=== PATIENT | female | born 1965 | race Two or more races ===

== ENCOUNTER → 2020-05-30 15:32 | Outpatient (BNVA) | payer OTHER, SELFPAY | PROVIDERS: PCP Internal Medicine; Referring Provider Internal Medicine; Visit Provider Nurse Practitioner | DX: K58.0 Irritable bowel syndrome with diarrhea (principal); K21.9 Gastro-esophageal reflux disease without esophagitis | CPT/HCPCS: 99212 ==

== ENCOUNTER → 2020-07-17 12:41 | Outpatient (BNVA) | payer OTHER, SELFPAY | PROVIDERS: PCP Internal Medicine; Referring Provider Internal Medicine; Visit Provider Student in an Organized Health Care Education/Training Program | DX: Z76.89 Persons encountering health services in other specified circumstances (principal) ==

== ENCOUNTER → 2020-09-04 12:45 | Outpatient (BNVA) | payer OTHER, SELFPAY | PROVIDERS: PCP Internal Medicine; Visit Provider Nurse Practitioner Family ==

== ENCOUNTER 2020-09-21 13:57 | Outpatient (REF) | payer OTHER, SELFPAY ==
[2020-09-26 21:22] LABS: HPV mRNA E6/E7 rflx Not Detected (Not Detected)
== END 2020-09-21 13:58 | disposition home or self-care (01) ==
LOC: HO.LAB 13:57
PROVIDERS: Visit Provider Advanced Practice Midwife
DX: Z01.419 Encounter for gynecological examination (general) (routine) without abnormal findings (principal); R10.2 Pelvic and perineal pain; N63.10 Unspecified lump in the right breast, unspecified quadrant; N95.0 Postmenopausal bleeding
CPT/HCPCS: 36415; 87624; 88142

== ENCOUNTER 2020-09-26 16:01 | Outpatient (REF) | payer OTHER, SELFPAY ==
--- NOTE | ~2020-09-26 | US_ITS ---
EXAMINATION: US PELVIS COMPLETE CLINICAL INFORMATION: Pelvic and perineal pain. COMPARISON: None TECHNIQUE: Transabdominal and transvaginal ultrasound of the pelvis is performed. FINDINGS: The uterus is anteverted and anteflexed measuring 6.8 cm in length, 2.1 cm in LIQUOR BLENDER, and 3.6 cm in transverse dimension. Endometrial thickness is 0.7 cm. There is an echogenic area with fluid within the endometrial canal, question hemorrhagic products. The uterus is homogeneous in echotexture. Both ovaries are not seen. No free fluid seen. US/US transvaginal IMPRESSION: Echogenic area seen within the endometrial canal, question hemorrhagic blood products or fluid collection. Correlate with hysterosonogram or clinical evaluation. Ovaries are not seen. There is no free fluid in the cul-de-sac.
--- NOTE | ~2020-09-26 | US_ITS ---
EXAMINATION: US PELVIS COMPLETE CLINICAL INFORMATION: Pelvic and perineal pain. COMPARISON: None TECHNIQUE: Transabdominal and transvaginal ultrasound of the pelvis is performed. FINDINGS: The uterus is anteverted and anteflexed measuring 6.8 cm in length, 2.1 cm in YARN COMBER, and 3.6 cm in transverse dimension. Endometrial thickness is 0.7 cm. There is an echogenic area with fluid within the endometrial canal, question hemorrhagic products. The uterus is homogeneous in echotexture. Both ovaries are not seen. No free fluid seen. US/US pelvic complete IMPRESSION: Echogenic area seen within the endometrial canal, question hemorrhagic blood products or fluid collection. Correlate with hysterosonogram or clinical evaluation. Ovaries are not seen. There is no free fluid in the cul-de-sac.
== END 2020-09-26 16:02 | disposition home or self-care (01) ==
LOC: HO.US 16:01
PROVIDERS: PCP Internal Medicine; Visit Provider Advanced Practice Midwife
DX: R10.2 Pelvic and perineal pain (principal); N95.0 Postmenopausal bleeding
CPT/HCPCS: 76830; 76856

== ENCOUNTER 2020-09-28 08:20 | Outpatient (REF) | payer OTHER, SELFPAY ==
--- NOTE | ~2020-09-28 | MM_ITS ---
EXAMINATION: MM DIAGNOSTIC DIGITAL BREAST TOMOSYNTHESIS, BILATERAL US DIAGNOSTIC ULTRASOUND BREAST, RIGHT CLINICAL INFORMATION: Due for yearly. Patient notes tender palpable area 1:00 right areolar with subtle erythema for approximately one week. Family history breast cancer, mother. The lifetime risk of breast cancer based on the Tyrer-Cuzick Model is 13%. COMPARISON: Mammography: 12/26/2015, 09/27/2014 TECHNIQUE: Digital breast tomosynthesis is performed in both the craniocaudal and mediolateral oblique views along with computer-aided detection (CAD). Synthesized 2D images are generated from the tomosynthesis. Ultrasound ultrasound right breast is targeted to the area of clinical concern using grayscale imaging and color Doppler without and with harmonics. Patient is able to the area of concern at time of imaging. FINDINGS: The breasts are heterogeneously dense, which may obscure small masses (ACR BI-RADS breast composition Category c). There is fine fibronodular parenchymal pattern similar to prior studies. There is no developing density or interval mass or architectural abnormality. No skin thickening or retraction or coarsening of the Matthias's ligaments. No significant changes from prior studies. Ultrasound right breast demonstrates a hypoechoic intradermal lesion at 1:00 areolar margin measuring 3.5 mm in thickness by 10 x 11 mm across. Lesion is parallel with the skin. There is no subdermal extension. Scant peripheral color flow is present. There is no duct ectasia. No cystic or solid breast mass. No edema tracking in soft tissue planes. Results are discussed with the patient at time of visit. MM/MM tomosynthesis diagnostic BI IMPRESSION: 1. Right: Intradermal hypoechoic lesion at site of palpable concern 1:00 areolar margin measuring 3.5 mm thickness by 10 x 11 mm across. Finding may represent sebaceous cyst or other complicated epidermal cyst. No subdermal extension. 2. Left: No mammographic evidence of malignancy. ASSESSMENT: BI-RADS 2: Benign RECOMMENDATION: 1. Patient's intradermal lesion right breast should be managed based on the clinical impression. If persistent or increasing, surgical consult may be considered for excision. 2. Otherwise, routine annual screening mammography. This patient's information was entered into a reminder system with a target due date for their next mammogram.
== END 2020-09-28 08:21 | disposition home or self-care (01) ==
LOC: HO.MAMMO 08:20
PROVIDERS: Visit Provider Advanced Practice Midwife
DX: N63.12 Unspecified lump in the right breast, upper inner quadrant (principal)
CPT/HCPCS: 76642; 77062; 77066

== ENCOUNTER → 2020-10-10 14:00 | Outpatient (REF) | payer OTHER, SELFPAY ==
--- NOTE | 2020-10-10 14:20 | CA_ITS ---
Transthoracic Echocardiogram Patient (Last, First, Middle): Giovanna Quigley J Gender: Female Date of : 1965 Age: 55 Procedure Date: 10/10/2020 Procedure Type: Transthoracic Echocardiogram Location: OP Height: 157.48 cm Weight: 69.85 kg BSA: 1.71 m2 Heart Rate: bpm BP: 134 / 89 mmHg Painter Ordnance: MARLYN Canales MD: Kassi BAH Director Payment: Jamie Hurst MD Symptoms: I25.10 - Atherosclerotic heart disease of [place] coronary artery without angina pectoris Study Quality: Fair ECG Rhythm: Sinus tachycardia Conclusions: - 1. Normal LV systolic function with grade 1 diastolic dysfunction 2. Normal cardiac valvular Doppler 3. Normal RV systolic pressure 4. No pericardial effusion Findings Left Ventricle Normal left ventricular size, thickness, and systolic function. The visually estimated ejection fraction is between 55-60%. Spectral Doppler is indicative of an impaired relaxation filling pattern. E/E prime ratio is <8, consistent with normal filling pressures. Evidence suggests grade I (mild) diastolic dysfunction. Right Ventricle Normal right ventricular cavity size and systolic function. Atria The left atrium is normal in size. Interatrial shunt cannot be excluded. The right atrium is normal in size. Aortic Valve The aortic valve was not well visualized. There is no aortic valve stenosis. There is no aortic valve regurgitation. Mitral Valve Likely normal mitral valve structure and function. There is trace mitral valve regurgitation. There is no mitral valve stenosis. Pulmonic Valve The pulmonic valve was not well visualized. Tricuspid Valve Likely normal tricuspid valve structure and function. There is trace tricuspid valve regurgitation. The right ventricular systolic pressure is normal. The right ventricular systolic pressure is 23 mmHg. Normal right atrial pressure. There is no evidence of pulmonary hypertension. Great Vessels All visible segments of the aorta are normal in size. The pulmonary artery was not well visualized. Venous The inferior vena cava is normal in size and collapses greater than 50% with inspiration. Pericardium/Pleural There is no evidence of pericardial effusion. Prior Study Comparison Changes noted compared to prior study dated: 06/16/2019. LV systolic function marginally improved Measurements 2D Linear Measurements IVSd: 1.09 0.6-0.9/0.6-1.0 cm LVIDd: 4.38 3.9-5.3/4.2-5.9 cm LVIDd Index: 2.56 2.4-3.2/2.2-3.1 cm/m2 LVIDs: 3.09 2.0-3.6 cm LVPWd: 1.03 0.7-1.1 cm Ao Root: 3.00 2.1-3.5 cm LA Diam: 2.90 2.7-3.8/3.0-4.0 cm LAIDs Index: 1.70 1.5-2.3 cm/m2 LV Mass: 198.22 67-162/88-224 g LV Mass Index: 115.92 43-95/49-115 g/m2 LVOT Diam: 2.00 3.0+(-)1.3 cm Mitral Valve E'Lateral: 12.00 Aortic Valve AoV Pk Santino: 1.79 AoV Mn Santino: 1.15 AoV VTI: 0.27 AoV Pk Grad: 13.00 Aov Mn Grad: 6.00 HINA Cont.VTI: 1.86 LVOT LVOT Pk Santino: 0.91 LVOT Mn Santino: 0.57 LVOT VTI: 0.16 LVOT Pk Grad: 3.00 LVOT Mn Grad: 2.00 LVOT Diam: 2.00 LVOT Area: 3.14 Diastolic Function E' Laterial: 12.00 Tricuspid Valve TR Pk Santino: 2.25 TR Pk Grad: 20.00 RA Press: 3.00 RVSP: 23.00 Great Vessels Aorta Ao Root-2D: 3.00 2.0-3.7 cm Ao Asc: 2.80 2.1-3.4 cm Ao Arch: 2.80 Updated in Other Vendor System with Status of Final Jamie Hurst MD electronically signed on 10/11/2020 5:21:31 PM with status of Final
== END ==
LOC: HO.CARD 14:00
PROVIDERS: PCP Internal Medicine; Visit Provider Nurse Practitioner Family
DX: I25.10 Atherosclerotic heart disease of native coronary artery without angina pectoris (principal); I10 Essential (primary) hypertension; Z95.5 Presence of coronary angioplasty implant and graft
CPT/HCPCS: 93306

== ENCOUNTER → 2020-10-23 10:54 | Outpatient (BNVA) | payer OTHER, SELFPAY | PROVIDERS: PCP Internal Medicine; Visit Provider Advanced Practice Midwife | DX: Z01.419 Encounter for gynecological examination (general) (routine) without abnormal findings (principal); R10.2 Pelvic and perineal pain; N95.0 Postmenopausal bleeding ==

== ENCOUNTER 2020-10-24 15:16 | Outpatient (REF) | payer OTHER, SELFPAY ==
[2020-10-25 14:31] LABS: BV Int Neg Control Negative (Negative); BV Int Pos Control Positive (Positive)
== END 2020-10-24 15:17 | disposition home or self-care (01) ==
LOC: HO.LAB 15:16
PROVIDERS: PCP Internal Medicine; Visit Provider Advanced Practice Midwife
DX: L73.8 Other specified follicular disorders (principal); R10.2 Pelvic and perineal pain; N89.8 Other specified noninflammatory disorders of vagina; I25.10 Atherosclerotic heart disease of native coronary artery without angina pectoris; I10 Essential (primary) hypertension; E78.5 Hyperlipidemia, unspecified; R73.03 Prediabetes; Z87.891 Personal history of nicotine dependence; Z88.5 Allergy status to narcotic agent; Z88.0 Allergy status to penicillin; Z88.8 Allergy status to other drugs, medicaments and biological substances; Z88.6 Allergy status to analgesic agent; Z91.041 Radiographic dye allergy status; Z91.040 Latex allergy status; Z78.0 Asymptomatic menopausal state; Z86.19 Personal history of other infectious and parasitic diseases
CPT/HCPCS: 87480; 87510; 87660; 99212

== ENCOUNTER → 2020-10-31 11:14 | Outpatient (BNVA) | payer OTHER, SELFPAY | PROVIDERS: PCP Internal Medicine; Visit Provider Nurse Practitioner Family | DX: I25.10 Atherosclerotic heart disease of native coronary artery without angina pectoris (principal); I10 Essential (primary) hypertension; E78.5 Hyperlipidemia, unspecified; Z87.59 Personal history of other complications of pregnancy, childbirth and the puerperium; Z95.5 Presence of coronary angioplasty implant and graft; Z79.899 Other long term (current) drug therapy; Z87.891 Personal history of nicotine dependence | CPT/HCPCS: 93005; 99212 ==

== ENCOUNTER → 2020-11-20 14:15 | Outpatient (BNVA) | payer OTHER, SELFPAY | PROVIDERS: Visit Provider Obstetrics & Gynecology ==

== ENCOUNTER → 2020-11-29 14:27 | Outpatient (BNVA) | payer OTHER, SELFPAY | PROVIDERS: PCP Internal Medicine; Visit Provider Nurse Practitioner ==

== ENCOUNTER 2020-12-05 11:49 | Outpatient (REF) | payer OTHER, SELFPAY | END 2020-12-05 11:50 | disposition home or self-care (01) | LOC: HO.LAB 11:49 | PROVIDERS: PCP Internal Medicine; Visit Provider Advanced Practice Midwife | DX: Z76.89 Persons encountering health services in other specified circumstances (principal); N76.4 Abscess of vulva | CPT/HCPCS: 56405; 87071; 87147; 87186; 87205 ==

== ENCOUNTER 2020-12-12 14:31 | Outpatient (REF) | payer OTHER, SELFPAY ==
[2020-12-13 09:54] LABS: BV Int Neg Control Negative (Negative); BV Int Pos Control Positive (Positive)
== END 2020-12-12 14:32 | disposition home or self-care (01) ==
LOC: HO.LAB 14:31
PROVIDERS: PCP Internal Medicine; Visit Provider Advanced Practice Midwife
DX: N89.8 Other specified noninflammatory disorders of vagina (principal); N90.7 Vulvar cyst; Z98.890 Other specified postprocedural states
CPT/HCPCS: 87480; 87510; 87660; 99212

== ENCOUNTER → 2020-12-21 08:39 | Outpatient (REF) | payer OTHER, SELFPAY ==
--- NOTE | ~2020-12-21 | NM_ITS ---
Exercise Myocardial perfusion study Indication: Chest pain to evaluate for myocardial ischemia Technique: The patient was brought in for an exercise perfusion study on 12/21/2020. Patient performed exercise as per Gregg protocol and was injected 25 mCi of sestamibi was given intravenously one target HR was achieved. Images were obtained using the SPECT gamma camera interlaced with the gating device. Images were obtained in supine position. Resting perfusion study was performed on 12/25/2020. Patient was administered 25 mCi of sestamibi intravenously at rest. Images were then obtained in supine position. Images obtained with and without CT attenuation. Total DLP 101 mGy-cm. Images were processed with the software and compared side to side in short axis, horizontal long axis and vertical long axis views. Findings: The stress perfusion study showed non attenuated images show normal uptake of radiotracer in all segments of LV myocardium. Attenuation corrected images show mildly reduced uptake in the distal septum and apex of the LV myocardium.. The gated study shows normal LV systolic function with calculated LVEF of 55%. LV cavity is normal in size. The gated study shows normal systolic wall thickening and contraction of all segments. There is no transient ischemic dilation. Resting study shows non attenuated images show mildly reduced uptake in the apex of the LV myocardium. Attenuation corrected images show moderately reduced uptake in the apex and mildly reduced uptake in the distal anterior wall of the LV myocardium.. Gating at rest reveals normal systolic wall motion with visually estimated ejection fraction at greater than 55%. The findings are consistent with normal myocardial perfusion. NM/NM cardiolite stress test Impression: 1. Normal myocardial perfusion 2. Gated LVEF is 55% 3. Transient ischemic dilatation not present Stress EKG is nondiagnostic for ischemia
--- NOTE | 2020-12-21 08:30 | CA_ITS ---
Acquisition Time: 2020-12-21 08:41:00 Total Exercise Time: 00:03:15 Test Indications: cp, sob Medications: see chart Protocol: TIA Max HR: 144 BPM 87% of Pred: 164 BPM Max BP: 180/110 mmHG Max Work Load: 4.9 METS Exercise stress test with exercise 3 min 15 sec of Tia protocol, with 2/10 mid chest pressure at baseline ( which never goes away ) that increased to 8/10 with walking and mild to mod sob and request to slow exercise, without EKG changes meeting criteria for ischemia. Treadmill placed in recovery and slowed to 1mph. Testing changed to pharmacological stress test with Lexiscan, without change in symptoms, without arrythmia, with normotensive response to injection, with downsloping ST segments without ST depression. In recovery her chest discomfort gradually returned to baseline and sob resolved. Nuclear images pending. Test reveiwed with Dr Downey. Referred By: Trevin Chaves Overread By: FARHANA MIX
== END ==
LOC: HO.CARD 08:39
PROVIDERS: Visit Provider Internal Medicine Cardiovascular Disease
DX: R07.9 Chest pain, unspecified (principal); I25.10 Atherosclerotic heart disease of native coronary artery without angina pectoris; Z95.5 Presence of coronary angioplasty implant and graft
CPT/HCPCS: 78452; 93016; 93017; 93018; A9500; J2785

== ENCOUNTER → 2020-12-28 13:42 | Outpatient (BNVA) | payer OTHER, SELFPAY | PROVIDERS: PCP Internal Medicine; Visit Provider Obstetrics & Gynecology | DX: N95.0 Postmenopausal bleeding (principal) | CPT/HCPCS: 99212 ==

== ENCOUNTER 2021-01-01 08:13 | Outpatient (REF) | payer OTHER, SELFPAY ==
--- NOTE | ~2021-01-01 | XR_ITS ---
EXAMINATION: XR ELBOW, RIGHT CLINICAL INFORMATION: Pain in elbow COMPARISON: 03/08/2019 left elbow, 10/14/2016 right elbow TECHNIQUE: AP, lateral, and oblique views of the right elbow. FINDINGS: The bones and soft tissues are normal. No fracture or joint effusion. Alignment is anatomic. Joint spaces are maintained. XR/XR elbow RT min 3V IMPRESSION: Normal right elbow.
== END 2021-01-01 08:14 | disposition home or self-care (01) ==
LOC: HO.HOSX 08:13
PROVIDERS: Visit Provider Physician Assistant
DX: M77.01 Medial epicondylitis, right elbow (principal)
CPT/HCPCS: 73080; 99202

== ENCOUNTER 2021-01-24 12:25 | Day surgery (SDC) | payer OTHER, SELFPAY ==
[2021-01-22 09:59] VITALS: BMI 25.2
[2021-01-24] VITALS (11 sets, daily range): BP systolic 82–157; BP diastolic 59–97; PULSE 73–92; RESP 7–20; TEMP 36–36.4; O2SAT 94–100
--- NOTE | 2021-01-24 12:55 | HO.ANESPROP2 ---
HPI - Anesthesia Eval Consult details Narrative: 55 yo female patient for D&C, hysteroscopy PMF Active Problems Active Problems: All Active Problems (Updated 01/11/21 @ 19:27 by Chen Pond MD) Insomnia (Acute) Renal calculi (Acute) Medial epicondylitis, right elbow (Acute) Lateral epicondylitis of right elbow (Acute) Elbow pain (Acute) Thoracic spondylosis with radiculopathy (Acute) Epigastric pain (Acute) Chest pain (Acute) Skin lumps (Acute) Encounter to discuss test results (Acute) Postmenopausal bleeding (Acute) Lump of right breast (Acute) Pelvic pain in female (Acute) Breast lump (Acute) Encounter for annual routine gynecological examination (Acute) cardiomyopathy (Acute ~2003) Stented coronary artery (Acute ~2006) CAD (coronary artery disease) (Acute) Dyslipidemia (Acute) Essential hypertension (Acute) Fibromyalgia (Acute) Irritable bowel syndrome with diarrhea (Acute) GERD (gastroesophageal reflux disease) (Acute) Past Medical History Medical History (Updated 01/24/21 @ 13:07 by Felipa Salter) CAD (coronary artery disease) COVID-19 Dyslipidemia Essential hypertension Fibromyalgia Insomnia Lower extremity edema cardiomyopathy (~2003) Renal calculi Shortness of breath Family History Family History Father CVD (cardiovascular disease) HTN (hypertension) Cancer Type 2 diabetes mellitus Mother Breast cancer HTN (hypertension) Family/Other Diabetes Family history of problems with anesthesia: No Surgical History Surgical History Hx of colonoscopy Hx of endoscopy Stented coronary artery (~2006) History of Problems with Anesthesia: No Social History Social History Household Members: Children Housing: Apartment Alcohol intake: never Patient Tobacco Use Status: Former Tobacco user Tobacco use type: Cigarette Years Smoked: 3 months e-Cigarette/Vaping Use: Never Used Second Hand Smoke Exposure: No Advance Directives: No Advance Directives Information Provided: Yes service: No Current occupational status: disabled Gender identity: female Meds Allergies Allergy/AdvReac Type Severity Reaction Status Date / Time carvedilol [Coreg] Allergy Intermediate hives Verified 01/24/21 13:12 codeine Allergy Intermediate hives Verified 01/24/21 13:12 latex [LATEX] Allergy Intermediate RASH Verified 01/24/21 13:12 lisinopril Allergy Intermediate hives Verified 01/24/21 13:12 metronidazole [Flagyl] Allergy Intermediate diarrhea Verified 01/24/21 13:12 oxycodone [OXYCODONE] Allergy Intermediate RASH/HIVES Verified 01/24/21 13:12 Penicillins [PENICILLINS] Allergy Intermediate limp legs Verified 01/24/21 13:12 Iodinated Contrast Media Allergy Mild RASH/HIVES Verified 01/24/21 13:12 [IV Dye, Iodine Containing] topiramate AdvReac Intermediate ineffective Verified 01/24/21 13:12 Home Medications Medication Instructions Recorded Confirmed Last Taken Type cyclobenzaprine 5 mg tablet 5 mg PO BEDTIME 07/17/20 01/10/21 Unknown History metoprolol succinate 50 mg 50 mg PO DAILY 07/17/20 01/10/21 Unknown History tablet,extended release 24 hr furosemide 20 mg tablet 10 mg PO DAILY PRN tab 11/29/20 01/10/21 Unknown History Exam Exam Date and Time: January 24, 2021 1255 Height,Weight and Vital Signs: Height 5 ft 2 in Weight 62.596 kg Vital Signs Temp Pulse Resp BP Pulse Ox 01/24/21 13:10 97.4 F 86 20 157/97 H 99 Narrative Narrative: EKG 10/31/20: [id number].76 Date of Service: 12/21/20 Procedure(s): NM cardiolite stress test Impression: 1. Normal myocardial perfusion 2. Gated LVEF is 55% 3. Transient ischemic dilatation not present Stress EKG is nondiagnostic for ischemia Date of Service: 10/10/20 Procedure(s): CA echo transthoracic complete Conclusions: - 1. Normal LV systolic function with grade 1 diastolic dysfunction. EF 55-60% 2. Normal cardiac valvular Doppler 3. Normal RV systolic pressure 4. No pericardial effusion Spectral Doppler is indicative of an impaired relaxation filling pattern. Has contact lens Right eye. Sleeps with contact lens in. Will leave in place Airway Mallampati Class: II TM Dist: >3cm Neck ROM: Full Partial: Upper and Lower Heart: RRR + murmur Lungs: CTAB Assessment and Plan Assessment Anesthesia Assessment: Anesthesia Plan Discussed and Chart Reviewed Final Anesthetic Review NPO: Yes ASA Class: III Final Preanesthetic Review: No Changes in Pt Med Stat, Meds/Allgs Chart Reviewed, Consent Obtained/Reviewed and Anes Risks/Benef Reviewed Patient Risk: Intermediate Procedure Risk: Low Assessment/Block/Sedation in SS: Assess/Block/Sedation-SS Anesthetic Plan Anesthetic Plan: GA Disposition: Standard PACU
--- NOTE | 2021-01-24 13:09 | MHC.SHP ---
Pre-Procedural Eval Section A Date of Service: 01/24/21 The patient is an INPATIENT: No Changes since office visit: No Cold of Flu in the past 2 weeks, No New Medical Problems, No Changes in Medication and No Patient answered all questions The History & Physical has been completed within 30 days and I have reviewed it.: Yes Section B Chief Complaint: postmenopausal bleeding Allergies: Allergies Allergy/AdvReac Type Severity Reaction Status Date / Time carvedilol [Coreg] Allergy Intermediate hives Verified 01/10/21 16:20 codeine Allergy Intermediate hives Verified 01/10/21 16:20 latex [LATEX] Allergy Intermediate RASH Verified 01/10/21 16:20 lisinopril Allergy Intermediate hives Verified 01/10/21 16:20 metronidazole [Flagyl] Allergy Intermediate diarrhea Verified 01/10/21 16:20 oxycodone [OXYCODONE] Allergy Intermediate RASH/HIVES Verified 01/10/21 16:20 Penicillins [PENICILLINS] Allergy Intermediate limp legs Verified 01/10/21 16:20 Iodinated Contrast Media Allergy Mild RASH/HIVES Verified 01/10/21 16:20 [IV Dye, Iodine Containing] topiramate AdvReac Intermediate ineffective Verified 01/10/21 16:20 Plan I have reviewed the history and physical and performed a pertinent physical examination on my patient. No changes have occurred unless specified.
--- NOTE | 2021-01-24 13:10 | W.PM.OPN ---
Operative Note Operative Note Date of Service: 01/24/21 Narrative: Pre-Op Diagnoses: postmenopausal bleeding, thickened endometrium on ultrasound Post-op Diagnoses: postmenopausal bleeding, thickened endometrium on ultrasound Procedures performed: hysteroscopy dilation and curettage with myosure [place] Machine Operator: none Complications: none Specimens: endometrial curettings Fluid Deficit: 290mL Ms. Quigley is a 55 year old postmenopausal with postmenopausal bleeding. She presents today for hysteroscopy d&c for further evaluation after pelvic US demonstrated a thickened endometrial lining of 7mm. Surgical Risks: The patient was informed of the risks and benefits of a hysteroscopy with dilation and curettage. Risks included but were not limited to bleeding, infection, injury to the vulva, vagina, or cervix, and uterine perforation with possible need for further surgery. The patient expressed understanding of the risks involved, all questions were answered, and the patient consented to the procedure. The patient was taken to the operating room where a time out was confirmed to confirm correct patient and correct procedure. Adequate general anesthesia was established. The patient was then positioned on the operating table in the dorsal lithotomy position with her legs supported using stirrups. All pressure points were padded and a warm blanket was placed to maintain control of core body temperature. The patient was then prepped and draped in the usual sterile fashion. A bimanual exam was performed and the uterus was found to be approximately 6 cm size, anteverted. No adnexal masses were palpated. A straight catheter was inserted into the bladder and 50mL of urine was obtained. A bivalve speculum was then inserted into the vagina. The anterior lip of the cervix was visualized and grasped using a single tooth tenaculum. A paracervical block was performed by injecting 0.5% bupivicaine, 6mL each at 4 and 8 o'clock after withdrawing to confirm placement not in a blood vessel. The cervix was adequately dilated using Mcdaniel dilators for the introduction of the hysteroscope. The hysteroscope was introduced under direct visualization using normal saline solution as the distending media. Creation of a false passage which terminated in posterior myometrium was noted. The hysteroscope was advanced to the fundus and the entire uterine cavity was inspected. Atrophic appearing endometrium was noted; polypoid appearing tissue was noted in the cervical canal. The myosure device was advanced and curettage performed covering the endometrial surface. in 360 degrees. The hysteroscope was then removed with the Myosure within the hysteroscope. Endometrial tissue was obtained and was sent to pathology. Following the curetting, good hemostasis was noted. The single-tooth tenaculum was removed from the anterior lip of the cervix and hemostasis was also noted at the tenaculum puncture sites. The speculum was then removed from the vagina. At the end of the procedure, all needle, sponge, and instrument counts were noted to be correct x2. The patient was transferred to the recovery room in stable condition.
[2021-01-24] MEDS: Lactated Ringers 1,000 ML 100 ML IVCONT (13:33)
[2021-01-24] MEDS: Ketorolac Tromethamine 15 MG/ML VIAL IVPUSH (14:40)
[2021-01-24] MEDS: fentaNYL citrate/PF 100 MCG/2 ML VIAL 25 MCG IVPUSH ×2 (14:40→14:52)
[2021-01-24] MEDS: HYDROcodone Bit/Acetam 5/325 TABLET 1 TAB PO (14:40)
== END 2021-01-24 16:00 | disposition home or self-care (01) ==
LOC: HO.SSS 12:26
PROVIDERS: PCP Internal Medicine; Visit Provider Obstetrics & Gynecology
PROC: 0UDB8ZZ Extraction of Endometrium, Via Natural or Artificial Opening Endoscopic (ICD-10-PCS; CPT 58558; principal; 2021-01-24 14:30)
DX: N95.0 Postmenopausal bleeding (principal); N84.1 Polyp of cervix uteri; N85.8 Other specified noninflammatory disorders of uterus; I10 Essential (primary) hypertension; Z79.82 Long term (current) use of aspirin; Z79.899 Other long term (current) drug therapy; Z88.0 Allergy status to penicillin; Z88.8 Allergy status to other drugs, medicaments and biological substances; Z91.040 Latex allergy status; Z91.041 Radiographic dye allergy status; Z87.891 Personal history of nicotine dependence
CPT/HCPCS: 58558; 88305; J1100; J1885; J2250; J2405; J3010

== ENCOUNTER 2021-02-04 09:57 | Outpatient (RCR) | payer OTHER, SELFPAY ==
--- NOTE | 2021-02-19 08:28 | MHC.OT.DC ---
[address] [phone] F: [phone] Occupational Therapy Discharge Note Provider: Guillermina High PA-C Diagnosis: Right medial and radial epicondylitis Date of Evaluation: 02/04/21 Date of Discharge: 02/19/21 Treatments to Date: 1 Cancellations to Date: 5 No Shows to Date: 1 Discharge Status: Visit Non-compliance Discharge Summary: Giovanna was seen for her initial OT Evaluation, but has not returned since and has had multiple cancellations and no-shows. We will discharge today due to our visit non-compliance policy. Electronically Signed By: Alice Jensen OTR/L Please Sign and return to therapist, thank you for your referral.
== END 2021-02-19 08:29 | disposition home or self-care (01) ==
LOC: HO.OT 09:57
PROVIDERS: PCP Internal Medicine; Visit Provider Physician Assistant
DX: M77.01 Medial epicondylitis, right elbow (principal)
CPT/HCPCS: 97166

== ENCOUNTER 2021-02-04 11:23 | Outpatient (REF) | payer OTHER, SELFPAY ==
[2021-02-04 13:32] LABS: Alanine Aminotransferase 20 U/L (0-31); Albumin Level 4.1 g/dL (3.5-5.0); Alkaline Phosphatase 95 U/L (39-117); Anion Gap 14 (12-20); Aspartate Amino Transferase 12 U/L (5-31); Bilirubin Total 0.6 mg/dL (0.0-1.0); Blood Urea Nitrogen 9 mg/dL (9-16); Calcium 9.9 mg/dL (8.4-10.2); Carbon Dioxide 27 mmol/L (22-29); Chloride 101 mmol/L (96-108); Cholesterol 183 mg/dL; Estimated Glomerular Filt Rate 54; Glucose Fasting 415 mg/dL (60-99); HDL Cholesterol 41 mg/dL; LDL Cholesterol Calculated 121 mg/dl; Potassium 4.7 mmol/L (3.3-5.1); Sodium 137 mmol/L (135-145); Total Protein 6.8 g/dL (6.5-8.0); Triglycerides 108 mg/dL
== END 2021-02-04 11:24 | disposition home or self-care (01) ==
LOC: HO.LAB 11:23
PROVIDERS: PCP Internal Medicine; Visit Provider Internal Medicine
DX: E78.5 Hyperlipidemia, unspecified (principal); M25.529 Pain in unspecified elbow
CPT/HCPCS: 36415; 80053; 80061

== ENCOUNTER → 2021-02-05 10:57 | Outpatient (BNVA) | payer OTHER, SELFPAY | PROVIDERS: PCP Internal Medicine; Visit Provider Advanced Practice Midwife ==

== ENCOUNTER 2021-02-25 10:20 | Outpatient (REF) | payer OTHER, SELFPAY ==
--- NOTE | ~2021-02-25 | US_ITS ---
EXAMINATION: US RETROPERITONEAL LIMITED (RENAL ONLY) CLINICAL INFORMATION: Calculus of kidney. COMPARISON: Renals only ultrasounds dated 02/23/2019 and 01/19/2019. KUBs dated 01/26/2019 and 12/29/2018. CT abdomen and pelvis without contrast dated 09/04/2018. TECHNIQUE: Real-time imaging of the kidneys. FINDINGS: RIGHT KIDNEY: 10.6 x 3.7 x 5.2 cm (SAG x AP x TRV). The kidney is normal in size, contour, and echogenicity. Renal cortical thickness is normal. No calculi or focal parenchymal lesions. No hydronephrosis. LEFT KIDNEY: 11.0 x 4.4 x 4.8 cm (SAG x AP x TRV). The kidney is normal in size, contour, and echogenicity. Renal cortical thickness is normal. No focal parenchymal lesions or hydronephrosis. Cluster of echogenic stones in lower pole measuring 0.8 x 0.2 x 0.3 cm. There is a second echogenic area measuring 0.5 x 0.2 x 0.3 cm overlying the left mid pelvis, question calcification. US/US renal BI IMPRESSION: Unremarkable right kidney. Cluster of echogenic stones in the lower pole and calcifications versus echogenic stone in midpole of left kidney. There is no caliectasis or hydronephrosis.
== END 2021-02-25 10:21 | disposition home or self-care (01) ==
LOC: HO.US 10:20
PROVIDERS: Visit Provider Internal Medicine
DX: N20.0 Calculus of kidney (principal)
CPT/HCPCS: 76775

== ENCOUNTER → 2021-03-15 10:26 | Outpatient (BNVA) | payer OTHER, SELFPAY | PROVIDERS: PCP Internal Medicine; Visit Provider Nurse Practitioner ==

== ENCOUNTER 2021-04-10 10:12 | Outpatient (REF) | payer OTHER, SELFPAY | END 2021-04-10 10:13 | disposition home or self-care (01) | LOC: HO.XRAY 10:12 | PROVIDERS: PCP Internal Medicine; Visit Provider Nurse Practitioner | DX: Z13.89 Encounter for screening for other disorder (principal) ==

== ENCOUNTER → 2021-04-17 10:29 | Outpatient (BNVA) | payer OTHER, SELFPAY | PROVIDERS: PCP Internal Medicine | DX: N20.0 Calculus of kidney (principal) | CPT/HCPCS: 81002; 99212 ==

== ENCOUNTER 2021-04-18 08:57 | Outpatient (REF) | payer OTHER, SELFPAY ==
--- NOTE | ~2021-04-18 | US_ITS ---
EXAMINATION: US ABDOMEN COMPLETE CLINICAL INFORMATION: Epigastric pain. COMPARISON: Renal ultrasound 02/25/2021 and 02/23/2019. KUB 01/26/2019 and 12/29/2018. CT abdomen and pelvis 09/04/2018. TECHNIQUE: Real-time imaging of the abdominal viscera. FINDINGS: PANCREAS: Normal. ABDOMINAL AORTA: The proximal, mid, and distal segments are normal in caliber. INFERIOR VENA CAVA: Visualized portions are normal. LIVER: The liver is normal in size. The liver contour is normal. Slightly heterogeneous hepatic echotexture with increased echogenicity suggesting hepatic steatosis. No focal hepatic lesion. There is no intrahepatic biliary duct dilatation seen. GALLBLADDER: Normal. The gallbladder is physiologically distended without evidence of stones, sludge, polyps, wall thickening or pericholecystic fluid. Sonographic Stanley sign is negative. COMMON BILE DUCT: Normal in caliber measuring 0.4 cm in diameter. RIGHT KIDNEY: Right-sided nephrolithiasis the largest measuring 4 mm in the interpolar region. Extrarenal pelvis identified. No hydronephrosis or focal parenchymal lesions. The kidney measures 10.4 cm in maximum dimension. LEFT KIDNEY: Left-sided nephrolithiasis the largest measuring 8 mm in the lower pole. Extrarenal pelvis identified. No hydronephrosis or focal parenchymal lesions. The kidney measures 10.4 cm in maximum dimension. SPLEEN: Normal. The spleen measures 8.8 cm in maximum dimension. FREE FLUID: None. US/US abdomen complete IMPRESSION: 1. Slightly heterogeneous hepatic echotexture with increased echogenicity suggesting hepatic steatosis. 2. Bilateral nephrolithiasis largest measuring 8 mm in the left renal lower pole without hydronephrosis.
== END 2021-04-18 08:58 | disposition home or self-care (01) ==
LOC: HO.US 08:57
PROVIDERS: PCP Internal Medicine; Visit Provider Nurse Practitioner
DX: R10.13 Epigastric pain (principal); K21.9 Gastro-esophageal reflux disease without esophagitis; K58.0 Irritable bowel syndrome with diarrhea; M79.7 Fibromyalgia; M47.24 Other spondylosis with radiculopathy, thoracic region
CPT/HCPCS: 76700

== ENCOUNTER 2021-04-24 11:51 | Day surgery (SDC) | payer OTHER, SELFPAY ==
--- NOTE | 2021-04-23 10:45 | P.CONAN_ITS ---
Documented by User: Viola Franz NP 04/23/21 10:50 HPI - Anesthesia Eval Consult details Narrative: 55yo F for Upper Endoscopy *Multiple Allergies* s/p D&C hyst 01/2021 with GA-LMA 4 PMFSH Active Problems Active Problems: All Active Problems (Updated 02/04/21 @ 13:44 by Chen Pond MD) History of biopsy (Acute) Diabetes mellitus (Acute) Lower extremity edema (Acute) Shortness of breath (Acute) Insomnia (Acute) Renal calculi (Acute) Medial epicondylitis, right elbow (Acute) Lateral epicondylitis of right elbow (Acute) Elbow pain (Acute) Thoracic spondylosis with radiculopathy (Acute) Epigastric pain (Acute) Chest pain (Acute) Skin lumps (Acute) Encounter to discuss test results (Acute) Postmenopausal bleeding (Acute) Lump of right breast (Acute) Pelvic pain in female (Acute) Breast lump (Acute) Encounter for annual routine gynecological examination (Acute) cardiomyopathy (Acute ~2003) Stented coronary artery (Acute ~2006) CAD (coronary artery disease) (Acute) Dyslipidemia (Acute) Essential hypertension (Acute) Fibromyalgia (Acute) Irritable bowel syndrome with diarrhea (Acute) GERD (gastroesophageal reflux disease) (Acute) Past Medical History Medical History CAD (coronary artery disease) COVID-19 Diabetes mellitus Dyslipidemia Essential hypertension Fibromyalgia Insomnia Lower extremity edema cardiomyopathy (~2003) Renal calculi Shortness of breath Family History Family History Father CVD (cardiovascular disease) HTN (hypertension) Cancer Type 2 diabetes mellitus Mother Breast cancer HTN (hypertension) Family/Other Diabetes Family history of problems with anesthesia: No Surgical History Surgical History Hx of colonoscopy Hx of endoscopy Stented coronary artery (~2006) History of Problems with Anesthesia: No Social History Social History Household Members: Children Housing: Apartment Alcohol intake: never Patient Tobacco Use Status: Former Tobacco user Tobacco use type: Cigarette Years Smoked: 3 months e-Cigarette/Vaping Use: Never Used Second Hand Smoke Exposure: No Use of substances other than those prescribed or required for medical reasons: No Are you DNR?: No Advance Directives: No Advance Directives Information Provided: Yes Advance Directives on File: No service: No Current occupational status: disabled Gender identity: Female Meds Allergies Allergy/AdvReac Type Severity Reaction Status Date / Time carvedilol [Coreg] Allergy Intermediate hives Verified 03/15/21 10:26 codeine Allergy Intermediate hives Verified 03/15/21 10:26 latex [LATEX] Allergy Intermediate RASH Verified 03/15/21 10:26 lisinopril Allergy Intermediate hives Verified 03/15/21 10:26 metronidazole [Flagyl] Allergy Intermediate diarrhea Verified 03/15/21 10:26 oxycodone [OXYCODONE] Allergy Intermediate RASH/HIVES Verified 03/15/21 10:26 Penicillins [PENICILLINS] Allergy Intermediate limp legs Verified 03/15/21 10:26 Iodinated Contrast Media Allergy Mild RASH/HIVES Verified 03/15/21 10:26 [IV Dye, Iodine Containing] topiramate AdvReac Intermediate ineffective Verified 03/15/21 10:26 Home Medications Medication Instructions Recorded Confirmed Last Taken Type metoprolol succinate 50 mg 50 mg PO DAILY 07/17/20 01/10/21 Unknown History tablet,extended release 24 hr furosemide 20 mg tablet 10 mg PO DAILY PRN tab 11/29/20 01/10/21 Unknown History Exam Exam Date and Time: April 23, 2021 1045 Pertinent Lab Results Pertinent Lab Results: Laboratory Tests 09/05/19 02/04/21 19:49 11:37 WBC 6.7 Hgb 13.6 Hct 39.0 Plt Count 278 Sodium 137 Potassium 4.7 Chloride 101 Carbon Dioxide 27 BUN 9 Creatinine 1.06 Narrative Narrative: EKG 10/31/20: [id number].76 Date of Service: 12/21/20 Procedure(s): NM cardiolite stress test Impression: ? 1.? Normal myocardial perfusion 2.? Gated LVEF is 55% 3. Transient ischemic dilatation not present ? Stress EKG is nondiagnostic for ischemia Date of Service: 10/10/20 Procedure(s): CA echo transthoracic complete Conclusions: -? 1. Normal LV systolic function with grade 1 diastolic? dysfunction. EF 55-60%? 2. Normal cardiac valvular Doppler? 3. Normal RV systolic pressure? 4. No pericardial effusion? Spectral Doppler is indicative of an impaired relaxation filling pattern.? Assessment and Plan Assessment Anesthesia Assessment: Chart Reviewed Final Anesthetic Review Family History of Problems with Anesthesia: No History of Problems with Anesthesia: No Documented by User: Felipa Salter MD 04/24/21 13:04 [facility] Active Problems Active Problems: All Active Problems (Updated 02/04/21 @ 13:44 by Chen Pond MD) History of biopsy (Acute) Diabetes mellitus (Acute) Lower extremity edema (Acute) Shortness of breath (Acute) Insomnia (Acute) Renal calculi (Acute) Medial epicondylitis, right elbow (Acute) Lateral epicondylitis of right elbow (Acute) Elbow pain (Acute) Thoracic spondylosis with radiculopathy (Acute) Epigastric pain (Acute) Chest pain (Acute) Skin lumps (Acute) Encounter to discuss test results (Acute) Postmenopausal bleeding (Acute) Lump of right breast (Acute) Pelvic pain in female (Acute) Breast lump (Acute) Encounter for annual routine gynecological examination (Acute) cardiomyopathy (Acute ~2003) Stented coronary artery (Acute ~2006). On baby aspirin CAD (coronary artery disease) (Acute). Stable angina. Has NTG but has not needed to use. Dyslipidemia (Acute) Essential hypertension (Acute) Fibromyalgia (Acute) Irritable bowel syndrome with diarrhea (Acute) GERD (gastroesophageal reflux disease) (Acute) Past Medical History Medical History CAD (coronary artery disease) COVID-19 Diabetes mellitus Dyslipidemia Essential hypertension Fibromyalgia Insomnia Lower extremity edema cardiomyopathy (~2003) Renal calculi Shortness of breath Family History Family History Father CVD (cardiovascular disease) HTN (hypertension) Cancer Type 2 diabetes mellitus Mother Breast cancer HTN (hypertension) Family/Other Diabetes Surgical History Surgical History Hx of colonoscopy Hx of endoscopy Stented coronary artery (~2006) Social History Social History Household Members: Children Housing: Apartment Alcohol intake: never Patient Tobacco Use Status: Former Tobacco user Tobacco use type: Cigarette Years Smoked: 3 months e-Cigarette/Vaping Use: Never Used Second Hand Smoke Exposure: No Use of substances other than those prescribed or required for medical reasons: No Are you DNR?: No Advance Directives: No Advance Directives Information Provided: Yes Advance Directives on File: No service: No Current occupational status: disabled Gender identity: Female Meds Allergies Allergy/AdvReac Type Severity Reaction Status Date / Time carvedilol [Coreg] Allergy Intermediate hives Verified 03/15/21 10:26 codeine Allergy Intermediate hives Verified 03/15/21 10:26 latex [LATEX] Allergy Intermediate RASH Verified 03/15/21 10:26 lisinopril Allergy Intermediate hives Verified 03/15/21 10:26 metronidazole [Flagyl] Allergy Intermediate diarrhea Verified 03/15/21 10:26 oxycodone [OXYCODONE] Allergy Intermediate RASH/HIVES Verified 03/15/21 10:26 Penicillins [PENICILLINS] Allergy Intermediate limp legs Verified 03/15/21 10:26 Iodinated Contrast Media Allergy Mild RASH/HIVES Verified 03/15/21 10:26 [IV Dye, Iodine Containing] topiramate AdvReac Intermediate ineffective Verified 03/15/21 10:26 Home Medications Medication Instructions Recorded Confirmed Last Taken Type metoprolol succinate 50 mg 50 mg PO DAILY 07/17/20 01/10/21 Unknown History tablet,extended release 24 hr furosemide 20 mg tablet 10 mg PO DAILY PRN tab 11/29/20 01/10/21 Unknown History Exam Height,Weight and Vital Signs: Height 5 ft 2 in Weight 63.049 kg Vital Signs Temp Pulse Resp BP Pulse Ox 04/24/21 12:31 98.5 F 69 16 175/86 H 97 Pertinent Lab Results Pertinent Lab Results: Laboratory Tests 09/05/19 02/04/21 19:49 11:37 WBC 6.7 Hgb 13.6 Hct 39.0 Plt Count 278 Sodium 137 Potassium 4.7 Chloride 101 Carbon Dioxide 27 BUN 9 Creatinine 1.06 Lab Results 04/24/21 Range/Units 12:28 POC Glucose 79 (60-115) mg/dL Airway Mallampati Class: II TM Dist: >3cm Neck ROM: Full Partial: Upper and Lower (Does not wear) Heart: RRR Lungs: CTAB Assessment and Plan Assessment Anesthesia Assessment: Anesthesia Plan Discussed Final Anesthetic Review NPO: Yes ASA Class: III Final Preanesthetic Review: No Changes in Pt Med Stat, Meds/Allgs Chart Reviewed, Consent Obtained/Reviewed and Anes Risks/Benef Reviewed Patient Risk: Intermediate Procedure Risk: Low Assessment/Block/Sedation in SS: Assess/Block/Sedation-SS Anesthetic Plan Anesthetic Plan: MAC: Disposition: Standard PACU
[2021-04-24 12:23] VITALS: BMI 25.4
[2021-04-24 12:31] VITALS: BP 175/86; PULSE 69; RESP 16; TEMP 36.9; O2SAT 97
[2021-04-24 12:36] LABS: Glucose, Whole Blood 79 mg/dL (60-115)
[2021-04-24] MEDS: Lactated Ringers 1,000 ML 100 ML IVCONT (12:44)
--- NOTE | 2021-04-24 14:05 | MHC.SHP ---
Pre-Procedural Eval Section A Date of Service: 04/24/21 Section B Chief Complaint: epigastric pain Relevant Family History (Specify if Yes): No Relevant Social History: None Present Medications: see Short Stay Collaborative assessment Medical History: Significant History (CAD (coronary artery disease) COVID-19 Diabetes mellitus Dyslipidemia Essential hypertension Fibromyalgia Insomnia Lower extremity edema cardiomyopathy (~2003) Renal calculi Shortness of breath) History of Previous Operations: Relevant previous surgery/procedure and date(s) (Hx of colonoscopy Hx of endoscopy Stented coronary artery (~2006)) Allergies: Allergies Allergy/AdvReac Type Severity Reaction Status Date / Time carvedilol [Coreg] Allergy Intermediate hives Verified 03/15/21 10:26 codeine Allergy Intermediate hives Verified 03/15/21 10:26 latex [LATEX] Allergy Intermediate RASH Verified 03/15/21 10:26 lisinopril Allergy Intermediate hives Verified 03/15/21 10:26 metronidazole [Flagyl] Allergy Intermediate diarrhea Verified 03/15/21 10:26 oxycodone [OXYCODONE] Allergy Intermediate RASH/HIVES Verified 03/15/21 10:26 Penicillins [PENICILLINS] Allergy Intermediate limp legs Verified 03/15/21 10:26 Iodinated Contrast Media Allergy Mild RASH/HIVES Verified 03/15/21 10:26 [IV Dye, Iodine Containing] topiramate AdvReac Intermediate ineffective Verified 03/15/21 10:26 Review of Systems Sugical H&P ROS: Negative: Constitution, Cardiovascular, Respiratory, Neurological, Psychiatric, Hem-Onc, Allergic/Immunologic, Gastrointestinal, Genitourinary, Musculoskeletal, Integumentary, Endocrine and Eyes/Ears/Nose/Throat Exam Surgical H&P Exam: Normal: HEENT, Normal: Heart, Normal: Lungs, Normal: Extremities, Normal: Abdomen, Normal: Skin and Normal: Neurological Plan Diagnosis/Plan: Unchanged I have reviewed the history and physical and performed a pertinent physical examination on my patient. No changes have occurred unless specified.
--- NOTE | 2021-04-24 14:23 | PM.OP ---
Brief Operative Note Date of Service: 04/24/21 Pre-op diagnosis: epigastric pain Post-op diagnosis: same Procedure: see op note Surgeon: Capo Little MD Anesthesia: MAC Was an Licensed Real Estate Broker used for this Procedure?: No Estimated blood loss (mL): 0 Condition: stable Disposition: PACU
--- NOTE | 2021-04-24 14:36 | W.PM.OPN ---
Operative Note Operative Note Date of Service: 04/24/21 Narrative: Procedure Description: EGD FLEXIBLE TRANSORAL UPPER GASTROINTESTINAL ENDOSCOPY UPPER ENDOSCOPY Consent: Indications for the procedure and potential complications of bleeding, perforation, reaction to medications and missed diagnosis were discussed with the patient and informed consent was obtained. Instrument: Olympus GIF H 190 J mid size upper endoscope Monitoring: Vital signs and clinical assessment, continuous EKG monitoring, Pulse oximetry, Carbon Dioxide monitoring and blood pressure monitoring were done throughout the procedure. Procedure: The patient was placed in the left lateral decubitis position and pre-procedure medications were administered and a bite block was placed. The endoscope was inserted into the mouth and advanced under direct vision to the third part of duodenum. A careful inspection was made as the upper endoscope was withdrawn including a retroflexed examination of the proximal stomach; Findings and interventions are described below. Findings: Larynx:normal Esophagus: GE junction at 38 cm, diaphragm hiatus at 38 cm, mild LA grade A esophagitis, bx taken from GEJ and random esophagus Stomach: Patchy blotchy gastric erythema w/ scarred areas. Biopsies were obtained. Grade 2 flap valve on retroflexed examination of the cardia. Duodenum: Normal bulb and descending duodenum, bx taken Intervention: Biopsies as noted above Impression/Findings: gastritis esophagitis PLAN: await bx if h pylori pos then treat if neg then GES to r/o gastroparesis
[2021-04-24 14:43] VITALS: BP 94/51; PULSE 71; RESP 16; TEMP 36.2; O2SAT 93
[2021-04-24 14:58] VITALS: BP 116/71; PULSE 79; RESP 16; O2SAT 97
[2021-04-24 15:13] VITALS: BP 135/78; PULSE 69; RESP 16; TEMP 36.2; O2SAT 97
== END 2021-04-24 16:12 | disposition home or self-care (01) ==
PROVIDERS: PCP Internal Medicine; Visit Provider Internal Medicine Gastroenterology
PROC: 0DJ08ZZ Inspection of Upper Intestinal Tract, Via Natural or Artificial Opening Endoscopic (ICD-10-PCS; CPT 43235; principal; 2021-04-24 13:20)
DX: R10.13 Epigastric pain (principal); K29.50 Unspecified chronic gastritis without bleeding; K21.00 Gastro-esophageal reflux disease with esophagitis, without bleeding; K44.9 Diaphragmatic hernia without obstruction or gangrene; K58.0 Irritable bowel syndrome with diarrhea; I25.10 Atherosclerotic heart disease of native coronary artery without angina pectoris; Z98.61 Coronary angioplasty status; I10 Essential (primary) hypertension; E11.9 Type 2 diabetes mellitus without complications; M79.7 Fibromyalgia; Z79.82 Long term (current) use of aspirin; Z79.899 Other long term (current) drug therapy; Z88.0 Allergy status to penicillin; Z88.1 Allergy status to other antibiotic agents; Z88.8 Allergy status to other drugs, medicaments and biological substances; Z91.040 Latex allergy status; Z91.041 Radiographic dye allergy status; Z87.891 Personal history of nicotine dependence; Z87.442 Personal history of urinary calculi; Z86.16 Personal history of COVID-19
CPT/HCPCS: 43239; 82947; 88305; 88342; J3010

== ENCOUNTER → 2021-05-03 08:40 | Outpatient (BNVA) | payer OTHER, SELFPAY | PROVIDERS: PCP Internal Medicine; Visit Provider Nurse Practitioner ==

== ENCOUNTER → 2021-05-14 09:10 | Outpatient (BNVA) | payer OTHER, SELFPAY | PROVIDERS: PCP Internal Medicine; Referring Provider Internal Medicine; Visit Provider Nurse Practitioner Family | DX: Z13.6 Encounter for screening for cardiovascular disorders (principal) | CPT/HCPCS: 93005 ==

== ENCOUNTER → 2021-05-15 15:28 | Outpatient (BNVA) | payer OTHER, SELFPAY | PROVIDERS: PCP Internal Medicine; Referring Provider Internal Medicine; Visit Provider Nurse Practitioner Family | DX: Z01.810 Encounter for preprocedural cardiovascular examination (principal); I25.10 Atherosclerotic heart disease of native coronary artery without angina pectoris; I10 Essential (primary) hypertension; E78.5 Hyperlipidemia, unspecified; Z95.5 Presence of coronary angioplasty implant and graft; Z86.79 Personal history of other diseases of the circulatory system | CPT/HCPCS: 99212 ==

== ENCOUNTER 2021-05-31 11:43 | Outpatient (REF) | payer OTHER, SELFPAY | END 2021-05-31 11:44 | disposition home or self-care (01) | LOC: HO.XRAY 11:43 | PROVIDERS: PCP Internal Medicine; Visit Provider Internal Medicine | DX: Z13.89 Encounter for screening for other disorder (principal) ==

== ENCOUNTER 2021-06-10 11:53 | Day surgery (SDC) | payer OTHER, SELFPAY ==
[2021-06-10] VITALS (7 sets, daily range): BP systolic 128–164; BP diastolic 69–94; PULSE 57–91; RESP 14–16; TEMP 36.7–36.8; O2SAT 97–100; BMI 24.8
--- NOTE | ~2021-06-10 | FL_ITS ---
EXAMINATION: XR FLUOROSCOPY WITH IMAGES CLINICAL INFORMATION: Urinary tract calculi COMPARISON: Abdominal ultrasound 04/18/2021 TECHNIQUE: Fluoroscopy performed by Dr. Hans Francois. Fluoroscopy time: 0.4 minutes Total dose: 5.63 mGycm2 Images: 1 FINDINGS: Distal end left ureteral stent is seen overlying the left pelvis and bladder. There is some contrast in the bladder lumen. FL/FL guidance in OR IMPRESSION: Fluoroscopy for urologic procedure.
[2021-06-10 12:20] LABS: Glucose, Whole Blood 91 mg/dL (60-115)
[2021-06-10] MEDS: Lactated Ringers 1,000 ML 50 ML IVCONT (12:26)
--- NOTE | 2021-06-10 12:46 | P.CONAN_ITS ---
HPI - Anesthesia Eval Consult details Narrative: 56 yo female patient for cystoscopy, ureteroscopy, retro,laser, p ossible stent left PMFSH Active Problems Active Problems: All Active Problems (Updated 06/03/21 @ 13:45 by Eneida Vasquez RN) GERD (gastroesophageal reflux disease) (Acute) Irritable bowel syndrome with diarrhea (Acute) Encounter for annual routine gynecological examination (Acute) Breast lump (Acute) Pelvic pain in female (Acute) Lump of right breast (Acute) Postmenopausal bleeding (Acute) Skin lumps (Acute) Chest pain (Acute) Epigastric pain (Acute) Thoracic spondylosis with radiculopathy (Acute) Elbow pain (Acute) Lateral epicondylitis of right elbow (Acute) Medial epicondylitis, right elbow (Acute) History of biopsy (Acute) Nausea and vomiting (Acute) Preop cardiovascular exam (Acute) Right elbow pain (Acute) Right shoulder pain (Acute) Neck pain (Acute) Postmenopausal (Acute) Diabetes mellitus (Acute) Lower extremity edema (Acute) Shortness of breath (Acute) Insomnia (Acute) Renal calculi (Acute) cardiomyopathy (Acute ~2003) Stented coronary artery (Acute) CAD (coronary artery disease) (Acute) Dyslipidemia (Acute) Essential hypertension (Acute) Fibromyalgia (Acute) Past Medical History Medical History CAD (coronary artery disease) COVID-19 Diabetes mellitus Dyslipidemia Essential hypertension Fibromyalgia GERD (gastroesophageal reflux disease) Hx of migraines Insomnia Lower extremity edema Neck pain On beta inez at home Postmenopausal cardiomyopathy (~2003) Renal calculi Right elbow pain Right shoulder pain Shortness of breath Family History Family History Father CVD (cardiovascular disease) HTN (hypertension) Cancer Type 2 diabetes mellitus Mother Breast cancer HTN (hypertension) Family/Other Diabetes Family history of problems with anesthesia: No Surgical History Surgical History History of exploratory laparotomy History of hysteroscopy History of lithotripsy History of lumpectomy of left breast History of lumpectomy of right breast Hx of cataract extraction Hx of section Hx of colonoscopy Hx of endoscopy Stented coronary artery History of Problems with Anesthesia: No Social History Social History Household Members: Children Housing: Apartment Are you a primary healthcare social worker to a significant other at home: No Do you presently have visiting nurse or other home services: No Alcohol intake: never Patient Tobacco Use Status: Former Tobacco user Tobacco use type: Cigarette Years Smoked: 3 months e-Cigarette/Vaping Use: Never Used Second Hand Smoke Exposure: No Use of substances other than those prescribed or required for medical reasons: No Have you been hit, kicked, punched, or otherwise hurt by someone within the past year? If so, by whom?: No Are you DNR?: No Advance Directives: No Advance Directives Information Provided: No Advance Directives on File: No Recently lost weight without trying: No Eating poorly because of decreased appetite: No Nutrition Risks: No Nutritional Risk service: No Current occupational status: disabled Gender identity: Female Meds Allergies Allergy/AdvReac Type Severity Reaction Status Date / Time carvedilol [Coreg] Allergy Intermediate hives Verified 06/03/21 13:49 codeine Allergy Intermediate hives Verified 06/03/21 13:49 latex [LATEX] Allergy Intermediate RASH Verified 06/03/21 13:49 lisinopril Allergy Intermediate hives Verified 06/03/21 13:49 oxycodone [OXYCODONE] Allergy Intermediate RASH/HIVES Verified 06/03/21 13:49 Iodinated Contrast Media Allergy Mild RASH/HIVES Verified 06/03/21 13:49 [IV Dye, Iodine Containing] metronidazole [Flagyl] AdvReac Intermediate diarrhea Verified 06/03/21 13:49 Penicillins [PENICILLINS] AdvReac Intermediate limp legs Verified 06/03/21 13:49 topiramate AdvReac Intermediate ineffective Verified 06/03/21 13:49 Active Medications: Current Medications Lactated Ringer's (Lr) 1,000 mls @ 50 mls/hr IVCONT .Q20H BRITTANY Last Admin: 06/10/21 12:26 Dose: 50 mls/hr Documented by: Home Medications Medication Instructions Recorded Confirmed Last Taken Type metoprolol succinate 50 mg 50 mg PO DAILY 07/17/20 06/03/21 Unknown History tablet,extended release 24 hr furosemide 20 mg tablet 10 mg PO DAILY PRN tab 11/29/20 06/03/21 Unknown History suvorexant 10 mg tablet (Belsomra) 10 mg PO BEDTIME tab 05/15/21 06/03/21 Unknown History Exam Exam Date and Time: June 10, 2021 1246 Height,Weight and Vital Signs: Height 5 ft 2 in Weight 61.689 kg Last Vital Signs Temp 98.1 F 06/10/21 12:19 Pulse 91 06/10/21 12:19 Resp 16 06/10/21 12:19 BP 164/94 H 06/10/21 12:19 Pulse Ox 99 06/10/21 12:19 Pertinent Lab Results Pertinent Lab Results: Laboratory Tests 06/10/21 12:16 POC Glucose 91 Airway Mallampati Class: II TM Dist: >3cm Partial: Upper and Lower Heart: RRR ? murmur Lungs: CTAB Assessment and Plan Assessment Anesthesia Assessment: Anesthesia Plan Discussed and Chart Reviewed Final Anesthetic Review Family History of Problems with Anesthesia: No History of Problems with Anesthesia: No NPO: Yes ASA Class: III Final Preanesthetic Review: No Changes in Pt Med Stat, Meds/Allgs Chart Reviewed, Consent Obtained/Reviewed and Anes Risks/Benef Reviewed Patient Risk: Intermediate Procedure Risk: Low Assessment/Block/Sedation in SS: Assess/Block/Sedation-SS Anesthetic Plan Anesthetic Plan: GA Disposition: Standard PACU
[2021-06-10] MEDS: Acetaminophen 325 MG TABLET 650 MG PO ×2 (13:40→16:15)
[2021-06-10] MEDS: levoFLOXacin 500 MG TABLET PO (13:40)
[2021-06-10] MEDS: diphenhydrAMINE HCL 50 MG/ML VIAL IVPUSH (14:01)
--- NOTE | 2021-06-10 14:07 | PC.NURSE ---
Patient called nurse over to bedside, stated All of the sudden after those meds my ears feel itchy and throat feels weird . Patient noted to have red blotches on neck, coughing/clearing throat frequently, and eyes mildly swollen. Dr espinosa paged STAT, patient remained monitored at bedside by RN-vitals stable, lungs clear, 02 100%. Per Dr Espinosa 50mg IV Bendryl given. Patient continues to be monitored.
--- NOTE | 2021-06-10 14:12 | PC.NURSE ---
Patient reports feeling alittle drowsy Redness on skin significantly reduced, cough has resolved. Vitals stable. Allergy added to med record.
--- NOTE | 2021-06-10 14:58 | MHC.SHP ---
Pre-Procedural Eval Section A Date of Service: 06/10/21 Section B Chief Complaint: kidney stone Details of Present Illness: Left-sided renal stones with flank pain Relevant Family History (Specify if Yes): No Relevant Social History: None Present Medications: see Short Stay Collaborative assessment Medical History: Significant History History of Previous Operations: Relevant previous surgery/procedure and date(s) (Prior ESWL and stone intervention) Allergies: Allergies Allergy/AdvReac Type Severity Reaction Status Date / Time levofloxacin [From Levaquin] Allergy Severe Difficulty Verified 06/10/21 14:12 Breathing carvedilol [Coreg] Allergy Intermediate hives Verified 06/03/21 13:49 codeine Allergy Intermediate hives Verified 06/03/21 13:49 latex [LATEX] Allergy Intermediate RASH Verified 06/03/21 13:49 lisinopril Allergy Intermediate hives Verified 06/03/21 13:49 oxycodone [OXYCODONE] Allergy Intermediate RASH/HIVES Verified 06/03/21 13:49 Iodinated Contrast Media Allergy Mild RASH/HIVES Verified 06/03/21 13:49 [IV Dye, Iodine Containing] metronidazole [Flagyl] AdvReac Intermediate diarrhea Verified 06/03/21 13:49 Penicillins [PENICILLINS] AdvReac Intermediate limp legs Verified 06/03/21 13:49 topiramate AdvReac Intermediate ineffective Verified 06/03/21 13:49 Review of Systems Sugical H&P ROS: Negative: Constitution, Cardiovascular, Respiratory, Neurological, Psychiatric, Hem-Onc, Allergic/Immunologic, Gastrointestinal, Genitourinary, Musculoskeletal, Integumentary, Endocrine and Eyes/Ears/Nose/Throat Exam Surgical H&P Exam: Normal: HEENT, Normal: Heart, Normal: Lungs, Normal: Extremities, Normal: Abdomen, Normal: Skin and Normal: Neurological Plan Diagnosis/Plan: Unchanged (Cystoscopy, left retrograde, left ureteroscopy flexible with laser lithotripsy stent placement) I have reviewed the history and physical and performed a pertinent physical examination on my patient. No changes have occurred unless specified.
--- NOTE | 2021-06-10 15:38 | W.PM.OPN ---
Operative Note Operative Note Date of Service: 06/10/21 Narrative: PreOperative Diagnosis: Left lower pole renal stones Post Operative Diagnosis: Submucosal renal stones in upper pole and lower pole Procedure: - cystoscopy, left retrograde - left dilatation of ureteric orifice under fluoroscopy - left flexible laser lithotripsy - left stent placement Surgeon: Dr Hans Francois Anesthesia: General Indications for procedure: Present to emergency department with pain on the left side. Prior evaluation and prior ESWL and left renal procedures. Prior stone passage. Based on imaging findings suggestive of multiple stones within renal pelvis recommendation visualization with ureteroscopy, laser lithotripsy and stent placement. Risks and benefits of the procedure were explained. Questions were answered. Procedure: After informed consent was verified patient was brought to the operating placed in supine position. Anesthesia was administered per protocol. Patient was placed in modified dorsal lithotomy position and prepped and draped in a sterile fashion. Safety pause time-out and side of surgery confirmed. Antibiotics confirmed. A 22 Burkinan cystoscope was placed per urethra. Bladder was emptied. Left ureteric orifice was cannulated and retrograde examination performed. The appeared to be filling defect in the left lower pole. Sensor guidewire was placed. Ureteric orifice was cannulated with the inner portion of the ureteric access sheath. Total sheath was then placed under fluoroscopy. Wire was removed and digital ureteral scope placed up to the level renal pelvis. Renal pelvis examined its entirety. Submucosal stones found in the upper pole and lower pole. These were small in nature but in the lower pole there were approximately 6 different stones. This would be consistent with imaging result that appeared to show a cluster of lower pole stones. Using the holmium laser and the small 220 micron laser fiber the submucosal stones were released. These appear to be in ongoing formation over which would explain continuous but intermittent flank pain attacks that Giovanna has been experiencing. Once the submucosal areas had been lifted a decision was made to place stent. Based on her height of 5 ft 2 a 6 Burkinan by 22 cm stent was placed. This was done under fluoroscopy and showed good curl within the renal pelvis and in the bladder. She tolerated the procedure well was extubated in operating room transferred in stable condition to the recovery area. Pathology: None Drains: 6 Burkinan by 22 cm double-J stent
[2021-06-10] MEDS: Phenazopyridine HCL 100 MG TABLET PO (16:15)
[2021-06-10] MEDS: Ketorolac Tromethamine 15 MG/ML VIAL IVPUSH (16:16)
== END 2021-06-10 17:06 | disposition home or self-care (01) ==
PROVIDERS: PCP Internal Medicine; Visit Provider Urology
PROC: (CPT 52356; principal; 2021-06-10 13:50)
DX: N20.0 Calculus of kidney (principal); Z87.442 Personal history of urinary calculi; M79.7 Fibromyalgia; I10 Essential (primary) hypertension; E11.9 Type 2 diabetes mellitus without complications; R60.0 Localized edema; Z88.8 Allergy status to other drugs, medicaments and biological substances; Z88.1 Allergy status to other antibiotic agents; Z91.040 Latex allergy status; Z91.041 Radiographic dye allergy status; Z86.16 Personal history of COVID-19; Z87.891 Personal history of nicotine dependence
CPT/HCPCS: 52356; 82947; C1769; C2617; J0171; J1200; J1885; J2405; J3010; Q9967

== ENCOUNTER → 2021-06-19 09:53 | Outpatient (BNVA) | payer OTHER, SELFPAY | PROVIDERS: PCP Internal Medicine; Visit Provider Urology | DX: Z46.6 Encounter for fitting and adjustment of urinary device (principal); N20.0 Calculus of kidney | CPT/HCPCS: 52310; 99212 ==

== ENCOUNTER 2021-07-12 11:06 | Outpatient (REF) | payer OTHER, SELFPAY | END 2021-07-12 11:07 | disposition home or self-care (01) | LOC: HO.LAB 11:06 | PROVIDERS: Visit Provider Internal Medicine | DX: Z20.822 Contact with and (suspected) exposure to COVID-19 (principal) | CPT/HCPCS: C9803; U0003; U0005 ==

== ENCOUNTER 2021-08-08 15:16 | Outpatient (REF) | payer OTHER, SELFPAY ==
--- NOTE | ~2021-08-08 | US_ITS ---
EXAMINATION: US RETROPERITONEAL LIMITED (RENAL ONLY) CLINICAL INFORMATION: Calculus of kidney. COMPARISON: Ultrasound abdomen complete 04/18/2021. Renal ultrasound 02/25/2021. X-ray KUB 01/26/2019 and 12/29/2018. CT abdomen and pelvis 09/04/2018. TECHNIQUE: Real-time imaging of the kidneys. FINDINGS: RIGHT KIDNEY: 10.5 x 5.3 x 4.3 cm (SAG x AP x TRV). The kidney is normal in size, contour, and echogenicity. Renal cortical thickness is normal. No focal parenchymal lesions or hydronephrosis. There are nonobstructing calculi in the right kidney including a 3.5 mm lower pole calculus and a 4 mm and 5 mm calculi in the midpole LEFT KIDNEY: 9.9 x 5.0 x 4.6 cm (SAG x AP x TRV). The kidney is normal in size, contour, and echogenicity. Renal cortical thickness is normal. No focal parenchymal lesions.. Left-sided renal calculi including a 2 mm lower pole calculus, 3 mm mid/lower pole calculus, 7 mm mid/lower pole calculus US/US renal BI IMPRESSION: Bilateral renal calculi. Bilateral extrarenal pelvises.
== END 2021-08-08 15:17 | disposition home or self-care (01) ==
LOC: HO.US 15:16
PROVIDERS: Visit Provider Urology
DX: N20.0 Calculus of kidney (principal)
CPT/HCPCS: 76775

== ENCOUNTER → 2021-08-16 09:14 | Outpatient (BNVA) | payer OTHER, SELFPAY | PROVIDERS: PCP Internal Medicine; Visit Provider Urology ==

== ENCOUNTER 2021-09-05 12:56 | Outpatient (REF) | payer OTHER, SELFPAY ==
--- NOTE | ~2021-09-05 | MM_ITS ---
EXAMINATION: BONE DENSITOMETRY CLINICAL INDICATION: Asymptomatic menopausal state. COMPARISON: None (current study represents initial baseline exam). TECHNIQUE: Using a [employer] DXA System (software version: 13.1) manufactured by [employer], dual-energy x-ray absorptiometry was performed of the lumbar spine and left hip. The images are of good technical quality. Summary results are attached. FINDINGS: AP SPINE L1-L4: BMD 1.013 g/cm2, Z-score -0.4, T-score -1.4, osteopenia. LEFT FEMUR, NECK: BMD 0.782 g/cm2, Z-score -0.7, T-score -1.8, osteopenia. LEFT FEMUR, TOTAL: BMD 0.820 g/cm2, Z-score -0.7, T-score -1.5, osteopenia. IDENTIFIED RISK FACTORS: Early menopause, secondary osteoporosis. HISTORY OF FRACTURE: None listed. MEDICATIONS: Vitamin D. MM/XR DEXA axial skeleton IMPRESSION: 1. DIAGNOSIS: Osteopenia based on the lowest T-score value of -1.8 in the femoral neck applying World Health Organization criteria. 2. 10-YEAR FRACTURE RISK PREDICTION, FRAX: Major osteoporotic fracture (clinical spine, forearm, hip or shoulder) 4.6%. Hip fracture 0.5%. 3. Treatment Recommendations: NOF guidelines recommend consideration for treatment in postmenopausal women and men age 50 and older presenting with the following: -A hip or vertebral (clinical or morphometric) fracture. -T-score less than or equal to -2.5 at the femoral neck or spine after appropriate evaluation to exclude secondary causes. -Low bone mass at the hip or spine and a 10-year fracture probability by FRAX of greater than or equal to 3% for hip fracture or greater than or equal to 20% for major osteoporotic fracture based on the [place] adapted WHO algorithm. 4. Other Recommendations: All treatment decisions require clinical judgment and consideration of individual patient factors, including patient preferences, comorbidities, previous drug use, risk factors not captured in the FRAX model (e.g. frailty, falls, vitamin D deficiency, increased bone turnover, interval significant decline in bone density) and possible under or overestimation of fracture risk by FRAX. Additional medical evaluation for secondary cause of low bone mineral density may be appropriate. FUTURE SCAN RECOMMENDATION: People with diagnosed cases of osteoporosis or at high risk for fracture should have regular bone mineral density tests. For patients eligible for Medicare, routine testing is allowed once every 2 years. The testing frequency can be increased to one year for patients who have rapidly progressing disease, those who are receiving or discontinuing medical therapy to restore bone mass, or have additional risk factors.
== END 2021-09-05 12:57 | disposition home or self-care (01) ==
LOC: HO.MAMMO 12:56
PROVIDERS: Visit Provider Internal Medicine
DX: Z13.820 Encounter for screening for osteoporosis (principal); M85.80 Other specified disorders of bone density and structure, unspecified site; Z78.0 Asymptomatic menopausal state; Z79.899 Other long term (current) drug therapy
CPT/HCPCS: 77080

== ENCOUNTER 2021-09-08 13:59 | Emergency (ER) | payer OTHER, SELFPAY ==
[2021-09-08 14:18] VITALS: BP 170/82; PULSE 88; RESP 16; TEMP 36.6; O2SAT 100; BMI 25.6
[2021-09-08 14:35] LABS: Appearance Urine CLEAR; Color Urine STRAW; Glucose Urine UA NEG (NEG); Leukocyte Esterase Urine NEG (NEG); Nitrite Urine NEG (NEG); PH 6.5 (5.0-8.0); Urine Blood NEG (NEG); Urine Ketones NEG (NEG); Urine Protein NEG (NEG-TRACE)
--- NOTE | 2021-09-08 14:40 | ED.BACK ---
HPI - Back Pain/Injury General Chief Complaint: Back Pain/Injury Stated Complaint: back pain Time Seen by Provider: 09/08/21 14:27 Source: patient Mode of arrival: ambulatory Limitations: no limitations History of Present Illness HPI Narrative: 56-year-old female with a history of GERD, coronary disease, diabetes, renal colic, hypertension, high cholesterol, fibromyalgia here with reports of right-sided back pain for the last 3 days. Patient tells me she was having some pain but then bent over to lift something up and felt an increase in pain. Pain radiates down to the right hip. There is no associated numbness in the groin. No radiation to the legs. No paresthesias of the leg. No bowel or bladder incontinence. No fevers or chills. Patient denies any abdominal pain, nausea, vomiting, diarrhea, urinary symptoms. Related Data Home Medications Medication Instructions Recorded Confirmed metoprolol succinate 50 mg 50 mg PO DAILY 07/17/20 06/03/21 tablet,extended release 24 hr furosemide 20 mg tablet 10 mg PO DAILY PRN tab 11/29/20 06/03/21 suvorexant 10 mg tablet (Belsomra) 10 mg PO BEDTIME tab 05/15/21 06/03/21 Previous Rx's Medication Instructions Recorded aspirin 81 mg tablet,delayed 81 mg PO DAILY #30 tab 09/06/20 release dicyclomine 10 mg capsule 10 mg PO QID #120 cap 09/06/20 clotrimazole-betamethasone 1 1 appl TOPICAL BID PRN 7 Days #45 g 10/24/20 %-0.05 % topical cream nitroglycerin 0.4 mg sublingual 0.4 mg SUBLINGUAL Q5M PRN 30 Days 10/31/20 tablet #25 tab atorvastatin 40 mg tablet 40 mg PO DAILY #90 tab 12/04/20 acetaminophen 650 mg 650 mg PO Q8H #60 tab 01/23/21 tablet,extended release blood sugar diagnostic (FreeStyle #50 ea 03/05/21 Test) blood-glucose meter (FreeStyle #1 ea 03/05/21 [place] Lite) lancets 28 gauge (FreeStyle #100 ea 03/05/21 Lancets) famotidine 40 mg tablet (Pepcid) 40 mg PO BEDTIME #30 tab 03/15/21 naproxen sodium 550 mg tablet 550 mg PO Q12H PRN 14 Days #30 tab 06/10/21 phenazopyridine 100 mg tablet 100 mg PO TID PRN 4 Days #12 tab 06/10/21 (Pyridium) tamsulosin 0.4 mg capsule 0.4 mg PO BEDTIME 14 Days #14 cap 06/10/21 esomeprazole magnesium 40 mg 40 mg PO DAILY #90 cap 06/11/21 capsule,delayed release potassium citrate 10 mEq (1,080 20 meq PO BID 90 Days #360 tab 06/19/21 mg) tablet,extended release pyridoxine (vitamin B6) 100 mg 100 mg PO DAILY 90 Days #90 tab 06/19/21 tablet losartan 50 mg tablet 50 mg PO DAILY 90 Days #90 tab 06/25/21 pioglitazone 30 mg tablet 30 mg PO DAILY 90 Days #90 tab 07/21/21 amlodipine 10 mg tablet 10 mg PO DAILY 90 Days #90 tab 09/05/21 cyclobenzaprine 10 mg tablet 10 mg PO TID PRN #10 tab 09/08/21 lidocaine 5 % topical patch 1 patch TOPICAL DAILY #15 ea 09/08/21 (Lidoderm) naproxen 500 mg tablet 500 mg PO BID PRN #20 tab 09/08/21 Allergies Allergy/AdvReac Type Severity Reaction Status Date / Time levofloxacin [From Levaquin] Allergy Severe Difficulty Verified 08/16/21 09:35 Breathing carvedilol [Coreg] Allergy Intermediate hives Verified 08/16/21 09:35 codeine Allergy Intermediate hives Verified 08/16/21 09:35 latex [LATEX] Allergy Intermediate RASH Verified 08/16/21 09:35 lisinopril Allergy Intermediate hives Verified 08/16/21 09:35 oxycodone [OXYCODONE] Allergy Intermediate RASH/HIVES Verified 08/16/21 09:35 Iodinated Contrast Media Allergy Mild RASH/HIVES Verified 08/16/21 09:35 [IV Dye, Iodine Containing] metronidazole [Flagyl] AdvReac Intermediate diarrhea Verified 08/16/21 09:35 Penicillins [PENICILLINS] AdvReac Intermediate limp legs Verified 08/16/21 09:35 topiramate AdvReac Intermediate ineffective Verified 08/16/21 09:35 Review of Systems Review of Systems: Yes all other systems are reviewed and are negative Constitutional: Constitutional: Reports no additional constitutional complaints, Denies body ache(s), Denies chills, Denies fever(s), Denies headache(s) and Denies weakness Eyes: Eyes: Reports no additional eye complaints and Denies change in vision ENT: Reports system reviewed and no additional complaints, except as documented, Denies dizziness, Denies headache(s), Denies nasal congestion, Denies nasal discharge and Denies neck pain Cardiovascular: Cardiovascular: Reports no additional cardiovascular complaints, Denies chest pain, Denies leg edema and Denies dyspnea Respiratory: Respiratory: Reports no additional respiratory complaints, Denies cough and Denies dyspnea Gastrointestinal: Gastrointestinal: Reports no additional gastrointestinal complaints, Denies abdominal pain, Denies diarrhea, Denies nausea and Denies vomiting Genitourinary: Genitourinary: Reports no additional female genitourinary complaints and Denies urinary incontinence Musculoskeletal: Musculoskeletal: Reports no additional musculoskeletal complaints, Reports back pain, Denies arthralgias, Denies joint swelling, Denies neck pain, Denies numbness and Denies tingling Integumentary/Breasts: Skin/Breast: Reports system reviewed and no additional complaints, except as docu and Denies rash Neurologic: Reports system reviewed and no additional complaints, except as documented, Denies Abnormal speech present, Denies dizziness, Denies headache(s), Denies numbness, Denies tingling and Denies weakness PMFSH Past Medical History Attestation statement: The following information was validated with the patient. Source: old records reviewed and nursing notes reviewed Medical History CAD (coronary artery disease) Cardiomyopathy CHF (congestive heart failure) COVID-19 Diabetes 1.5, managed as type 2 Diabetes mellitus Dyslipidemia Essential hypertension Fibromyalgia GERD (gastroesophageal reflux disease) HTN (hypertension) Hx of migraines Insomnia Lower extremity edema Neck pain On beta inez at home Postmenopausal cardiomyopathy (~2003) Renal calculi Renal calculi Right elbow pain Right shoulder pain Shortness of breath Surgical History History of exploratory laparotomy History of hysteroscopy History of lithotripsy History of lumpectomy of left breast History of lumpectomy of right breast Hx of cataract extraction Hx of section Hx of colonoscopy Hx of endoscopy Stented coronary artery Family History Family History Father CVD (cardiovascular disease) HTN (hypertension) Cancer Type 2 diabetes mellitus Mother Breast cancer HTN (hypertension) Family/Other Diabetes Social History Social History Household Members: Children Housing: Apartment Are you a primary senior resident care director to a significant other at home: No Do you presently have visiting nurse or other home services: No Alcohol intake: never Patient Tobacco Use Status: Former Tobacco user Tobacco use type: Cigarette Years Smoked: 3 months e-Cigarette/Vaping Use: Never Used Second Hand Smoke Exposure: No Advance Directives: No Advance Directives Information Provided: No service: No Current occupational status: disabled Gender identity: Female Physical Exam Vital Signs: Vital Signs: Last Vital Signs Temp 98 F 09/08/21 14:18 Pulse 88 09/08/21 14:18 Resp 16 09/08/21 14:18 BP 170/82 H 09/08/21 14:18 Pulse Ox 100 09/08/21 14:18 BMI result Body Mass Index 25.6 Const: General: cooperative, healthy appearing, comfortable and no acute distress Orientation/consciousness: patient oriented x3 Limitations: no limitations HENMT: Head: Yes normal to inspection Ears: hearing grossly normal bilaterally General nose exam: Normal external nose present Face and sinus: Yes normal facial exam Mouth: Normal oral and palatal mucosa present Throat: Yes posterior oropharynx normal Eyes: General: appearance normal, both eyes and all related structures Pupils: Equal, round and reactive pupils present Neck: Neck: Yes normal visual inspection Chest: Chest palpation & inspection: normal inspection of the chest Resp: Effort & Inspection: normal respiratory effort Auscultation: clear to auscultation bilaterally Cardio: Rate: regular rate Rhythm: regular rhythm Peripheral pulses: Peripheral pulses 2+ throughout GI: Inspection: Yes normal to inspection Palpation (GI): Soft to palpation and nontender Auscultation: normal bowel sounds : General: Yes no CVA tenderness Back/Spine/Pelvis: Other: There is tenderness over the right soft tissue area of thoracic down to the lumbar region with no midline tenderness, step-offs or deformities. Pain is worsened with right straight leg raise Pain is worsened with flexion and extension of the spine Back: no CVA tenderness Thoracic/Lumbar Spine: thoracic and lumbar spine normal to inspection Skin: General skin exam: no rashes or lesions noted Neuro: General: patient oriented x3, no focal motor deficits and normal sensation to monofilament Cranial nerves: Yes CN's II-XII intact bilaterally, Yes Equal, round and reactive pupils present, Yes Bilaterally intact EOM present, Yes Nystagmus not present, Yes Normal facial strength present and Yes Midline tongue present Cognition (Neuro): normal cognition Speech: No Abnormal speech present Gait exam (Neuro): Normal gait present Motor exam (neuro): 5/5 motor strength present throughout Sensory Exam: Normal double simultaneous stimulation for sensation Deep tendon reflexes (DTR's): Right patellar reflex intensity grade: 2+ and Left patellar reflex intensity grade: 2+ Extrem: General: Yes normal to inspection Course Course Course Narrative: 56-year-old female here with 3 days of right-sided back pain that is tender to palpation, reproducible with position changes. No CVA tenderness on exam. No focal abdominal pain. There does not appear to be a clear injury. It may have been antagonized by lifting something heavy. No neurological deficits. No red flag symptoms. Patient does have a history of renal colic but states this feels different. Will check UA, provide analgesia and reassess 1600-UA is negative. Patient is feeling improved. We discussed that her exam in history of present illness is more consistent with a muscle strain and not renal colic. I explained to her that it is possible that her urine may be negative and she may still have a kidney stone. At this time the patient does feel like her pain is much different and we discussed doing a CT scan versus sending the patient home with some medications to help with the symptoms. Patient declined CT scan. Will send home with anti-inflammatory, muscle relaxant medicated patches. Reviewed worrisome signs and symptoms of when to return to the emergency department. Comfortable discharge home. MDM - Back Pain/Injury Medical Records Attestation: I reviewed the patient's medical records. Lab Data Attestation: I reviewed the patient's lab results. Labs: Lab Results 09/08/21 Range/Units 14:30 Urine Color STRAW Urine Appearance CLEAR Urine pH 6.5 (5.0-8.0) Ur Specific [place] 1.010 (1.005-1.025) Urine Protein NEG (NEG-TRACE) MG/DL Urine Glucose (UA) NEG (NEG) MG/DL Urine Ketones NEG (NEG) MG/DL Urine Blood NEG (NEG) Urine Nitrite NEG (NEG) Ur Leukocyte Esterase NEG (NEG) Urine RBC 0-2 (0) /HPF Urine WBC 0 (0-4) /HPF Ur Squamous Epith Cells TRACE /LPF Urine Bacteria NONE /LPF Discharge Plan Discharge Clinical Impression: Lumbar strain Patient Disposition: Home, Self-Care Instructions: Muscle Strain (DC), Low Back Strain (ED), Lower Back Exercises (ED) Additional Instructions: Heat or ice Gentle stretching No heavy lifting or bending Follow-up with primary care doctor in 7 days for persistent symptoms Prescriptions: New naproxen 500 mg tablet 500 mg PO BID PRN (Reason: pain) Qty: 20 0RF cyclobenzaprine 10 mg tablet 10 mg PO TID PRN (Reason: muscle spasm) Qty: 10 0RF lidocaine [Lidoderm] 5 % adhesive patch,medicated 1 patch topical DAILY Qty: 15 0RF Rx Instructions: leave on most painful area for up to 12 hrs No Action dicyclomine 10 mg capsule 10 mg PO QID Qty: 120 1RF aspirin 81 mg tablet,delayed release (DR/EC) 81 mg PO DAILY Qty: 30 11RF atorvastatin 40 mg tablet 40 mg PO DAILY Qty: 90 2RF (DME) FreeStyle Test Strip See Rx Instructions .ROUTE .MEDSUPPLY Qty: 50 11RF Rx Instructions: TEST 2 TIMES DAILY (DME) blood-glucose meter [FreeStyle [place] Lite] Kit See Rx Instructions .ROUTE .MEDSUPPLY Qty: 1 0RF Rx Instructions: TEST 2 TIMES DAILY (DME) lancets [FreeStyle Lancets] 28 gauge misc See Rx Instructions .ROUTE .MEDSUPPLY Qty: 100 11RF Rx Instructions: use 1 lancet twice a day esomeprazole magnesium 40 mg capsule,delayed release(DR/EC) 40 mg PO DAILY Qty: 90 2RF losartan 50 mg tablet 50 mg PO DAILY 90 Days Qty: 90 3RF pioglitazone 30 mg tablet 30 mg PO DAILY 90 Days Qty: 90 0RF amlodipine 10 mg tablet 10 mg PO DAILY 90 Days Qty: 90 1RF Rx Instructions: Please call to schedule a cardiology appt for more refills acetaminophen 650 mg tablet extended release 650 mg PO Q8H Qty: 60 1RF phenazopyridine [Pyridium] 100 mg tablet 100 mg PO TID PRN (Reason: Spasm) 4 Days Qty: 12 0RF tamsulosin 0.4 mg capsule 0.4 mg PO BEDTIME 14 Days Qty: 14 0RF naproxen sodium 550 mg tablet 550 mg PO Q12H PRN (Reason: pain) 14 Days Qty: 30 0RF metoprolol succinate 50 mg tablet extended release 24 hr 50 mg PO DAILY 0RF furosemide 20 mg tablet 10 mg PO DAILY PRN (Reason: Edema) 0RF clotrimazole-betamethasone 1-0.05 % cream 1 appl topical BID PRN (Reason: itching) 7 Days Qty: 45 0RF nitroglycerin 0.4 mg tablet, sublingual 0.4 mg sublingual Q5M PRN (Reason: chest pain) 30 Days Qty: 25 5RF Rx Instructions: do not exceed 3 doses per episode famotidine [Pepcid] 40 mg tablet 40 mg PO BEDTIME Qty: 30 6RF potassium citrate 10 mEq (1,080 mg) tablet extended release 20 meq PO BID 90 Days Qty: 360 1RF pyridoxine (vitamin B6) 100 mg tablet 100 mg PO DAILY 90 Days Qty: 90 1RF Belsomra 10 mg tablet 10 mg PO BEDTIME 0RF Referrals: hCen Clements MD [Primary Care Provider] - 1 week Interventions: ED Discharge Assessment Last Done: 09/08/21 16:03 Discharge Date/Time: 09/08/21 16:04
[2021-09-08 14:59] LABS: RBC Urine 0-2 /HPF (0); Squamous Epithelial Cell Urine TRACE /LPF; WBC Urine 0 /HPF (0-4)
[2021-09-08] MEDS: Ketorolac Tromethamine 60 MG/2 ML VIAL IM (15:15)
== END 2021-09-08 16:04 | disposition home or self-care (01) ==
PROVIDERS: Emergency Provider Emergency Medicine; PCP Internal Medicine
DX: S39.012A Strain of muscle, fascia and tendon of lower back, initial encounter (principal); I25.10 Atherosclerotic heart disease of native coronary artery without angina pectoris; E11.9 Type 2 diabetes mellitus without complications; I10 Essential (primary) hypertension; X50.0XXA Overexertion from strenuous movement or load, initial encounter; X50.3XXA Overexertion from repetitive movements, initial encounter; Y93.9 Activity, unspecified; Y92.9 Unspecified place or not applicable; Y99.9 Unspecified external cause status; Z79.899 Other long term (current) drug therapy
CPT/HCPCS: 81001; 96374; 99284; J1885

== ENCOUNTER 2021-09-30 08:51 | Outpatient (REF) | payer OTHER, SELFPAY ==
--- NOTE | ~2021-09-30 | XR_ITS ---
EXAMINATION: RIGHT SHOULDER 4 VIEWS RIGHT HUMERUS 2 VIEWS CLINICAL INFORMATION: Pain in right shoulder COMPARISON: Right elbow 01/01/2021 TECHNIQUE: 4 views of the right shoulder, 2 views of the right humerus FINDINGS: Right shoulder: Alignment is anatomic. No significant glenohumeral or acromioclavicular degenerative changes. No focal osseous lesion. No fracture. The visible right lung is clear. Right humerus: The right humerus appears normal. No elbow joint effusion. XR/XR humerus RT IMPRESSION: Unremarkable right shoulder and humerus.
--- NOTE | ~2021-09-30 | XR_ITS ---
EXAMINATION: RIGHT SHOULDER 4 VIEWS RIGHT HUMERUS 2 VIEWS CLINICAL INFORMATION: Pain in right shoulder COMPARISON: Right elbow 01/01/2021 TECHNIQUE: 4 views of the right shoulder, 2 views of the right humerus FINDINGS: Right shoulder: Alignment is anatomic. No significant glenohumeral or acromioclavicular degenerative changes. No focal osseous lesion. No fracture. The visible right lung is clear. Right humerus: The right humerus appears normal. No elbow joint effusion. XR/XR shoulder RT min 2V IMPRESSION: Unremarkable right shoulder and humerus.
[2021-09-30 09:45] LABS: Estimated Average Glucose 114 mg/dL; Hemoglobin A1c % 5.6 %
[2021-09-30 10:15] LABS: Alanine Aminotransferase 16 U/L (0-31); Albumin Level 3.9 g/dL (3.5-5.0); Alkaline Phosphatase 56 U/L (39-117); Anion Gap 11 (12-20); Aspartate Amino Transferase 17 U/L (5-31); Bilirubin Total 0.5 mg/dL (0.0-1.0); Blood Urea Nitrogen 13 mg/dL (9-16); Calcium 9.8 mg/dL (8.4-10.2); Carbon Dioxide 27 mmol/L (22-29); Chloride 106 mmol/L (96-108); Cholesterol 181 mg/dL; Estimated Glomerular Filt Rate 57; Glucose Fasting 112 mg/dL (60-99); HDL Cholesterol 46 mg/dL; LDL Cholesterol Calculated 119 mg/dl; Sodium 140 mmol/L (135-145); Total Protein 6.4 g/dL (6.5-8.0); Triglycerides 80 mg/dL
[2021-10-04 13:10] LABS: Vitamin D 25-OH, D2 <4 ng/mL; Vitamin D 25-OH, D3 43 ng/mL; Vitamin D 25-OH, Total 43 ng/mL (30-100)
== END 2021-09-30 08:52 | disposition home or self-care (01) ==
LOC: HO.LAB 08:51
PROVIDERS: PCP Internal Medicine; Visit Provider Internal Medicine
DX: M25.511 Pain in right shoulder (principal); K21.9 Gastro-esophageal reflux disease without esophagitis; E11.40 Type 2 diabetes mellitus with diabetic neuropathy, unspecified; E78.5 Hyperlipidemia, unspecified; E55.9 Vitamin D deficiency, unspecified
CPT/HCPCS: 36415; 73030; 73060; 80053; 80061; 82043; 82306; 83036

== ENCOUNTER → 2022-01-21 14:14 | Outpatient (BNVA) | payer OTHER, SELFPAY | PROVIDERS: PCP Internal Medicine; Referring Provider Internal Medicine; Visit Provider Nurse Practitioner Family | DX: I25.10 Atherosclerotic heart disease of native coronary artery without angina pectoris (principal); I10 Essential (primary) hypertension; E78.5 Hyperlipidemia, unspecified; R10.13 Epigastric pain; R11.2 Nausea with vomiting, unspecified; K58.0 Irritable bowel syndrome with diarrhea; K21.9 Gastro-esophageal reflux disease without esophagitis; K30 Functional dyspepsia; Z79.899 Other long term (current) drug therapy; Z95.5 Presence of coronary angioplasty implant and graft | CPT/HCPCS: 99212 ==

== ENCOUNTER 2022-03-18 16:20 | Outpatient (REF) | payer OTHER, SELFPAY ==
--- NOTE | ~2022-03-18 | US_ITS ---
EXAMINATION: US RETROPERITONEAL LIMITED (RENAL ONLY) CLINICAL INFORMATION: Calculus of kidney. COMPARISON: Renal ultrasound 08/08/2021. Ultrasound abdomen complete 04/18/2021. X-ray KUB 01/26/2019 and 12/29/2018. CT abdomen and pelvis 09/04/2018. TECHNIQUE: Real-time imaging of the kidneys. FINDINGS: RIGHT KIDNEY: 10.2 x 4.8 x 4.8 cm (SAG x AP x TRV). The kidney is normal in size, contour, and echogenicity. Renal cortical thickness is normal. No focal parenchymal lesions or hydronephrosis. There is a 0.3 cm calculus in the lower pole and a 0.4 cm calculus in the mid pole. LEFT KIDNEY: 9.9 x 4.2 x 4.2 cm (SAG x AP x TRV). The kidney is normal in size, contour, and echogenicity. Renal cortical thickness is normal. No focal parenchymal lesions or hydronephrosis. There is a 0.3 cm calculus in the upper pole and at least 2 0.4 cm calculi in the lower pole. There is mild asymmetric pelvis fullness but no surya hydronephrosis. US/US renal BI IMPRESSION: Nonobstructive bilateral renal calculi.
== END 2022-03-18 16:21 | disposition home or self-care (01) ==
LOC: HO.US 16:20
DX: N20.0 Calculus of kidney (principal)
CPT/HCPCS: 76775

== ENCOUNTER 2022-03-28 12:15 | Outpatient (REF) | payer OTHER, SELFPAY ==
--- NOTE | ~2022-03-28 | XR_ITS ---
EXAMINATION: XR ABDOMEN KUB CLINICAL INDICATION: Renal calculus. COMPARISON: Ultrasound of 03/18/2022 and 08/08/2021. KUB of 01/26/2019. TECHNIQUE: AP view of the abdomen. FINDINGS: The bowel gas pattern is normal with no evidence of ileus or obstruction. No unusual soft tissue calcifications are noted. There is osteitis pubis. Sacroiliac joints and hip joints appear unremarkable. A few stable phleboliths and linear vascular calcifications are present about the pelvis. No definite renal or ureteral calculi are seen on this plain film study. Psoas margins are unremarkable. XR/XR KUB IMPRESSION: Unremarkable examination. No renal calculi are appreciated on this plain film study.
== END 2022-03-28 12:16 | disposition home or self-care (01) ==
LOC: HO.XRAY 12:15
PROVIDERS: PCP Internal Medicine; Visit Provider Urology
DX: N20.0 Calculus of kidney (principal)
CPT/HCPCS: 74018

== ENCOUNTER 2022-04-13 12:48 | Emergency (ER) | payer OTHER, SELFPAY ==
[2022-04-13 12:51] VITALS: BP 167/86; PULSE 81; RESP 18; TEMP 37.2; O2SAT 100; BMI 27.1
[2022-04-13 13:23] LABS: MANUAL DIFF FLAG NO
[2022-04-13 13:24] LABS: Basophils Percent Auto 0.9 % (0-2); Eosinophils Absolute Auto 0.1 X10*3/uL (0.0-0.4); Eosinophils Percent Auto 4.2 % (0-4); Hemoglobin 13.2 g/dl (12.0-16.0); Imm Gran Abs Auto 0.01 X10*3/uL (0.00-0.03); Imm Gran Pct Auto 0.3 % (0.0-0.4); Lymphocytes Absolute Auto 1.8 X10*3/uL (1.2-4.9); Lymphocytes Percent Auto 52.4 % (20-40); Mean Corpuscular HGB Conc 33.8 g/dl (31.0-35.0); Mean Corpuscular Hemoglobin 29.9 pg (27.0-33.0); Mean Corpuscular Volume 88.4 fL (80.0-98.0); Monocytes Absolute Auto 0.3 X10*3/uL (0.1-1.2); Monocytes Percent Auto 8.1 % (2-11); Neutrophils Absolute Auto 1.1 x10*3/uL (2.0-8.3); Neutrophils Percent Auto 34.1 % (45-73); Platelet Count 266 X10*3/uL (160-400); Red Blood Count 4.41 X10*6/uL (4.20-5.50); Red Cell Distribution Width 13.1 % (11.0-16.0); White Blood Count 3.3 X10*3/uL (4.8-10.8)
[2022-04-13 13:46] LABS: Alanine Aminotransferase 23 U/L (0-31); Albumin Level 4.1 g/dL (3.5-5.0); Alkaline Phosphatase 65 U/L (39-117); Anion Gap 15 (12-20); Aspartate Amino Transferase 19 U/L (5-31); Bilirubin Total 0.5 mg/dL (0.0-1.0); Blood Urea Nitrogen 14 mg/dL (9-16); Calcium 9.6 mg/dL (8.4-10.2); Carbon Dioxide 25 mmol/L (22-29); Chloride 104 mmol/L (96-108); Creatinine Clr Calc Pharmacy 54.1; Estimated Glomerular Filt Rate 55; Glucose Random 188 mg/dL (60-115); Potassium 3.9 mmol/L (3.3-5.1); Sodium 140 mmol/L (135-145); Total Protein 6.7 g/dL (6.5-8.0)
[2022-04-13 14:38] VITALS: BP 193/95; PULSE 70; RESP 18; TEMP 36.8; O2SAT 99
[2022-04-13 18:38] VITALS: BP 173/96; PULSE 77; RESP 16; O2SAT 99
--- NOTE | 2022-04-13 18:53 | ED.HA ---
HPI - Headache General Chief Complaint: Headache Stated Complaint: headache Time Seen by Provider: 04/13/22 18:35 Source: patient Mode of arrival: ambulatory Limitations: no limitations History of Present Illness HPI Narrative: Patient history of chronic migraine headaches take Tylenol for last 2-3 weeks having the headache bilateral with light sensitivity and nausea feels same as in the past no head injury no numbness or paresthesia no motor weakness no fever or chills no neck pain Related Data Home Medications Medication Instructions Recorded Confirmed furosemide 20 mg tablet 10 mg PO DAILY PRN Edema 11/29/20 03/28/22 Previous Rx's Medication Instructions Recorded aspirin 81 mg tablet,delayed 81 mg PO DAILY #30 tabs 09/06/20 release atorvastatin 40 mg tablet 40 mg PO DAILY #90 tabs 12/04/20 blood-glucose meter (Radio RebelStyle #1 ea 03/05/21 [place] Lite kit) lancets 28 gauge (FreeStyle #100 ea 03/05/21 Lancets) pyridoxine (vitamin B6) 100 mg 100 mg PO DAILY 90 days #90 tabs 06/19/21 tablet losartan 50 mg tablet 50 mg PO DAILY 90 days #90 tabs 06/25/21 famotidine 40 mg tablet 40 mg PO BEDTIME #90 tabs 09/09/21 calcium carbonate 600 mg calcium 600 mg PO BID 90 days #180 tabs 09/25/21 (1,500 mg) tablet (Calcium) cholecalciferol (vitamin D3) 25 25 mcg PO DAILY 90 days #90 caps 09/25/21 mcg (1,000 unit) capsule nitroglycerin 0.4 mg sublingual 0.4 mg sublingual Q5M PRN chest 09/25/21 tablet pain 30 days #25 tabs potassium citrate 10 mEq (1,080 20 meq PO BID 90 days #360 tabs 12/09/21 mg) tablet,extended release esomeprazole magnesium 40 mg 40 mg PO DAILY #90 caps 12/11/21 capsule,delayed release metoclopramide HCl 5 mg tablet 5 mg PO .TIDAC #90 tabs 01/21/22 (Reglan) ezetimibe 10 mg tablet (Zetia) 10 mg PO DAILY #30 tabs 01/22/22 blood sugar diagnostic (FreeStyle #50 ea 02/16/22 Test strips) metoprolol succinate 50 mg 50 mg PO DAILY #90 tabs 03/06/22 tablet,extended release 24 hr diclofenac sodium 1 % topical gel 2 g topical QID PRN pain #100 grams 03/28/22 (Arthritis Pain (diclofenac)) pioglitazone 30 mg tablet 30 mg PO DAILY 90 days #90 tabs 04/11/22 yufvnahqjs-tbswbhxjpmjcp-vrseagcd 1 cap PO Q6H PRN headache #20 caps 04/13/22 50 mg-300 mg-40 mg capsule (Fioricet) Allergies Allergy/AdvReac Type Severity Reaction Status Date / Time levofloxacin [From Levaquin] Allergy Severe Difficulty Verified 03/28/22 11:54 Breathing carvedilol [Coreg] Allergy Intermediate hives Verified 03/28/22 11:54 codeine Allergy Intermediate hives Verified 03/28/22 11:54 latex [LATEX] Allergy Intermediate RASH Verified 03/28/22 11:54 lisinopril Allergy Intermediate hives Verified 03/28/22 11:54 oxycodone [OXYCODONE] Allergy Intermediate RASH/HIVES Verified 03/28/22 11:54 Iodinated Contrast Media Allergy Mild RASH/HIVES Verified 03/28/22 11:54 [IV Dye, Iodine Containing] metronidazole [Flagyl] AdvReac Intermediate diarrhea Verified 03/28/22 11:54 Penicillins [PENICILLINS] AdvReac Intermediate limp legs Verified 03/28/22 11:54 topiramate AdvReac Intermediate ineffective Verified 03/28/22 11:54 Review of Systems Review of Systems: Yes all other systems are reviewed and are negative PMFSH Past Medical History Medical History CAD (coronary artery disease) Cardiomyopathy CHF (congestive heart failure) COVID-19 Diabetes 1.5, managed as type 2 Diabetes mellitus Dyslipidemia Essential hypertension Fibromyalgia GERD (gastroesophageal reflux disease) History of kidney stones HTN (hypertension) Hx of migraines Insomnia Lower extremity edema Neck pain On beta inez at home Osteopenia Postmenopausal cardiomyopathy (~2003) Renal calculi Renal calculi Right elbow pain Right shoulder pain Right shoulder pain Shortness of breath Surgical History History of exploratory laparotomy History of hysteroscopy History of lithotripsy History of lumpectomy of left breast History of lumpectomy of right breast Hx of cataract extraction Hx of section Hx of colonoscopy Hx of dilation and curettage Hx of endoscopy Stented coronary artery Family History Family History Father CVD (cardiovascular disease) HTN (hypertension) Cancer Type 2 diabetes mellitus Mother Breast cancer HTN (hypertension) Family/Other Diabetes Social History Social History Household Members: Children Housing: Apartment Are you a primary childbirth and infant care teacher to a significant other at home: No Do you presently have visiting nurse or other home services: No Alcohol intake: never Patient Tobacco Use Status: Former Tobacco user Tobacco use type: Cigarette Years Smoked: 3 months e-Cigarette/Vaping Use: Never Used Second Hand Smoke Exposure: No Advance Directives: No service: No Current occupational status: disabled Gender identity: Female Cognitive needs: No Hearing needs: No Vision needs: No Physical Exam Vital Signs: Vital Signs: Last Vital Signs Temp 98.3 F 04/13/22 14:38 Pulse 77 04/13/22 18:38 Resp 18 04/13/22 19:42 BP 173/96 H 04/13/22 18:38 Pulse Ox 99 04/13/22 18:38 O2 Del Method 04/13/22 14:38 BMI result Body Mass Index 27.1 Appearance: Alert. Oriented X3. No acute distress. Eyes: PERRLA, No Nystagmus ENT: Pharynx normal. Oral Mucosa moist temporal artery nontender Neck: Normal inspection. Neck supple. CVS: Normal heart rate and rhythm. Pulses normal. Respiratory: No respiratory distress. Equal air entry bilateral, no wheezing/rales/rhonchi Abdomen: Soft and nontender. Bowel sounds are present, no mass palpable, no CVA tenderness Skin: Skin warm and dry. Normal skin color. Normal skin turgor. Extremities: No lower extremity edema. No calf tenderness Neuro: Oriented X 3. No motor deficit. No sensory deficit.No cerebellar signs , cranial nerves II-XII intact MDM - Headache MDM Narrative Medical decision making narrative: Patient has stable labs felt better after medications Reglan and Benadryl discharge patient home Lab Data Attestation: I reviewed the patient's lab results. Result diagrams: 04/13/22 13:18 04/13/22 13:18 Labs: Lab Results 04/13/22 04/13/22 Range/Units 13:18 13:18 WBC 3.3 L (4.8-10.8) X10*3/uL RBC 4.41 (4.20-5.50) X10*6/uL Hgb 13.2 (12.0-16.0) g/dl Hct 39.0 (37.0-47.0) % MCV 88.4 (80.0-98.0) fL MCH 29.9 (27.0-33.0) pg MCHC 33.8 (31.0-35.0) g/dl RDW 13.1 (11.0-16.0) % Plt Count 266 (160-400) X10*3/uL MPV 10.0 (9.4-12.3) fL Immature Gran % (Auto) 0.3 (0.0-0.4) % Neut % (Auto) 34.1 L (45-73) % Lymph % (Auto) 52.4 H (20-40) % [place] % (Auto) 8.1 (2-11) % Eos % (Auto) 4.2 H (0-4) % Baso % (Auto) 0.9 (0-2) % Lymph # (Auto) 1.8 (1.2-4.9) X10*3/uL [place] # (Auto) 0.3 (0.1-1.2) X10*3/uL Eos # (Auto) 0.1 (0.0-0.4) X10*3/uL Baso # (Auto) 0.0 (0.0-0.2) X10*3/uL Abs Immat Gran (auto) 0.01 (0.00-0.03) X10*3/uL Absolute Neuts (auto) 1.1 L (2.0-8.3) x10*3/uL Absolute Nucleated RBC 0.000 (0.0-0.012) X10*3/uL Nucleated RBC % (auto) 0.0 (0.0-0.2) /100WBC Sodium 140 (135-145) mmol/L Potassium 3.9 (3.3-5.1) mmol/L Chloride 104 (96-108) mmol/L Carbon Dioxide 25 (22-29) mmol/L Anion Gap 15 (12-20) BUN 14 (9-16) mg/dL Creatinine 1.03 (0.5-1.4) mg/dL Estim Creat Clear Calc 54.1 Estimated GFR 55 Random Glucose 188 H (60-115) mg/dL Calcium 9.6 (8.4-10.2) mg/dL Magnesium 2.0 (1.6-2.6) mg/dL Total Bilirubin 0.5 (0.0-1.0) mg/dL AST 19 (5-31) U/L ALT 23 (0-31) U/L Alkaline Phosphatase 65 (39-117) U/L Total Protein 6.7 (6.5-8.0) g/dL Albumin 4.1 (3.5-5.0) g/dL Discharge Plan Discharge Clinical Impression: Migraine Patient Disposition: Home, Self-Care Instructions: Migraine Headache (ED) Additional Instructions: Rest at home Take Fioricet 1 tablet every 6-8 hours for headache Follow with PCP Prescriptions: New ooocjsgkpt-fdlszfpoydzwa-wzpo [Fioricet] 50-300-40 mg capsule 1 cap PO Q6H PRN (Reason: headache) Qty: 20 0RF No Action aspirin 81 mg tablet,delayed release (DR/EC) 81 mg PO DAILY Qty: 30 11RF atorvastatin 40 mg tablet 40 mg PO DAILY Qty: 90 2RF (DME) blood-glucose meter [FreeStyle [place] Lite] Kit See Rx Instructions .ROUTE .MEDSUPPLY Qty: 1 0RF Rx Instructions: TEST 2 TIMES DAILY (DME) lancets [FreeStyle Lancets] 28 gauge misc See Rx Instructions .ROUTE .MEDSUPPLY Qty: 100 11RF Rx Instructions: use 1 lancet twice a day losartan 50 mg tablet 50 mg PO DAILY 90 Days Qty: 90 3RF famotidine 40 mg tablet 40 mg PO BEDTIME Qty: 90 2RF nitroglycerin 0.4 mg tablet, sublingual 0.4 mg sublingual Q5M PRN (Reason: chest pain) 30 Days Qty: 25 5RF Rx Instructions: do not exceed 3 doses per episode potassium citrate 10 mEq (1,080 mg) tablet extended release 20 meq PO BID 90 Days Qty: 360 2RF esomeprazole magnesium 40 mg capsule,delayed release(DR/EC) 40 mg PO DAILY Qty: 90 1RF (DME) FreeStyle Test Strip See Rx Instructions .ROUTE .MEDSUPPLY Qty: 50 11RF Rx Instructions: TEST 2 TIMES DAILY metoprolol succinate 50 mg tablet extended release 24 hr 50 mg PO DAILY Qty: 90 1RF pioglitazone 30 mg tablet 30 mg PO DAILY 90 Days Qty: 90 0RF calcium carbonate [Calcium 600] 600 mg calcium (1,500 mg) tablet 600 mg PO BID 90 Days Qty: 180 0RF cholecalciferol (vitamin D3) 25 mcg (1,000 unit) capsule 25 mcg PO DAILY 90 Days Qty: 90 1RF diclofenac sodium [Arthritis Pain (diclofenac)] 1 % gel 2 g topical QID PRN (Reason: pain) Qty: 100 0RF Rx Instructions: apply to single elbow, wrist or hand; for hand includes palm/fingers/back of hand furosemide 20 mg tablet 10 mg PO DAILY PRN (Reason: Edema) pyridoxine (vitamin B6) 100 mg tablet 100 mg PO DAILY 90 Days Qty: 90 1RF ezetimibe [Zetia] 10 mg tablet 10 mg PO DAILY Qty: 30 5RF Rx Instructions: For cholesterol lowering, take in addition to atorvastatin metoclopramide HCl [Reglan] 5 mg tablet 5 mg PO .TIDAC Qty: 90 3RF
[2022-04-13 19:42] VITALS: RESP 18
[2022-04-13] MEDS: Metoclopramide HCl 10 MG/2 ML VIAL IVPUSH (19:42)
[2022-04-13] MEDS: Morphine Sulfate 4 MG/ML CARTRIDGE IVPUSH (19:42)
[2022-04-13] MEDS: diphenhydrAMINE HCL 50 MG/ML VIAL 25 MG IVPUSH (19:43)
== END 2022-04-13 22:24 | disposition home or self-care (01) ==
PROVIDERS: Emergency Provider Internal Medicine; PCP Internal Medicine
DX: G43.909 Migraine, unspecified, not intractable, without status migrainosus (principal); R07.89 Other chest pain; Z79.899 Other long term (current) drug therapy; Z87.891 Personal history of nicotine dependence
CPT/HCPCS: 36415; 80053; 83735; 85025; 96374; 96375; 99283; 99284; J1200; J2270; J2765

== ENCOUNTER → 2022-04-24 13:32 | Outpatient (BNVA) | payer OTHER, SELFPAY | PROVIDERS: PCP Internal Medicine; Referring Provider Internal Medicine; Visit Provider Nurse Practitioner Family | DX: I25.10 Atherosclerotic heart disease of native coronary artery without angina pectoris (principal); I10 Essential (primary) hypertension; O90.3 Peripartum cardiomyopathy; E78.5 Hyperlipidemia, unspecified; Z95.5 Presence of coronary angioplasty implant and graft | CPT/HCPCS: 93005; 99212 ==

== ENCOUNTER → 2022-05-20 10:27 | Outpatient (BNVA) | payer OTHER, SELFPAY | PROVIDERS: PCP Internal Medicine; Visit Provider Student in an Organized Health Care Education/Training Program | DX: M79.7 Fibromyalgia (principal); G56.21 Lesion of ulnar nerve, right upper limb | CPT/HCPCS: 99212 ==

== ENCOUNTER → 2022-07-10 13:34 | Outpatient (BNVA) | payer OTHER, SELFPAY | PROVIDERS: PCP Internal Medicine; Referring Provider Internal Medicine; Visit Provider Nurse Practitioner Family | DX: I25.10 Atherosclerotic heart disease of native coronary artery without angina pectoris (principal); I10 Essential (primary) hypertension; E78.5 Hyperlipidemia, unspecified; Z95.5 Presence of coronary angioplasty implant and graft; Z86.79 Personal history of other diseases of the circulatory system | CPT/HCPCS: 99212 ==

== ENCOUNTER → 2022-07-11 09:54 | Outpatient (BNVA) | payer OTHER, SELFPAY | PROVIDERS: PCP Internal Medicine; Visit Provider Nurse Practitioner Family | DX: G43.109 Migraine with aura, not intractable, without status migrainosus (principal); G47.19 Other hypersomnia; R06.83 Snoring; I10 Essential (primary) hypertension | CPT/HCPCS: 99202 ==

== ENCOUNTER 2022-07-15 08:48 | Outpatient (REF) | payer OTHER, SELFPAY ==
[2022-07-15 09:05] LABS: MANUAL DIFF FLAG NO
[2022-07-15 09:49] LABS: Basophils Absolute Auto 0.1 X10*3/uL (0.0-0.2); Basophils Percent Auto 1.3 % (0-2); Eosinophils Absolute Auto 0.2 X10*3/uL (0.0-0.4); Eosinophils Percent Auto 4.1 % (0-4); Hematocrit 38.6 % (37.0-47.0); Hemoglobin 12.9 g/dl (12.0-16.0); Imm Gran Abs Auto 0.01 X10*3/uL (0.00-0.03); Imm Gran Pct Auto 0.3 % (0.0-0.4); Lymphocytes Absolute Auto 1.7 X10*3/uL (1.2-4.9); Lymphocytes Percent Auto 44.1 % (20-40); Mean Corpuscular HGB Conc 33.4 g/dl (31.0-35.0); Mean Corpuscular Hemoglobin 29.7 pg (27.0-33.0); Mean Corpuscular Volume 88.9 fL (80.0-98.0); Mean Platelet Volume 11.3 fL (9.4-12.3); Monocytes Absolute Auto 0.3 X10*3/uL (0.1-1.2); Monocytes Percent Auto 7.1 % (2-11); Neutrophils Absolute Auto 1.7 x10*3/uL (2.0-8.3); Neutrophils Percent Auto 43.1 % (45-73); Platelet Count 298 X10*3/uL (160-400); Red Blood Count 4.34 X10*6/uL (4.20-5.50); Red Cell Distribution Width 12.9 % (11.0-16.0); White Blood Count 3.9 X10*3/uL (4.8-10.8)
[2022-07-15 10:11] LABS: Alanine Aminotransferase 47 U/L (0-31); Albumin Level 4.2 g/dL (3.5-5.0); Alkaline Phosphatase 67 U/L (39-117); Anion Gap 10 (12-20); Aspartate Amino Transferase 26 U/L (5-31); Blood Urea Nitrogen 15 mg/dL (9-16); Calcium 9.6 mg/dL (8.4-10.2); Carbon Dioxide 29 mmol/L (22-29); Chloride 106 mmol/L (96-108); Cholesterol 126 mg/dL; Estimated Glomerular Filt Rate 60; Glucose Random 126 mg/dL (60-115); HDL Cholesterol 52 mg/dL; LDL Cholesterol Calculated 63 mg/dl; Potassium 4.3 mmol/L (3.3-5.1); Sodium 141 mmol/L (135-145); Total Protein 6.9 g/dL (6.5-8.0); Triglycerides 59 mg/dL
[2022-07-15 10:29] LABS: TSH reflex Free T4 1.74 uIU/mL (0.32-4.0)
[2022-07-15 10:32] LABS: Erythrocyte Sedimentation Rate 14 MM/HR (0-20)
[2022-07-15 11:18] LABS: Bilirubin Total 0.3 mg/dL (0.0-1.0)
== END 2022-07-15 08:49 | disposition home or self-care (01) ==
LOC: HO.LAB 08:48
PROVIDERS: Absent Provider Nurse Practitioner Family; PCP Internal Medicine; Referring Provider Nurse Practitioner Family; Visit Provider Nurse Practitioner Family
DX: R51.9 Headache, unspecified (principal); E11.9 Type 2 diabetes mellitus without complications; E78.5 Hyperlipidemia, unspecified; I10 Essential (primary) hypertension
CPT/HCPCS: 36415; 80053; 80061; 82306; 84443; 85025; 85652

== ENCOUNTER → 2022-07-17 13:33 | Outpatient (BNVA) | payer OTHER, SELFPAY | PROVIDERS: PCP Internal Medicine; Visit Provider Nurse Practitioner Family | DX: Z13.89 Encounter for screening for other disorder (principal) ==

== ENCOUNTER → 2022-07-24 10:00 | Outpatient (REF) | payer OTHER, SELFPAY | LOC: HO.SL 10:00 | PROVIDERS: PCP Internal Medicine; Visit Provider Nurse Practitioner Family | DX: G47.19 Other hypersomnia (principal); G47.9 Sleep disorder, unspecified; R06.83 Snoring | CPT/HCPCS: 95806 ==

== ENCOUNTER → 2022-08-08 10:58 | Outpatient (REF) | payer OTHER, SELFPAY ==
--- NOTE | 2022-08-08 11:01 | HM_ITS ---
* Total monitoring time 3 days. * Underlying rhythm is sinus. Average ventricular rate 63/Min. Range 48 to 98/Min. * Rare PACs and PVCs. * No significant pauses or AV blocks. * Patient marker used in association with sinus rhythm and PACs. MTDD
== END ==
LOC: HO.CARD 10:58
PROVIDERS: PCP Internal Medicine; Visit Provider Nurse Practitioner Family
DX: R00.2 Palpitations (principal)
CPT/HCPCS: 93242

== ENCOUNTER → 2022-09-08 09:24 | Outpatient (BNVA) | payer OTHER, SELFPAY | PROVIDERS: PCP Internal Medicine; Visit Provider Nurse Practitioner Family | DX: G43.109 Migraine with aura, not intractable, without status migrainosus (principal); R51.9 Headache, unspecified | CPT/HCPCS: 99212 ==

== ENCOUNTER 2022-10-21 15:26 | Outpatient (REF) | payer OTHER, SELFPAY ==
--- NOTE | ~2022-10-21 | US_ITS ---
EXAMINATION: US RETROPERITONEAL LIMITED (RENAL ONLY) CLINICAL INFORMATION: Calculus of kidney. COMPARISON: Renal ultrasound 03/18/2022 and 08/08/2021. CT abdomen and pelvis 09/04/2018. TECHNIQUE: Real-time imaging of the kidneys. FINDINGS: RIGHT KIDNEY: 10.2 x 4.2 x 5.2 cm (SAG x AP x TRV). The kidney is normal in size, contour, and echogenicity. Renal cortical thickness is normal. No focal parenchymal lesions or hydronephrosis. Extrarenal pelvis. There are multiple nonobstructing renal calculi. The largest calculus measures 4 mm in the lower pole. LEFT KIDNEY: 10.6 x 4.0 x 4.4 cm (SAG x AP x TRV). The kidney is normal in size, contour, and echogenicity. Renal cortical thickness is normal. No focal parenchymal lesions or hydronephrosis. Extrarenal pelvis. There are multiple nonobstructing renal calculi including a cluster of calculi in the lower pole measuring up to 8 mm. US/US renal BI IMPRESSION: Bilateral nonobstructing renal calculi.
== END 2022-10-21 15:27 | disposition home or self-care (01) ==
LOC: HO.US 15:26
PROVIDERS: PCP Internal Medicine; Visit Provider Urology
DX: N20.0 Calculus of kidney (principal)
CPT/HCPCS: 76775

== ENCOUNTER 2022-10-28 11:49 | Outpatient (REF) | payer OTHER, SELFPAY | END 2022-10-28 11:50 | disposition home or self-care (01) | LOC: HO.LAB 11:49 | PROVIDERS: PCP Internal Medicine; Referring Provider Internal Medicine; Visit Provider Nurse Practitioner | DX: R10.13 Epigastric pain (principal); R11.2 Nausea with vomiting, unspecified; K58.0 Irritable bowel syndrome with diarrhea; K21.9 Gastro-esophageal reflux disease without esophagitis; R10.11 Right upper quadrant pain; D12.6 Benign neoplasm of colon, unspecified | CPT/HCPCS: 36415; 86003; 99212 ==

== ENCOUNTER → 2022-10-31 13:32 | Outpatient (BNVA) | payer OTHER, SELFPAY | PROVIDERS: PCP Internal Medicine; Visit Provider Urology | DX: N20.0 Calculus of kidney (principal) | CPT/HCPCS: 99212 ==

== ENCOUNTER 2022-11-06 11:24 | Outpatient (REF) | payer OTHER, SELFPAY ==
--- NOTE | 2022-11-06 08:15 | EMG_ITS ---
Bilateral median and ulnar motor and sensory studies were performed. Bilateral radial sensory studies were performed and paraspinal muscles were tested with a needle. IMPRESSION: 1. 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 2. Mild left ulnar neuropathy across cubital tunnel. MD KATIE Guadarrama/JOSE R / [id number]
== END 2022-11-06 11:25 | disposition home or self-care (01) ==
LOC: HO.NEURO 11:24
PROVIDERS: PCP Internal Medicine; Visit Provider Student in an Organized Health Care Education/Training Program
DX: G56.21 Lesion of ulnar nerve, right upper limb (principal)
CPT/HCPCS: 95886; 95911

== ENCOUNTER → 2022-11-11 10:30 | Outpatient (BNVA) | payer OTHER, SELFPAY | PROVIDERS: PCP Internal Medicine; Visit Provider Student in an Organized Health Care Education/Training Program | DX: M79.7 Fibromyalgia (principal); M12.811 Other specific arthropathies, not elsewhere classified, right shoulder; G56.22 Lesion of ulnar nerve, left upper limb | CPT/HCPCS: 99212 ==

== ENCOUNTER 2022-11-19 10:25 | Outpatient (REF) | payer OTHER, SELFPAY ==
--- NOTE | ~2022-11-19 | MM_ITS ---
EXAMINATION: MM SCREENING DIGITAL BREAST TOMOSYNTHESIS, BILATERAL CLINICAL INFORMATION: Screening. Asymptomatic. Family history breast cancer, mother. The lifetime risk of breast cancer based on the Tyrer-Cuzick Model is 10%. COMPARISON: Mammography: 09/28/2020, 12/26/2015, 09/27/2014; right breast ultrasound 09/28/2020. TECHNIQUE: Digital breast tomosynthesis is performed in both the craniocaudal and mediolateral oblique views along with computer-aided detection (CAD). Synthesized 2D images are generated from the tomosynthesis. FINDINGS: The breasts are heterogeneously dense, which may obscure small masses (ACR BI-RADS breast composition Category c). Parenchymal pattern is similar to prior studies. There is fine fibronodular pattern without interval developing density or architectural abnormality. There are no significant masses, abnormal calcifications, or other abnormalities. Incidental scattered bilateral vascular calcifications. The axilla and skin contours are unremarkable. MM/MM tomosynthesis screening BI IMPRESSION: No mammographic evidence of malignancy. ASSESSMENT: BI-RADS 2: Benign RECOMMENDATION: Routine annual mammography screening. This patient's information was entered into a reminder system with a target due date for their next mammogram.
== END 2022-11-19 10:26 | disposition home or self-care (01) ==
LOC: HO.MAMMO 10:25
PROVIDERS: PCP Internal Medicine; Visit Provider Internal Medicine
DX: Z12.31 Encounter for screening mammogram for malignant neoplasm of breast (principal)
CPT/HCPCS: 77063; 77067

== ENCOUNTER → 2022-12-02 13:58 | Outpatient (BNVA) | payer OTHER, SELFPAY | PROVIDERS: PCP Internal Medicine; Referring Provider Internal Medicine; Visit Provider Nurse Practitioner Family | DX: Z01.810 Encounter for preprocedural cardiovascular examination (principal); R07.89 Other chest pain; R06.02 Shortness of breath; I25.10 Atherosclerotic heart disease of native coronary artery without angina pectoris; I10 Essential (primary) hypertension; E78.5 Hyperlipidemia, unspecified; Z95.5 Presence of coronary angioplasty implant and graft | CPT/HCPCS: 93005; 99212 ==

== ENCOUNTER → 2022-12-03 10:00 | Outpatient (REF) | payer OTHER, SELFPAY ==
--- NOTE | 2022-12-03 10:03 | CA_ITS ---
Transthoracic Echocardiogram Patient (Last, First, Middle): Giovanna Quigley J Gender: Female Date of : 1965 Age: 57 Procedure Date: 12/03/2022 Procedure Type: Transthoracic Echocardiogram Location: OP Height: 157.48 cm Weight: 65.77 kg BSA: 1.67 m2 Heart Rate: 58 bpm BP: 150 / 80 mmHg Chief Environmental Commitment Officer: LUCIO Referring MD: Kassi Montano SUP[employer]Y CHAIN DEVELOPMENT MANAGEREyal Symptoms: R06.02 - Shortness of breath Study Quality: Adequate ECG Rhythm: Bradycardia Conclusions: - The left ventricular systolic function is low normal. The calculated ejection fraction is 54% by biplane method. - Mildly increased right ventricular cavity size. - No obvious valvular pathology seen on this study. Findings Left Ventricle Normal left ventricular cavity size. There is normal left ventricular wall thickness. The left ventricular systolic function is low normal. The calculated ejection fraction is 54% by biplane method. There is no evidence of regional wall motion abnormalities. E/E prime ratio is between 8 and 15 consistent with indeterminate filling pressures. Evidence suggests grade I (mild) diastolic dysfunction. LV peak GLS -16.2%. Right Ventricle Mildly increased right ventricular cavity size. There is normal right ventricular systolic function. Atria Both atria are normal in size. Aortic Valve There is a normal trileaflet aortic valve. There is no aortic valve stenosis. There is no aortic valve regurgitation. Mitral Valve The mitral valve appears normal. There is trace mitral valve regurgitation. There is no mitral valve stenosis. Pulmonic Valve The pulmonic valve is likely normal. Tricuspid Valve Normal tricuspid valve structure. There is trace tricuspid valve regurgitation. There is no evidence of pulmonary hypertension. Great Vessels The asc aorta is normal in size. Venous The inferior vena cava is mildly dilated and collapses greater than 50% with inspiration. Pericardium/Pleural There is no evidence of pericardial effusion. Prior Study Comparison Changes noted compared to prior study dated: 10/10/2020. Slightly reduced LVEF. Recommendations, Care & Conclusions No obvious valvular pathology seen on this study. Measurements 2D Linear Measurements IVSd: 0.91 0.6-0.9/0.6-1.0 cm LVIDd: 4.49 3.9-5.3/4.2-5.9 cm LVIDd Index: 2.69 2.4-3.2/2.2-3.1 cm/m2 LVIDs: 3.37 2.0-3.6 cm LVPWd: 0.90 0.7-1.1 cm LA Diam: 3.60 2.7-3.8/3.0-4.0 cm LAIDs Index: 2.16 1.5-2.3 cm/m2 LV Mass: 165.66 67-162/88-224 g LV Mass Index: 99.20 43-95/49-115 g/m2 LVOT Diam: 2.10 3.0+(-)1.3 cm 2D Systolic Function EF 4C: 51.20 >55% EF 2C: 57.00 >55% EF BiP: 54.40 >55% Mitral Valve MV Pk E: 0.90 MV PK A: 0.79 MV Decel Time: 248.00 E/A: 1.10 E'Lateral: 8.49 E'Medial: 6.31 E/E' Med: 14.30 E/E' Lat: 10.60 PHT: 73.00 MVA PHT: 3.01 Decel [place]: 3.65 Aortic Valve AoV Pk Santino: 1.27 AoV Mn Santino: 0.91 AoV VTI: 0.30 AoV Pk Grad: 6.00 Aov Mn Grad: 4.00 HINA Cont.VTI: 2.60 LVOT LVOT Pk Santino: 0.99 LVOT Mn Santino: 0.73 LVOT VTI: 0.23 LVOT Pk Grad: 4.00 LVOT Mn Grad: 2.00 LVOT Diam: 2.10 LVOT Area: 3.46 Diastolic Function MV Pk E: 0.90 MV Pk A: 0.79 E/A: 1.10 E'Medial: 6.31 E/E' Med: 14.30 E' Laterial: 8.49 E/E' Lat: 10.60 Right Ventricle TAPSE (mm): 23.20 TVS' Santino: 13.10 Tricuspid Valve TR Pk Santino: 1.57 TR Pk Grad: 10.00 RA Press: 8.00 RVSP: 18.00 Great Vessels Aorta Sinus of Valsalva: 3.10 2.0-3.5 cm Ao Asc: 3.10 2.1-3.4 cm Pulmonary Valve PV Pk Santino: 0.92 Peak PV Grad: 3.00 Updated in Other Vendor System with Status of Final Sukumar Downey MD electronically signed on 12/05/2022 11:51:45 AM with status of Final
== END ==
LOC: HO.CARD 10:00
PROVIDERS: PCP Internal Medicine; Visit Provider Nurse Practitioner Family
DX: R07.89 Other chest pain (principal); R06.02 Shortness of breath
CPT/HCPCS: 93306

== ENCOUNTER → 2022-12-04 07:56 | Outpatient (REF) | payer OTHER, SELFPAY ==
--- NOTE | ~2022-12-04 | NM_ITS ---
EXERCISE MYOCARDIAL PERFUSION STUDY INDICATION: Preoperative cardiac evaluation TECHNIQUE: The patient was brought in for an exercise perfusion study on 12/04/2022. Patient performed exercise as per Gregg protocol and was injected 25 mCi of sestamibi once target heart rate was achieved. Images were obtained using the SPECT gamma camera interlaced with the gating device. Images were obtained in supine position. Resting perfusion study was performed on 12/08/2022. Patient was administered 25 mCi of sestamibi intravenously at rest. Images were then obtained in supine position. Images were processed with the software and compared side to side in short axis, horizontal long axis and vertical long axis views. Total DLP 92mGy-cm. FINDINGS: Raw images were reviewed. The stress perfusion study showed no significant perfusion abnormality. Both uncorrected as well as CT attenuation corrected images were reviewed. The gated study shows normal LV systolic function with calculated LVEF of 53%. LV cavity is normal in size. The gated study shows normal wall thickening and contraction of segments. Resting study shows no significant perfusion abnormality. Gating at rest reveals normal wall motion with ejection fraction at 60%. The findings are consistent with no clear reversible or fixed perfusion abnormalities. NM/NM cardiolite stress test IMPRESSION: 1. Myocardial perfusion imaging study shows normal myocardial perfusion. 2. Gated LVEF is 54% during stress and 60% during rest. 3. Transient ischemic dilatation not present. EKG component of the test reported separately.
--- NOTE | 2022-12-04 07:59 | CA_ITS ---
Acquisition Time: 2022-12-04 07:57:03 Total Exercise Time: 00:06:47 Test Indications: Dyspnea CP Medications: SEE H Protocol: GREGG Max HR: 131 BPM 80% of Pred: 162 BPM Max BP: 204/066 mmHG Max Work Load: 8.2 METS Exercise stress test exercise 6 min 47 sec of Gregg protocol achieving 80% MPHR, with 6/10 chest pain, mild SOB, isoalted PACs and PVCs, with resting hypertension and futher elevation with exercise, without EKG chnages. Chest pain resolved in recovery. Nuclear images pending. Test reviewed with Shayan Angelo. Referred By: Kassi Montano Overread By: KASSI MONTANO
== END ==
LOC: HO.CARD 07:56
PROVIDERS: PCP Internal Medicine; Visit Provider Nurse Practitioner Family
DX: R07.89 Other chest pain (principal); I25.10 Atherosclerotic heart disease of native coronary artery without angina pectoris; Z95.5 Presence of coronary angioplasty implant and graft
CPT/HCPCS: 78452; 93017; A9500

== ENCOUNTER 2022-12-10 08:57 | Day surgery (SDC) | payer OTHER, SELFPAY ==
[2022-12-08 11:14] VITALS: BMI 26.5
--- NOTE | 2022-12-09 13:10 | P.CONAN_ITS ---
Documented by User: Viola Franz NP 12/09/22 13:13 HPI - Anesthesia Eval Consult details Narrative: 57yo F for Left ESWL Cardiac cleared Nuclear stress test completed 12/04/22 shows normal myocardial perfusion imaging. Echocardiogram done 12/04/22 shows EF 54%, no regional WMA, g rade 1 diastolic dysfunction. Low cardiac risk to procedure with planned urological procedure. Multiple allergies PMFSH Active Problems Active Problems: All Active Problems (Updated 12/08/22 @ 11:11 by Farheen Henderson RN) GERD (gastroesophageal reflux disease) (Acute) Irritable bowel syndrome with diarrhea (Acute) Essential hypertension (Acute) Encounter for annual routine gynecological examination (Acute) Breast lump (Acute) Pelvic pain in female (Acute) Lump of right breast (Acute) Postmenopausal bleeding (Acute) Skin lumps (Acute) Chest pain (Acute) Epigastric pain (Acute) Thoracic spondylosis with radiculopathy (Acute) Elbow pain (Acute) Lateral epicondylitis of right elbow (Acute) Medial epicondylitis, right elbow (Acute) Diabetes mellitus (Acute) History of biopsy (Acute) Nausea and vomiting (Acute) Preop cardiovascular exam (Acute) Right shoulder pain (Acute) Renal calculi (Acute) Delayed gastric emptying (Acute) Postmenopausal atrophic vaginitis (Acute) Cervical cancer screening (Acute) Ulnar neuropathy at elbow of right upper extremity (Acute) Family history of cardiomyopathy (Acute) Palpitation (Acute) Headache (Acute) Sleep difficulties (Acute) Snoring (Acute) Excessive daytime sleepiness (Acute) Migraine with aura (Acute) Right upper quadrant abdominal pain (Acute) Tubular adenoma of colon (Acute) Bilateral kidney stones (Acute) Rotator cuff arthropathy of right shoulder (Acute) Ulnar neuropathy at elbow of left upper extremity (Acute) Short of breath on exertion (Acute) Chest discomfort (Acute) Preop cardiovascular exam (Acute) HTN (hypertension) (Acute) Migraine (Acute) Osteopenia (Acute) Right shoulder pain (Acute) Right elbow pain (Acute) Neck pain (Acute) Postmenopausal (Acute) Lower extremity edema (Acute) Shortness of breath (Acute) Insomnia (Acute) Renal calculi (Acute) cardiomyopathy (Acute ~2004) Stented coronary artery (Acute) CAD (coronary artery disease) (Acute) Dyslipidemia (Acute) Fibromyalgia (Acute) Past Medical History Medical History CAD (coronary artery disease) Cardiomyopathy CHF (congestive heart failure) COVID-19 Diabetes 1.5, managed as type 2 Dyslipidemia Fibromyalgia GERD (gastroesophageal reflux disease) History of kidney stones HTN (hypertension) Insomnia Lower extremity edema Migraine Neck pain On beta inez at home Osteopenia Postmenopausal cardiomyopathy (~2003) Renal calculi Right elbow pain Right shoulder pain Shortness of breath Family History Family History Father CVD (cardiovascular disease) HTN (hypertension) Cancer Type 2 diabetes mellitus Mother Breast cancer HTN (hypertension) Family/Other Diabetes Brother Diabetes HTN (hypertension) Sister Diabetes HTN (hypertension) Migraines Son Asthma Family history of problems with anesthesia: No Surgical History Surgical History H/O esophagogastroduodenoscopy History of carpal tunnel release History of exploratory laparotomy History of hysteroscopy History of lithotripsy History of lumpectomy of left breast History of lumpectomy of right breast Hx of cataract extraction Hx of section Hx of colonoscopy Hx of cystoscopy Hx of dilation and curettage Hx of endoscopy Stented coronary artery History of Problems with Anesthesia: No Social History Social History Household Members: Children Housing: Apartment Are you a primary care professional to a significant other at home: No Do you presently have visiting nurse or other home services: No Alcohol intake: never Patient Tobacco Use Status: Former Tobacco user Tobacco use type: Cigarette Years Smoked: 3 months e-Cigarette/Vaping Use: Never Used Second Hand Smoke Exposure: No Use of substances other than those prescribed or required for medical reasons: No Are you DNR?: No Advance Directives: No Advance Directives Information Provided: Yes Advance Directives on File: No service: No Current occupational status: disabled Gender identity: Female Cognitive needs: No Hearing needs: No Vision needs: No Meds Allergies Allergy/AdvReac Type Severity Reaction Status Date / Time levofloxacin [From Levaquin] Allergy Severe Difficulty Verified 12/02/22 14:25 Breathing carvedilol [Coreg] Allergy Intermediate hives Verified 12/02/22 14:25 codeine Allergy Intermediate hives Verified 12/02/22 14:25 latex [LATEX] Allergy Intermediate RASH Verified 12/02/22 14:25 lisinopril Allergy Intermediate hives Verified 12/02/22 14:25 oxycodone [OXYCODONE] Allergy Intermediate RASH/HIVES Verified 12/02/22 14:25 Iodinated Contrast Media Allergy Mild RASH/HIVES Verified 12/02/22 14:25 [IV Dye, Iodine Containing] metronidazole [Flagyl] AdvReac Intermediate diarrhea Verified 12/02/22 14:25 Penicillins [PENICILLINS] AdvReac Intermediate limp legs Verified 12/02/22 14:25 topiramate AdvReac Intermediate ineffective Verified 12/02/22 14:25 Home Medications Medication Instructions Recorded Confirmed Last Taken Type furosemide 20 mg tablet 10 mg PO DAILY PRN Edema 11/29/20 12/08/22 Unknown History Exam Exam Date and Time: December 09, 2022 1310 Height,Weight and Vital Signs: Height 5 ft 2 in Weight 65.771 kg Narrative Narrative: EKG 11/2022 sinus bradycardia, no acute ST or T-wave abnormalities, QTC 424 milliseconds, rate 57 ECHO 2022 Conclusions: - The left ventricular systolic function is low normal.? The ? ? calculated ejection fraction is 54% by biplane method. ? - Mildly increased right ventricular cavity size.? - No obvious valvular pathology seen on this study.? ?? NM cardiolite stress test 2022 IMPRESSION: ? 1.? Myocardial perfusion imaging study shows normal myocardial perfusion. 2.? Gated LVEF is 54% during stress and 60% during rest. 3. Transient ischemic dilatation not present. ? EKG component of the test reported separately. Assessment and Plan Assessment Anesthesia Assessment: Chart Reviewed Final Anesthetic Review Family History of Problems with Anesthesia: No History of Problems with Anesthesia: No Documented by User: Felipa Salter MD 12/10/22 09:54 PMFSH Active Problems Active Problems: All Active Problems (Updated 12/10/22 @ 09:35 by Felipa Salter MD) GERD (gastroesophageal reflux disease) (Acute) Irritable bowel syndrome with diarrhea (Acute) Essential hypertension (Acute) Encounter for annual routine gynecological examination (Acute) Breast lump (Acute) Pelvic pain in female (Acute) Lump of right breast (Acute) Postmenopausal bleeding (Acute) Skin lumps (Acute) Chest pain (Acute) Epigastric pain (Acute) Thoracic spondylosis with radiculopathy (Acute) Elbow pain (Acute) Lateral epicondylitis of right elbow (Acute) Medial epicondylitis, right elbow (Acute) Diabetes mellitus (Acute) History of biopsy (Acute) Nausea and vomiting (Acute) Preop cardiovascular exam (Acute) Right shoulder pain (Acute) Renal calculi (Acute) Delayed gastric emptying (Acute) Postmenopausal atrophic vaginitis (Acute) Cervical cancer screening (Acute) Ulnar neuropathy at elbow of right upper extremity (Acute) Family history of cardiomyopathy (Acute) Palpitation (Acute) Headache (Acute) Sleep difficulties (Acute) Snoring (Acute) Excessive daytime sleepiness (Acute) Migraine with aura (Acute) Right upper quadrant abdominal pain (Acute) Tubular adenoma of colon (Acute) Bilateral kidney stones (Acute) Rotator cuff arthropathy of right shoulder (Acute) Ulnar neuropathy at elbow of left upper extremity (Acute) Short of breath on exertion (Acute) Chest discomfort (Acute) Preop cardiovascular exam (Acute) HTN (hypertension) (Acute) Migraine (Acute) Osteopenia (Acute) Right shoulder pain (Acute) Right elbow pain (Acute) Neck pain (Acute) Postmenopausal (Acute) Lower extremity edema (Acute) Shortness of breath (Acute) Insomnia (Acute) Renal calculi (Acute) cardiomyopathy (Acute ~2003) Stented coronary artery (Acute) CAD (coronary artery disease) (Acute)- denies recent chest pain. Cardiac work-up last week. Results as above. Dyslipidemia (Acute) Fibromyalgia (Acute) H/o CHF Past Medical History Medical History CAD (coronary artery disease) Cardiomyopathy CHF (congestive heart failure) COVID-19 Diabetes 1.5, managed as type 2 Dyslipidemia Fibromyalgia GERD (gastroesophageal reflux disease) History of kidney stones HTN (hypertension) Insomnia Lower extremity edema Migraine Neck pain On beta inez at home Osteopenia Postmenopausal cardiomyopathy (~2003) Renal calculi Right elbow pain Right shoulder pain Shortness of breath Family History Family History Father CVD (cardiovascular disease) HTN (hypertension) Cancer Type 2 diabetes mellitus Mother Breast cancer HTN (hypertension) Family/Other Diabetes Brother Diabetes HTN (hypertension) Sister Diabetes HTN (hypertension) Migraines Son Asthma Surgical History Surgical History H/O esophagogastroduodenoscopy History of carpal tunnel release History of exploratory laparotomy History of hysteroscopy History of lithotripsy History of lumpectomy of left breast History of lumpectomy of right breast Hx of cataract extraction Hx of section Hx of colonoscopy Hx of cystoscopy Hx of dilation and curettage Hx of endoscopy Stented coronary artery Social History Social History Household Members: Children Housing: Apartment Are you a primary care professional to a significant other at home: No Do you presently have visiting nurse or other home services: No Alcohol intake: never Patient Tobacco Use Status: Former Tobacco user Tobacco use type: Cigarette Years Smoked: 3 months e-Cigarette/Vaping Use: Never Used Second Hand Smoke Exposure: No Use of substances other than those prescribed or required for medical reasons: No Are you DNR?: No Advance Directives: No Advance Directives Information Provided: Yes Advance Directives on File: No service: No Current occupational status: disabled Gender identity: Female Cognitive needs: No Hearing needs: No Vision needs: No Meds Allergies Allergy/AdvReac Type Severity Reaction Status Date / Time levofloxacin [From Levaquin] Allergy Severe Difficulty Verified 12/02/22 14:25 Breathing carvedilol [Coreg] Allergy Intermediate hives Verified 12/02/22 14:25 codeine Allergy Intermediate hives Verified 12/02/22 14:25 latex [LATEX] Allergy Intermediate RASH Verified 12/02/22 14:25 lisinopril Allergy Intermediate hives Verified 12/02/22 14:25 oxycodone [OXYCODONE] Allergy Intermediate RASH/HIVES Verified 12/02/22 14:25 Iodinated Contrast Media Allergy Mild RASH/HIVES Verified 12/02/22 14:25 [IV Dye, Iodine Containing] metronidazole [Flagyl] AdvReac Intermediate diarrhea Verified 12/02/22 14:25 Penicillins [PENICILLINS] AdvReac Intermediate limp legs Verified 12/02/22 14:25 topiramate AdvReac Intermediate ineffective Verified 12/02/22 14:25 Home Medications Medication Instructions Recorded Confirmed Last Taken Type furosemide 20 mg tablet 10 mg PO DAILY PRN Edema 11/29/20 12/08/22 Unknown Hist ory Exam Height,Weight and Vital Signs: Height 5 ft 2 in Weight 65.771 kg Vital Signs Temp Pulse Resp BP Pulse Ox O2 Del Method 12/10/22 09:21 98.1 F 70 16 169/88 H 99 Room Air Airway Mallampati Class: II TM Dist: >3cm Neck ROM: Full Partial: Upper and Lower Loose/Missing/Broken Teeth: Yes (Denies broken or loose teeth) Heart: RRR Lungs: CTAB Assessment and Plan Assessment Anesthesia Assessment: Anesthesia Plan Discussed Final Anesthetic Review NPO: Yes ASA Class: III Final Preanesthetic Review: No Changes in Pt Med Stat, Meds/Allgs Chart Reviewed, Consent Obtained/Reviewed and Anes Risks/Benef Reviewed Patient Risk: Intermediate Procedure Risk: Low Assessment/Block/Sedation in SS: Assess/Block/Sedation-SS Anesthetic Plan Anesthetic Plan: GA Disposition: Standard PACU
[2022-12-10] VITALS (7 sets, daily range): BP systolic 131–169; BP diastolic 73–88; PULSE 66–89; RESP 14–18; TEMP 36.5–37.1; O2SAT 95–99
--- NOTE | ~2022-12-10 | XR_ITS ---
EXAMINATION: XR ABDOMEN KUB CLINICAL INDICATION: Left kidney stone COMPARISON: Ultrasound of October 13, 2022 and KUB of March 28, 2022 TECHNIQUE: AP view of the abdomen. FINDINGS: The bowel gas pattern is normal with no evidence of ileus or obstruction. No unusual soft tissue calcifications are noted. Psoas margins intact. There are some stable calcifications about the pelvis again seen. The bones are unremarkable. XR/XR KUB IMPRESSION: No significant abnormality appreciated. No definite renal or ureteral calculi appreciated.
[2022-12-10 09:14] LABS: Glucose, Whole Blood 103 mg/dL (60-115)
[2022-12-10] MEDS: Lactated Ringers 1,000 ML 999 ML IV (09:22)
--- NOTE | 2022-12-10 09:54 | MHC.SHP ---
Pre-Procedural Eval Section A Date of Service: 12/10/22 The patient is an INPATIENT: No The History & Physical has been completed within 30 days and I have reviewed it.: Yes Section B Chief Complaint: Calculus of kidney Allergies: Allergies Allergy/AdvReac Type Severity Reaction Status Date / Time levofloxacin [From Levaquin] Allergy Severe Difficulty Verified 12/02/22 14:25 Breathing carvedilol [Coreg] Allergy Intermediate hives Verified 12/02/22 14:25 codeine Allergy Intermediate hives Verified 12/02/22 14:25 latex [LATEX] Allergy Intermediate RASH Verified 12/02/22 14:25 lisinopril Allergy Intermediate hives Verified 12/02/22 14:25 oxycodone [OXYCODONE] Allergy Intermediate RASH/HIVES Verified 12/02/22 14:25 Iodinated Contrast Media Allergy Mild RASH/HIVES Verified 12/02/22 14:25 [IV Dye, Iodine Containing] metronidazole [Flagyl] AdvReac Intermediate diarrhea Verified 12/02/22 14:25 Penicillins [PENICILLINS] AdvReac Intermediate limp legs Verified 12/02/22 14:25 topiramate AdvReac Intermediate ineffective Verified 12/02/22 14:25 Plan Diagnosis/Plan: Unchanged I have reviewed the history and physical and performed a pertinent physical examination on my patient. No changes have occurred unless specified. Left ESWL. Discussed risks to include but not limited to, blood in the urine, bruising to the skin, kidney hematoma, possible need for another procedure if a stone fragment obstructs the ureter while passing, possible need to repeat procedure if stone is not completely fragmented. Time Spent With Patient Time: Total time managing care of this patient today ____ minutes.
--- NOTE | 2022-12-10 11:05 | W.PM.OPN ---
Operative Note Operative Note Date of Service: 12/10/22 Narrative: PreOperative Diagnosis:? ? Left Renal stones Post Operative Diagnosis:?Left? Renal stones Procedure:?Left ESWL Surgeon:?Dr Lahta Beltrán Anesthesia:? General Indications for procedure: The patient understands ESWL may be a staged procedure and subsequent intervention may be required based on imaging after ESWL.? They also understand? there is a risk of bleeding to the kidney, infection, damage to adjacent organs, and stone migration following the procedure. Imaging The left renal stones were visualized on with Ultrasound - 8 mm x 5 mm and 5 mm x 5 mm stone Procedure: After informed consent was verified the patient was brought to the operating room and placed in a supine position.? Anesthesia was performed per protocol. Safety pause time-out was performed. Imaging was displayed in the room and laterality confirmed. Left ESWL was performed.?The stones was visualized on ultrasound.? Shockwave lithotripsy was performed, the first 300 shocks at 60 hertz.? A pause for 3 minutes.? Treatment continued with rate of 120 hertz gradual increase to power of 18. A total of 2500 shocks delivered. Some fragmentation of the stone was appreciated. The patient tolerated the procedure well and was transferred to the recovery area upon completion. Complications: None
[2022-12-10] MEDS: fentaNYL citrate/PF 100 MCG/2 ML VIAL 25 MCG IVPUSH ×2 (11:23→11:28)
[2022-12-10] MEDS: HYDROcodone Bit/Acetam 5/325 TABLET 1 TAB PO (11:53)
== END 2022-12-10 12:40 | disposition home or self-care (01) ==
PROVIDERS: PCP Internal Medicine; Visit Provider Urology
PROC: (CPT 50590; principal; 2022-12-10 10:00)
DX: N20.0 Calculus of kidney (principal); Z87.442 Personal history of urinary calculi; I11.0 Hypertensive heart disease with heart failure; I50.9 Heart failure, unspecified; I25.10 Atherosclerotic heart disease of native coronary artery without angina pectoris; Z95.5 Presence of coronary angioplasty implant and graft; I42.9 Cardiomyopathy, unspecified; R60.0 Localized edema; E78.5 Hyperlipidemia, unspecified; K21.9 Gastro-esophageal reflux disease without esophagitis; E13.9 Other specified diabetes mellitus without complications; M79.7 Fibromyalgia; R06.02 Shortness of breath; R07.89 Other chest pain; Z79.82 Long term (current) use of aspirin; Z88.1 Allergy status to other antibiotic agents; Z88.8 Allergy status to other drugs, medicaments and biological substances; Z91.040 Latex allergy status; Z91.041 Radiographic dye allergy status; Z98.890 Other specified postprocedural states; Z87.891 Personal history of nicotine dependence; Z86.16 Personal history of COVID-19
CPT/HCPCS: 50590; 74018; 82947; J0131; J0690; J1100; J1200; J2250; J2405; J3010

== ENCOUNTER → 2022-12-18 11:23 | Outpatient (BNVA) | payer OTHER, SELFPAY | PROVIDERS: PCP Internal Medicine; Visit Provider Nurse Practitioner Family | DX: G43.109 Migraine with aura, not intractable, without status migrainosus (principal); R42 Dizziness and giddiness | CPT/HCPCS: 99212 ==

== ENCOUNTER 2022-12-26 08:53 | Outpatient (REF) | payer OTHER, SELFPAY ==
--- NOTE | ~2022-12-26 | US_ITS ---
EXAMINATION: US ABDOMEN COMPLETE CLINICAL INFORMATION: Right upper quadrant pain. COMPARISON: X-ray KUB 12/10/2022 and 03/28/2022. Renal ultrasound 12/21/2022 and 03/18/2022. CT abdomen and pelvis 09/04/2018. TECHNIQUE: Real-time imaging of the abdominal viscera. FINDINGS: PANCREAS: Normal. ABDOMINAL AORTA: The proximal, mid, and distal segments are normal in caliber. INFERIOR VENA CAVA: Visualized portions are normal. LIVER: Normal. The liver is normal in size. The liver contour is normal. Parenchymal echogenicity is normal. No focal hepatic lesion. There is no intrahepatic biliary duct dilatation seen. GALLBLADDER: Normal. The gallbladder is physiologically distended without evidence of stones, sludge, polyps, wall thickening or pericholecystic fluid. COMMON BILE DUCT: Normal in caliber measuring 0.5 cm in diameter. RIGHT KIDNEY: At the lower pole, a 2 mm nonobstructing calculus is seen, with twinkle artifact. There is an extrarenal pelvis, without surya hydronephrosis. No focal parenchymal lesions. The kidney measures 10.1 cm in maximum dimension. LEFT KIDNEY: At the lower pole, 3 mm, 2 mm and 3 mm nonobstructing calculi are seen. There is an extrarenal pelvis, without surya hydronephrosis. No focal parenchymal lesions. The kidney measures 10.1 cm in maximum dimension. SPLEEN: Normal. The spleen measures 8.7 cm in maximum dimension. FREE FLUID: None. US/US abdomen complete IMPRESSION: 1. Nonobstructing bilateral renal calculi are seen, as detailed. There is no hydronephrosis noted. 2. No cholelithiasis or cholecystitis is noted.
== END 2022-12-26 08:54 | disposition home or self-care (01) ==
LOC: HO.US 08:53
PROVIDERS: Visit Provider Internal Medicine
DX: R10.11 Right upper quadrant pain (principal)
CPT/HCPCS: 76700

== ENCOUNTER 2023-01-07 09:57 | Outpatient (RCR) | payer OTHER, SELFPAY ==
[2023-01-07 10:10] VITALS: BP 181/88; PULSE 68
--- NOTE | 2023-01-07 10:56 | MHC.PT.EP ---
[facility] [place] Office [place] Office [place] Office [address] Fausto Castanon [address] [phone] F: [phone] F: [phone] F: [phone] F: [phone] Physical Therapy Plan of Care Date of Evaluation: Date of Surgery: NA Diagnosis: Dizziness and giddiness Assessment: Giovanna is a 57 year old female with extensive cardiac history referred to PT for dizziness and giddiness . She reports of having constant dizziness which gets worse with positional changes like sit to supine, rolling in bed, looking up or down. She describes them as feeling lightheaded and passing out . She also reports of having nausea. She presented with elevated BP during eval- due to this I only tested her for BPPV. Balance to be tested in next session. On PT examination she presented with intact saccades, smooth pursuit, visual tracking and negative head thrust. She was negative for VBI as well. On BPPV assessment in B [place] and B roll- negative for nystagmus but reports of worsening dizziness compared to rest- also describes them as feeling like I am passing out and light headedness . Giovanna could have possible vestibular hypofunction. Balance to be assessed in next session. Frequency and Duration: The patient will be seen 2/week for 4 weeks Short Term Goals: 1. Static and dynamic balance will be assessed in 2 weeks. Tonal Regulator Goals: 1. Patient to be able to functionally move in all planes and directions without provocation of dizziness to show return to PLOF in 4 weeks. 2. Patient to be educated on symptoms and indications to return to therapy when needed min 4 weeks. Treatment Plan: Modalities to reduce pain, spasms and effusion. Manual therapy to restore motion and function. Therapeutic exercise to improve strength and flexibility. Neuromuscular re-education for posture and balance. Therapeutic activities to return to functional activities of daily living. Electronically signed by: Barb Belcher PT DPT Please sign and return to therapist. Thank you for your referral.
--- NOTE | 2023-02-11 14:28 | MHC.PT.DC ---
[facility] [place] Office [place] Office [place] Office [address] [phone] F: [phone] F: [phone] F: [phone] F: [phone] Physical Therapy Discharge Report Diagnosis: Dizziness and giddiness Date of Surgery: NA Date of Evaluation: 01/07/23 Date of Discharge: 02/11/23 Treatments to Date: 1 Cancellations to Date: 0 No Shows to Date: Discharge Status: Discharge Summary: Giovanna presented with elevated BP during evaluation. She tested negative for BPPV however I did not perform a balance assessment due to elevated BP. Her BP issue has not been resolved in over a month. She is therefore being d/c at this time and was advises to return to PT when medically stable. Electronically signed by: Barb Belcher, PT DPT Please sign and return to therapist. Thank you for your referral.
== END 2023-02-11 14:28 | disposition home or self-care (01) ==
LOC: HO.PT 09:57
PROVIDERS: PCP Internal Medicine; Visit Provider Nurse Practitioner Family
DX: R42 Dizziness and giddiness (principal)
CPT/HCPCS: 97112; 97161

== ENCOUNTER → 2023-01-20 10:10 | Outpatient (BNVA) | payer OTHER, SELFPAY | PROVIDERS: Visit Provider Orthopaedic Surgery | DX: G56.03 Carpal tunnel syndrome, bilateral upper limbs (principal); G56.22 Lesion of ulnar nerve, left upper limb; M77.01 Medial epicondylitis, right elbow; R20.2 Paresthesia of skin; R20.0 Anesthesia of skin | CPT/HCPCS: 99212 ==

== ENCOUNTER → 2023-01-21 11:33 | Outpatient (BNVA) | payer OTHER, SELFPAY | PROVIDERS: PCP Internal Medicine; Visit Provider Urology ==

== ENCOUNTER 2023-02-05 10:36 | Outpatient (RCR) | payer OTHER, SELFPAY ==
--- NOTE | 2023-02-05 14:29 | MHC.OT.EP ---
[address] [phone] Occupational Therapy Plan of Care Patient Name: Giovanna Quigley Date of Evaluation: 02/05/23 Diagnosis: Right medial epicondylitis Pain Location: 8 right medial elbow pain ache , stabbing Pain Score: 8 Pain Scale Used: Numeric (0 - 10) Aggravating Factors: griping and lifting heavy things using my arm in a specific way pt unable to describe Alleviating Factors: Assessment: Pt is a 57 yo female with a diagnosis of right medial epicondylitis and NCS 11/06/22 showing [id number] right median neuropathy across carpal tunnel. Pt reports a more sedentary lifestyle since moving in with her son and his family now doing only light homemaking tasks .She is unable to straighten her hair due to UE symptoms and unable to sleep on her right side due to shoulder and elbow pain . She reports moderate difficulty with some daily tasks such as opening a tight jar, washing her hair and lifting anything heavy. 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 Thank you once again for your referral.
== END 2023-04-29 10:48 | disposition home or self-care (01) ==
LOC: HO.OT 10:36
PROVIDERS: PCP Internal Medicine; Visit Provider Orthopaedic Surgery
DX: R20.0 Anesthesia of skin (principal); R20.2 Paresthesia of skin; M77.01 Medial epicondylitis, right elbow
CPT/HCPCS: 97033; 97166

== ENCOUNTER 2023-02-05 12:08 | Outpatient (REF) | payer OTHER, SELFPAY ==
[2023-02-05 14:27] LABS: Alanine Aminotransferase 9 U/L (0-31); Albumin Level 3.8 g/dL (3.5-5.0); Alkaline Phosphatase 54 U/L (39-117); Anion Gap 12 (12-20); Aspartate Amino Transferase 14 U/L (5-31); Bilirubin Total 0.7 mg/dL (0.0-1.0); Blood Urea Nitrogen 10 mg/dL (9-16); Carbon Dioxide 28 mmol/L (22-29); Chloride 108 mmol/L (96-108); Cholesterol 188 mg/dL; Estimated Glomerular Filt Rate 57; Glucose Fasting 97 mg/dL (60-99); HDL Cholesterol 50 mg/dL; LDL Cholesterol Calculated 117 mg/dl; Potassium 3.9 mmol/L (3.3-5.1); Sodium 144 mmol/L (135-145); Total Protein 6.5 g/dL (6.5-8.0); Triglycerides 109 mg/dL
[2023-02-05 14:46] LABS: Vitamin D 25-OH Total 48.6 ng/mL (>30)
[2023-02-05 14:46] LABS: Creatinine Urine 92.89 mg/dL; Microalbum/Creatinine Ratio Ur 20.4 ug/mg cr
== END 2023-02-05 12:09 | disposition home or self-care (01) ==
LOC: HO.LAB 12:08
PROVIDERS: PCP Internal Medicine; Visit Provider Internal Medicine
DX: E55.9 Vitamin D deficiency, unspecified (principal); E11.9 Type 2 diabetes mellitus without complications; E78.5 Hyperlipidemia, unspecified; G43.109 Migraine with aura, not intractable, without status migrainosus
CPT/HCPCS: 36415; 80053; 80061; 82043; 82306

== ENCOUNTER 2023-02-11 13:38 | Outpatient (AMB) | payer OTHER, SELFPAY ==
--- NOTE | 2023-02-11 13:44 | MHC.PC.OV ---
Vital Signs 02/11/23 13:46 Height 5 ft 2 in Weight 142 lb BMI 26.0 BP 134/86 Blood Pressure Location Lt brachial Position Sitting Intake Visit Reasons: PE Intake Note: Patient here for a physical exam Patient Svcs Mgr Required: No Accompanied by: Self / Same As Patient Allergies levofloxacin [From Levaquin] Allergy (Severe, Verified 02/11/23 13:57) Difficulty Breathing carvedilol [Coreg] Allergy (Intermediate, Verified 02/11/23 13:57) hives codeine Allergy (Intermediate, Verified 02/11/23 13:57) hives latex [LATEX] Allergy (Intermediate, Verified 02/11/23 13:57) RASH lisinopril Allergy (Intermediate, Verified 02/11/23 13:57) hives oxycodone [OXYCODONE] Allergy (Intermediate, Verified 02/11/23 13:57) RASH/HIVES Iodinated Contrast Media [IV Dye, Iodine Containing] Allergy (Mild, Verified 02/11/23 13:57) RASH/HIVES metronidazole [Flagyl] Adverse Reaction (Intermediate, Verified 02/11/23 13:57) diarrhea Penicillins [PENICILLINS] Adverse Reaction (Intermediate, Verified 02/11/23 13:57) limp legs topiramate Adverse Reaction (Intermediate, Verified 02/11/23 13:57) ineffective Medication List - Last Reconciled 02/11/23 by Chen Pond MD amlodipine 5 mg PO DAILY aspirin 81 mg PO DAILY atorvastatin 40 mg PO DAILY baclofen 10 - 20 mg (1 - 2 x 10 mg) PO BEDTIME 30 days blood sugar diagnostic (FreeStyle Test strips) TEST 2 TIMES DAILY blood-glucose meter (FreeStyle [place] Lite kit) TEST 2 TIMES DAILY calcium carbonate (Calcium) 600 mg PO BID 90 days cholecalciferol (vitamin D3) 25 mcg PO DAILY 90 days diclofenac sodium 1% (Arthritis Pain (diclofenac)) 2 grams topical QID PRN diphenhydramine HCl (Benadryl) 25 - 50 mg (1 - 2 x 25 mg) PO TID PRN 30 days erenumab-aooe (Aimovig Autoinjector) 140 mg subcutaneously once monthly; 30 days esomeprazole magnesium 40 mg PO DAILY ezetimibe (Zetia) 10 mg PO DAILY famotidine 40 mg PO BEDTIME furosemide 10 mg PO DAILY PRN hydrochlorothiazide 12.5 mg PO DAILY lancets (FreeStyle Lancets) use 1 lancet twice a day losartan 100 mg PO DAILY magnesium oxide 400 mg PO BEDTIME 30 days metoprolol succinate ER 50 mg PO DAILY naproxen 375 mg PO BID 14 days nitroglycerin 0.4 mg sublingual Q5M PRN 30 days pantoprazole (Protonix) 40 mg PO DAILY 30 days pioglitazone 30 mg PO DAILY 90 days prednisone 20 mg PO DAILY 3 days pyridoxine (vitamin B6) 100 mg PO DAILY 90 days riboflavin (vitamin B2) 400 mg PO DAILY 30 days tamsulosin 0.4 mg PO BEDTIME 14 days ubrogepant (Ubrelvy) 50 - 100 mg (0.5 - 1 x 100 mg) PO ONCE PRN 30 days Tobacco use date assessed: 10/08/22 Dental Screening Dental Screen Date: 02/11/23 Did you have a dental visit in the last 12 months?: Yes Did you have a dental problem in the last 6 months where you did not have access to dental care?: No Was dental information given to patient?: Patient has dentist HPI HPI Comments History of Present Illness Details This is a 57-year-old female with diabetes mellitus type 2 that comes for her physical exam. A1c within goal. Diabetic eye exam was less than a year ago. Mammogram done October 2022. Pap smear done 2020 was normal. Colonoscopy done 2020 and this is follow by Gastroenterology. Occasional chest pain follow by cardiology. [facility] Medical History (Updated 02/11/23 @ 14:15 by Chen Pond MD) CAD (coronary artery disease) Cardiomyopathy CHF (congestive heart failure) COVID-19 Diabetes 1.5, managed as type 2 Dyslipidemia Fibromyalgia GERD (gastroesophageal reflux disease) History of kidney stones HTN (hypertension) Insomnia Lower extremity edema Medial epicondylitis, right elbow Migraine Neck pain On beta inez at home Osteopenia Postmenopausal cardiomyopathy (~2003) Renal calculi Right elbow pain Right shoulder pain Shortness of breath Surgical History H/O esophagogastroduodenoscopy History of carpal tunnel release History of exploratory laparotomy History of hysteroscopy History of lithotripsy History of lumpectomy of left breast History of lumpectomy of right breast Hx of cataract extraction Hx of section Hx of colonoscopy Hx of cystoscopy Hx of dilation and curettage Hx of endoscopy Stented coronary artery Family History Father CVD (cardiovascular disease) HTN (hypertension) Cancer Type 2 diabetes mellitus Mother Breast cancer HTN (hypertension) Family/Other Diabetes Brother Diabetes HTN (hypertension) Sister Diabetes HTN (hypertension) Migraines Son Asthma Social History Household Members: Children Housing: Apartment Are you a primary neonatal intensive care nurse to a significant other at home: No Do you presently have visiting nurse or other home services: No Alcohol intake: never Patient Tobacco Use Status: Former Tobacco user Tobacco use type: Cigarette Years Smoked: 3 months e-Cigarette/Vaping Use: Never Used Second Hand Smoke Exposure: No service: No Current occupational status: disabled Current occupation: right hand dominant Gender identity: Female Cognitive needs: No Hearing needs: No Vision needs: No Female Reproductive History Menstrual Age of Menarche: 12 Questionnaire Thrive Questionnaire Date Thrive assessed: 10/08/22 DENVER-7 AMB Questionnaire DENVER-7 Date DENVER - 7 assessed: 10/08/22 Source: Developed by Drs. Darshan Tate, Aggie Burgos, Gerson Obrien and colleagues, with an educational callie from [employer]. Review of Systems Const All systems reviewed & are unremarkable except as noted in HPI and below Eyes Reports no additional complaints, Denies change in vision and Denies other visual disturbances Card Reports chest pain at rest, Reports chest pain with activity, Denies edema, Denies irregular heart rhythm, Denies claudication, Denies dyspnea, Denies dyspnea on exertion, Denies orthopnea, Denies paroxysmal nocturnal dyspnea and Denies slow heart rate Resp Denies cough, Denies dyspnea and Denies dyspnea on exertion GI Denies abdominal pain, Denies change in bowel habits, Denies excessive flatus, Denies nausea and Denies vomiting Denies urinary incontinence, Denies urinary hesitancy and Denies urinary urgency Musc Denies abnormal gait, Denies atrophy, Denies deformity and Denies limited range of motion Skin/Breast Denies bleeding lesions, Denies changing lesions and Denies rash Neuro Denies abnormal gait and Denies lack of coordination Physical exam (Primary Care) Vital Signs: Last Vital Signs BP 134/86 02/11/23 13:46 BMI result Body Mass Index 26.0 Tobacco/Smoking Status: Tobacco use Status Tobacco use date assessed 10/08/22 02/11/23 13:47 Patient Tobacco Use Status Former Tobacco user 02/11/23 13:47 Tobacco use type Cigarette 02/11/23 13:47 e-Cigarette/Vaping Use Never Used 02/11/23 13:47 Thrive Assessment: Date of Thrive Assessment Date Thrive assessed 10/08/22 02/11/23 13:47 Const Orientation/consciousness: patient oriented x3 HENMT Head: Yes normal to inspection, Yes normocephalic and Yes atraumatic Ears: external ears normal Eyes General: appearance normal, both eyes and all related structures Eyelids: Yes eyelids normal Conjunctivae: conjunctivae normal Neck Neck: Yes normal visual inspection and Yes supple Resp Effort & Inspection: normal respiratory effort Auscultation: clear to auscultation bilaterally Cardio Jugular venous distension: no JVD Rate: regular rate Rhythm: regular rhythm Heart sounds: S1 normal heart sound present and S2 normal heart sound present GI Inspection: Yes normal to inspection Palpation (GI): Soft to palpation and nontender Auscultation: normal bowel sounds Skin General skin exam: no rashes or lesions noted Neuro General: patient oriented x3 and no focal motor deficits Extrem General: Yes full ROM Psych Appearance: grossly normal Results AMB Hemoglobin A1c AMB Hemoglobin A1c 5.8 % Last Edit by NANI Jones on 02/11/23 13:56 Results Reviewed Results Reviewed: Laboratory Last Values Hgb A1c (Clinic) 5.8 % (4.0-6.0) 02/11/23 13:53 Assessment and Plan Assessment & Plan (1) Physical exam: Code(s): Z00.00 - Encounter for general adult medical examination without abnormal findings Plan: Repeat in a year. (2) Diabetes mellitus: Code(s): E11.9 - Type 2 diabetes mellitus without complications Plan: Continue Actos. A1c goal is equal or less than 7%. Orders: Orders Comprehensive [place]. Panel Fast 4 Months I10 - Essential (primary) hypertension Lipid Panel 4 Months E78.5 - Hyperlipidemia, unspecified Vitamin D 25-OH Total 4 Months E55.9 - Vitamin D deficiency, unspecified Microalbumin, Random (w Creat) 4 Months E11.9 - Type 2 diabetes mellitus without complications AMB Hemoglobin A1c Today E11.9 - Type 2 diabetes mellitus without complications Coding Level of Care Code Est Pt Prev Care 40-64y(25891) Diagnoses Physical exam Z00.00 Diabetes mellitus E11.9 Time Spent (min) 31
[2023-02-11 13:46] VITALS: BP 134/86; BMI 26.0
== END 2023-02-11 15:09 | disposition home or self-care (01) ==
PROVIDERS: PCP Internal Medicine; Visit Provider Internal Medicine
DX: Z00.00 Encounter for general adult medical examination without abnormal findings (principal); E11.9 Type 2 diabetes mellitus without complications
CPT/HCPCS: 83036; 99396

== ENCOUNTER 2023-02-24 11:27 | Outpatient (AMB) | payer OTHER, SELFPAY ==
--- NOTE | 2023-02-24 11:35 | A.OFFVIS_ITS ---
Intake Vital Signs 02/24/23 11:36 Height 5 ft 2 in Weight 143 lb 4.807 oz BMI 26.2 BP 175/78 H Blood Pressure Location Rt brachial Position Sitting Pulse 49 L Intake Visit Reasons: follow up epigastric pain Intake Note: Giovanna presents in the office as a follow up for epigastric pain. CC: Patient reports nausea occasional epigastric pain, GERD. Denies other GI symptoms. It Service Technician Required: No Allergies levofloxacin [From Levaquin] Allergy (Severe, Verified 02/24/23 11:38) Difficulty Breathing carvedilol [Coreg] Allergy (Intermediate, Verified 02/24/23 11:38) hives codeine Allergy (Intermediate, Verified 02/24/23 11:38) hives latex [LATEX] Allergy (Intermediate, Verified 02/24/23 11:38) RASH lisinopril Allergy (Intermediate, Verified 02/24/23 11:38) hives oxycodone [OXYCODONE] Allergy (Intermediate, Verified 02/24/23 11:38) RASH/HIVES Iodinated Contrast Media [IV Dye, Iodine Containing] Allergy (Mild, Verified 02/24/23 11:38) RASH/HIVES metronidazole [Flagyl] Adverse Reaction (Intermediate, Verified 02/24/23 11:38) diarrhea Penicillins [PENICILLINS] Adverse Reaction (Intermediate, Verified 02/24/23 11:38) limp legs topiramate Adverse Reaction (Intermediate, Verified 02/24/23 11:38) ineffective HPI follow up epigastric pain HPI Details Assessment & Plan (1) Nausea and vomiting: Code(s): R11.2 - Nausea with vomiting, unspecified Plan: She did not feel that the reglan helped at 5mg, she took it mostly bid but would forget for tid. I suggest we increase the dose. She did not have any adverse effects from it. She saw her PCP and an US of the GB was ordered. I will watch for this study but I do note that she had an ultrasound in 2020 for similar symptoms that was negative for any gallbladder disease. She notes certain foods make it worse, soda, coffee, juice. She has diarrhea with every meal, is on many meds including magnesium. Will get rast panel and trial of cholestyramine. She is on 2 new migraine medications. The reglan at the low dose helped with the stomach rumbling no a/e. next avail. (2) Epigastric pain: Code(s): R10.13 - Epigastric pain (3) Irritable bowel syndrome with diarrhea: Code(s): K58.0 - Irritable bowel syndrome with diarrhea (4) GERD (gastroesophageal reflux disease): Code(s): K21.9 - Gastro-esophageal reflux disease without esophagitis Qualifiers: Esophagitis presence: without esophagitis Qualified Code(s): K21.9 - Gastro-esophageal reflux disease without esophagitis (5) Right upper quadrant abdominal pain: Code(s): R10.11 - Right upper quadrant pain (6) Tubular adenoma of colon: Code(s): D12.6 - Benign neoplasm of colon, unspecified Orders: Orders Rast Allergen Today K21.9 - Gastro-esophageal reflux disease without esophagitis Medications: New metoclopramide HCl (Reglan) 10 mg PO .TIDAC 90 tabs 3RF R11.2 - Nausea with vomiting, unspecified cholestyramine (with sugar) 4 gram administer w/meal; avoid other meds within 1hr before or 4-6hr after dose 4 grams PO DAILY 378 grams 3RF K58.0 - Irritable bowel syndrome with diarrhea pantoprazole (Protonix) 40 mg PO DAILY 30 days 30 tabs 4RF peg 3350-electrolytes 236-22.74-6.74 -5.86 gram (Golytely) until fecal effluent is clear; do not exceed a total volume of 2,000 mL 240 mL PO Q10M 1 day 4,000 mL 0RF Z12.11 - Encounter for screening for malignant neoplasm of colon On Hold esomeprazole magnesium Hold Comment: Doctor's Order 40 mg PO DAILY 90 caps 1RF K21.9 - Gastro-esophageal reflux disease without esophagitis, R10.13 - Epigastric pain LABS RAST panel did not show any food allergies US ABD FINDINGS: PANCREAS: Normal. ABDOMINAL AORTA: The proximal, mid, and distal segments are normal in caliber. INFERIOR VENA CAVA: Visualized portions are normal. LIVER: Normal. The liver is normal in size. The liver contour is normal. Parenchymal echogenicity is normal. No focal hepatic lesion. There is no intrahepatic biliary duct dilatation seen. GALLBLADDER: Normal. The gallbladder is physiologically distended without evidence of stones, sludge, polyps, wall thickening or pericholecystic fluid. COMMON BILE DUCT: Normal in caliber measuring 0.5 cm in diameter. RIGHT KIDNEY: At the lower pole, a 2 mm nonobstructing calculus is seen, with twinkle artifact. There is an extrarenal pelvis, without surya hydronephrosis. No focal parenchymal lesions.? The kidney measures 10.1 cm in maximum dimension. LEFT KIDNEY: At the lower pole, 3 mm, 2 mm and 3 mm nonobstructing calculi are seen. There is an extrarenal pelvis, without surya hydronephrosis. No focal parenchymal lesions.? The kidney measures 10.1 cm in maximum dimension. SPLEEN: Normal. The spleen measures 8.7 cm in maximum dimension. FREE FLUID: None. US/US abdomen complete IMPRESSION: ? 1. Nonobstructing bilateral renal calculi are seen, as detailed. There is no hydronephrosis noted. ? 2. No cholelithiasis or cholecystitis is noted. EGD/COLONOSCOPY Not yet scheduled her obtained BIOPSY TODAY'S VISIT She had no better help with the 10mg reglan, so she stopped it. She continues to have daily nausea. Also her migraines are less severe but she still has them. she is also struggling with dizziness and will be tested for vertigo soon. Had EGD in 2020 with some gastric scarring, we ordered colonoscopy not yet scheduled. US no gallstones. Rast panel did not show any food allergies. She will still have diarrhea with fatty foods or foods like beans if I haven't eaten them in a while. This makes me question pancreatic insuff/IBS. She has not tried the cholestyramine, I encourage her to do so. If she is an over produce her of bile and this will help. We could also consider Creon going forward. She also had renal stones. We discuss various causes of nausea and that it can be neurologic, metabolic or even psychogenic. She has not yet been contacted for her EGD/colonoscopy which is about normal right now since we are behind with the large massive people returning after COVID. ROV 4 weeks. [facility] Medical History (Updated 02/24/23 @ 16:30 by LANDON Mendoza) CAD (coronary artery disease) Cardiomyopathy CHF (congestive heart failure) COVID-19 Diabetes 1.5, managed as type 2 Dyslipidemia Fibromyalgia GERD (gastroesophageal reflux disease) History of kidney stones HTN (hypertension) Insomnia Lower extremity edema Medial epicondylitis, right elbow Migraine Neck pain On beta inez at home Osteopenia Postmenopausal cardiomyopathy (~2003) Renal calculi Right elbow pain Right shoulder pain Shortness of breath Surgical History H/O esophagogastroduodenoscopy History of carpal tunnel release History of exploratory laparotomy History of hysteroscopy History of lithotripsy History of lumpectomy of left breast History of lumpectomy of right breast Hx of cataract extraction Hx of section Hx of colonoscopy Hx of cystoscopy Hx of dilation and curettage Hx of endoscopy Stented coronary artery Family History Father CVD (cardiovascular disease) HTN (hypertension) Cancer Type 2 diabetes mellitus Mother Breast cancer HTN (hypertension) Family/Other Diabetes Brother Diabetes HTN (hypertension) Sister Diabetes HTN (hypertension) Migraines Son Asthma Social History Household Members: Children Housing: Apartment Are you a primary health care attorney to a significant other at home: No Do you presently have visiting nurse or other home services: No Alcohol intake: never Patient Tobacco Use Status: Former Tobacco user Tobacco use type: Cigarette Years Smoked: 3 months e-Cigarette/Vaping Use: Never Used Second Hand Smoke Exposure: No service: No Current occupational status: disabled Current occupation: right hand dominant Gender identity: Female Cognitive needs: No Hearing needs: No Vision needs: No Female Reproductive History Menstrual Age of Menarche: 12 Review of Systems Const Denies fatigue, Denies fever(s), Denies night sweats, Reports poor appetite and Denies weight loss ENT Reports Normal hearing present, Denies dental pain, Denies dysphagia, Denies hearing loss, Denies mouth pain, Denies odynophagia, Denies throat swelling, D enies tongue swelling and Reports other (Dentition adequate) Card Reports no additional complaints Resp Reports no additional complaints GI Reports abdominal pain, Denies melena, Denies bloating, Denies hematochezia, Reports constipation, Denies GI cramping, Denies dysphagia, Denies excessive flatus, Denies early satiety, Reports heartburn, Reports diarrhea, Reports nausea, Denies odynophagia, Reports vomiting and Denies hematemesis Skin/Breast Denies pruritus, Denies lesions, Denies rash and Denies jaundice Neuro Reports Normal hearing present and Denies Abnormal speech present Endo Denies fatigue Aller/Immun Denies throat swelling and Denies tongue swelling Physical Exam Vital Signs: Last Vital Signs Pulse 49 L 02/24/23 11:36 BP 175/78 H 02/24/23 11:36 BMI result Body Mass Index 26.2 Const General: cooperative, no acute distress, well developed and well groomed Nutritional Appearance: average body habitus and well nourished Orientation/consciousness: oriented to person, oriented to place and oriented to time Limitations: language barrier HEENT Head: Yes normocephalic and Yes atraumatic Eyes General: appearance normal, both eyes and all related structures Pupils: Equal, round and reactive pupils present Neck Neck: Yes normal visual inspection and Yes no lymphadenopathy Thyroid: Thyroid normal Resp Effort & Inspection: normal respiratory effort and able to speak in complete sentences Auscultation: clear to auscultation bilaterally Cardio Rate: regular rate Rhythm: regular rhythm Heart sounds: Normal, physiologic split S2 sound present Peripheral pulses: radial pulses present and posterior tibial pulses present GI Inspection: No distended and No Abdominal panniculus present Palpation (GI): Soft to palpation, nontender, no guarding, not rigid and No hepatosplenomegaly present Percussion: Yes normal to percussion Auscultation: normal bowel sounds Rectal Exam - Female: deferred Skin General skin exam: no rashes or lesions noted, turgor normal, skin not dry, no jaundice, No spider nevi and no striae Rashes: no rashes Nails: normal Neuro General: oriented to person, oriented to place and oriented to time Cranial nerves: Yes Equal, round and reactive pupils present and Yes Normal hearing present Speech: No Abnormal speech present Extrem General: Yes normal to inspection, No clubbing, No cyanosis and No edema Psych Appearance: grossly normal and well kempt Mental Status: mental status grossly normal Speech and movement: Normal speech and movement present Affect: normal affect Attitude: cooperative Thought process: Normal thought process present and not confabulating Thought content: Normal thought content present Insight: Limited insight present (Psych) Judgement: Limited judgement present (Psych) Results Reviewed Results Reviewed: LABS RAST panel did not show any food allergies US ABD FINDINGS: PANCREAS: Normal. ABDOMINAL AORTA: The proximal, mid, and distal segments are normal in caliber. INFERIOR VENA CAVA: Visualized portions are normal. LIVER: Normal. The liver is normal in size. The liver contour is normal. Parenchymal echogenicity is normal. No focal hepatic lesion. There is no intrahepatic biliary duct dilatation seen. GALLBLADDER: Normal. The gallbladder is physiologically distended without evidence of stones, sludge, polyps, wall thickening or pericholecystic fluid. COMMON BILE DUCT: Normal in caliber measuring 0.5 cm in diameter. RIGHT KIDNEY: At the lower pole, a 2 mm nonobstructing calculus is seen, with twinkle artifact. There is an extrarenal pelvis, without surya hydronephrosis. No focal parenchymal lesions.? The kidney measures 10.1 cm in maximum dimension. LEFT KIDNEY: At the lower pole, 3 mm, 2 mm and 3 mm nonobstructing calculi are seen. There is an extrarenal pelvis, without surya hydronephrosis. No focal parenchymal lesions.? The kidney measures 10.1 cm in maximum dimension. SPLEEN: Normal. The spleen measures 8.7 cm in maximum dimension. FREE FLUID: None. US/US abdomen complete IMPRESSION: ? 1. Nonobstructing bilateral renal calculi are seen, as detailed. There is no hydronephrosis noted. ? 2. No cholelithiasis or cholecystitis is noted. Assessment & Plan Assessment & Plan (1) Nausea and vomiting: Code(s): R11.2 - Nausea with vomiting, unspecified Plan: EGD/COLONOSCOPY Not yet scheduled her obtained BIOPSY TODAY'S VISIT She had no better help with the 10mg reglan, so she stopped it. She continues to have daily nausea. Also her migraines are less severe but she still has them. she is also struggling with dizziness and will be tested for vertigo soon. Had EGD in 2020 with some gastric scarring, we ordered colonoscopy not yet scheduled. US no gallstones. Rast panel did not show any food allergies. She will still have diarrhea with fatty foods or foods like beans if I haven't eaten them in a while. This makes me question pancreatic insuff/IBS. She has not tried the cholestyramine, I encourage her to do so. If she is an over produce her of bile and this will help. We could also consider Creon going forward. She also had renal stones. We discuss various causes of nausea and that it can be neurologic, metabolic or even psychogenic. She has not yet been contacted for her EGD/colonoscopy which is about normal right now since we are behind with the large massive people returning after COVID. ROV 4 weeks. (2) GERD (gastroesophageal reflux disease): Code(s): K21.9 - Gastro-esophageal reflux disease without esophagitis Qualifiers: Esophagitis presence: without esophagitis Qualified Code(s): K21.9 - Gastro-esophageal reflux disease without esophagitis (3) Irritable bowel syndrome with diarrhea: Code(s): K58.0 - Irritable bowel syndrome with diarrhea (4) Tubular adenoma of colon: Code(s): D12.6 - Benign neoplasm of colon, unspecified (5) Right upper quadrant abdominal pain: Code(s): R10.11 - Right upper quadrant pain Orders: Orders EGD/[place] - GI Use Only Today Medications: New cholestyramine (with sugar) 4 gram administer w/meal; avoid other meds within 1hr before or 4-6hr after dose 4 grams PO BID 348.6 grams 6RF Coding Level of Care Code Est Pt Level 3 (29328) Diagnoses Nausea and vomiting R11.2 GERD (gastroesophageal reflux disease) K21.9 Esophagitis presence: without esophagitis Irritable bowel syndrome with diarrhea K58.0 Tubular adenoma of colon D12.6 Right upper quadrant abdominal pain R10.11
[2023-02-24 11:36] VITALS: BP 175/78; PULSE 49; BMI 26.2
== END 2023-02-24 12:03 | disposition home or self-care (01) ==
PROVIDERS: PCP Internal Medicine; Visit Provider Nurse Practitioner
DX: R11.2 Nausea with vomiting, unspecified (principal); K21.9 Gastro-esophageal reflux disease without esophagitis; K58.0 Irritable bowel syndrome with diarrhea; D12.6 Benign neoplasm of colon, unspecified; R10.11 Right upper quadrant pain
CPT/HCPCS: 99213

== ENCOUNTER → 2023-02-24 11:27 | Outpatient (BNVA) | payer OTHER, SELFPAY | PROVIDERS: PCP Internal Medicine; Visit Provider Nurse Practitioner | DX: K21.9 Gastro-esophageal reflux disease without esophagitis (principal); K58.0 Irritable bowel syndrome with diarrhea; R11.2 Nausea with vomiting, unspecified; R10.11 Right upper quadrant pain; D12.6 Benign neoplasm of colon, unspecified | CPT/HCPCS: 99212 ==

== ENCOUNTER 2023-04-21 10:09 | Outpatient (AMB) | payer OTHER, SELFPAY ==
--- NOTE | 2023-04-21 11:05 | A.OFFVIS_ITS ---
Intake Intake Visit Reasons: 4 mo f/g-Ofttubshl-Reyxvztbh Allergies levofloxacin [From Levaquin] Allergy (Severe, Verified 02/24/23 11:38) Difficulty Breathing carvedilol [Coreg] Allergy (Intermediate, Verified 02/24/23 11:38) hives codeine Allergy (Intermediate, Verified 02/24/23 11:38) hives latex [LATEX] Allergy (Intermediate, Verified 02/24/23 11:38) RASH lisinopril Allergy (Intermediate, Verified 02/24/23 11:38) hives oxycodone [OXYCODONE] Allergy (Intermediate, Verified 02/24/23 11:38) RASH/HIVES Iodinated Contrast Media [IV Dye, Iodine Containing] Allergy (Mild, Verified 02/24/23 11:38) RASH/HIVES metronidazole [Flagyl] Adverse Reaction (Intermediate, Verified 02/24/23 11:38) diarrhea Penicillins [PENICILLINS] Adverse Reaction (Intermediate, Verified 02/24/23 11:38) limp legs topiramate Adverse Reaction (Intermediate, Verified 02/24/23 11:38) ineffective Medication List - Last Reconciled 04/21/23 by LIZZY Woodard amlodipine 5 mg PO DAILY aspirin 81 mg PO DAILY atogepant 60 mg PO DAILY 30 days atorvastatin 40 mg PO DAILY baclofen 10 - 20 mg (1 - 2 x 10 mg) PO BEDTIME 30 days blood sugar diagnostic (FreeStyle Test strips) TEST 2 TIMES DAILY blood-glucose meter (FreeStyle [place] Lite kit) TEST 2 TIMES DAILY calcium carbonate (Calcium) 600 mg PO BID 90 days cholecalciferol (vitamin D3) 25 mcg PO DAILY 90 days cholestyramine (with sugar) 4 gram 4 grams PO BID diclofenac sodium 1% (Arthritis Pain (diclofenac)) 2 grams topical QID PRN diphenhydramine HCl (Benadryl) 25 - 50 mg (1 - 2 x 25 mg) PO TID PRN 30 days erenumab-aooe (Aimovig Autoinjector) 140 mg subcutaneously once monthly; 30 days esomeprazole magnesium 40 mg PO DAILY ezetimibe (Zetia) 10 mg PO DAILY famotidine 40 mg PO BEDTIME furosemide 10 mg PO DAILY PRN hydrochlorothiazide 12.5 mg PO DAILY lancets (FreeStyle Lancets) use 1 lancet twice a day losartan 100 mg PO DAILY magnesium oxide 400 mg PO BEDTIME 30 days metoprolol succinate ER 50 mg PO DAILY naproxen 375 mg PO BID 14 days naproxen 375 mg PO BID PRN 10 days nitroglycerin 0.4 mg sublingual Q5M PRN 30 days pantoprazole 40 mg PO DAILY 90 days peg 3350-electrolytes 236-22.74-6.74 -5.86 gram (Golytely) 240 mL PO Q10M 1 day pioglitazone 30 mg PO DAILY 90 days pyridoxine (vitamin B6) 100 mg PO DAILY 90 days riboflavin (vitamin B2) 400 mg PO DAILY 30 days rimegepant (Nurtec ODT) 75 mg PO Q OTHER DAY 30 days ubrogepant (Ubrelvy) 50 - 100 mg (0.5 - 1 x 100 mg) PO ONCE PRN 30 days HPI HPI Comments History of Present Illness Details 57-yr-old female presents for f/u televi yudelka visit via [employer]. Since the last visit, pt stopped Aimovig and started Nurtec 75mg qod for migraine prevention. Unfortunately, this has not helped at all. She continues to wake up every day with a migraine- like air is blowing into her head, like a pressure, but also throbbing or sharp pain, and neck tightness. She has frontal and crown of head allodynia. She can also feel tightness in her jaw. Baclofen has not helped much even at 20mg qhs- but causes next day drowsiness. On review of her previous medication trials, pt notes that the Botox trial was Botox inj in the traps and not a chronic migraine regimen. She believes she has had LP before- which she states did not help. She is also very frequently dizzy- both internal/external spinning, prone to swaying. She started Vestibular tx- but it was held d/t her BP being too elevated- Pt reports her SBP can be as high as 180-190s w/ HR 50s. Last BP/HR in EMR shows 175/78 and 49. She is managed by [facility] [place] [facility] cardiology- on amlodipine 5mg q 6pm, losartan 100mg qd, metorpolol er 50mg, in addition to diuretics. [facility] Medical History (Updated 04/26/23 @ 21:04 by LIZZY Woodard) Migraine History of kidney stones Osteopenia Right shoulder pain Diabetes 1.5, managed as type 2 HTN (hypertension) CHF (congestive heart failure) Cardiomyopathy GERD (gastroesophageal reflux disease) On beta inez at home Right elbow pain Neck pain Postmenopausal Lower extremity edema Shortness of breath Insomnia Renal calculi Medial epicondylitis, right elbow 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) CAD (coronary artery disease) Dyslipidemia Fibromyalgia Surgical History Hx of cystoscopy H/O esophagogastroduodenoscopy History of carpal tunnel release Hx of dilation and curettage Hx of cataract extraction History of lumpectomy of right breast History of lumpectomy of left breast History of lithotripsy History of exploratory laparotomy Hx of section History of hysteroscopy Stented coronary artery Hx of colonoscopy Hx of endoscopy Family History Father CVD (cardiovascular disease) HTN (hypertension) Cancer Type 2 diabetes mellitus Mother Breast cancer HTN (hypertension) Family/Other Diabetes Brother Diabetes HTN (hypertension) Sister Diabetes HTN (hypertension) Migraines Son Asthma Social History Household Members: Children Housing: Apartment Are you a primary assurance services manager health care to a significant other at home: No Do you presently have visiting nurse or other home services: No Alcohol intake: never Patient Tobacco Use Status: Former Tobacco user Tobacco use type: Cigarette Years Smoked: 3 months e-Cigarette/Vaping Use: Never Used Second Hand Smoke Exposure: No service: No Current occupational status: disabled Current occupation: right hand dominant Gender identity: Female Cognitive needs: No Hearing needs: No Vision needs: No Female Reproductive History Menstrual Age of Menarche: 12 Review of Systems Const All systems reviewed & are unremarkable except as noted in HPI and below Physical Exam Const General: cooperative and no acute distress Orientation/consciousness: patient oriented x3 Resp Effort & Inspection: normal respiratory effort and able to speak in complete sentences Neuro General: patient oriented x3 Cognition (Neuro): normal cognition Motor exam (neuro): 5/5 motor strength present throughout Psych Appearance: grossly normal Mental Status: mental status grossly normal Speech and movement: Normal speech and movement present Affect: normal affect Attitude: cooperative Assessment & Plan Assessment & Plan (1) Chronic migraine without aura: Code(s): G43.709 - Chronic migraine without aura, not intractable, without status migrainosus (2) Vertigo: Code(s): R42 - Dizziness and giddiness Plan For vertigo: Resume vestibular PT when BP more normotensive. ? For acute migraine headache treatment: Tylenol and Ibuprofen prn. Continue Ubrogepant prn. Previous acute migraine medication trials: Sumatriptan- ineffective. Acute migraine medication contraindications: Triptans d/t HTN, HLD, CAD. ? For headache migraine prevention medication: Discussed trying Botox for chronic migraine tx- however pt would like to try Nerivio neurmodulation tx first. Hold Baclofen. Trial cyclobenzaprine 10-20mg qhs prn. Continue Metoprolol (used primarily for HTN). Continue Riboflavin 400mg qam Continue Magnesium 400mg qhs Continue Aimovig 140mg sc q month- take Benadryl 25-50mg the night before and morning of her injection Previous migraine prevention medication trials: Topiramate- ineffective. Am itriptyline- ineffective. Aimovig- ineffective. Nurtec for prevention- ineffective. Migraine prevention medication contraindications: Topiramate- d/t h/o nephrolithiasis. Medications: New cyclobenzaprine 10 - 20 mg (1 - 2 x 10 mg) PO BEDTIME 30 days 60 tabs 1RF onabotulinumtoxinA (Botox) inject 155 units IM across forehead, scalp, and neck 200 units IM ONCE 12 weeks 1 ea 3RF G43.709 - Chronic migraine without aura, not intractable, without status migrainosus Discontinued baclofen Discontinued Reason: Doctor's Order 10 - 20 mg (1 - 2 x 10 mg) PO BEDTIME 30 days 60 tabs 3RF erenumab-aooe (Aimovig Autoinjector) Discontinued Reason: Patient no longer taking 140 mg subcutaneously once monthly; 30 days 1 mL 6RF atogepant at bedtime Discontinued Reason: Insurance Denied 60 mg PO DAILY 30 days 30 tabs 6RF Telehealth Telehealth Location of provider rendering services: practice address Location of patient: address on file Patient Identification confirmed using: Name, : Yes Telehealth method: video Patient verbally consented to treatment: Yes Patient verbally consented to billing insurance company: Yes Patient informed of any privacy concerns related to visit: Yes Minutes spent on Phone/Video with Pt.: 30 Coding Level of Care Code Tele Est Pt Level 4 (33562) Diagnoses Chronic migraine without aura G43.709 Vertigo R42
== END 2023-04-21 10:10 | disposition home or self-care (01) ==
LOC: HO.HSMS 10:09
PROVIDERS: PCP Internal Medicine; Visit Provider Nurse Practitioner Family
DX: G43.709 Chronic migraine without aura, not intractable, without status migrainosus (principal); R42 Dizziness and giddiness
CPT/HCPCS: 99214

== ENCOUNTER → 2023-04-21 10:09 | Outpatient (BNVA) | payer OTHER, SELFPAY | PROVIDERS: PCP Internal Medicine; Visit Provider Nurse Practitioner Family | DX: G43.709 Chronic migraine without aura, not intractable, without status migrainosus (principal) ==

== ENCOUNTER 2023-05-11 08:56 | Outpatient (REF) | payer OTHER, SELFPAY ==
--- NOTE | ~2023-05-11 | CT_ITS ---
EXAMINATION: CT ABDOMEN AND PELVIS WITHOUT CONTRAST CLINICAL INFORMATION: Calculus of kidney. COMPARISON: Ultrasound 12/29/2022 TECHNIQUE: Multidetector volumetric imaging was performed from the superior aspect of the liver through the pubic symphysis. Sagittal and coronal reformatted images were obtained on the technologist's workstation. This CT examination was performed using dose optimization techniques as appropriate, variously including the following: *Automated exposure control *Adjustment of mA and/or kV according to patient size (this includes techniques or standardized protocols for targeted exams where dose is matched to indication/reason for exam; i.e. extremities or head) *Use of iterative reconstruction technique DLP: 299 mGy-cm FINDINGS: LUNG BASES: There is platelike atelectasis in the right middle lobe, lingula and left lung base. The heart size is normal. No pericardial effusion seen on the visualized images. LIVER, GALLBLADDER, AND BILIARY TREE: The liver is normal in size, shape, and attenuation. No focal hepatic lesion or biliary ductal dilatation is present. The gallbladder is unremarkable with no evidence of radiopaque gallstones, gallbladder wall thickening, or obvious pericholecystic inflammatory changes. PANCREAS: Unremarkable. SPLEEN: Unremarkable. ADRENAL GLANDS: There is a left adrenal lesion measuring 2.2 x 1.9 x 2.4 cm and -1.79 Hounsfield units likely benign adenoma. The right adrenal gland is unremarkable. KIDNEYS AND URETERS: The kidneys are normal in size, shape, and attenuation. Previous ultrasound described bilateral renal calculi are not appreciated on this exam. There is no caliectasis or hydronephrosis seen there is an extrarenal small bilateral renal pelvis. BLADDER: The bladder is nondistended and unremarkable.. GASTROINTESTINAL TRACT: There is scattered stool and gas seen throughout the colon without significant distention. The small bowel loops are normal caliber. Appendix is nonvisualized. No inflammatory process, free air or free fluid seen. ABDOMINAL WALL: No significant hernia is appreciated. LYMPH NODES: Normal. VASCULAR: There is mild to sclerotic changes of abdominal aorta without aneurysmal dilatation. PELVIC VISCERA: The uterus is anteverted and appears unremarkable. No adnexal mass or free fluid seen. OSSEOUS STRUCTURES: Mild ventral spondylosis L3-L4, L4-L5 and L5-S1 disc levels. No aggressive lytic or sclerotic process seen. CT/CT abdomen pelvis wo IV con IMPRESSION: 1. No radiopaque urolith or hydroureteronephrosis seen. There are bilateral extrarenal pelvis. 2. Mild constipation. 3. Left adrenal adenoma. Fleischner guidelines were followed.
== END 2023-05-11 08:57 | disposition home or self-care (01) ==
LOC: HO.CT 08:56
PROVIDERS: PCP Internal Medicine; Visit Provider Urology
DX: N20.0 Calculus of kidney (principal); R10.9 Unspecified abdominal pain
CPT/HCPCS: 74176

== ENCOUNTER 2023-05-12 11:25 | Day surgery (SDC) | payer OTHER, SELFPAY ==
--- NOTE | 2023-05-11 12:15 | HO.ANESPROP2 ---
Documented by User: Viola Franz NP 05/11/23 12:17 HPI - Anesthesia Eval Consult details Narrative: 57yo F for Upper Endoscopy and Colonoscopy s/p ESWL 11/2022 - Cardiac cleared prior [facility] Active Problems Active Problems: All Active Problems (Updated 04/26/23 @ 21:04 by LIZZY Woodard) Chronic migraine without aura (Acute) Flank pain (Acute) Physical exam (Acute) Bilateral flank pain (Acute) Medial epicondylitis, right elbow (Acute) Numbness and tingling in right hand (Acute) Carpal tunnel syndrome of left wrist (Acute) Cubital tunnel syndrome on left (Acute) Carpal tunnel syndrome of right wrist (Acute) Vertigo (Acute) GERD (gastroesophageal reflux disease) (Acute) Irritable bowel syndrome with diarrhea (Acute) Essential hypertension (Acute) Encounter for annual routine gynecological examination (Acute) Breast lump (Acute) Pelvic pain in female (Acute) Lump of right breast (Acute) Postmenopausal bleeding (Acute) Skin lumps (Acute) Chest pain (Acute) Epigastric pain (Acute) Thoracic spondylosis with radiculopathy (Acute) Elbow pain (Acute) Lateral epicondylitis of right elbow (Acute) Diabetes mellitus (Acute) History of biopsy (Acute) Nausea and vomiting (Acute) Preop cardiovascular exam (Acute) Right shoulder pain (Acute) Renal calculi (Acute) Postmenopausal atrophic vaginitis (Acute) Cervical cancer screening (Acute) Ulnar neuropathy at elbow of right upper extremity (Acute) Family history of cardiomyopathy (Acute) Palpitation (Acute) Headache (Acute) Sleep difficulties (Acute) Snoring (Acute) Excessive daytime sleepiness (Acute) Migraine with aura (Acute) Right upper quadrant abdominal pain (Acute) Tubular adenoma of colon (Acute) Bilateral kidney stones (Acute) Rotator cuff arthropathy of right shoulder (Acute) Ulnar neuropathy at elbow of left upper extremity (Acute) Short of breath on exertion (Acute) Chest discomfort (Acute) Preop cardiovascular exam (Acute) HTN (hypertension) (Acute) Migraine (Acute) Osteopenia (Acute) Right shoulder pain (Acute) Right elbow pain (Acute) Neck pain (Acute) Postmenopausal (Acute) Lower extremity edema (Acute) Shortness of breath (Acute) Insomnia (Acute) Renal calculi (Acute) cardiomyopathy (Acute ~2003) Stented coronary artery (Acute) CAD (coronary artery disease) (Acute) Dyslipidemia (Acute) Fibromyalgia (Acute) Past Medical History Medical History Migraine History of kidney stones Osteopenia Right shoulder pain Diabetes 1.5, managed as type 2 HTN (hypertension) CHF (congestive heart failure) Cardiomyopathy GERD (gastroesophageal reflux disease) On beta inez at home Right elbow pain Neck pain Postmenopausal Lower extremity edema Shortness of breath Insomnia Renal calculi Medial epicondylitis, right elbow 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) CAD (coronary artery disease) Dyslipidemia Fibromyalgia Family History Family History Father CVD (cardiovascular disease) HTN (hypertension) Cancer Type 2 diabetes mellitus Mother Breast cancer HTN (hypertension) Family/Other Diabetes Brother Diabetes HTN (hypertension) Sister Diabetes HTN (hypertension) Migraines Son Asthma Family history of problems with anesthesia: No Surgical History Surgical History Hx of cystoscopy H/O esophagogastroduodenoscopy History of carpal tunnel release Hx of dilation and curettage Hx of cataract extraction History of lumpectomy of right breast History of lumpectomy of left breast History of lithotripsy History of exploratory laparotomy Hx of section History of hysteroscopy Stented coronary artery Hx of colonoscopy Hx of endoscopy History of Problems with Anesthesia: No Social History Social History Household Members: Children Housing: Apartment Are you a primary home health caregiver to a significant other at home: No Do you presently have visiting nurse or other home services: No Alcohol intake: never Patient Tobacco Use Status: Former Tobacco user Tobacco use type: Cigarette Years Smoked: 3 months e-Cigarette/Vaping Use: Never Used Second Hand Smoke Exposure: No Are you DNR?: No Advance Directives: No Advance Directives Information Provided: Yes Nutrition Risks: No Nutritional Risk service: No Current occupational status: disabled Current occupation: right hand dominant Gender identity: Female Cognitive needs: No Hearing needs: No Vision needs: No Meds Allergies Allergy/AdvReac Type Severity Reaction Status Date / Time levofloxacin [From Levaquin] Allergy Severe Difficulty Verified 05/12/23 11:45 Breathing carvedilol [Coreg] Allergy Intermediate hives Verified 05/12/23 11:45 codeine Allergy Intermediate hives Verified 05/12/23 11:45 latex [LATEX] Allergy Intermediate RASH Verified 05/12/23 11:45 lisinopril Allergy Intermediate hives Verified 05/12/23 11:45 oxycodone [OXYCODONE] Allergy Intermediate RASH/HIVES Verified 05/12/23 11:45 Iodinated Contrast Media Allergy Mild RASH/HIVES Verified 05/12/23 11:45 [IV Dye, Iodine Containing] metronidazole [Flagyl] AdvReac Intermediate diarrhea Verified 05/12/23 11:45 Penicillins [PENICILLINS] AdvReac Intermediate limp legs Verified 05/12/23 11:45 topiramate AdvReac Intermediate ineffective Verified 05/12/23 11:45 Home Medications Medication Instructions Recorded Confirmed Last Taken Type furosemide 20 mg tablet 10 mg PO DAILY PRN Edema 11/29/20 04/21/23 Unknown History pioglitazone 30 mg tablet 30 mg PO DAILY 05/11/23 05/11/23 Unknown History Exam Exam Date and Time: May 11, 2023 1215 Pertinent Lab Results Pertinent Lab Results: Laboratory Tests 07/15/22 02/05/23 02/05/23 09:02 12:31 12:31 WBC 3.9 L Hgb 12.9 Hct 38.6 Plt Count 298 Sodium 144 Potassium 3.9 Chloride 108 Carbon Dioxide 28 BUN 10 Creatinine 1.00 Narrative Narrative: EKG 11/2022 sinus bradycardia, no acute ST or T-wave abnormalities, QTC 424 milliseconds, rate 57 ECHO 2022 Conclusions: - The left ventricular systolic function is low normal.? The ? ? calculated ejection fraction is 54% by biplane method. ? - Mildly increased right ventricular cavity size.? - No obvious valvular pathology seen on this study.? ?? NM cardiolite stress test 2022 IMPRESSION: ? 1.? Myocardial perfusion imaging study shows normal myocardial perfusion. 2.? Gated LVEF is 54% during stress and 60% during rest. 3. Transient ischemic dilatation not present. ? EKG component of the test reported separately. Assessment and Plan Assessment Anesthesia Assessment: Chart Reviewed Final Anesthetic Review Family History of Problems with Anesthesia: No History of Problems with Anesthesia: No Documented by User: Radha Judge MD 05/12/23 12:14 [facility] Past Medical History Medical History Migraine History of kidney stones Osteopenia Right shoulder pain Diabetes 1.5, managed as type 2 HTN (hypertension) CHF (congestive heart failure) Cardiomyopathy GERD (gastroesophageal reflux disease) On beta inez at home Right elbow pain Neck pain Postmenopausal Lower extremity edema Shortness of breath Insomnia Renal calculi Medial epicondylitis, right elbow 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) CAD (coronary artery disease) Dyslipidemia Fibromyalgia Family History Family History Father CVD (cardiovascular disease) HTN (hypertension) Cancer Type 2 diabetes mellitus Mother Breast cancer HTN (hypertension) Family/Other Diabetes Brother Diabetes HTN (hypertension) Sister Diabetes HTN (hypertension) Migraines Son Asthma Surgical History Surgical History Hx of cystoscopy H/O esophagogastroduodenoscopy History of carpal tunnel release Hx of dilation and curettage Hx of cataract extraction History of lumpectomy of right breast History of lumpectomy of left breast History of lithotripsy History of exploratory laparotomy Hx of section History of hysteroscopy Stented coronary artery Hx of colonoscopy Hx of endoscopy Social History Social History Household Members: Children Housing: Apartment Are you a primary home health caregiver to a significant other at home: No Do you presently have visiting nurse or other home services: No Alcohol intake: never Patient Tobacco Use Status: Former Tobacco user Tobacco use type: Cigarette Years Smoked: 3 months e-Cigarette/Vaping Use: Never Used Second Hand Smoke Exposure: No Are you DNR?: No Advance Directives: No Advance Directives Information Provided: Yes Nutrition Risks: No Nutritional Risk service: No Current occupational status: disabled Current occupation: right hand dominant Gender identity: Female Cognitive needs: No Hearing needs: No Vision needs: No Meds Allergies Allergy/AdvReac Type Severity Reaction Status Date / Time levofloxacin [From Levaquin] Allergy Severe Difficulty Verified 05/12/23 11:45 Breathing carvedilol [Coreg] Allergy Intermediate hives Verified 05/12/23 11:45 codeine Allergy Intermediate hives Verified 05/12/23 11:45 latex [LATEX] Allergy Intermediate RASH Verified 05/12/23 11:45 lisinopril Allergy Intermediate hives Verified 05/12/23 11:45 oxycodone [OXYCODONE] Allergy Intermediate RASH/HIVES Verified 05/12/23 11:45 Iodinated Contrast Media Allergy Mild RASH/HIVES Verified 05/12/23 11:45 [IV Dye, Iodine Containing] metronidazole [Flagyl] AdvReac Intermediate diarrhea Verified 05/12/23 11:45 Penicillins [PENICILLINS] AdvReac Intermediate limp legs Verified 05/12/23 11:45 topiramate AdvReac Intermediate ineffective Verified 05/12/23 11:45 Home Medications Medication Instructions Recorded Confirmed Last Taken Type furosemide 20 mg tablet 10 mg PO DAILY PRN Edema 11/29/20 04/21/23 Unknown History pioglitazone 30 mg tablet 30 mg PO DAILY 05/11/23 05/11/23 Unknown History Exam Airway Mallampati Class: II TM Dist: >3cm Neck ROM: Full Assessment and Plan Assessment Anesthesia Assessment: Anesthesia Plan Discussed Final Anesthetic Review NPO: Yes ASA Class: II Final Preanesthetic Review: No Changes in Pt Med Stat, Meds/Allgs Chart Reviewed, Consent Obtained/Reviewed and Anes Risks/Benef Reviewed Patient Risk: Intermediate Procedure Risk: Low Anesthetic Plan Anesthetic Plan: MAC: Disposition: Standard PACU
[2023-05-12 11:43] VITALS: BMI 26.5
--- NOTE | 2023-05-12 11:44 | P.HPSUR_ITS ---
Pre-Procedural Eval Section A Date of Service: 05/12/23 Section B Chief Complaint: epigastric pain and diarrhea Relevant Family History (Specify if Yes): No Relevant Social History: None Present Medications: see Short Stay Collaborative assessment Medical History: Significant History History of Previous Operations: Relevant previous surgery/procedure and date(s) Allergies: Allergies Allergy/AdvReac Type Severity Reaction Status Date / Time levofloxacin [From Levaquin] Allergy Severe Difficulty Verified 02/24/23 11:38 Breathing carvedilol [Coreg] Allergy Intermediate hives Verified 02/24/23 11:38 codeine Allergy Intermediate hives Verified 02/24/23 11:38 latex [LATEX] Allergy Intermediate RASH Verified 02/24/23 11:38 lisinopril Allergy Intermediate hives Verified 02/24/23 11:38 oxycodone [OXYCODONE] Allergy Intermediate RASH/HIVES Verified 02/24/23 11:38 Iodinated Contrast Media Allergy Mild RASH/HIVES Verified 02/24/23 11:38 [IV Dye, Iodine Containing] metronidazole [Flagyl] AdvReac Intermediate diarrhea Verified 02/24/23 11:38 Penicillins [PENICILLINS] AdvReac Intermediate limp legs Verified 02/24/23 11:38 topiramate AdvReac Intermediate ineffective Verified 02/24/23 11:38 Review of Systems Sugical H&P ROS: Negative: Constitution, Cardiovascular, Respiratory, Neurological, Psychiatric, Hem-Onc, Allergic/Immunologic, Gastrointestinal, Genitourinary, Musculoskeletal, Integumentary, Endocrine and Eyes/Ears/Nos e/Throat Exam Surgical H&P Exam: Normal: HEENT, Normal: Heart, Normal: Lungs, Normal: Extremities, Normal: Abdomen, Normal: Skin and Normal: Neurological Plan Diagnosis/Plan: Unchanged I have reviewed the history and physical and performed a pertinent physical examination on my patient. No changes have occurred unless specified. Time Spent With Patient Time: Total time managing care of this patient today ____ minutes.
[2023-05-12] MEDS: Lactated Ringers 1,000 ML 50 ML IVCONT (11:52)
[2023-05-12 11:55] LABS: Glucose, Whole Blood 70 mg/dL (60-115)
[2023-05-12 12:09] VITALS: BP 161/86; PULSE 70; RESP 18; TEMP 36.7; O2SAT 100
--- NOTE | 2023-05-12 12:57 | P.OP_ITS ---
Operative Note Operative Note Date of Service: 05/12/23 Narrative: Operative Information Procedure Description: EGD, Colonoscopy Indication: epigastric pain and diarrhea Anesthesia: MAC FLEXIBLE TRANSORAL UPPER GASTROINTESTINAL ENDOSCOPY AND COLONOSCOPY PROCEDURE NOTE UPPER ENDOSCOPY Consent: Indications for the procedure and potential complications of bleeding, perforation, reaction to medications and missed diagnosis were discussed with the patient and informed consent was obtained. Instrument: Olympus GIF H 190 J mid size upper endoscope Monitoring: Vital signs and clinical assessment, continuous EKG monitoring, Pulse oximetry, Carbon Dioxide monitoring and blood pressure monitoring were done throughout the procedure. Procedure: The patient was placed in the left lateral decubitis position and pre-procedure medications were administered and a bite block was placed. The endoscope was inserted into the mouth and advanced under direct vision to the third part of duodenum. A careful inspection was made as the upper endoscope was withdrawn including a retroflexed examination of the proximal stomach; Findings and interventions are described below. Findings: Larynx:normal Esophagus: GE junction at 35 cm, diaphragm hiatus at 35 cm, with mild esophagitis noted, bx take from GEJ, distal and proximal esophagus Stomach: Patchy erythema. Biopsies were obtained. Grade 2 flap valve on retroflexed examination of the cardia. Duodenum: Normal bulb and descending duodenum, bx taken Intervention: Biopsies as noted above COLONOSCOPY Instrument: Olympus variable stiffness pediatric scope 190L Colonoscopy Monitoring: Vital signs and clinical assessment, continuous EKG monitoring, Pulse oximetry, Carbon Dioxide monitoring and blood pressure monitoring were done throughout the procedure. Colon withdrawal time was 10 minutes. Procedure: The patient was placed in the left lateral decubitis position and pre-procedure medications were administered. After a digital rectal examination of the ano-rectum, the video colonoscope was inserted into the rectum and advanced through the colon to the cecum/TI. The colonoscope was slowly withdrawn in a retrograde panoramic fashion and the colon mucosa was carefully examined including a retroflexed view of the rectum. Findings and interventions are described below. Procedure Difficulty:easy Findings: Terminal Ileum-normal, random bx taken Random colon bx taken Cecum:normal Ascending Colon: normal Transverse Colon -normal Descending Colon:normal Sigmoid Colon: normal Rectum: Retroflexion with small internal hemorrhoids, grade I Anorectum - normal Colon preparation: Garfield Bowel Preparation Scale Right colon; 2 Transverse colon: 2 Left colon; 2 (0 = Unprepared colon segment with mucosa not seen due to solid stool that cannot be cleared. 1 = Portion of mucosa of the colon segment seen, but other areas of the colon segment not well seen due to staining, residual stool and/or opaque liquid. 2 = Minor amount of residual staining, small fragments of stool and/or opaque liquid, but mucosa of colon segment seen well. 3 = Entire mucosa of colon segment seen well with no residual staining, small fragments of stool or opaque liquid) Impression and Post Procedure Diagnosis: Endoscopy Findings: gastritis esophagitis Colonoscopy Findings: internal hemorrhoids Plan: Await Pathology results Repeat Colonoscopy in 10 years or earlier if clinically indicated High fiber diet leaflet avoid straining at stool, epsom salts and sitz bath, anusol supps or cream if h pylori pos treat, Above findings were reviewed with the patient and relevant handouts were provided if indicated.
[2023-05-12 13:01] VITALS: BP 133/70; PULSE 83; RESP 18; TEMP 36.1; O2SAT 100
[2023-05-12 13:16] VITALS: BP 162/75; PULSE 66; RESP 16; TEMP 36.1; O2SAT 100
== END 2023-05-12 13:48 | disposition home or self-care (01) ==
PROVIDERS: PCP Internal Medicine; Visit Provider Internal Medicine Gastroenterology
PROC: (CPT 45380; principal; 2023-05-12 13:20)
DX: Z12.11 Encounter for screening for malignant neoplasm of colon (principal); Z86.010 Personal history of colon polyps; K58.0 Irritable bowel syndrome with diarrhea; K64.0 First degree hemorrhoids; R11.12 Projectile vomiting; K29.50 Unspecified chronic gastritis without bleeding; K21.9 Gastro-esophageal reflux disease without esophagitis; K20.80 Other esophagitis without bleeding; K44.9 Diaphragmatic hernia without obstruction or gangrene; I25.10 Atherosclerotic heart disease of native coronary artery without angina pectoris; Z95.5 Presence of coronary angioplasty implant and graft; I11.0 Hypertensive heart disease with heart failure; I50.9 Heart failure, unspecified; E13.9 Other specified diabetes mellitus without complications; Z79.899 Other long term (current) drug therapy; Z88.0 Allergy status to penicillin; Z88.1 Allergy status to other antibiotic agents; Z88.5 Allergy status to narcotic agent; Z91.040 Latex allergy status; Z91.041 Radiographic dye allergy status; Z87.891 Personal history of nicotine dependence
CPT/HCPCS: 45380; 43239; 82947; 88305; 88342

== ENCOUNTER → 2023-05-12 11:25 | Outpatient (BNV) | payer OTHER, SELFPAY | PROVIDERS: PCP Internal Medicine; Visit Provider Internal Medicine Gastroenterology | DX: K29.70 Gastritis, unspecified, without bleeding (principal); K20.90 Esophagitis, unspecified without bleeding; R19.7 Diarrhea, unspecified; K64.0 First degree hemorrhoids | CPT/HCPCS: 43239; 45380 ==

== ENCOUNTER 2023-05-14 14:49 | Outpatient (AMB) | payer OTHER, SELFPAY ==
--- NOTE | 2023-05-14 14:51 | A.OFFVIS_ITS ---
Intake Intake Visit Reasons: 9w/CT/litholink Intake Note: Patient is Present for Follow Up Urology Medication: Vitamin B6 Antibiotic Allergies: Levofloxacin, Penicllins Blood Thinners:aspirin Allergies levofloxacin [From Levaquin] Allergy (Severe, Verified 06/02/23 10:48) Difficulty Breathing carvedilol [Coreg] Allergy (Intermediate, Verified 06/02/23 10:48) hives codeine Allergy (Intermediate, Verified 06/02/23 10:48) hives latex [LATEX] Allergy (Intermediate, Verified 06/02/23 10:48) RASH lisinopril Allergy (Intermediate, Verified 06/02/23 10:48) hives oxycodone [OXYCODONE] Allergy (Intermediate, Verified 06/02/23 10:48) RASH/HIVES Iodinated Contrast Media [IV Dye, Iodine Containing] Allergy (Mild, Verified 06/02/23 10:48) RASH/HIVES metronidazole [Flagyl] Adverse Reaction (Intermediate, Verified 06/02/23 10:48) diarrhea Penicillins [PENICILLINS] Adverse Reaction (Intermediate, Verified 06/02/23 10:48) limp legs topiramate Adverse Reaction (Intermediate, Verified 06/02/23 10:48) ineffective HPI HPI Comments History of Present Illness Details Giovanna is a 57-year-old female who presents today to the office for a follow-up 05/14/23? She is followed today for CT/litholink. She was last seen by me on 01/21/23 for bilateral flank pain. 24-hour urine collection test, and CTAP prior was ordered during that time. Patient states that she is doing well at this time. ? I reviewed the CT abdomen/pelvis results from 05/11/23 revealed no radiopaque urolith or hydroureteronephrosis seen. There are bilateral extrarenal pelvis. Left adrenal adenoma. No parenchymal lesions noted. I reviewed the 24-hour urine collection results revealed urine volume was 1.62L, urine calcium was 88; urine oxalates was 26; urine citrate was 606; urine sodium was 120. I have encouraged continuing to hydrate adequately and to watch sodium in her diet otherwise results looks well. She is on HCTZ 12.5 and she has seen nephrology in past. Review of charts: Last visit: 01/21/23-- The patient continues to complain intermittent bilateral flank pain? Denies gross hematuria.? The patient states that since the ESWL she has not seen any stone fragments in the urine.? States consuming adequate amount of water.? The patient is taking vitamin B6 100 mg QD.? Abdomen US results reviewed--12/26/22-- findings of nonobstructing bilateral kidney stones.? Evaluation today UA--leukocytes negative, blood: negative. 05/14/23: Plan: CT abdomen/pelvis results from 05/11/23 revealed no radiopaque urolith Will repeat 24-hour urine collection test. Follow-up in one year, KUB prior [facility] Medical History Migraine History of kidney stones Osteopenia Right shoulder pain Diabetes 1.5, managed as type 2 HTN (hypertension) CHF (congestive heart failure) Cardiomyopathy GERD (gastroesophageal reflux disease) On beta inez at home Right elbow pain Neck pain Postmenopausal Lower extremity edema Shortness of breath Insomnia Renal calculi Medial epicondylitis, right elbow 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) CAD (coronary artery disease) Dyslipidemia Fibromyalgia Surgical History Hx of cystoscopy H/O esophagogastroduodenoscopy History of carpal tunnel release Hx of dilation and curettage Hx of cataract extraction History of lumpectomy of right breast History of lumpectomy of left breast History of lithotripsy History of exploratory laparotomy Hx of section History of hysteroscopy Stented coronary artery Hx of colonoscopy Hx of endoscopy Family History Father CVD (cardiovascular disease) HTN (hypertension) Cancer Type 2 diabetes mellitus Mother Breast cancer HTN (hypertension) Family/Other Diabetes Brother Diabetes HTN (hypertension) Sister Diabetes HTN (hypertension) Migraines Son Asthma Social History Household Members: Children Housing: Apartment Are you a primary animal care service worker to a significant other at home: No Do you presently have visiting nurse or other home services: No Alcohol intake: never Patient Tobacco Use Status: Former Tobacco user Tobacco use type: Cigarette Years Smoked: 3 months e-Cigarette/Vaping Use: Never Used Second Hand Smoke Exposure: No service: No Current occupational status: disabled Current occupation: right hand dominant Gender identity: Female Cognitive needs: No Hearing needs: No Vision needs: No Female Reproductive History Menstrual Age of Menarche: 12 Review of Systems Const All systems reviewed & are unremarkable except as noted in HPI and below Reports no additional complaints Eyes Reports no additional complaints ENT Reports no additional complaints Card Denies dyspnea Resp Denies cough and Denies dyspnea GI Reports no additional complaints Reports no additional complaints Musc Reports no additional complaints Skin/Breast Denies rash and Denies unusual bruising Neuro Reports no additional complaints Psych Reports no additional complaints Endo Reports no additional complaints Saulo/Lymph Reports no additional complaints Aller/Immun Reports no additional complaints Results AMB Urinalysis, Automated UA Leukoctes 0 Veronika/uL Last Edit by Sheridan Sheffield [facility] on 05/14/23 15:03 UA Nitrite Negative Last Edit by Sheridan Sheffield, A on 05/14/23 15:03 UA Urobilinogen 0.2 mg/dL Last Edit by Sheridan Sheffield A on 05/14/23 15:0 3 UA Protein 15 mg/dL Last Edit by Sheridan Sheffield A on 05/14/23 15:03 UA pH 6.5 Last Edit by Sheridan Sheffield [facility] on 05/14/23 15:03 UA Blood 0 Nathan/uL Last Edit by Sheridan Sheffield, A on 05/14/23 15:03 UA Specific [place] 1.015 Last Edit by Sheridan Sheffield [facility] on 05/14/23 15: 03 UA Ketone Negative Last Edit by Sheridan Sheffield [facility] on 05/14/23 15:03 UA Bilirubin 0 mg/dL Last Edit by Sheridan Sheffield A on 05/14/23 15:03 UA Glucose 0 mg/dL Last Edit by Sheridan Sheffield [facility] on 05/14/23 15:03 Results Reviewed Results Reviewed: Laboratory Last Values Urine pH (Auto) 6.5 05/14/23 14:58 Specific [place] (Auto) 1.015 05/14/23 14:58 Urine Protein (Auto) 15 mg/dL 05/14/23 14:58 Glucose (UA)(Auto) 0 mg/dL 05/14/23 14:58 Urine Ketones (Auto) Negative 05/14/23 14:58 Urine Blood (Auto) 0 Nathan/uL 05/14/23 14:58 Urine Nitrite (Auto) Negative 05/14/23 14:58 Urine Bilirubin (Auto) 0 mg/dL 05/14/23 14:58 Urine Urobilinogen (Auto) 0.2 mg/dL 05/14/23 14:58 Leukocyte Esterase (Auto) 0 Veronika/uL 05/14/23 14:58 Date of Service: 05/11/23 EXAMINATION: CT ABDOMEN AND PELVIS WITHOUT CONTRAST?? CLINICAL INFORMATION: Calculus of kidney.?? COMPARISON: Ultrasound 12/29/2022 FINDINGS: LUNG BASES: There is platelike atelectasis in the right middle lobe, lingula and left lung base. The heart size is normal. No pericardial effusion seen on the visualized images.?? LIVER, GALLBLADDER, AND BILIARY TREE: The liver is normal in size, shape, and attenuation. No focal hepatic lesion or biliary ductal dilatation is present. The gallbladder is unremarkable with no evidence of radiopaque gallstones, gallbladder wall thickening, or obvious pericholecystic inflammatory changes.?? PANCREAS: Unremarkable.?? SPLEEN: Unremarkable.?? ADRENAL GLANDS: There is a left adrenal lesion measuring 2.2 x 1.9 x 2.4 cm and -1.79 Hounsfield units likely benign adenoma. The right adrenal gland is unremarkable.?? KIDNEYS AND URETERS: The kidneys are normal in size, shape, and attenuation. Previous ultrasound described bilateral renal calculi are not appreciated on this exam. There is no caliectasis or hydronephrosis seen there is an extrarenal small bilateral renal pelvis. BLADDER: The bladder is nondistended and unremarkable..?? GASTROINTESTINAL TRACT: There is scattered stool and gas seen throughout the colon without significant distention. The small bowel loops are normal caliber. Appendix is nonvisualized. No inflammatory process, free air or free fluid seen.?? ABDOMINAL WALL: No significant hernia is appreciated.?? LYMPH NODES: Normal. VASCULAR: There is mild to sclerotic changes of abdominal aorta without aneurysmal dilatation. PELVIC VISCERA: The uterus is anteverted and appears unremarkable. No adnexal mass or free fluid seen.?? OSSEOUS STRUCTURES: Mild ventral spondylosis L3-L4, L4-L5 and L5-S1 disc levels. No aggressive lytic or sclerotic process seen.?? IMPRESSION: 1.? No radiopaque urolith or hydroureteronephrosis seen. There are bilateral extrarenal pelvis. 2.? Mild constipation. 3.? Left adrenal adenoma. Assessment & Plan Assessment & Plan (1) Bilateral flank pain: Code(s): R10.9 - Unspecified abdominal pain (2) Bilateral kidney stones: Code(s): N20.0 - Calculus of kidney (3) Renal calculi: Code(s): N20.0 - Calculus of kidney Plan CT abdomen/pelvis results from 05/11/23 revealed no radiopaque urolith Will repeat 24-hour urine collection test. Follow-up in one year, KUB prior Orders: Orders AMB Urinalysis Automated 05/14/23 Z13.9 - Encounter for screening, unspecified Patient Instructions: The patient had an opportunity to ask questions regarding treatment plan. All questions were answered. Imaging, Laboratory studies and physical exam results were discussed and reviewed in detail. No major barriers to understanding were identified. The patient expressed understanding and agreement with the above treatment plan.? ? ? The patient is aware they should contact our office by phone for worsening of their current condition or the appearance of new symptoms. Compliance is encouraged with any medications and followup testing that is ordered.? ? ? It is a privilege to be allowed the opportunity to participate in the urologic care of your patient. If you have any questions or concerns regarding treatment for the above conditions please do not hesitate to contact me. The office telephone contact is [phone].? ? ? This note is constructed in part using voice recognition software. While every effort has been made to ensure accuracy orthotic aide errors may have been included.? ? ? Yours sincerely,? ? ? Latha Beltrán MD? Coding Level of Care Code Est Pt Level 4 (84148) Diagnoses Bilateral flank pain R10.9 Bilateral kidney stones N20.0 Renal calculi N20.0
== END 2023-05-14 15:28 | disposition home or self-care (01) ==
PROVIDERS: PCP Internal Medicine; Visit Provider Urology
DX: R10.9 Unspecified abdominal pain (principal); N20.0 Calculus of kidney
CPT/HCPCS: 99214

== ENCOUNTER → 2023-05-14 14:49 | Outpatient (BNVA) | payer OTHER, SELFPAY | PROVIDERS: PCP Internal Medicine; Visit Provider Urology | DX: N20.0 Calculus of kidney (principal); R10.9 Unspecified abdominal pain | CPT/HCPCS: 81003; 99212 ==

== ENCOUNTER 2023-05-19 13:31 | Outpatient (AMB) | payer OTHER, SELFPAY ==
--- NOTE | 2023-05-19 13:56 | MHC.OFFVIS ---
Intake Vital Signs 05/19/23 13:57 Height 5 ft 2 in Weight 143 lb BMI 26.2 Intake Visit Reasons: ov- B/L CTS Intake Note: Giovanna 58 yr old female presents today for B/L hand CTS. States numbness and tingling is now in her thumb. States she attended 1x to O.T and then she cont' exercise at home with little improvement. Also she cont's to have right elbow pain. Patient would like to discuss surgery options. Allergies levofloxacin [From Levaquin] Allergy (Severe, Verified 05/19/23 13:59) Difficulty Breathing carvedilol [Coreg] Allergy (Intermediate, Verified 05/19/23 13:59) hives codeine Allergy (Intermediate, Verified 05/19/23 13:59) hives latex [LATEX] Allergy (Intermediate, Verified 05/19/23 13:59) RASH lisinopril Allergy (Intermediate, Verified 05/19/23 13:59) hives oxycodone [OXYCODONE] Allergy (Intermediate, Verified 05/19/23 13:59) RASH/HIVES Iodinated Contrast Media [IV Dye, Iodine Containing] Allergy (Mild, Verified 05/19/23 13:59) RASH/HIVES metronidazole [Flagyl] Adverse Reaction (Intermediate, Verified 05/19/23 13:59) diarrhea Penicillins [PENICILLINS] Adverse Reaction (Intermediate, Verified 05/19/23 13:59) limp legs topiramate Adverse Reaction (Intermediate, Verified 05/19/23 13:59) ineffective HPI ov- B/L CTS HPI Details Giovanna is a 58 year old right hand dominant woman who returns for a follow-up of her right medial epicondylitis and bilateral carpal tunnel syndrome. She says she currently does not work due to cardiomyopathy and fibromyalgia She continues to complain of numbness primarily in her right thumb, ring, and small fingers. She also has intermittent numbness in all of the fingers of her left hand. She says she sleeps on her right side, which makes her right hand numb more often She did not mention her medial epicondylitis or problems with elbow pain today She wants to discuss surgery for her numbness and tingling She has a Hx of CHF, Cardiomyopathy, and a stent in her heart [facility] Medical History Migraine History of kidney stones Osteopenia Right shoulder pain Diabetes 1.5, managed as type 2 HTN (hypertension) CHF (congestive heart failure) Cardiomyopathy GERD (gastroesophageal reflux disease) On beta inez at home Right elbow pain Neck pain Postmenopausal Lower extremity edema Shortness of breath Insomnia Renal calculi Medial epicondylitis, right elbow 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) CAD (coronary artery disease) Dyslipidemia Fibromyalgia Surgical History Hx of cystoscopy H/O esophagogastroduodenoscopy History of carpal tunnel release Hx of dilation and curettage Hx of cataract extraction History of lumpectomy of right breast History of lumpectomy of left breast History of lithotripsy History of exploratory laparotomy Hx of section History of hysteroscopy Stented coronary artery Hx of colonoscopy Hx of endoscopy Family History Father CVD (cardiovascular disease) HTN (hypertension) Cancer Type 2 diabetes mellitus Mother Breast cancer HTN (hypertension) Family/Other Diabetes Brother Diabetes HTN (hypertension) Sister Diabetes HTN (hypertension) Migraines Son Asthma Social History Household Members: Children Housing: Apartment Are you a primary urgent care nurse practitioner to a significant other at home: No Do you presently have visiting nurse or other home services: No Alcohol intake: never Patient Tobacco Use Status: Former Tobacco user Tobacco use type: Cigarette Years Smoked: 3 months e-Cigarette/Vaping Use: Never Used Second Hand Smoke Exposure: No service: No Current occupational status: disabled Current occupation: right hand dominant Gender identity: Female Cognitive needs: No Hearing needs: No Vision needs: No Female Reproductive History Menstrual Age of Menarche: 12 Physical Exam Vital Signs: BMI result Body Mass Index 26.2 Const General: cooperative, healthy appearing and no acute distress Orientation/consciousness: patient oriented x3 HEENT Head: Yes normocephalic and Yes atraumatic Eyes EOM: EOMs intact bilaterally Resp Effort & Inspection: normal respiratory effort and able to speak in complete sentences Cardio Jugular venous distension: no JVD Skin General skin exam: turgor normal Rashes: no rashes Neuro General: patient oriented x3 Extrem Other: Evaluation of Bilateral Upper Extremity: The patient is alert, oriented, and in no acute distress Neuro: Median, Ulnar, Radial nerves motor and sensory intact and sensation is normal to the tips of all digits today in clinic No thenar or intrinsic wasting Good APB muscle belly firing and good finger cross + Tinel's sign over the right elbow Vascular: Cap refill brisk ROM: She can make a fist and extend all her digits No locking or catching She has an occasional pain that radiates from her right carpal tunnel to her distal volar forearm Nerve Conduction Study: IMPRESSION:? 1. [id number] right and mild left median neuropathy across carpal tunnel. 2. Mild left ulnar neuropathy across cubital tunnel. ? M aSkshi Kelly MD 11/06/2022 08 Psych Appearance: grossly normal Affect: normal affect Attitude: cooperative Assessment & Plan Assessment & Plan (1) Cubital tunnel syndrome on left: Code(s): G56.22 - Lesion of ulnar nerve, left upper limb (2) Carpal tunnel syndrome of left wrist: Code(s): G56.02 - Carpal tunnel syndrome, left upper limb (3) Carpal tunnel syndrome of right wrist: Code(s): G56.01 - Carpal tunnel syndrome, right upper limb (4) Medial epicondylitis, right elbow: Code(s): M77.01 - Medial epicondylitis, right elbow (5) Cubital tunnel syndrome on right: Code(s): G56.21 - Lesion of ulnar nerve, right upper limb (6) Diabetes mellitus: Code(s): E11.9 - Type 2 diabetes mellitus without complications (7) Stented coronary artery: Comment: 2006 LAD stent Code(s): Z95.5 - Presence of coronary angioplasty implant and graft (8) CAD (coronary artery disease): Comment: stent in 2006 - Foll'd by Kassi Montano - [facility] [place] Cardiovascular Code(s): I25.10 - Atherosclerotic heart disease of [place] coronary artery without angina pectoris (9) Fibromyalgia: Code(s): M79.7 - Fibromyalgia Plan Assessment & Plan: 1. Right Carpal tunnel syndrome, mild-moderate Symptoms intermittent and daily, worse at night Primarily in the thumb 2. Right cubital tunnel syndrome, based on PE and history Symptoms intermittent but daily and worse at night Numbness in the ulnar nerve distribution of her hand NCS negative for cubital tunnel syndrome I educated her about this condition I discussed operative and non-operative treatment options The patient would like to proceed with surgery The risks and benefits of operative treatment were discussed with the patient and the patient wishes to proceed with surgery. These risks include, but are not limited to risk of damage to blood vessels, nerves, tendons, infection, recurrence, incomplete relief of preoperative symptoms, persistent pain, possible need for further surgery and the risks associated with regional blocks and anesthesia. The plan is to take the patient to the operating room sometime in the next few weeks for the following procedures: 1. Right carpal tunnel release, under general 2. Right cubital tunnel syndrome vs transposition, under general All of the preoperative paperwork including the consent was filled out today. All the patient's questions were answered. The patient understands that they will be contacted by our bulk tank car unloader soon to schedule this procedure She denies blood thinners, asthma, lung, kidney issues She is a Diabetic and reports her most recent HgA1c was 5.9% She has a hx of CHF and cardiomyopathy, and has a stent in place. She will need cardiac clearance prior to surgery 4. Left Carpal tunnel syndrome, mild Symptoms intermittent and occasional, worse at night 5. Left Cubital tunnel syndrome, mild Symptoms intermittent and occasional, worse at night 5. Right medial epicondylitis No complaints of elbow pain today. No mention of this today Scribed for Esperanza Pascal MD by Luis A Fierro, medical scientific officer, on 05/19/23 at 2:30 PM, EST. Coding Level of Care Code Est Pt Level 4 (06274) Diagnoses Cubital tunnel syndrome on left G56.22 Carpal tunnel syndrome of left wrist G56.02 Carpal tunnel syndrome of right wrist G56.01 Medial epicondylitis, right elbow M77.01 Cubital tunnel syndrome on right G56.21 Diabetes mellitus E11.9 Stented coronary artery Z95.5 CAD (coronary artery disease) I25.10 Fibromyalgia M79.7
[2023-05-19 13:57] VITALS: BMI 26.2
== END 2023-05-19 14:32 | disposition home or self-care (01) ==
PROVIDERS: PCP Internal Medicine; Visit Provider Orthopaedic Surgery
DX: G56.22 Lesion of ulnar nerve, left upper limb (principal); G56.03 Carpal tunnel syndrome, bilateral upper limbs; M77.01 Medial epicondylitis, right elbow; G56.21 Lesion of ulnar nerve, right upper limb; E11.9 Type 2 diabetes mellitus without complications; Z95.5 Presence of coronary angioplasty implant and graft; I25.10 Atherosclerotic heart disease of native coronary artery without angina pectoris; M79.7 Fibromyalgia
CPT/HCPCS: 99214

== ENCOUNTER → 2023-05-19 13:31 | Outpatient (BNVA) | payer OTHER, SELFPAY | PROVIDERS: PCP Internal Medicine; Visit Provider Orthopaedic Surgery | DX: G56.03 Carpal tunnel syndrome, bilateral upper limbs (principal); G56.23 Lesion of ulnar nerve, bilateral upper limbs; M77.01 Medial epicondylitis, right elbow; M79.7 Fibromyalgia; I25.10 Atherosclerotic heart disease of native coronary artery without angina pectoris; I10 Essential (primary) hypertension; I42.9 Cardiomyopathy, unspecified; Z95.5 Presence of coronary angioplasty implant and graft | CPT/HCPCS: 99212 ==

== ENCOUNTER 2023-06-02 10:12 | Outpatient (AMB) | payer OTHER, SELFPAY ==
[2023-06-02 10:34] VITALS: BP 138/80; PULSE 68; O2SAT 98; BMI 25.6
--- NOTE | 2023-06-02 10:34 | MHC.PC.OV ---
Vital Signs 06/02/23 10:34 Height 5 ft 2 in Weight 140 lb BMI 25.6 BP 138/80 Blood Pressure Location Lt brachial Position Sitting Pulse 68 Pulse Source Pulse Oximeter Pulse Oximetry (%) 98 Oxygen Delivery Method Room Air Intake Visit Reasons: CTS surgery Intake Note: Patient here for CTS Surgery on 08/13/22 Spiral Tube Winder Required: No Accompanied by: Self / Same As Patient Allergies levofloxacin [From Levaquin] Allergy (Severe, Verified 06/02/23 10:48) Difficulty Breathing carvedilol [Coreg] Allergy (Intermediate, Verified 06/02/23 10:48) hives codeine Allergy (Intermediate, Verified 06/02/23 10:48) hives latex [LATEX] Allergy (Intermediate, Verified 06/02/23 10:48) RASH lisinopril Allergy (Intermediate, Verified 06/02/23 10:48) hives oxycodone [OXYCODONE] Allergy (Intermediate, Verified 06/02/23 10:48) RASH/HIVES Iodinated Contrast Media [IV Dye, Iodine Containing] Allergy (Mild, Verified 06/02/23 10:48) RASH/HIVES metronidazole [Flagyl] Adverse Reaction (Intermediate, Verified 06/02/23 10:48) diarrhea Penicillins [PENICILLINS] Adverse Reaction (Intermediate, Verified 06/02/23 10:48) limp legs topiramate Adverse Reaction (Intermediate, Verified 06/02/23 10:48) ineffective Medication List - Last Reconciled 06/02/23 by Chen Pond MD amlodipine 5 mg PO DAILY aspirin 81 mg PO DAILY atorvastatin 40 mg PO DAILY blood sugar diagnostic (FreeStyle Test strips) TEST 2 TIMES DAILY blood-glucose meter (FreeStyle [place] Lite kit) TEST 2 TIMES DAILY calcium carbonate (Calcium) 600 mg PO BID 90 days cholecalciferol (vitamin D3) 25 mcg PO DAILY 90 days cholestyramine (with sugar) 4 gram 4 grams PO BID cyclobenzaprine 10 - 20 mg (1 - 2 x 10 mg) PO BEDTIME 30 days diclofenac sodium 1% (Arthritis Pain (diclofenac)) 2 grams topical QID PRN diphenhydramine HCl (Benadryl) 25 - 50 mg (1 - 2 x 25 mg) PO TID PRN 30 days esomeprazole magnesium 40 mg PO DAILY ezetimibe (Zetia) 10 mg PO DAILY famotidine 40 mg PO BEDTIME furosemide 10 mg PO DAILY PRN hydrochlorothiazide 12.5 mg PO DAILY lancets (FreeStyle Lancets) use 1 lancet twice a day losartan 100 mg PO DAILY magnesium oxide 400 mg PO BEDTIME 30 days metoprolol succinate ER 50 mg PO DAILY naproxen 375 mg PO BID PRN 10 days nitroglycerin 0.4 mg sublingual Q5M PRN 30 days onabotulinumtoxinA (Botox) 200 units IM ONCE 12 weeks pantoprazole 40 mg PO DAILY 90 days peg 3350-electrolytes 236-22.74-6.74 -5.86 gram (Golytely) 240 mL PO Q10M 1 day pioglitazone 30 mg PO DAILY pyridoxine (vitamin B6) 100 mg PO DAILY 90 days riboflavin (vitamin B2) 400 mg PO DAILY 30 days rimegepant (Nurtec ODT) 75 mg PO Q OTHER DAY 30 days ubrogepant (Ubrelvy) 50 - 100 mg (0.5 - 1 x 100 mg) PO ONCE PRN 30 days Tobacco use date assessed: 10/08/22 Dental Screening Dental Screen Date: 06/02/23 Did you have a dental visit in the last 12 months?: Yes Did you have a dental problem in the last 6 months where you did not have access to dental care?: No Was dental information given to patient?: Patient has dentist HPI HPI Comments History of Present Illness Details This is a 58-year-old female with diabetes mellitus type 2, hypertension, dyslipidemia and GERD that comes today complaining of bilateral hand pain and numbness secondary to carpal tunnel syndrome that has been evaluated by Ortho and has surgery scheduled for July 2023. Her A1cs stable. Blood pressure well control. Lipid panel will be order and her LDL goal should be less than 70. GERD stable with PPIs. Will see Cardiology disease months for preop evaluation of her carpal tunnel surgical repair. Has left adrenal adenoma that has been present for years and had workup at Endocrinology years ago. Will be referred to Endocrinology again. 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) CAD (coronary artery disease) Dyslipidemia Fibromyalgia Surgical History Hx of cystoscopy H/O esophagogastroduodenoscopy History of carpal tunnel release Hx of dilation and curettage Hx of cataract extraction History of lumpectomy of right breast History of lumpectomy of left breast History of lithotripsy History of exploratory laparotomy Hx of section History of hysteroscopy Stented coronary artery Hx of colonoscopy Hx of endoscopy Family History Father CVD (cardiovascular disease) HTN (hypertension) Cancer Type 2 diabetes mellitus Mother Breast cancer HTN (hypertension) Family/Other Diabetes Brother Diabetes HTN (hypertension) Sister Diabetes HTN (hypertension) Migraines Son Asthma Social History Household Members: Children Housing: Apartment Are you a primary critical care nurse practitioner to a significant other at home: No Do you presently have visiting nurse or other home services: No Alcohol intake: never Patient Tobacco Use Status: Former Tobacco user Tobacco use type: Cigarette Years Smoked: 3 months e-Cigarette/Vaping Use: Never Used Second Hand Smoke Exposure: No service: No Current occupational status: disabled Current occupation: right hand dominant Gender identity: Female Cognitive needs: No Hearing needs: No Vision needs: No Female Reproductive History Menstrual Age of Menarche: 12 Questionnaire Thrive Questionnaire Date Thrive assessed: 10/08/22 DENVER-7 AMB Questionnaire DENVER-7 Date DENVER - 7 assessed: 10/08/22 Source: Developed by Drs. Darshan Tate, Aggie Burgos, Gerson Obrien and colleagues, with an educational callie from [employer]. Review of Systems Const All systems reviewed & are unremarkable except as noted in HPI and below Eyes Reports no additional complaints, Denies change in vision and Denies other visual disturbances Card Denies chest pain at rest, Denies chest pain with activity, Denies edema, Denies irregular heart rhythm, Denies claudication, Denies dyspnea, Denies dyspnea on exertion, Denies orthopnea, Denies paroxysmal nocturnal dyspnea and Denies slow heart rate Resp Denies cough, Denies dyspnea and Denies dyspnea on exertion GI Denies abdominal pain, Denies change in bowel habits, Denies excessive flatus, Denies nausea and Denies vomiting Denies urinary incontinence, Denies urinary hesitancy and Denies urinary urgency Musc Denies abnormal gait, Denies atrophy, Denies deformity and Denies limited range of motion Skin/Breast Denies bleeding lesions, Denies changing lesions and Denies rash Neuro Denies abnormal gait, Denies behavioral changes and Denies lack of coordination Psych Denies behavioral changes Physical exam (Primary Care) Vital Signs: Last Vital Signs Pulse 68 06/02/23 10:34 BP 138/80 06/02/23 10:34 Pulse Ox 98 06/02/23 10:34 Oxygen Delivery Method Room Air 06/02/23 10:34 BMI result Body Mass Index 25.6 Tobacco/Smoking Status: Tobacco use Status Tobacco use date assessed 10/08/22 06/02/23 10:40 Patient Tobacco Use Status Former Tobacco user 06/02/23 10:40 Tobacco use type Cigarette 06/02/23 10:40 e-Cigarette/Vaping Use Never Used 06/02/23 10:40 Thrive Assessment: Date of Thrive Assessment Date Thrive assessed 10/08/22 06/02/23 10:40 Eyes General: appearance normal, both eyes and all related structures Eyelids: Yes eyelids normal Conjunctivae: conjunctivae normal Neck Neck: Yes normal visual inspection and Yes supple Resp Effort & Inspection: normal respiratory effort Auscultation: clear to auscultation bilaterally Cardio Jugular venous distension: no JVD Rate: regular rate Rhythm: regular rhythm Heart sounds: S1 normal heart sound present and S2 normal heart sound present Extrem General: Yes full ROM Office Procedures Flu Questionnaire Does the patient have a severe egg allergy?: No Does the patient have severe life threatening allergies?: No Does the patient have a fever or illness today?: No Has the patient ever had Guillain-[place] Syndrome?: No Has the patient ever had any past reaction to a flu shot?: No Results AMB Hemoglobin A1c AMB Hemoglobin A1c 5.7 % Last Edit by NANI Jones on 06/02/23 11:07 Immunizations flu vacc [id number] 6mos up(PF) 60 mcg(15 mcgx4)/0.5 mL IM syringe Performing Provider: Chen Pond MD [facility] Administered by: NANI Jones on 06/02/23 11:05 Dose Route Admin Location Dispensed Lot Number Expiration Date NDC Ems Coordinator 0.5 mL IM Left Deltoid 0.5 mL [id number] 01/24/24 86011-797-02 [employer] VIS Given Date VIS Provided VIS Publication Date 06/02/23 Single Vaccine 21 Eligibility Eligibility Date Funding Source Not VFC Eligible 06/02/23 Private Results Reviewed Results Reviewed: Laboratory Last Values Hgb A1c (Clinic) 5.7 % (4.0-6.0) 06/02/23 11:01 Assessment and Plan Assessment & Plan (1) Essential hypertension: Code(s): I10 - Essential (primary) hypertension Plan: Continue losartan, amlodipine and hydrochlorothiazide. Blood pressure goal is equal or less than 130/80. (2) GERD (gastroesophageal reflux disease): Code(s): K21.9 - Gastro-esophageal reflux disease without esophagitis Qualifiers: Esophagitis presence: without esophagitis Qualified Code(s): K21.9 - Gastro-esophageal reflux disease without esophagitis Plan: Continue PPIs (3) Diabetes mellitus: Code(s): E11.9 - Type 2 diabetes mellitus without complications Plan: Continue Actos. A1c goal is equal or less than 7%. (4) Adrenal adenoma: Code(s): D35.00 - Benign neoplasm of unspecified adrenal gland Plan: Referred to endocrinology. Orders: Orders Comprehensive [place]. Panel Fast Today E11.9 - Type 2 diabetes mellitus without complications Influenza [id number] Immunization Today Z23 - Encounter for immunization Lipid Panel Today E78.5 - Hyperlipidemia, unspecified AMB Hemoglobin A1c Today E11.9 - Type 2 diabetes mellitus without complications Referrals Endocrinology Referral D35.00 - Benign neoplasm of unspecified adrenal gland Coding Level of Care Code Est Pt Level 4 (60757) Diagnoses Essential hypertension I10 Gastroesophageal reflux disease without esophagitis K21.9 Esophagitis presence: without esophagitis Diabetes mellitus E11.9 Adrenal adenoma D35.00 Time Spent (min) 23
== END 2023-06-02 11:08 | disposition home or self-care (01) ==
PROVIDERS: PCP Internal Medicine; Visit Provider Internal Medicine
DX: I10 Essential (primary) hypertension (principal); K21.9 Gastro-esophageal reflux disease without esophagitis; E11.9 Type 2 diabetes mellitus without complications; D35.00 Benign neoplasm of unspecified adrenal gland; Z23 Encounter for immunization; Z95.5 Presence of coronary angioplasty implant and graft
CPT/HCPCS: 83036; 90471; 90686; 99214

== ENCOUNTER 2023-06-11 13:07 | Outpatient (AMB) | payer OTHER, SELFPAY ==
[2023-06-11 13:21] VITALS: BP 140/82; PULSE 66; BMI 25.7
--- NOTE | 2023-06-11 13:21 | A.OFFVIS_ITS ---
Intake Vital Signs 06/11/23 13:21 Height 5 ft 2 in Weight 140 lb 10.479 oz BMI 25.7 BP 140/82 H Blood Pressure Location Lt brachial Position Sitting Pulse 66 Intake Visit Reasons: 6mo follow up/Pre-op CTS surgery/Dr. Pascal Allergies levofloxacin [From Levaquin] Allergy (Severe, Verified 06/11/23 13:23) Difficulty Breathing carvedilol [Coreg] Allergy (Intermediate, Verified 06/11/23 13:23) hives codeine Allergy (Intermediate, Verified 06/11/23 13:23) hives latex [LATEX] Allergy (Intermediate, Verified 06/11/23 13:23) RASH lisinopril Allergy (Intermediate, Verified 06/11/23 13:23) hives oxycodone [OXYCODONE] Allergy (Intermediate, Verified 06/11/23 13:23) RASH/HIVES Iodinated Contrast Media [IV Dye, Iodine Containing] Allergy (Mild, Verified 06/11/23 13:23) RASH/HIVES metronidazole [Flagyl] Adverse Reaction (Intermediate, Verified 06/11/23 13:23) diarrhea Penicillins [PENICILLINS] Adverse Reaction (Intermediate, Verified 06/11/23 13:23) limp legs topiramate Adverse Reaction (Intermediate, Verified 06/11/23 13:23) ineffective Medication List - Last Reconciled 06/11/23 by OSEAS GomezC amlodipine 5 mg PO DAILY aspirin 81 mg PO DAILY atorvastatin 40 mg PO DAILY blood sugar diagnostic (FreeStyle Test strips) TEST 2 TIMES DAILY blood-glucose meter (FreeStyle [place] Lite kit) TEST 2 TIMES DAILY calcium carbonate (Calcium) 600 mg PO BID 90 days cholecalciferol (vitamin D3) 25 mcg PO DAILY 90 days cyclobenzaprine 10 - 20 mg (1 - 2 x 10 mg) PO BEDTIME 30 days diclofenac sodium 1% (Arthritis Pain (diclofenac)) 2 grams topical QID PRN diphenhydramine HCl (Benadryl) 25 - 50 mg (1 - 2 x 25 mg) PO TID PRN 30 days esomeprazole magnesium 40 mg PO DAILY ezetimibe (Zetia) 10 mg PO DAILY famotidine 40 mg PO BEDTIME furosemide 10 mg PO DAILY PRN hydrochlorothiazide 12.5 mg PO DAILY lancets (FreeStyle Lancets) use 1 lancet twice a day losartan 100 mg PO DAILY magnesium oxide 400 mg PO BEDTIME 30 days metoprolol succinate ER 50 mg PO DAILY nitroglycerin 0.4 mg sublingual Q5M PRN 30 days pantoprazole 40 mg PO DAILY 90 days peg 3350-electrolytes 236-22.74-6.74 -5.86 gram (Golytely) 240 mL PO Q10M 1 day pioglitazone 30 mg PO DAILY pyridoxine (vitamin B6) 100 mg PO DAILY 90 days riboflavin (vitamin B2) 400 mg PO DAILY 30 days rimegepant (Nurtec ODT) 75 mg PO Q OTHER DAY 30 days HPI 6mo follow up/Pre-op CTS surgery/Dr. Pascal HPI Details Giovanna is a 58-year-old female with past medical history of hypertension, hyperlipidemia, coronary artery disease with LAD stent in 2006, post cardiomyopathy post delivery 2003 with normalization of EF, chronic atypical chest pains who presents for follow-up and preop evaluation. Today she reports she has been feeling well recently. She has not been getting chest discomfort like she reported in the past. She will notice some heart palpitations at times but none in the last few weeks. No dizziness, presyncope, syncope, falls. No shortness of breath, PND, orthopnea or edema. Has been having issues with migraines. Tolerates normal ADLs without difficulty. Tells me she will be needing carpal tunnel surgery in the near future. Taking all meds as directed. 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) CAD (coronary artery disease) Dyslipidemia Fibromyalgia Surgical History Hx of cystoscopy H/O esophagogastroduodenoscopy History of carpal tunnel release Hx of dilation and curettage Hx of cataract extraction History of lumpectomy of right breast History of lumpectomy of left breast History of lithotripsy History of exploratory laparotomy Hx of section History of hysteroscopy Stented coronary artery Hx of colonoscopy Hx of endoscopy Family History Father CVD (cardiovascular disease) HTN (hypertension) Cancer Type 2 diabetes mellitus Mother Breast cancer HTN (hypertension) Family/Other Diabetes Brother Diabetes HTN (hypertension) Sister Diabetes HTN (hypertension) Migraines Son Asthma Social History Household Members: Children Housing: Apartment Are you a primary adult daycare coordinator to a significant other at home: No Do you presently have visiting nurse or other home services: No Alcohol intake: never Patient Tobacco Use Status: Former Tobacco user Tobacco use type: Cigarette Years Smoked: 3 months e-Cigarette/Vaping Use: Never Used Second Hand Smoke Exposure: No service: No Current occupational status: disabled Current occupation: right hand dominant Gender identity: Female Cognitive needs: No Hearing needs: No Vision needs: No Female Reproductive History Menstrual Age of Menarche: 12 Review of Systems Const All systems reviewed & are unremarkable except as noted in HPI and below ENT Denies dizziness Card Denies chest pain, Denies chest pain at rest, Denies chest pain with activity, Denies rapid heart rate, Denies pedal edema, Denies edema, Denies leg edema, Denies lightheadedness, Reports palpitations, Denies dyspnea, Denies dyspnea on exertion and Denies orthopnea Resp Denies cough, Denies dyspnea and Denies dyspnea on exertion GI Denies hematochezia and Denies change in stool character Musc Denies abnormal gait, Denies limited range of motion, Denies muscle cramps, Denies muscle weakness, Denies numbness, Denies radiating pain into limb, Denies stiffness and Denies tingling Neuro Denies abnormal gait, Denies dizziness, Denies numbness and Denies tingling Endo Reports palpitations Physical Exam Vital Signs: Last Vital Signs BP 140/82 H 06/11/23 13:21 BMI result Body Mass Index 25.7 Const General: cooperative, healthy appearing, comfortable and no acute distress Orientation/consciousness: patient oriented x3 Neck Neck: Yes normal visual inspection Resp Effort & Inspection: normal respiratory effort Auscultation: clear to auscultation bilaterally, no crackles, no rales, no rhonchi and no wheezes Cardio Jugular venous distension: no JVD Rate: regular rate Rhythm: regular rhythm Heart sounds: S1 normal heart sound present, S2 normal heart sound present, no murmurs and no rubs Neuro General: patient oriented x3 Extrem General: Yes normal to inspection and No no pedal edema Psych Appearance: grossly normal Mental Status: mental status grossly normal Speech and movement: Normal speech and movement present Office Procedures EKG Details: Today, read by me, normal sinus rhythm, no acute ST or T-wave abnormalities, rate 66, QTC 427 millisecond [id number], Complete Assessment & Plan Assessment & Plan (1) CAD (coronary artery disease): Comment: stent in 2006 - Foll[place]assi [place] [facility] [place] Code(s): I25.10 - Atherosclerotic heart disease of [place] coronary artery without angina pectoris Plan: History of CAD with remote LAD stent, 2006. Previously reported atypical sounding chest discomfort. She underwent a nuclear stress test done 12/04/2022 showing normal myocardial perfusion imaging. An echocardiogram was done 12/04/2022 showing EF 54%, no regional wall motion abnormalities, grade 1 diastolic dysfunction. Today she reports feeling well with no anginal sounding symptoms. She continues on medical management for stable CAD including aspirin, atorvastatin with ideal LDL goal less than 70, Zetia, metoprolol. Cardiology follow-up in 6 months, sooner if needed (2) Essential hypertension: Code(s): I10 - Essential (primary) hypertension Plan: Hx HTN. Mild elevation at this visit. Home blood pressure readings ranging 120 to a high of 140 systolic. Currently on Losartan 100mg daily, Metoprolol xl 50mg daily, hydrochlorothiazide 12.5 mg daily and amlodipine 5 mg daily. She does report taking all meds as directed. No changes made. 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 Last echo showed EF 54%. (4) Stented coronary artery: Comment: 2006 LAD stent Code(s): Z95.5 - Presence of coronary angioplasty implant and graft (5) Dyslipidemia: Code(s): E78.5 - Hyperlipidemia, unspecified Plan: [place] LDL goal less than 70 and patient with CAD. Labs done 07/15/2022 show LDL 63. She continues on atorvastatin 40 mg daily and Zetia 10 mg daily. (6) Preop cardiovascular exam: Code(s): Z01.810 - Encounter for preprocedural cardiovascular examination Plan: Preop for carpal carpal tunnel surgery in the near future. No reports of anginal sounding symptoms. Recent stress test and echocardiogram completed with no concerning findings. Low cardiac risk to proceed. Aspirin can be held as needed and restart postprocedure once cleared by surgeon. (7) Palpitation: Code(s): R00.2 - Palpitations Plan: Reports of intermittent heart palpitations. Sounds like extrasystoles. None in the last few weeks. Will hold off on Holter monitor. She has a known normal EF. Continue metoprolol Medications: Refilled ezetimibe (Zetia) For cholesterol lowering, take in addition to atorvastatin 10 mg PO DAILY 90 tabs 3RF Coding Level of Care Code Est Pt Level 4 (49997) Diagnoses CAD (coronary artery disease) I25.10 Essential hypertension I10 cardiomyopathy O90.3 Stented coronary artery Z95.5 Dyslipidemia E78.5 Preop cardiovascular exam Z01.810 Palpitation R00.2 CPT Codes EKG - CPT: [id number], Complete ([id number]) Time Spent (min) 28
== END 2023-06-11 13:50 | disposition home or self-care (01) ==
PROVIDERS: Visit Provider Nurse Practitioner Family
DX: I25.10 Atherosclerotic heart disease of native coronary artery without angina pectoris (principal); I10 Essential (primary) hypertension; Z95.5 Presence of coronary angioplasty implant and graft; E78.5 Hyperlipidemia, unspecified; Z01.810 Encounter for preprocedural cardiovascular examination; R00.2 Palpitations
CPT/HCPCS: 93010; 99214

== ENCOUNTER → 2023-06-11 13:07 | Outpatient (BNVA) | payer OTHER, SELFPAY | PROVIDERS: Visit Provider Nurse Practitioner Family | DX: Z01.810 Encounter for preprocedural cardiovascular examination (principal); I25.10 Atherosclerotic heart disease of native coronary artery without angina pectoris; I10 Essential (primary) hypertension; E78.5 Hyperlipidemia, unspecified; R00.2 Palpitations; Z95.5 Presence of coronary angioplasty implant and graft; Z87.59 Personal history of other complications of pregnancy, childbirth and the puerperium | CPT/HCPCS: 93005; 99212 ==

== ENCOUNTER → 2023-08-05 10:39 | Outpatient (BNVA) | payer OTHER, SELFPAY | PROVIDERS: PCP Internal Medicine; Visit Provider Orthopaedic Surgery ==

== ENCOUNTER 2023-09-07 07:31 | Day surgery (SDC) | payer OTHER, SELFPAY ==
[2023-08-04 11:18] VITALS: BMI 25.6
--- NOTE | 2023-08-11 12:18 | HO.ANESPROP2 ---
HPI - Anesthesia Eval Consult details Narrative: 58yo F for Right Cubital Tunnel Release vs transposition, Right Carpal Tunnel Release, 09/07/23 Cardiac optimized. Follows [facility] cardiology for: hypertension, hyperlipidemia, coronary artery disease with LAD stent in 2006, post cardiomyopathy post delivery 2003 with normalization of EF, chronic atypical chest pains. s/p EGD/[place] 04/2023 with [facility] Active Problems Active Problems: All Active Problems (Updated 08/04/23 @ 11:23 by Leesa Cortes RN) Adrenal adenoma (Acute) Cubital tunnel syndrome on right (Acute) Chronic migraine without aura (Acute) Flank pain (Acute) Physical exam (Acute) Bilateral flank pain (Acute) Numbness and tingling in right hand (Acute) Carpal tunnel syndrome of left wrist (Acute) Cubital tunnel syndrome on left (Acute) Carpal tunnel syndrome of right wrist (Acute) Vertigo (Acute) Preop cardiovascular exam (Acute) Chest discomfort (Acute) Short of breath on exertion (Acute) Ulnar neuropathy at elbow of left upper extremity (Acute) Rotator cuff arthropathy of right shoulder (Acute) Bilateral kidney stones (Acute) Tubular adenoma of colon (Acute) Right upper quadrant abdominal pain (Acute) Migraine with aura (Acute) Excessive daytime sleepiness (Acute) Snoring (Acute) Sleep difficulties (Acute) Headache (Acute) Palpitation (Acute) Family history of cardiomyopathy (Acute) Ulnar neuropathy at elbow of right upper extremity (Acute) Cervical cancer screening (Acute) Postmenopausal atrophic vaginitis (Acute) Renal calculi (Acute) Right shoulder pain (Acute) Preop cardiovascular exam (Acute) Nausea and vomiting (Acute) History of biopsy (Acute) Diabetes mellitus (Acute) Lateral epicondylitis of right elbow (Acute) Elbow pain (Acute) Thoracic spondylosis with radiculopathy (Acute) Epigastric pain (Acute) Chest pain (Acute) Skin lumps (Acute) Postmenopausal bleeding (Acute) Lump of right breast (Acute) Pelvic pain in female (Acute) Breast lump (Acute) Encounter for annual routine gynecological examination (Acute) Essential hypertension (Acute) Irritable bowel syndrome with diarrhea (Acute) GERD (gastroesophageal reflux disease) (Acute) Medial epicondylitis, right elbow (Acute) HTN (hypertension) (Acute) Migraine (Acute) Osteopenia (Acute) Right shoulder pain (Acute) Right elbow pain (Acute) Neck pain (Acute) Postmenopausal (Acute) Lower extremity edema (Acute) Shortness of breath (Acute) Insomnia (Acute) Renal calculi (Acute) cardiomyopathy (Acute ~2004) Stented coronary artery (Acute) CAD (coronary artery disease) (Acute) Dyslipidemia (Acute) Fibromyalgia (Acute) Past Medical History Medical History (Updated 08/04/23 @ 11:23 by Leesa Cortes, RN) Numbness and tingling in both hands Migraine History of kidney stones Osteopenia Right shoulder pain Diabetes 1.5, managed as type 2 HTN (hypertension) CHF (congestive heart failure) Cardiomyopathy GERD (gastroesophageal reflux disease) On beta inez at home Right elbow pain Neck pain Postmenopausal Lower extremity edema Shortness of breath Insomnia Renal calculi Medial epicondylitis, right elbow 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) CAD (coronary artery disease) Dyslipidemia Fibromyalgia Family History Family History Father CVD (cardiovascular disease) HTN (hypertension) Cancer Type 2 diabetes mellitus Mother Breast cancer HTN (hypertension) Family/Other Diabetes Brother Diabetes HTN (hypertension) Sister Diabetes HTN (hypertension) Migraines Son Asthma Family history of problems with anesthesia: No Surgical History Surgical History Hx of cystoscopy H/O esophagogastroduodenoscopy History of carpal tunnel release Hx of dilation and curettage Hx of cataract extraction History of lumpectomy of right breast History of lumpectomy of left breast History of lithotripsy History of exploratory laparotomy Hx of section History of hysteroscopy Stented coronary artery Hx of colonoscopy Hx of endoscopy History of Problems with Anesthesia: No Social History Social History Household Members: Children Household Members Other:: adult son and family Housing: Apartment Are you a primary college and career counselor to a significant other at home: No Do you presently have visiting nurse or other home services: No Alcohol intake: never Patient Tobacco Use Status: Former Tobacco user Tobacco use type: Cigarette Years Smoked: 3 months e-Cigarette/Vaping Use: Never Used Second Hand Smoke Exposure: No Use of substances other than those prescribed or required for medical reasons: No Have you been hit, kicked, punched, or otherwise hurt by someone within the past year? If so, by whom?: No Are you DNR?: No Advance Directives: No Advance Directives Information Provided: Yes Advance Directives on File: No Recently lost weight without trying: No Nutrition Risks: No Nutritional Risk service: No Current occupational status: disabled Current occupation: right hand dominant Gender identity: Female Cognitive needs: No Hearing needs: No Vision needs: No Meds Allergies Allergy/AdvReac Type Severity Reaction Status Date / Time levofloxacin [From Levaquin] Allergy Severe Difficulty Verified 08/05/23 11:11 Breathing carvedilol [Coreg] Allergy Intermediate hives Verified 08/05/23 11:11 codeine Allergy Intermediate hives Verified 08/05/23 11:11 Iodinated Contrast Media Allergy Intermediate RASH/HIVES Verified 08/05/23 11:11 [IV Dye, Iodine Containing] latex [LATEX] Allergy Intermediate RASH Verified 08/05/23 11:11 lisinopril Allergy Intermediate hives Verified 08/05/23 11:11 oxycodone [OXYCODONE] Allergy Intermediate RASH/HIVES Verified 08/05/23 11:11 metronidazole [Flagyl] AdvReac Intermediate diarrhea Verified 08/05/23 11:11 Penicillins [PENICILLINS] AdvReac Intermediate limp legs Verified 08/05/23 11:11 topiramate AdvReac Intermediate ineffective Verified 08/05/23 11:11 Home Medications Medication Instructions Recorded Confirmed Last Taken Type furosemide 20 mg tablet 10 mg PO DAILY PRN Edema 11/29/20 08/04/23 Unknown History Exam Height,Weight and Vital Signs: Height 5 ft 2 in Weight 63.503 kg Pertinent Lab Results Pertinent Lab Results: Laboratory Tests 07/15/22 02/05/23 02/05/23 09:02 12:31 12:31 WBC 3.9 L Hgb 12.9 Hct 38.6 Plt Count 298 Sodium 144 Potassium 3.9 Chloride 108 Carbon Dioxide 28 BUN 10 Creatinine 1.00 Narrative Narrative: EKG normal sinus rhythm, no acute ST or T-wave abnormalities, rate 66, QTC 427 millisecond ECHO 2022 Conclusions: - The left ventricular systolic function is low normal.? The ? ? calculated ejection fraction is 54% by biplane method. ? - Mildly increased right ventricular cavity size.? - No obvious valvular pathology seen on this study.? ?? NM cardiolite stress test 2022 IMPRESSION: ? 1.? Myocardial perfusion imaging study shows normal myocardial perfusion. 2.? Gated LVEF is 54% during stress and 60% during rest. 3. Transient ischemic dilatation not present. ? EKG component of the test reported separately. Assessment and Plan Assessment Anesthesia Assessment: Chart Reviewed Final Anesthetic Review Family History of Problems with Anesthesia: No History of Problems with Anesthesia: No
[2023-09-03 07:48] VITALS: BMI 25.6
[2023-09-07] MEDS: Lactated Ringers 1,000 ML 50 ML IVCONT (08:38)
[2023-09-07 08:46] VITALS: BP 169/83; PULSE 69; RESP 18; TEMP 36.6; O2SAT 100
[2023-09-07 08:48] LABS: Glucose, Whole Blood 95 mg/dL (60-115)
--- NOTE | 2023-09-07 09:12 | HO.ANESPROP2 ---
[facility] Active Problems Active Problems: All Active Problems (Updated 08/04/23 @ 11:23 by Leesa Cortes, CRYSTAL) Adrenal adenoma (Acute) Cubital tunnel syndrome on right (Acute) Chronic migraine without aura (Acute) Flank pain (Acute) Physical exam (Acute) Bilateral flank pain (Acute) Numbness and tingling in right hand (Acute) Carpal tunnel syndrome of left wrist (Acute) Cubital tunnel syndrome on left (Acute) Carpal tunnel syndrome of right wrist (Acute) Vertigo (Acute) Preop cardiovascular exam (Acute) Chest discomfort (Acute) Short of breath on exertion (Acute) Ulnar neuropathy at elbow of left upper extremity (Acute) Rotator cuff arthropathy of right shoulder (Acute) Bilateral kidney stones (Acute) Tubular adenoma of colon (Acute) Right upper quadrant abdominal pain (Acute) Migraine with aura (Acute) Excessive daytime sleepiness (Acute) Snoring (Acute) Sleep difficulties (Acute) Headache (Acute) Palpitation (Acute) Family history of cardiomyopathy (Acute) Ulnar neuropathy at elbow of right upper extremity (Acute) Cervical cancer screening (Acute) Postmenopausal atrophic vaginitis (Acute) Renal calculi (Acute) Right shoulder pain (Acute) Preop cardiovascular exam (Acute) Nausea and vomiting (Acute) History of biopsy (Acute) Diabetes mellitus (Acute) Lateral epicondylitis of right elbow (Acute) Elbow pain (Acute) Thoracic spondylosis with radiculopathy (Acute) Epigastric pain (Acute) Chest pain (Acute) Skin lumps (Acute) Postmenopausal bleeding (Acute) Lump of right breast (Acute) Pelvic pain in female (Acute) Breast lump (Acute) Encounter for annual routine gynecological examination (Acute) Essential hypertension (Acute) Irritable bowel syndrome with diarrhea (Acute) GERD (gastroesophageal reflux disease) (Acute) Medial epicondylitis, right elbow (Acute) HTN (hypertension) (Acute) Migraine (Acute) Osteopenia (Acute) Right shoulder pain (Acute) Right elbow pain (Acute) Neck pain (Acute) Postmenopausal (Acute) Lower extremity edema (Acute) Shortness of breath (Acute) Insomnia (Acute) Renal calculi (Acute) cardiomyopathy (Acute ~2003) Stented coronary artery (Acute) CAD (coronary artery disease) (Acute) Dyslipidemia (Acute) Fibromyalgia (Acute) Past Medical History Medical History Numbness and tingling in both hands Migraine History of kidney stones Osteopenia Right shoulder pain Diabetes 1.5, managed as type 2 HTN (hypertension) CHF (congestive heart failure) Cardiomyopathy GERD (gastroesophageal reflux disease) On beta inez at home Right elbow pain Neck pain Postmenopausal Lower extremity edema Shortness of breath Insomnia Renal calculi Medial epicondylitis, right elbow 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) CAD (coronary artery disease) Dyslipidemia Fibromyalgia Family History Family History Father CVD (cardiovascular disease) HTN (hypertension) Cancer Type 2 diabetes mellitus Mother Breast cancer HTN (hypertension) Family/Other Diabetes Brother Diabetes HTN (hypertension) Sister Diabetes HTN (hypertension) Migraines Son Asthma Family history of problems with anesthesia: No Surgical History Surgical History Hx of cystoscopy H/O esophagogastroduodenoscopy History of carpal tunnel release Hx of dilation and curettage Hx of cataract extraction History of lumpectomy of right breast History of lumpectomy of left breast History of lithotripsy History of exploratory laparotomy Hx of section History of hysteroscopy Stented coronary artery Hx of colonoscopy Hx of endoscopy History of Problems with Anesthesia: No Social History Social History Household Members: Children Household Members Other:: adult son and family Housing: Apartment Are you a primary pediatric critical care nurse to a significant other at home: No Do you presently have visiting nurse or other home services: No Alcohol intake: never Patient Tobacco Use Status: Former Tobacco user Tobacco use type: Cigarette Years Smoked: 3 months e-Cigarette/Vaping Use: Never Used Second Hand Smoke Exposure: No Use of substances other than those prescribed or required for medical reasons: No Have you been hit, kicked, punched, or otherwise hurt by someone within the past year? If so, by whom?: No Are you DNR?: No Advance Directives: No Advance Directives Information Provided: Yes Advance Directives on File: No Recently lost weight without trying: No Nutrition Risks: No Nutritional Risk service: No Current occupational status: disabled Current occupation: right hand dominant Gender identity: Female Cognitive needs: No Hearing needs: No Vision needs: No Meds Allergies Allergy/AdvReac Type Severity Reaction Status Date / Time levofloxacin [From Levaquin] Allergy Severe Difficulty Verified 09/07/23 08:47 Breathing carvedilol [Coreg] Allergy Intermediate hives Verified 09/07/23 08:47 codeine Allergy Intermediate hives Verified 09/07/23 08:47 Iodinated Contrast Media Allergy Intermediate RASH/HIVES Verified 09/07/23 08:47 [IV Dye, Iodine Containing] latex [LATEX] Allergy Intermediate RASH Verified 09/07/23 08:47 lisinopril Allergy Intermediate hives Verified 09/07/23 08:47 oxycodone [OXYCODONE] Allergy Intermediate RASH/HIVES Verified 09/07/23 08:47 metronidazole [Flagyl] AdvReac Intermediate diarrhea Verified 09/07/23 08:47 Penicillins [PENICILLINS] AdvReac Intermediate limp legs Verified 09/07/23 08:47 topiramate AdvReac Intermediate ineffective Verified 09/07/23 08:47 Active Medications: Current Medications Fentanyl (Fentanyl Citrate/Pf 100 Mcg/2 Ml Vial) 25 mcg IVPUSH Q5M PRN; Protocol PRN Reason: Pain, Moderate(Pain Scale 4-6) Lactated Ringer's (Lr) 1,000 mls @ 50 mls/hr IVCONT .Q20H BRITTANY Last Admin: 09/07/23 08:38 Dose: 50 mls/hr Ondansetron HCl (Ondansetron Hcl 4 Mg/2 Ml Vial) 4 mg IVPUSH ONCE PRN PRN Reason: Nausea and Vomiting Home Medications Medication Instructions Recorded Confirmed Last Taken Type furosemide 20 mg tablet 10 mg PO DAILY PRN Edema 11/29/20 08/04/23 Unknown History Exam Height,Weight and Vital Signs: Height 5 ft 2 in Weight 63.503 kg Last Vital Signs Temp 97.9 F 09/07/23 08:46 Pulse 69 09/07/23 08:46 Resp 18 09/07/23 08:46 BP 169/83 H 09/07/23 08:46 Pulse Ox 100 09/07/23 08:46 O2 Del Method Room Air 09/07/23 08:46 Pertinent Lab Results Pertinent Lab Results: Laboratory Tests 09/07/23 08:37 POC Glucose 95 Airway Mallampati Class: II TM Dist: >3cm Neck ROM: Full Partial: Upper and Lower Heart: rrr Lungs: clear Assessment and Plan Final Anesthetic Review Family History of Problems with Anesthesia: No History of Problems with Anesthesia: No NPO: Yes ASA Class: IV Final Preanesthetic Review: No Changes in Pt Med Stat, Meds/Allgs Chart Reviewed, Consent Obtained/Reviewed and Anes Risks/Benef Reviewed Patient Risk: Intermediate Procedure Risk: Low Anesthetic Plan Anesthetic Plan: GA Disposition: Standard PACU
[2023-09-07 09:18] VITALS: BMI 25.6
--- NOTE | 2023-09-07 09:26 | MHC.SHP ---
Pre-Procedural Eval Section A - 24 Hr Update-Section A only Date of Service: 09/07/23 The patient is an INPATIENT: No Changes since office visit: No Cold of Flu in the past 2 weeks, No New Medical Problems, No Changes in Medication and No Patient answered all questions The patient has been examined within 24 hours of the surgical procedure. The History & Physical has been completed within 30 days and I have reviewed it.: Yes Section B - Complete if H&P > 30 days Chief Complaint: Carpal tunnel syndrome,lesion of ulnar nerve Allergies: Allergies Allergy/AdvReac Type Severity Reaction Status Date / Time levofloxacin [From Levaquin] Allergy Severe Difficulty Verified 09/07/23 08:47 Breathing carvedilol [Coreg] Allergy Intermediate hives Verified 09/07/23 08:47 codeine Allergy Intermediate hives Verified 09/07/23 08:47 Iodinated Contrast Media Allergy Intermediate RASH/HIVES Verified 09/07/23 08:47 [IV Dye, Iodine Containing] latex [LATEX] Allergy Intermediate RASH Verified 09/07/23 08:47 lisinopril Allergy Intermediate hives Verified 09/07/23 08:47 oxycodone [OXYCODONE] Allergy Intermediate RASH/HIVES Verified 09/07/23 08:47 metronidazole [Flagyl] AdvReac Intermediate diarrhea Verified 09/07/23 08:47 Penicillins [PENICILLINS] AdvReac Intermediate limp legs Verified 09/07/23 08:47 topiramate AdvReac Intermediate ineffective Verified 09/07/23 08:47 Plan I have reviewed the history and physical and performed a pertinent physical examination on my patient. No changes have occurred unless specified. Time Spent With Patient Time: Total time managing care of this patient today ____ minutes.
--- NOTE | 2023-09-07 09:27 | W.PM.OPN ---
Operative Note Operative Note Date of Service: 09/07/23 Narrative: Operative Note Narrative: Preop diagnosis: 1. Right Cubital tunnel syndrome 2. Right carpal tunnel syndrome Postop diagnosis: Same Procedure: 1. Right Cubital Tunnel Release with anterior transposition of the ulnar nerve 2. Right carpal tunnel release Surgeon: Esperanza Pascal MD Anesthesia: General Anesthesia Findings: Thickening and fibrosis about the ulnar nerve at the cubital tunnel. Anterior subluxation of the ulnar nerve with elbow flexion following cubital tunnel release. Implants: none Tourniquet time: 52 minutes EBL: 5.0 ml Specimen: none Drains: None Complications: None Disposition: Brought to the recovery room in stable condition Plan: Follow-up in 10-14 days for wound check, and suture removal Indications: The patient is 58 years old with right cubital tunnel syndrome and carpal tunnel syndrome . The risks and benefits of operative treatment, including but not limited to risk of damage to blood vessels, nerves, tendons, infection, recurrence, persistent pain or numbness, incomplete resolution of preoperative symptoms, or need for further surgery were discussed with the patient and they wished to proceed with surgery. Procedure: Once consent was obtained patient was brought back to the operating suite and placed in the operating table in a supine position. Perioperative antibiotics and anesthesia was administered by the anesthesia team. The limb was prepped and draped in a standard surgical fashion, and a sterile tourniquet applied to the proximal aspect of the right upper extremity. The limb was elevated exsanguinated with Esmarch bandage and the tourniquet inflated to 250 mm of mercury for a total tourniquet time of 52 minutes. Once assured that we had a good block, a 2.0 cm longitudinal incision was made centered over the right carpal tunnel. The incision was made through the skin to the subcutaneous tissues using a #15 blade. Dissection was made down to the level of the transverse carpal ligament with care being taken to protect the palmar cutaneous nerve. Once the transverse carpal ligament was clearly visualized, a longitudinal incision was made in the transverse carpal ligament 1st using a #15 blade, then using tenotomy scissors under direct visualization. Care was taken to look for and protect the motor branch of the median nerve when seen in this area. Once satisfied with our carpal tunnel release the wound was irrigated with normal saline. A 6 cm gently curved but longitudinally oriented incision was made centered over the cubital tunnel of the right upper extremity. Incision was made through the skin to the subcutaneous tissues using a # 15 Blade. I then dissected down to the level of the medial epicondyle and the cubital tunnel using tenotomy scissors. Care was taken to protect the lateral antebrachial cutaneous nerve. The ulnar nerve was identified just posterior to the medial intermuscular septum. The ulnar nerve was released in a proximal to distal direction using tenotomy in iris scissors while directly visualizing and protecting the ulnar nerve. Thickening and fibrosis was appreciated about the ulnar nerve as it passed through the cubital tunnel. The ulnar nerve was assessed as I passed the elbow through full flexion and extension and was found to sublux anteriorly with elbow flexion. As the ulnar nerve appeared to subluxate over the medial epicondyle, the decision was made to proceed with an anterior ulnar nerve transposition. The subcutaneous tissue was carefully freed from the fascia anterior to the medial epicondyle creating an appropriate bed for the ulnar nerve transposition. A small vessel loop was passed behind the ulnar nerve to help facilitate its mobilization. The ulnar nerve was then freed and carefully transposed anterior to the medial epicondyle. Some of the subcutaneous tissue in the anterior flap was carefully secured to the fascia about the medial epicondyle using some 3-0 Vicryl suture material. This created a sling to prevent posterior subluxation of the ulnar nerve. The elbow was brought through flexion and extension and the ulnar nerve was evaluated in its transposition site and found to have good ability to glide and to be free from undo pressure from the anterior sling. At this point the tourniquet was deflated and hemostasis obtained with a brief period of local pressure and bipolar electrocautery. The wound was copiously irrigated with normal saline. The subcutaneous layer was closed with 4-0 Vicryl suture, and the skin edges were reapproximated with a running 4-0 Monocryl subcuticular closure. Steri-Strips and Mastisol were applied.. The wound was infiltrated with some 0.25% plain Marcaine for postop pain control and sterile dressings and a posterior splint was applied. The patient appears to have tolerated the procedure well and with no complications. All digits were well vascularized conclusion of the case.
[2023-09-07 11:31] VITALS: BP 138/76; PULSE 64; RESP 18; TEMP 36.1; O2SAT 100
[2023-09-07 11:36] VITALS: BP 145/78; PULSE 56; RESP 17; O2SAT 100
[2023-09-07 11:40] VITALS: BP 141/75; PULSE 57; RESP 16; O2SAT 95
[2023-09-07 11:45] VITALS: BP 149/86; PULSE 62; RESP 16; O2SAT 98
[2023-09-07 12:00] VITALS: BP 133/72; PULSE 65; RESP 16; TEMP 36.1; O2SAT 97
== END 2023-09-07 12:40 | disposition home or self-care (01) ==
PROVIDERS: PCP Internal Medicine; Visit Provider Orthopaedic Surgery
PROC: (CPT 64718; principal; 2023-09-07 08:40)
PROC: (CPT 64721; 2023-09-07 08:40)
DX: G56.01 Carpal tunnel syndrome, right upper limb (principal); G56.21 Lesion of ulnar nerve, right upper limb; R20.0 Anesthesia of skin; R20.2 Paresthesia of skin; M79.7 Fibromyalgia; M77.01 Medial epicondylitis, right elbow; I42.9 Cardiomyopathy, unspecified; E13.9 Other specified diabetes mellitus without complications; I11.0 Hypertensive heart disease with heart failure; I50.9 Heart failure, unspecified; I25.10 Atherosclerotic heart disease of native coronary artery without angina pectoris; Z95.5 Presence of coronary angioplasty implant and graft; Z91.040 Latex allergy status; Z91.041 Radiographic dye allergy status; Z88.0 Allergy status to penicillin; Z88.1 Allergy status to other antibiotic agents; Z88.5 Allergy status to narcotic agent; Z88.8 Allergy status to other drugs, medicaments and biological substances; Z87.891 Personal history of nicotine dependence
CPT/HCPCS: 64721; 64718; 82947; J0690; J1100; J2250; J2371; J2405; J2704; J2795; J3010

== ENCOUNTER → 2023-09-07 07:31 | Outpatient (BNV) | payer OTHER, SELFPAY | PROVIDERS: PCP Internal Medicine; Visit Provider Orthopaedic Surgery | DX: G56.21 Lesion of ulnar nerve, right upper limb (principal); G56.01 Carpal tunnel syndrome, right upper limb | CPT/HCPCS: 64718; 64721 ==

== ENCOUNTER 2023-09-22 09:06 | Outpatient (AMB) | payer OTHER, SELFPAY ==
--- NOTE | 2023-09-22 09:11 | MHC.OFFVIS ---
Intake Intake Visit Reasons: P/O RT CTR/cub/09/07/23 Intake Note: Giovanna 58 yr old female presents today for her P/O visit for her right hand CTR and cubital tunnel release from 09/07/23 Patients states she has tenderness and pain especially on her elbow. Allergies levofloxacin [From Levaquin] Allergy (Severe, Verified 09/22/23 09:25) Difficulty Breathing carvedilol [Coreg] Allergy (Intermediate, Verified 09/22/23 09:25) hives codeine Allergy (Intermediate, Verified 09/22/23 09:25) hives Iodinated Contrast Media [IV Dye, Iodine Containing] Allergy (Intermediate, Verified 09/22/23 09:25) RASH/HIVES latex [LATEX] Allergy (Intermediate, Verified 09/22/23 09:25) RASH lisinopril Allergy (Intermediate, Verified 09/22/23 09:25) hives oxycodone [OXYCODONE] Allergy (Intermediate, Verified 09/22/23 09:25) RASH/HIVES metronidazole [Flagyl] Adverse Reaction (Intermediate, Verified 09/22/23 09:25) diarrhea Penicillins [PENICILLINS] Adverse Reaction (Intermediate, Verified 09/22/23 09:25) limp legs topiramate Adverse Reaction (Intermediate, Verified 09/22/23 09:25) ineffective HPI P/O RT CTR/cub/09/07/23 HPI Details Giovanna is a 58 year old right hand dominant woman who returns S/P right carpal tunnel release & right cubital tunnel release with transposition, DOS: 09/07/23. She has known left carpal tunnel syndrome, left cubital tunnel syndrome, and Fibromyalgia. She reports having pain & hypersensitivity at the surgical site, especially her elbow. Her sensation is improved in the thumb, index, and middle fingers and they now feel normal. She has improved sensation in the small finger, but says this is still not normal. [facility] Medical History Numbness and tingling in both hands Migraine History of kidney stones Osteopenia Right shoulder pain Diabetes 1.5, managed as type 2 HTN (hypertension) CHF (congestive heart failure) Cardiomyopathy GERD (gastroesophageal reflux disease) On beta inez at home Right elbow pain Neck pain Postmenopausal Lower extremity edema Shortness of breath Insomnia Renal calculi Medial epicondylitis, right elbow 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) CAD (coronary artery disease) Dyslipidemia Fibromyalgia Surgical History Hx of cystoscopy H/O esophagogastroduodenoscopy History of carpal tunnel release Hx of dilation and curettage Hx of cataract extraction History of lumpectomy of right breast History of lumpectomy of left breast History of lithotripsy History of exploratory laparotomy Hx of section History of hysteroscopy Stented coronary artery Hx of colonoscopy Hx of endoscopy Family History Father CVD (cardiovascular disease) HTN (hypertension) Cancer Type 2 diabetes mellitus Mother Breast cancer HTN (hypertension) Family/Other Diabetes Brother Diabetes HTN (hypertension) Sister Diabetes HTN (hypertension) Migraines Son Asthma Social History Household Members: Children Household Members Other:: adult son and family Housing: Apartment Are you a primary child care education coordinator to a significant other at home: No Do you presently have visiting nurse or other home services: No Alcohol intake: never Patient Tobacco Use Status: Former Tobacco user Tobacco use type: Cigarette Years Smoked: 3 months e-Cigarette/Vaping Use: Never Used Second Hand Smoke Exposure: No service: No Current occupational status: disabled Current occupation: right hand dominant Gender identity: Female Cognitive needs: No Hearing needs: No Vision needs: No Female Reproductive History Menstrual Age of Menarche: 12 Review of Systems Const All systems reviewed & are unremarkable except as noted in HPI and below Physical Exam Const General: no acute distress and alert Orientation/consciousness: patient oriented x3 Neuro General: patient oriented x3 Extrem Other: The patient was alert oriented and in no acute distress The incision is healing well with no erythema drainage or evidence of infection. Sutures removed and Steri-Strips applied She can make a fist and extend all her digits. Her sensation is improved and now normal in the median nerve distribution. Sensation improved but not yet normal in the ulnar nerve distribution Cap refill is brisk Nerve Conduction Study: IMPRESSION:? 1. [id number] right and mild left median neuropathy across carpal tunnel. 2. Mild left ulnar neuropathy across cubital tunnel. ? M Sakshi Kelly MD 11/06/2022 08 Psych Appearance: grossly normal Affect: normal affect Attitude: cooperative Assessment & Plan Assessment & Plan (1) Cubital tunnel syndrome on left: Code(s): G56.22 - Lesion of ulnar nerve, left upper limb (2) Carpal tunnel syndrome of left wrist: Code(s): G56.02 - Carpal tunnel syndrome, left upper limb (3) Diabetes mellitus: Code(s): E11.9 - Type 2 diabetes mellitus without complications (4) Fibromyalgia: Code(s): M79.7 - Fibromyalgia (5) Cubital tunnel syndrome on right: Code(s): G56.21 - Lesion of ulnar nerve, right upper limb (6) Carpal tunnel syndrome of right wrist: Code(s): G56.01 - Carpal tunnel syndrome, right upper limb Plan Assessment & Plan: 1. Right Carpal tunnel syndrome, S/P release DOS: 09/07/23 Pre-operative symptoms intermittent and daily, worse at night, primarily in the thumb Now with normal sensation and good resolution of nighttime symptoms 2. Right cubital tunnel syndrome, S/P release Pre-operative symptoms intermittent but daily and worse at night. Numbness in the ulnar nerve distribution of her hand Now with improved but not yet normal sensation. The patient appears to be doing well post-operatively I educated her about the post-operative course I discussed activity modifications, she is to lift nothing heavier than a cellphone for the next two weeks She will perform gentle ROM exercises at home She should avoid any underwater activities for the next 5 days She should gently massage about the incision site to reduce the risk of hypersensitivity 4. Left Carpal tunnel syndrome, mild Symptoms intermittent and occasional, worse at night 5. Left Cubital tunnel syndrome, mild Symptoms intermittent and occasional, worse at night She will follow up prn to discuss treatment options. 5. Right medial epicondylitis No complaints of elbow pain today. No mention of this today Scribed for Esperanza Pascal MD by Luis A Fierro, certified medical coding specialist, on 09/22/23 at 9:25 AM, EST. Coding Level of Care Code Global (42981) Diagnoses Cubital tunnel syndrome on left G56.22 Carpal tunnel syndrome of left wrist G56.02 Diabetes mellitus E11.9 Fibromyalgia M79.7 Cubital tunnel syndrome on right G56.21 Carpal tunnel syndrome of right wrist G56.01
== END 2023-09-22 09:37 | disposition home or self-care (01) ==
PROVIDERS: PCP Internal Medicine; Visit Provider Orthopaedic Surgery
DX: G56.23 Lesion of ulnar nerve, bilateral upper limbs (principal); G56.03 Carpal tunnel syndrome, bilateral upper limbs; E11.9 Type 2 diabetes mellitus without complications; M79.7 Fibromyalgia
CPT/HCPCS: 99024

== ENCOUNTER → 2023-09-22 09:06 | Outpatient (BNVA) | payer OTHER, SELFPAY | PROVIDERS: PCP Internal Medicine; Visit Provider Orthopaedic Surgery | DX: G56.23 Lesion of ulnar nerve, bilateral upper limbs (principal); G56.03 Carpal tunnel syndrome, bilateral upper limbs; M79.7 Fibromyalgia; E11.9 Type 2 diabetes mellitus without complications | CPT/HCPCS: 99212 ==

== ENCOUNTER 2023-10-01 10:39 | Outpatient (AMB) | payer OTHER, SELFPAY ==
[2023-10-01 10:51] VITALS: BP 146/80; BMI 26.3
--- NOTE | 2023-10-01 10:51 | A.OFFPC_ITS ---
Vital Signs 10/01/23 10:51 Height 5 ft 2 in Weight 144 lb BMI 26.3 BP 146/80 H Blood Pressure Location Lt brachial Position Sitting Intake Visit Reasons: dm Intake Note: Patient here for a follow up DM Floors Buffer Required: No Accompanied by: Self / Same As Patient Allergies levofloxacin [From Levaquin] Allergy (Severe, Verified 10/01/23 11:20) Difficulty Breathing carvedilol [Coreg] Allergy (Intermediate, Verified 10/01/23 11:20) hives codeine Allergy (Intermediate, Verified 10/01/23 11:20) hives Iodinated Contrast Media [IV Dye, Iodine Containing] Allergy (Intermediate, Verified 10/01/23 11:20) RASH/HIVES latex [LATEX] Allergy (Intermediate, Verified 10/01/23 11:20) RASH lisinopril Allergy (Intermediate, Verified 10/01/23 11:20) hives oxycodone [OXYCODONE] Allergy (Intermediate, Verified 10/01/23 11:20) RASH/HIVES metronidazole [Flagyl] Adverse Reaction (Intermediate, Verified 10/01/23 11:20) diarrhea Penicillins [PENICILLINS] Adverse Reaction (Intermediate, Verified 10/01/23 11:20) limp legs topiramate Adverse Reaction (Intermediate, Verified 10/01/23 11:20) ineffective Medication List - Last Reconciled 10/01/23 by Chen Pond MD amlodipine 5 mg PO DAILY aspirin 81 mg PO DAILY atorvastatin 40 mg PO DAILY blood sugar diagnostic (FreeStyle Test strips) TEST 2 TIMES DAILY blood-glucose meter (FreeStyle [place] Lite kit) TEST 2 TIMES DAILY calcium carbonate (Calcium) 600 mg PO BID 90 days cholecalciferol (vitamin D3) 25 mcg PO DAILY 90 days diphenhydramine HCl (Benadryl) 25 - 50 mg (1 - 2 x 25 mg) PO TID PRN 30 days esomeprazole magnesium 40 mg PO DAILY ezetimibe (Zetia) 10 mg PO DAILY famotidine 40 mg PO BEDTIME furosemide 10 mg PO DAILY PRN hydrochlorothiazide 12.5 mg PO DAILY lancets (FreeStyle Lancets) use 1 lancet twice a day losartan 100 mg PO DAILY magnesium oxide 400 mg PO BEDTIME 30 days metoprolol succinate ER 50 mg PO DAILY nitroglycerin 0.4 mg sublingual Q5M PRN 30 days pantoprazole 40 mg PO DAILY 90 days peg 3350-electrolytes 236-22.74-6.74 -5.86 gram (Golytely) 240 mL PO Q10M 1 day pioglitazone 30 mg PO DAILY 90 days pyridoxine (vitamin B6) 100 mg PO DAILY 90 days riboflavin (vitamin B2) 400 mg PO DAILY 30 days rimegepant (Nurtec ODT) 75 mg PO Q OTHER DAY 30 days Tobacco use date assessed: 10/01/23 Dental Screening Dental Screen Date: 10/01/23 Did you have a dental visit in the last 12 months?: No Did you have a dental problem in the last 6 months where you did not have access to dental care?: No Was dental information given to patient?: Patient has dentist HPI HPI Comments History of Present Illness Details This is a 58-year-old female with diabetes mellitus type 2, hypertension, dyslipidemia and GERD that comes today for follow-up on her conditions. A1c within goal. Blood pressure borderline elevated and will be recheck in 3 weeks by nurse navigator. I will increase amlodipine to 10 mg and discontinue hydrochlorothiazide because she admits not being compliant with hydrochlorothiazide. On statins for her cholesterol and lipid panel will be order. GERD stable with PPIs. She does have migraines and follows with Neurology. She has a left adrenal adenoma and has follow-up with [place] [facility]. No chest pain or shortness of breath. [facility] Medical History Cubital tunnel syndrome on right Numbness and tingling in both hands Migraine History of kidney stones Osteopenia Right shoulder pain Diabetes 1.5, managed as type 2 HTN (hypertension) CHF (congestive heart failure) Cardiomyopathy GERD (gastroesophageal reflux disease) On beta inez at home Right elbow pain Neck pain Postmenopausal Lower extremity edema Shortness of breath Insomnia Renal calculi Medial epicondylitis, right elbow 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) CAD (coronary artery disease) Dyslipidemia Fibromyalgia Surgical History Hx of cystoscopy H/O esophagogastroduodenoscopy History of carpal tunnel release Hx of dilation and curettage Hx of cataract extraction History of lumpectomy of right breast History of lumpectomy of left breast History of lithotripsy History of exploratory laparotomy Hx of section History of hysteroscopy Stented coronary artery Hx of colonoscopy Hx of endoscopy Family History Father CVD (cardiovascular disease) HTN (hypertension) Cancer Type 2 diabetes mellitus Mother Breast cancer HTN (hypertension) Family/Other Diabetes Brother Diabetes HTN (hypertension) Sister Diabetes HTN (hypertension) Migraines Son Asthma Social History Household Members: Children Household Members Other:: adult son and family Housing: Apartment Are you a primary primary health care nurse to a significant other at home: No Do you presently have visiting nurse or other home services: No Alcohol intake: never Patient Tobacco Use Status: Former Tobacco user Tobacco use type: Cigarette Years Smoked: 3 months e-Cigarette/Vaping Use: Never Used Second Hand Smoke Exposure: No service: No Current occupational status: disabled Current occupation: right hand dominant Gender identity: Female Cognitive needs: No Hearing needs: No Vision needs: No Female Reproductive History Menstrual Age of Menarche: 12 Questionnaire PHQ-9 Over the last 2 weeks, how often have you been bothered by any of the following problems? 1. Little interest or pleasure in doing things: not at all 2. Feeling down, depressed, or hopeless: not at all 3. Trouble falling or staying asleep, or sleeping too much: not at all 4. Feeling tired or having little energy: not at all 5. Poor appetite or overeating: not at all 6. Feeling bad about yourself - or that you are a failure or have let yourself or your family down: not at all 7. Trouble concentrating on things, such as reading the newspaper or watching television: not at all 8. Moving or speaking so slowly that other people could have noticed. Or the opposite - being so fidgety or restless that you have been moving around a lot more than usual: not at all 9. Thoughts that you would be better off or of hurting yourself in some way: not at all Total score: 0 Depression Screening Interpretation: Negative Depression Screening Done: Yes 07200 - PHQ-9 Billing: Yes Source: Developed by Drs. Darshan Tate, Gerson Brown and colleagues, with an educational callie from [employer]. Thrive Questionnaire Date Thrive assessed: 10/01/23 I am a: Patient What is your living situation today?: I have a steady place to live Within the past 12 months, did the food you bought not last and you didn't have the money to get more?: Never true Within the past 12 months, did you worry whether your food would run out before you got money to buy more?: Never true Do you have trouble paying for medicines?: No Do you have trouble getting transportation to medical appointments?: No Do you have trouble paying your heating and electricity bill?: No Do you have trouble taking care of your child, family member or friend?: No Do you have trouble with day-to-day activities such as bathing, preparing meals, shopping, managing finances, etc.?: No Are you currently unemployed and looking for a job?: No Are you interested in more education?: No Please select the resources that you would like help with: None Currently or been in a relationship where the following occur: no concerns reported THRIVE Score: 0 AUDIT C Alcohol Use Questionnaire (AUDIT-C) 1. How often do you have a drink containing alcohol?: Never Total Score: 0 DENVER-7 AMB Questionnaire DENVER-7 Date DENVER - 7 assessed: 10/01/23 Feeling nervous, anxious, or on edge: 0 = Not at all Not being able to stop or control worryin = Not at all Worrying too much about different things: 0 = Not at all Trouble relaxin = Not at all Being so restless that it is hard to sit still: 0 = Not at all Becoming easily annoyed or irritable: 0 = Not at all Feeling afraid as if something awful might happen: 0 = Not at all Total DENVER-7 score (0-4 normal; 5-9 mild; 10-14 moderate; 15-21 severe): 0 Source: Developed by Drs. Darshan Tate, Gerson Brown and colleagues, with an educational callie from [employer]. DENVER-7 Assessment Billing DENVER-7 Assessment Tool: DENVER-7 Assessment 07421 Review of Systems Const All systems reviewed & are unremarkable except as noted in HPI and below Eyes Reports no additional complaints, Denies change in vision and Denies other visual disturbances Card Denies chest pain at rest, Denies chest pain with activity, Denies edema, Denies irregular heart rhythm, Denies claudication, Denies dyspnea, Denies dyspnea on exertion, Denies orthopnea, Denies paroxysmal nocturnal dyspnea and Denies slow heart rate Resp Denies cough, Denies dyspnea and Denies dyspnea on exertion GI Denies abdominal pain, Denies change in bowel habits, Denies excessive flatus, Denies nausea and Denies vomiting Denies urinary incontinence, Denies urinary hesitancy and Denies urinary urgency Musc Denies abnormal gait, Denies atrophy, Denies deformity and Denies limited range of motion Skin/Breast Denies bleeding lesions, Denies changing lesions and Denies rash Neuro Denies abnormal gait, Denies behavioral changes, Denies confusion and Denies lack of coordination Psych Denies behavioral changes and Denies confusion Physical exam (Primary Care) Vital Signs: Last Vital Signs BP 146/80 H 10/01/23 10:51 BMI result Body Mass Index 26.3 Tobacco/Smoking Status: Tobacco use Status Tobacco use date assessed 10/01/23 10/01/23 11:04 Patient Tobacco Use Status Former Tobacco user 10/01/23 11:04 Tobacco use type Cigarette 10/01/23 11:04 e-Cigarette/Vaping Use Never Used 10/01/23 11:04 PHQ-9: PHQ-9 Score PHQ-9: Total score 0 10/01/23 11:04 Depression Screening Interpretation: Negative Thrive Assessment: Date of Thrive Assessment Date Thrive assessed 10/01/23 10/01/23 11:04 Currently or been in a relationship where the following occur: no concerns reported Const General: No confusion Orientation/consciousness: patient oriented x3 and No confusion Eyes General: appearance normal, both eyes and all related structures Eyelids: Yes eyelids normal Conjunctivae: conjunctivae normal Neck Neck: Yes normal visual inspection and Yes supple Resp Effort & Inspection: normal respiratory effort Auscultation: clear to auscultation bilaterally Cardio Jugular venous distension: no JVD Rate: regular rate Rhythm: regular rhythm Heart sounds: S1 normal heart sound present and S2 normal heart sound present Neuro General: patient oriented x3, no focal motor deficits and No confusion Extrem General: Yes full ROM Results AMB Hemoglobin A1c AMB Hemoglobin A1c 5.8 % Last Edit by NANI Jones on 10/01/23 11:0 5 Results Reviewed Results Reviewed: Laboratory Last Values Hgb A1c (Clinic) 5.8 % (4.0-6.0) 10/01/23 10:50 Assessment and Plan Assessment & Plan (1) Diabetes mellitus: Code(s): E11.9 - Type 2 diabetes mellitus without complications Plan: Continue Actos. A1c goal is equal or less than 7%. (2) HTN (hypertension): Code(s): I10 - Essential (primary) hypertension Plan: Discontinue hydrochlorothiazide. Increase amlodipine to 10 mg. Continue losartan. Blood pressure goal is equal or less than 130/80. Recheck blood pressure with nurse navigator in 3 weeks. (3) GERD (gastroesophageal reflux disease): Code(s): K21.9 - Gastro-esophageal reflux disease without esophagitis Qualifiers: Esophagitis presence: without esophagitis Qualified Code(s): K21.9 - Gastro-esophageal reflux disease without esophagitis Plan: Continue PPIs. (4) Dyslipidemia: Code(s): E78.5 - Hyperlipidemia, unspecified Plan: Continue statins. Repeat lipid panel. Orders: Orders Comprehensive [place]. Panel Fast Today E11.9 - Type 2 diabetes mellitus without complications Vitamin D 25-OH Total Today E55.9 - Vitamin D deficiency, unspecified AMB Hemoglobin A1c Today E11.9 - Type 2 diabetes mellitus without complications Lipid Panel Today E78.5 - Hyperlipidemia, unspecified Microalbumin, Random (w Creat) Today E11.9 - Type 2 diabetes mellitus without complications Medications: New amlodipine 10 mg PO DAILY 90 days 90 tabs 1RF Discontinued amlodipine Discontinued Reason: Patient Completed Course 5 mg PO DAILY 30 tabs 5RF hydrochlorothiazide Discontinued Reason: Patient Completed Course 12.5 mg PO DAILY 30 tabs 5RF Coding Level of Care Code Est Pt Level 4 (28671) Diagnoses Diabetes mellitus E11.9 HTN (hypertension) I10 Gastroesophageal reflux disease without esophagitis K21.9 Esophagitis presence: without esophagitis Dyslipidemia E78.5 Additional Codes DENVER-7 Assessment Billing - DENVER-7 Assessment Tool: DENVER-7 Assessment 29832 ([id number]) Time Spent (min) 23
== END 2023-10-01 11:33 | disposition home or self-care (01) ==
PROVIDERS: PCP Internal Medicine; Visit Provider Internal Medicine
DX: E11.69 Type 2 diabetes mellitus with other specified complication (principal); I10 Essential (primary) hypertension; K21.9 Gastro-esophageal reflux disease without esophagitis; E78.5 Hyperlipidemia, unspecified
CPT/HCPCS: 83036; 99214

== ENCOUNTER 2023-10-15 10:39 | Outpatient (AMB) | payer OTHER, SELFPAY ==
--- NOTE | 2023-10-15 10:45 | A.OFFVIS_ITS ---
Intake Vital Signs 10/15/23 11:05 Height 5 ft 2 in Weight 143 lb 4.807 oz BMI 26.2 BP 163/80 H Blood Pressure Location Lt brachial Position Sitting Pulse 59 Intake Visit Reasons: S/P Dr. Anabel Cooney Intake Note: Patient returns today in follow up of EGD and colonoscopy. CC: Patient c/o heartburn Rn Diabetes Educator Required: No Accompanied by: Self / Same As Patient Allergies levofloxacin [From Levaquin] Allergy (Severe, Verified 10/15/23 11:17) Difficulty Breathing carvedilol [Coreg] Allergy (Intermediate, Verified 10/15/23 11:17) hives codeine Allergy (Intermediate, Verified 10/15/23 11:17) hives Iodinated Contrast Media [IV Dye, Iodine Containing] Allergy (Intermediate, Verified 10/15/23 11:17) RASH/HIVES latex [LATEX] Allergy (Intermediate, Verified 10/15/23 11:17) RASH lisinopril Allergy (Intermediate, Verified 10/15/23 11:17) hives oxycodone [OXYCODONE] Allergy (Intermediate, Verified 10/15/23 11:17) RASH/HIVES metronidazole [Flagyl] Adverse Reaction (Intermediate, Verified 10/15/23 11:17) diarrhea Penicillins [PENICILLINS] Adverse Reaction (Intermediate, Verified 10/15/23 11:17) limp legs topiramate Adverse Reaction (Intermediate, Verified 10/15/23 11:17) ineffective HPI S/P Dr. Anabel Cooney HPI Details Assessment & Plan (1) Nausea and vomiting: Code(s): R11.2 - Nausea with vomiting, unspecified Plan: She had no better help with the 10mg reglan, so she stopped it. She continues to have daily nausea. Also her migraines are less severe but she still has them. she is also struggling with dizziness and will be tested for vertigo soon. Had EGD in 2020 with some gastric scarring, we ordered colonoscopy not yet scheduled. US no gallstones. Rast panel did not show any food allergies. She will still have diarrhea with fatty foods or foods like beans if I haven't eaten them in a while. This makes me question pancreatic insuff/IBS. She has not tried the cholestyramine, I encourage her to do so. If she is an over produce her of bile and this will help. We could also consider Creon going forward. She also had renal stones. We discuss various causes of nausea and that it can be neurologic, metabolic or even psychogenic. She has not yet been contacted for her EGD/colonoscopy which is about normal right now since we are behind with the large massive people returning after COVID. ROV 4 weeks. (2) GERD (gastroesophageal reflux diseas e): Code(s): K21.9 - Gastro-esophageal reflux disease without esophagitis Qualifiers: Esophagitis presence: without esophagitis Qualified Code(s): K21.9 - Gastro-esophageal reflux disease without esophagitis (3) Irritable bowel syndrome with diarrh ea: Code(s): K58.0 - Irritable bowel syndrome with diarrhea (4) Tubular adenoma of colon: Code(s): D12.6 - Benign neoplasm of colon, unspecified (5) Right upper quadrant abdominal pain: Code(s): R10.11 - Right upper quadrant pain Orders: Orders EGD/[facility] - G I Use Only Today Medications: New cholestyramine ( th sugar) 4 gram administer w/aubrey l; avoid other med s within 1hr befor e or 4-6hr after d ose 4 grams PO BID 34 8.6 grams 6RF EGD/COLONOSCOPY 05/12/23 Findings: Terminal Ileum-normal, random bx taken Random colon bx taken Cecum:normal Ascending Colon: normal Transverse Colon -normal Descending Colon:normal Sigmoid Colon: normal Rectum: Retroflexion with small internal hemorrhoids, grade I Anorectum - normal Impression and Post Procedure Diagnosis: Endoscopy Findings: gastritis esophagitis Colonoscopy Findings: internal hemorrhoids Plan: Await Pathology results Repeat Colonoscopy in 10 years or earlier if clinically indicated High fiber diet leaflet avoid straining at stool, epsom salts and sitz bath, anusol supps or cream if h pylori pos treat, BIOPSY .Received: 05/12/23 Diagnosis A. Duodenum, descending, biopsy: Duodenal mucosa with preserved villi and no specific change. B. Stomach, biopsy: Gastric antral and body mucosa with congestion and focal minimal chronic inactive inflammation; negative for H pylori, intestinal metaplasia and dysplasia. C. Gastroesophageal junction, biopsy: Squamocolumnar mucosa with focal minimal chronic inactive inflammation; negative for intestinal metaplasia and dysplasia. D. Esophagus, distal, biopsy: Squamous mucosa with no specific change; no columnar mucosa present. E. Esophagus, proximal, biopsy: Squamous mucosa with no specific change; no columnar mucosa present. F. Terminal ileum, biopsy: Ileal mucosa with no specific change. G. Colon, random, biopsy: Colonic mucosa with no specific change; no evidence of microscopic coliti && CORRESPONDENCE On 04/21/23 @ 15:37 Elayne Bro Wrote To SandrineOctober Patient states she has not take the cholestyramine because she only gets diar alonso when she eats fatty foods. Patient will keep appt for 05/26/23. On 04/21/23 @ 10:41 SandrineMary Wrote To Elayne Bro Thats up to her. We were going to evaluate her response to cholestyramine but if she wants to wait that is okay. On 04/21/23 @ 10:25 Tyesha Zayas Wrote To Sandrine pt called to r/s appointment from 04/17 and next available is May 13 and I let her know that her follow up from procedure is 05/26 she is wondering if you want to see her before the procedure? On 04/21/23 @ 10:25 Tyesha Zayas Wrote To Sandrine pt called to r/s appROV6 mos She has been having trouble getting many of her medications because they are being sent to [facility] - but this is only for her BRY[facility] medications not for any others. TODAY'S VISIT She has been having trouble getting many of her chronic medications because [facility]. [facility] is only supposed to be used for her migraine medications. She is getting a lot of HB because she ran out of her pantoprazole r/t this above. I will redirect this. She finds that her diarrhea is very random and she is not using the cholestyramine as she dislikes taking something daily. She is trying to manage this with diet and avoiding fats and trigger foods. She continues to struggle with migraines. She has failed many medications and botox shots and they are talking about a new device that manages migraines via vibrations. ROV 6 mos. [facility] Medical History (Updated 10/15/23 @ 14:17 by LANDON Mendoza) Right upper quadrant abdominal pain Nausea and vomiting Flank pain Physical exam Bilateral flank pain Numbness and tingling in right hand Preop cardiovascular exam Chest discomfort Short of breath on exertion Bilateral kidney stones Migraine with aura Snoring Sleep difficulties Headache Palpitation Family history of cardiomyopathy Cervical cancer screening Right shoulder pain Renal calculi Right elbow pain Neck pain Postmenopausal Preop cardiovascular exam Shortness of breath Medial epicondylitis, right elbow Elbow pain Epigastric pain Chest pain Encounter for annual routine gynecological examination Cubital tunnel syndrome on right Numbness and tingling in both hands Migraine History of kidney stones Osteopenia Diabetes 1.5, managed as type 2 HTN (hypertension) CHF (congestive heart failure) Cardiomyopathy GERD (gastroesophageal reflux disease) On beta inez at home Lower extremity edema Insomnia Renal calculi 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) CAD (coronary artery disease) Dyslipidemia Fibromyalgia Surgical History History of biopsy Hx of cystoscopy H/O esophagogastroduodenoscopy History of carpal tunnel release Hx of dilation and curettage Hx of cataract extraction History of lumpectomy of right breast History of lumpectomy of left breast History of lithotripsy History of exploratory laparotomy Hx of section History of hysteroscopy Stented coronary artery Hx of colonoscopy Hx of endoscopy Family History Father CVD (cardiovascular disease) HTN (hypertension) Cancer Type 2 diabetes mellitus Mother Breast cancer HTN (hypertension) Family/Other Diabetes Brother Diabetes HTN (hypertension) Sister Diabetes HTN (hypertension) Migraines Son Asthma Social History Household Members: Children Household Members Other:: adult son and family Housing: Apartment Are you a primary lawn care professional to a significant other at home: No Do you presently have visiting nurse or other home services: No Alcohol intake: never Patient Tobacco Use Status: Former Tobacco user Tobacco use type: Cigarette Years Smoked: 3 months e-Cigarette/Vaping Use: Never Used Second Hand Smoke Exposure: No service: No Current occupational status: disabled Current occupation: right hand dominant Gender identity: Female Cognitive needs: No Hearing needs: No Vision needs: No Female Reproductive History Menstrual Age of Menarche: 12 Review of Systems Const Denies fatigue, Denies fever(s), Reports headache(s), Denies night sweats, Denies poor appetite and Denies weight loss ENT Reports Normal hearing present, Denies dental pain, Denies dysphagia, Reports headache(s), Denies hearing loss, Denies mouth pain, Denies odynophagia, Denies throat swelling, Denies tongue swelling and Reports other (Dentition adequate) Card Reports no additional complaints Resp Reports no additional complaints GI Details: Denies abdominal pain, Denies melena, Denies bloating, Denies hematochezia, Denies constipation, Denies GI cramping, Denies dysphagia, Denies excessive flatus, Denies early satiety, Reports heartburn, Reports diarrhea, Denies nausea, Denies odynophagia, Denies vomiting and Denies hematemesis Musc Reports back pain and Reports myalgias Skin/Breast Denies pruritus, Denies lesions, Denies rash and Denies jaundice Neuro Reports Normal hearing present, Denies Abnormal speech present and Reports headache(s) Endo Denies fatigue Aller/Immun Denies throat swelling and Denies tongue swelling Physical Exam Vital Signs: Last Vital Signs Pulse 59 10/15/23 11:05 BP 163/80 H 10/15/23 11:05 BMI result Body Mass Index 26.2 Const General: cooperative, no acute distress, well developed and well groomed Nutritional Appearance: average body habitus and well nourished Orientation/consciousness: oriented to person, oriented to place and oriented to time Limitations: No language barrier HEENT Head: Yes normocephalic and Yes atraumatic Eyes General: appearance normal, both eyes and all related structures Pupils: Equal, round and reactive pupils present Neck Neck: Yes normal visual inspection and Yes no lymphadenopathy Thyroid: Thyroid normal Resp Effort & Inspection: normal respiratory effort and able to speak in complete sentences Auscultation: clear to auscultation bilaterally Cardio Rate: regular rate Rhythm: regular rhythm Heart sounds: Normal, physiologic split S2 sound present Peripheral pulses: radial pulses present and posterior tibial pulses present GI Inspection: No distended and No Abdominal panniculus present Palpation (GI): Soft to palpation, nontender, no guarding, not rigid and No hepatosplenomegaly present Percussion: Yes normal to percussion Auscultation: normal bowel sounds Rectal Exam - Female: deferred Skin General skin exam: no rashes or lesions noted, turgor normal, skin not dry, no jaundice, No spider nevi and no striae Rashes: no rashes Nails: normal Neuro General: oriented to person, oriented to place and oriented to time Cranial nerves: Yes Equal, round and reactive pupils present and Yes Normal hearing present Speech: No Abnormal speech present Extrem General: Yes normal to inspection, No clubbing, No cyanosis and No edema Psych Appearance: grossly normal and well kempt Mental Status: mental status grossly normal Speech and movement: Normal speech and movement present Affect: normal affect Attitude: cooperative Thought process: Normal thought process present and not confabulating Thought content: Normal thought content present Insight: Limited insight present (Psych) Judgement: Limited judgement present (Psych) Assessment & Plan Assessment & Plan (1) Irritable bowel syndrome with diarrhea: Code(s): K58.0 - Irritable bowel syndrome with diarrhea (2) GERD (gastroesophageal reflux disease): Code(s): K21.9 - Gastro-esophageal reflux disease without esophagitis Qualifiers: Esophagitis presence: without esophagitis Qualified Code(s): K21.9 - Gastro-esophageal reflux disease without esophagitis Plan She has been having trouble getting many of her chronic medications because [facility]. [facility] is only supposed to be used for her migraine medications. She is getting a lot of HB because she ran out of her pantoprazole r/t this above. I will redirect this. She finds that her diarrhea is very random and she is not using the cholestyramine as she dislikes taking something daily. She is trying to manage this with diet and avoiding fats and trigger foods. She continues to struggle with migraines. She has failed many medications and botox shots and they are talking about a new device that manages migraines via vibrations. ROV 6 mos. Medications: Refilled pantoprazole 40 mg PO DAILY 90 days 90 tabs 2RF famotidine 40 mg PO BEDTIME 90 tabs 2RF K21.9 - Gastro-esophageal reflux disease without esophagitis Discontinued esomeprazole magnesium Discontinued Reason: Doctor's Order 40 mg PO DAILY 90 caps 1RF K21.9 - Gastro-esophageal reflux disease without esophagitis, R10.13 - Epigastric pain Coding Level of Care Code Est Pt Level 3 (42887) Diagnoses Irritable bowel syndrome with diarrhea K58.0 Gastroesophageal reflux disease without esophagitis K21.9 Esophagitis presence: without esophagitis
[2023-10-15 11:05] VITALS: BP 163/80; PULSE 59; BMI 26.2
== END 2023-10-15 11:35 | disposition home or self-care (01) ==
PROVIDERS: PCP Internal Medicine; Visit Provider Nurse Practitioner
DX: K58.0 Irritable bowel syndrome with diarrhea (principal); K21.9 Gastro-esophageal reflux disease without esophagitis
CPT/HCPCS: 99213

== ENCOUNTER → 2023-10-15 10:39 | Outpatient (BNVA) | payer OTHER, SELFPAY | PROVIDERS: PCP Internal Medicine; Visit Provider Nurse Practitioner | DX: R12 Heartburn (principal); K58.0 Irritable bowel syndrome with diarrhea; K21.9 Gastro-esophageal reflux disease without esophagitis; R11.2 Nausea with vomiting, unspecified; D12.6 Benign neoplasm of colon, unspecified; R10.11 Right upper quadrant pain | CPT/HCPCS: 99212 ==

== ENCOUNTER 2023-11-11 15:39 | Emergency (ER) | payer OTHER, SELFPAY ==
--- NOTE | 2023-11-11 | ECG_ITS ---
Test Reason : chest pain Blood Pressure : / mmHG Vent. Rate : 075 BPM Atrial Rate : 075 BPM P-R Int : 144 ms QRS Dur : 082 ms QT Int : 396 ms P-R-T Axes : 030 031 016 degrees QTc Int : 442 ms Normal sinus rhythm Normal ECG When compared with ECG of 05-SEP-2019 22:47, No significant change was found Referred By: Generic ED Physician Electronically Signed By:MELLISSA KOENIG
--- NOTE | ~2023-11-11 | XR_ITS ---
EXAMINATION: XR CHEST CLINICAL INFORMATION: Left-sided chest pain COMPARISON: Chest x-ray on 09/05/2019 TECHNIQUE: 2 views of the chest were obtained. FINDINGS: No significant abnormality is noted involving the heart, lungs, mediastinum, bony thorax or soft tissues. XR/XR chest 2V IMPRESSION: Unremarkable examination.
[2023-11-11 16:00] VITALS: BP 151/69; PULSE 74; RESP 18; TEMP 36.3; O2SAT 100; BMI 26.3
--- NOTE | 2023-11-11 16:00 | ED_ITS ---
HPI - Chest Pain General Chief Complaint: Chest Pain Stated Complaint: chest pain radiating to back Time Seen by Provider: 11/11/23 23:38 Source: patient, RN notes reviewed and old records reviewed Mode of arrival: ambulatory Limitations: no limitations History of Present Illness HPI narrative: 58-year-old female with past medical history significant for coronary artery disease status post stenting x1, diabetes, GERD, IBS, hypertension, hyperlipidemia presents for evaluation of chest pain. Patient reports chest pain since last night. The pain was initially intermittent but is now constant. The pain is not associated with exertion or eating. She states the pain is 10/10, stabbing burning and achy in nature. The pain radiates through to her back She denies associated shortness of breath or cough Denies any leg swelling or abdominal pain Patient reports this feels different to her GERD symptoms Related Data Home Medications ?Medication ?Instructions ?Recorded ?Confirmed furosemide 20 mg tablet 10 mg PO DAILY PRN Edema 11/29/20 10/01/23 Previous Rx's ?Medication ?Instructions ?Recorded atorvastatin 40 mg tablet 40 mg PO DAILY #90 tabs 12/04/20 blood-glucose meter (FreeStyle #1 ea 03/05/21 [place] Lite kit) pyridoxine (vitamin B6) 100 mg 100 mg PO DAILY 90 days #90 tabs 06/19/21 tablet nitroglycerin 0.4 mg sublingual 0.4 mg sublingual Q5M PRN chest 09/25/21 tablet pain 30 days #25 tabs calcium carbonate 600 mg calcium 600 mg PO BID 90 days #180 tabs 04/15/22 (1,500 mg) tablet (Calcium) magnesium oxide 400 mg (241.3 mg 400 mg PO BEDTIME 30 days #30 tabs 07/13/22 magnesium) tablet riboflavin (vitamin B2) 400 mg 400 mg PO DAILY 30 days #30 tabs 07/13/22 tablet metoprolol succinate 50 mg 50 mg PO DAILY #90 tabs 09/04/22 tablet,extended release 24 hr diphenhydramine HCl 25 mg capsule 25 - 50 mg (1 - 2 x 25 mg) PO TID 12/18/22 (Benadryl) PRN allergy or injection site reaction symptoms 30 days #15 caps losartan 100 mg tablet 100 mg PO DAILY #90 tabs 01/26/23 rimegepant 75 mg disintegrating 75 mg PO Q OTHER DAY 30 days #16 04/13/23 tablet (Nurtec ODT) tabs ezetimibe 10 mg tablet (Zetia) 10 mg PO DAILY #90 tabs 06/11/23 pioglitazone 30 mg tablet 30 mg PO DAILY 90 days #90 tabs 06/25/23 blood sugar diagnostic (FreeStyle #50 ea 07/24/23 Test strips) lancets 28 gauge (FreeStyle #100 ea 09/01/23 Lancets) aspirin 81 mg tablet,delayed 81 mg PO DAILY #30 tabs 09/07/23 release cholecalciferol (vitamin D3) 25 25 mcg PO DAILY 90 days #90 caps 09/22/23 mcg (1,000 unit) capsule amlodipine 10 mg tablet 10 mg PO DAILY 90 days #90 tabs 10/01/23 famotidine 40 mg tablet 40 mg PO BEDTIME #90 tabs 10/15/23 pantoprazole 40 mg tablet,delayed 40 mg PO DAILY 90 days #90 tabs 10/15/23 release Allergies Allergy/AdvReac Type Severity Reaction Status Date / Time levofloxacin [From Levaquin] Allergy Severe Difficulty Verified 11/11/23 16:05 Breathing carvedilol [Coreg] Allergy Intermediate hives Verified 11/11/23 16:05 codeine Allergy Intermediate hives Verified 11/11/23 16:05 Iodinated Contrast Media Allergy Intermediate RASH/HIVES Verified 11/11/23 16:05 [IV Dye, Iodine Containing] latex [LATEX] Allergy Intermediate RASH Verified 11/11/23 16:05 lisinopril Allergy Intermediate hives Verified 11/11/23 16:05 oxycodone [OXYCODONE] Allergy Intermediate RASH/HIVES Verified 11/11/23 16:05 metronidazole [Flagyl] AdvReac Intermediate diarrhea Verified 11/11/23 16:05 Penicillins [PENICILLINS] AdvReac Intermediate limp legs Verified 11/11/23 16:05 topiramate AdvReac Intermediate ineffective Verified 11/11/23 16:05 Review of Systems 2 Constitutional: Constitutional: Denies body ache(s), Denies chills and Denies fever(s) Eyes: Eyes: Denies blurry vision ENT: Denies sore throat Cardiovascular: Cardiovascular: Reports chest pain and Denies dyspnea Respiratory: Respiratory: Denies cough and Denies dyspnea Gastrointestinal: Gastrointestinal: Denies abdominal pain, Denies nausea and Denies vomiting Musculoskeletal: Musculoskeletal: Reports back pain and Denies numbness Integumentary/Breasts: Skin/Breast: Denies rash Neurologic: Denies numbness [facility] Past Medical History Medical History (Updated 11/11/23 @ 23:52 by Donny Zuniga) Right upper quadrant abdominal pain Nausea and vomiting Flank pain Physical exam Bilateral flank pain Numbness and tingling in right hand Preop cardiovascular exam Chest discomfort Short of breath on exertion Bilateral kidney stones Migraine with aura Snoring Sleep difficulties Headache Palpitation Family history of cardiomyopathy Cervical cancer screening Right shoulder pain Renal calculi Right elbow pain Neck pain Postmenopausal Preop cardiovascular exam Shortness of breath Medial epicondylitis, right elbow Elbow pain Epigastric pain Chest pain Encounter for annual routine gynecological examination Cubital tunnel syndrome on right Numbness and tingling in both hands Migraine History of kidney stones Osteopenia Diabetes 1.5, managed as type 2 HTN (hypertension) CHF (congestive heart failure) Cardiomyopathy GERD (gastroesophageal reflux disease) On beta inez at home Lower extremity edema Insomnia Renal calculi 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) CAD (coronary artery disease) Dyslipidemia Fibromyalgia Surgical History History of biopsy Hx of cystoscopy H/O esophagogastroduodenoscopy History of carpal tunnel release Hx of dilation and curettage Hx of cataract extraction History of lumpectomy of right breast History of lumpectomy of left breast History of lithotripsy History of exploratory laparotomy Hx of section History of hysteroscopy Stented coronary artery Hx of colonoscopy Hx of endoscopy Family History Family History Father CVD (cardiovascular disease) HTN (hypertension) Cancer Type 2 diabetes mellitus Mother Breast cancer HTN (hypertension) Family/Other Diabetes Brother Diabetes HTN (hypertension) Sister Diabetes HTN (hypertension) Migraines Son Asthma Social History Social History Household Members: Children Household Members Other:: adult son and family Housing: Apartment Are you a primary career coach to a significant other at home: No Do you presently have visiting nurse or other home services: No Alcohol intake: never Patient Tobacco Use Status: Former Tobacco user Tobacco use type: Cigarette Years Smoked: 3 months e-Cigarette/Vaping Use: Never Used Second Hand Smoke Exposure: No Advance Directives: No Advance Directives Information Provided: No service: No Current occupational status: disabled Current occupation: right hand dominant Gender identity: Female Cognitive needs: No Hearing needs: No Vision needs: No Physical Exam 2 Vital Signs: Vital Signs: Last Vital Signs Temp 97.3 F 11/11/23 16:00 Pulse 74 11/11/23 16:00 Resp 18 11/11/23 16:00 BP 151/69 H 11/11/23 16:00 Pulse Ox 100 11/11/23 16:00 O2 Del Method Room Air 11/11/23 16:00 BMI result Body Mass Index 26.3 Const: General: healthy appearing, comfortable, no acute distress, alert and awake Nutritional Appearance: well nourished Orientation/consciousness: p atient oriented x3 HEENT: Head: Yes normocephalic and Yes atraumatic Eyes: Eyelids: Yes eyelids normal Conjunctivae: conjunctivae normal S clerae: sclerae normal Corneas: corneas normal Pupils: Equal, round and reactive pupils present EOM: EOMs intact bilaterally Neck: Neck: Yes full ROM Resp: Effort & Inspection: normal respiratory effort, able to speak in complete sentences, no audible wheezes and not labored Auscultation: clear to auscultation bilaterally Cardio: Rate: regular rate Rhythm: regular rhythm GI: Inspection: No distended Palpation (GI): Soft to palpation, not firm, nontender, no guarding and not rigid Skin: General skin exam: elasticity normal Neuro: General: patient oriented x3 Cranial nerves: Yes Equal, round and reactive pupils present and Yes Bilaterally intact EOM present Cognition (Neuro): normal cognition Course Course Course Narrative: RME:?58 yo hx of HTN, GERD, CAD w/ stent placed (last followed w/ cardiology 6 mo ago) here for eval of substernal/ epigastric pain now radiating towards the left back, worsening. +SOB, N without vomiting. no exacerbating or reliecing factors. took tylenol last night without improvement. feels different from her typical gerd. labs, trop, ekg, cxr ordered. Full HPI, ROS and PE to be performed by the primary ED provider. Medical Decision Making Medical Decision Making MDM Narrative: 58-year-old female with past medical history as documented above presents for chest pain. Her pain radiates through to the back. The pain has been constant for 24 hours, she ruled out for ACS with 2- troponins, a nonischemic EKG. Chest x-ray is clear. Labs are reassuring. She is not hypoxic, tachycardic or tachypneic. Doubt PE. Patient's pain may be related to GERD, anxiety, costochondritis muscle strain. This was discussed with her and she is still for discharge Differential Diagnosis Differential Diagnoses: The differential diagnosis associated with the presentation includes Chest pain Upper abdominal pain Gastritis ACS PE less likely Lab Data MDM Lab Attestation statement: I reviewed the patient's lab results. Patient has a mild leukopenia at 3.5 which is consistent with her baseline. She has no anemia. Normal platelet count. Chemistries are significant for a BUN elevated at 22 but a normal creatinine of 0.95. Random glucose is slightly elevated to 120 size, no evidence of DKA. The patient is a known diabetic. Troponin negative x2 11/11/23 16:20 11/11/23 16:20 Labs: Lab Results 11/11/23 11/11/23 Range/Units 16:20 22:34 WBC 3.5 L (4.8-10.8) X10*3/uL RBC 4.31 (4.20-5.50) X10*6/uL Hgb 12.9 (12.0-16.0) g/dl Hct 37.7 (37.0-47.0) % MCV 87.5 (80.0-98.0) fL MCH 29.9 (27.0-33.0) pg MCHC 34.2 (31.0-35.0) g/dl RDW 13.1 (11.0-16.0) % Plt Count 293 (160-400) X10*3/uL MPV 9.6 (9.4-12.3) fL Immature Gran % (Auto) 0.0 (0.0-0.4) % Neut % (Auto) 40.1 L (45-73) % Lymph % (Auto) 46.7 H (20-40) % Ceiba % (Auto) 7.9 (2-11) % Eos % (Auto) 4.5 H (0-4) % Baso % (Auto) 0.8 (0-2) % Lymph # (Auto) 1.7 (1.2-4.9) X10*3/uL [place] # (Auto) 0.3 (0.1-1.2) X10*3/uL Eos # (Auto) 0.2 (0.0-0.4) X10*3/uL Baso # (Auto) 0.0 (0.0-0.2) X10*3/uL Abs Immat Gran (auto) 0.00 (0.00-0.03) X10*3/uL Absolute Neuts (auto) 1.4 L (2.0-8.3) x10*3/uL Absolute Nucleated RBC 0.000 (0.0-0.012) X10*3/uL Nucleated RBC % (auto) 0.0 (0.0-0.2) /100WBC Sodium 141 (135-145) mmol/L Potassium 3.9 (3.3-5.1) mmol/L Chloride 106 (96-108) mmol/L Carbon Dioxide 27 (22-29) mmol/L Anion Gap 12 (12-20) BUN 22 H (9-16) mg/dL Creatinine 0.95 (0.5-1.4) mg/dL Estim Creat Clear Calc 56.5 Estimated GFR > 60 Random Glucose 125 H (60-115) mg/dL Calcium 9.8 (8.4-10.2) mg/dL Total Bilirubin 0.4 (0.0-1.0) mg/dL AST 20 (5-31) U/L ALT 17 (0-31) U/L Alkaline Phosphatase 62 (39-117) U/L Troponin I High Sens < 2.7 < 2.7 (<3.5-17.0) ng/L Total Protein 6.9 (6.5-8.0) g/dL Albumin 4.0 (3.5-5.0) g/dL Influenza Type A (PCR) NEGATIVE (Negative) Influenza Type B (PCR) NEGATIVE (Negative) RSV RNA Qual (PCR) NEGATIVE (Negative) SARS-CoV-2 RNA (RT-PCR) NEGATIVE (Negative) Independent Interpretation I performed an independent interpretation of an: EKG (Normal sinus rhythm with a rate of [address] segment changes or ischemia) and Plain X-Ray (No infiltrates) Discharge Plan Discharge Clinical Impression: Chest pain Patient Disposition: Home, Self-Care Instructions: Chest Pain (ED) Additional Instructions: Your workup in the ER today was reassuring. This includes your EKG, chest x-ray, blood work and repeat blood work You did not have a heart attack You may use ibuprofen/Tylenol as needed for pain Follow-up with your primary doctor, return for new or worsening symptoms Prescriptions: No Action atorvastatin 40 mg tablet 40 mg PO DAILY Qty: 90 2RF (DME) blood-glucose meter [FreeStyle [place] Lite] Kit See Rx Instructions .ROUTE .MEDSUPPLY Qty: 1 0RF Rx Instructions: TEST 2 TIMES DAILY nitroglycerin 0.4 mg tablet, sublingual 0.4 mg sublingual Q5M PRN (Reason: chest pain) 30 Days Qty: 25 5RF Rx Instructions: do not exceed 3 doses per episode calcium carbonate [Calcium 600] 600 mg calcium (1,500 mg) tablet 600 mg PO BID 90 Days Qty: 180 0RF metoprolol succinate 50 mg tablet extended release 24 hr 50 mg PO DAILY Qty: 90 3RF losartan 100 mg tablet 100 mg PO DAILY Qty: 90 3RF Nurtec ODT 75 mg tablet,disintegrating 75 mg PO Q OTHER DAY 30 Days Qty: 16 6RF pioglitazone 30 mg tablet 30 mg PO DAILY 90 Days Qty: 90 2RF (DME) FreeStyle Test Strip See Rx Instructions .ROUTE .MEDSUPPLY Qty: 50 11RF Rx Instructions: TEST 2 TIMES DAILY (DME) lancets [FreeStyle Lancets] 28 gauge misc See Rx Instructions .ROUTE .MEDSUPPLY Qty: 100 11RF Rx Instructions: use 1 lancet twice a day aspirin 81 mg tablet,delayed release (DR/EC) 81 mg PO DAILY Qty: 30 11RF cholecalciferol (vitamin D3) 25 mcg (1,000 unit) capsule 25 mcg PO DAILY 90 Days Qty: 90 1RF amlodipine 10 mg tablet 10 mg PO DAILY 90 Days Qty: 90 1RF furosemide 20 mg tablet 10 mg PO DAILY PRN (Reason: Edema) pyridoxine (vitamin B6) 100 mg tablet 100 mg PO DAILY 90 Days Qty: 90 1RF diphenhydramine HCl [Benadryl] 25 mg capsule 25 - 50 mg PO TID PRN (Reason: allergy or injection site reaction symptoms) 30 Days Qty: 15 6RF riboflavin (vitamin B2) 400 mg tablet 400 mg PO DAILY 30 Days Qty: 30 6RF magnesium oxide 400 mg (241.3 mg magnesium) tablet 400 mg PO BEDTIME 30 Days Qty: 30 6RF Rx Instructions: may hold for loose stools ezetimibe [Zetia] 10 mg tablet 10 mg PO DAILY Qty: 90 3RF Rx Instructions: For cholesterol lowering, take in addition to atorvastatin famotidine 40 mg tablet 40 mg PO BEDTIME Qty: 90 2RF pantoprazole 40 mg tablet,delayed release (DR/EC) 40 mg PO DAILY 90 Days Qty: 90 2RF Print Language: Taiwanese
[2023-11-11 16:24] LABS: MANUAL DIFF FLAG NO
[2023-11-11 16:25] LABS: Basophils Percent Auto 0.8 % (0-2); Eosinophils Absolute Auto 0.2 X10*3/uL (0.0-0.4); Eosinophils Percent Auto 4.5 % (0-4); Hematocrit 37.7 % (37.0-47.0); Hemoglobin 12.9 g/dl (12.0-16.0); Lymphocytes Absolute Auto 1.7 X10*3/uL (1.2-4.9); Lymphocytes Percent Auto 46.7 % (20-40); Mean Corpuscular HGB Conc 34.2 g/dl (31.0-35.0); Mean Corpuscular Hemoglobin 29.9 pg (27.0-33.0); Mean Corpuscular Volume 87.5 fL (80.0-98.0); Mean Platelet Volume 9.6 fL (9.4-12.3); Monocytes Absolute Auto 0.3 X10*3/uL (0.1-1.2); Monocytes Percent Auto 7.9 % (2-11); Neutrophils Absolute Auto 1.4 x10*3/uL (2.0-8.3); Neutrophils Percent Auto 40.1 % (45-73); Platelet Count 293 X10*3/uL (160-400); Red Blood Count 4.31 X10*6/uL (4.20-5.50); Red Cell Distribution Width 13.1 % (11.0-16.0); White Blood Count 3.5 X10*3/uL (4.8-10.8)
--- NOTE | 2023-11-11 16:25 | MHC.EDTECH ---
PATIENT BLOOD DRAWN AND RSV/COVID SWAB COLLECTED AND SENT TO LAB ,EKG TAKEN AND WAS READ BY PROVIDER .
[2023-11-11 16:38] LABS: Alanine Aminotransferase 17 U/L (0-31); Alkaline Phosphatase 62 U/L (39-117); Anion Gap 12 (12-20); Aspartate Amino Transferase 20 U/L (5-31); Bilirubin Total 0.4 mg/dL (0.0-1.0); Blood Urea Nitrogen 22 mg/dL (9-16); Calcium 9.8 mg/dL (8.4-10.2); Carbon Dioxide 27 mmol/L (22-29); Chloride 106 mmol/L (96-108); Creatinine Clr Calc Pharmacy 56.5; Estimated Glomerular Filt Rate > 60; Glucose Random 125 mg/dL (60-115); Potassium 3.9 mmol/L (3.3-5.1); Sodium 141 mmol/L (135-145); Total Protein 6.9 g/dL (6.5-8.0)
[2023-11-11 16:50] LABS: Troponin-I High Sensitivity < 2.7 ng/L (<3.5-17.0)
[2023-11-11 17:01] LABS: Influenza A PCR NEGATIVE (Negative); Influenza B PCR NEGATIVE (Negative); Resp Syncy Virus RNA Qual PCR NEGATIVE (Negative); SARS COV2 PCR INHOUSE NEGATIVE (Negative)
[2023-11-11 22:58] LABS: Troponin-I High Sensitivity < 2.7 ng/L (<3.5-17.0)
[2023-11-11 23:58] VITALS: BP 144/72; PULSE 63; RESP 16; TEMP 36.7; O2SAT 99
[2023-11-12 00:11] VITALS: BP 144/72; PULSE 63; RESP 16; TEMP 36.6; O2SAT 99
[2023-11-12 00:20] LABS: Lipase 26 U/L (8-78)
== END 2023-11-12 00:12 | disposition home or self-care (01) ==
PROVIDERS: Physician Assistant; Emergency Provider Emergency Medicine Emergency Medical Services; PCP Internal Medicine
DX: R07.89 Other chest pain (principal); M54.50 Low back pain, unspecified; I25.10 Atherosclerotic heart disease of native coronary artery without angina pectoris; R06.02 Shortness of breath; R05.9 Cough, unspecified; Z11.52 Encounter for screening for COVID-19; Z20.822 Contact with and (suspected) exposure to COVID-19; Z87.891 Personal history of nicotine dependence; Z79.899 Other long term (current) drug therapy
CPT/HCPCS: 0241U; 36415; 71046; 80053; 83690; 84484; 85025; 93005; 99283; 99284

== ENCOUNTER → 2023-11-11 15:43 | Outpatient (BNV) | payer OTHER, SELFPAY | PROVIDERS: Emergency Provider Emergency Medicine Emergency Medical Services; PCP Internal Medicine; Visit Provider Internal Medicine | DX: R07.9 Chest pain, unspecified (principal) | CPT/HCPCS: 93010 ==

== ENCOUNTER 2023-12-24 13:20 | Outpatient (REF) | payer OTHER, SELFPAY ==
--- NOTE | ~2023-12-24 | MM_ITS ---
EXAMINATION: MM SCREENING DIGITAL BREAST TOMOSYNTHESIS, BILATERAL CLINICAL INFORMATION: Screening. Asymptomatic. COMPARISON: Mammography: This study is compared with prior exams dating back to 2016. TECHNIQUE: Digital breast tomosynthesis is performed in both the craniocaudal and mediolateral oblique views along with computer-aided detection (CAD). Synthesized 2D images are generated from the tomosynthesis. FINDINGS: The breasts are heterogeneously dense, which may obscure small masses (ACR BI-RADS breast composition Category c). There are no significant masses, abnormal calcifications, or other abnormalities. MM/MM tomosynthesis screening BI IMPRESSION: No mammographic evidence of malignancy. ASSESSMENT: BI-RADS BI-RADS 1 - Negative RECOMMENDATION: Routine annual mammography screening. 1 year F/U This examination should not preclude the clinical evaluation of a suspicious palpable abnormality. This patient's information was entered into a reminder system with a target due date for their next mammogram.
== END 2023-12-24 13:21 | disposition home or self-care (01) ==
LOC: HO.MAMMO 13:20
PROVIDERS: PCP Internal Medicine; Visit Provider Internal Medicine
DX: Z12.31 Encounter for screening mammogram for malignant neoplasm of breast (principal)
CPT/HCPCS: 77063; 77067

== ENCOUNTER → 2023-12-24 13:30 | Outpatient (BNV) | payer OTHER, SELFPAY | PROVIDERS: PCP Internal Medicine; Visit Provider Radiology Diagnostic Radiology | DX: Z12.31 Encounter for screening mammogram for malignant neoplasm of breast (principal) | CPT/HCPCS: 77063; 77067 ==

== ENCOUNTER 2024-01-11 12:55 | Outpatient (AMB) | payer OTHER, SELFPAY ==
[2024-01-11 12:59] VITALS: BP 122/62; PULSE 82; BMI 27.0
--- NOTE | 2024-01-11 12:59 | A.OFFVIS_ITS ---
Vital Signs 01/11/24 12:59 Height 5 ft 2 in Weight 147 lb 11.355 oz BMI 27.0 BP 122/62 Blood Pressure Location Lt brachial Position Sitting Pulse 82 Pulse Source Pulse Oximeter Intake Visit Reasons: 6 mth fu Box Lidder Required: No Active Directory Systems Administrator: Active Directory Systems Administrator Present Allergies levofloxacin [From Levaquin] Allergy (Severe, Verified 01/11/24 13:02) Difficulty Breathing carvedilol [Coreg] Allergy (Intermediate, Verified 01/11/24 13:02) hives codeine Allergy (Intermediate, Verified 01/11/24 13:02) hives Iodinated Contrast Media [IV Dye, Iodine Containing] Allergy (Intermediate, Verified 01/11/24 13:02) RASH/HIVES latex [LATEX] Allergy (Intermediate, Verified 01/11/24 13:02) RASH lisinopril Allergy (Intermediate, Verified 01/11/24 13:02) hives oxycodone [OXYCODONE] Allergy (Intermediate, Verified 01/11/24 13:02) RASH/HIVES metronidazole [Flagyl] Adverse Reaction (Intermediate, Verified 01/11/24 13:02) diarrhea Penicillins [PENICILLINS] Adverse Reaction (Intermediate, Verified 01/11/24 13:02) limp legs topiramate Adverse Reaction (Intermediate, Verified 01/11/24 13:02) ineffective Medication List - Last Reconciled 01/11/24 by OSEAS GomezC amlodipine 5 mg PO DAILY aspirin 81 mg PO DAILY atorvastatin 40 mg PO DAILY blood sugar diagnostic (FreeStyle Test strips) TEST 2 TIMES DAILY blood-glucose meter (FreeStyle [place] Lite kit) TEST 2 TIMES DAILY calcium carbonate (Calcium 600) 600 mg PO BID 90 days cholecalciferol (vitamin D3) 25 mcg PO DAILY 90 days ezetimibe (Zetia) 10 mg PO DAILY famotidine 40 mg PO BEDTIME furosemide 20 mg PO DAILY PRN lancets (FreeStyle Lancets) use 1 lancet twice a day losartan 100 mg PO DAILY metoprolol succinate ER 50 mg PO DAILY nitroglycerin 0.4 mg sublingual Q5M PRN 30 days pantoprazole 40 mg PO DAILY 90 days pioglitazone 30 mg PO DAILY 90 days HPI HPI 6 mth fu: Details: Giovanna is a 58-year-old female with past medical history of hypertension, hyperlipidemia, coronary artery disease with LAD stent in 2006, post cardiomyopathy post delivery 2003 with normalization of EF, chronic atypical chest pains who presents for follow-up. Today she reports she has noticing swelling in her lower extremities. She says at times her feet are painful to walk on due to the edema. She denies any increase in the salt in her diet. She feels the warm weather may have contributed some. She has not been getting chest discomfort at rest or with activity. She will notice some heart palpitations that occur occasionally. No dizziness, presyncope, syncope, falls. No shortness of breath, PND, orthopnea. Tolerates normal ADLs without difficulty. Daughter is present. Taking all meds as directed. [facility] Medical History Right upper quadrant abdominal pain Nausea and vomiting Flank pain Physical exam Bilateral flank pain Numbness and tingling in right hand Preop cardiovascular exam Chest discomfort Short of breath on exertion Bilateral kidney stones Migraine with aura Snoring Sleep difficulties Headache Palpitation Family history of cardiomyopathy Cervical cancer screening Right shoulder pain Renal calculi Right elbow pain Neck pain Postmenopausal Preop cardiovascular exam Shortness of breath Medial epicondylitis, right elbow Elbow pain Epigastric pain Chest pain Encounter for annual routine gynecological examination Cubital tunnel syndrome on right Numbness and tingling in both hands Migraine History of kidney stones Osteopenia Diabetes 1.5, managed as type 2 HTN (hypertension) CHF (congestive heart failure) Cardiomyopathy GERD (gastroesophageal reflux disease) On beta inez at home Lower extremity edema Insomnia Renal calculi 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) CAD (coronary artery disease) Dyslipidemia Fibromyalgia Surgical History History of biopsy Hx of cystoscopy H/O esophagogastroduodenoscopy History of carpal tunnel release Hx of dilation and curettage Hx of cataract extraction History of lumpectomy of right breast History of lumpectomy of left breast History of lithotripsy History of exploratory laparotomy Hx of section History of hysteroscopy Stented coronary artery Hx of colonoscopy Hx of endoscopy Family History Father CVD (cardiovascular disease) HTN (hypertension) Cancer Type 2 diabetes mellitus Mother Breast cancer HTN (hypertension) Family/Other Diabetes Brother Diabetes HTN (hypertension) Sister Diabetes HTN (hypertension) Migraines Son Asthma Social History Household Members: Children Household Members Other:: adult son and family Housing: Apartment Are you a primary group care worker to a significant other at home: No Do you presently have visiting nurse or other home services: No Alcohol intake: never Patient Tobacco Use Status: Former Tobacco user Tobacco use type: Cigarette Years Smoked: 3 months e-Cigarette/Vaping Use: Never Used Second Hand Smoke Exposure: No service: No Current occupational status: disabled Current occupation: right hand dominant Gender identity: Female Cognitive needs: No Hearing needs: No Vision needs: No Female Reproductive History Menstrual Age of Menarche: 12 Review of Systems Const All systems reviewed & are unremarkable except as noted in HPI and below ENT Denies dizziness Card Denies chest pain, Denies chest pain at rest, Denies chest pain with activity, Denies rapid heart rate, Reports pedal edema, Denies edema, Reports leg edema, Denies lightheadedness, Denies palpitations, Denies dyspnea, Denies dyspnea on exertion and Denies orthopnea Resp Denies cough, Denies dyspnea and Denies dyspnea on exertion GI Denies hematochezia and Denies change in stool character Musc Denies abnormal gait, Denies limited range of motion, Denies muscle cramps, Denies muscle weakness, Denies numbness, Denies radiating pain into limb, Denies stiffness and Denies tingling Neuro Denies abnormal gait, Denies dizziness, Denies numbness and Denies tingling Endo Denies palpitations Physical Exam Vital Signs: Last Vital Signs Pulse 82 01/11/24 12:59 BP 122/62 01/11/24 12:59 BMI result Body Mass Index 27.0 Const General: cooperative, healthy appearing, comfortable and no acute distress Orientation/consciousness: patient oriented x3 Neck Neck: Yes normal visual inspection and Yes no JVD Resp Effort & Inspection: normal respiratory effort Auscultation: clear to auscultation bilaterally, no crackles, no rales, no rhonchi and no wheezes Cardio Jugular venous distension: no JVD Rate: regular rate Rhythm: regular rhythm Heart sounds: S1 normal heart sound present, S2 normal heart sound present, no murmurs and no rubs Neuro General: patient oriented x3 Extrem General: Yes normal to inspection and No no pedal edema Psych Appearance: grossly normal Mental Status: mental status grossly normal Speech and movement: Normal speech and movement present Assessment & Plan Assessment & Plan (1) Leg swelling: Code(s): M79.89 - Other specified soft tissue disorders Category: Medical Plan: Primary complaint today is of bilateral lower leg edema. He has trace edema noted on examination. She tells me today they are good but in the last few weeks they have been more swollen requiring leg elevation. It has been painful for her to walk on bare feet. She denies any increase in salt intake. The weather has been warm which can contribute. She does have air conditioning in her home. Her home blood pressures have been running on the low side. She is on amlodipine 10 mg daily which can cause edema. Will reduce her amlodipine down to 5 mg daily. Will give her some Lasix 20 mg daily which she can use p.r.n. for edema. She has had this prescription in the past but ran out. Will update an echocardiogram to ensure her EF is normal. She has a history of cardiomyopathy. Signs and symptoms of heart failure reviewed with her. Discussed low-salt diet, leg elevation, compression stockings if needed. (2) CAD (coronary artery disease): Comment: stent in 2006 - Foll'd by Kassi Montano - [facility] [place] Cardiovascular Code(s): I25.10 - Atherosclerotic heart disease of [place] coronary artery without angina pectoris Category: Medical Plan: History of CAD with remote LAD stent, 2006. Previously reported atypical sounding chest discomfort. She underwent a nuclear stress test done 12/04/2022 showing normal myocardial perfusion imaging. An echocardiogram was done 12/04/2022 showing EF 54%, no regional wall motion abnormalities, grade 1 diastolic dysfunction. Today she reports feeling well with no anginal sounding symptoms. She continues on medical management for stable CAD including aspirin, atorvastatin with ideal LDL goal less than 70, Zetia, metoprolol. Cardiology follow-up in 6 months, sooner if needed (3) Essential hypertension: Code(s): I10 - Essential (primary) hypertension Category: Medical Plan: Hx HTN. Normal blood pressure at present. Currently on Losartan 100mg daily, Metoprolol xl 50mg daily, amlodipine 10 mg daily. Reducing amlodipine down to 5mg due to report of edema. In the past she was on hydrochlorothiazide and her med list no longer includes that medication. She will periodically check blood pressures at home. Instructed to call if systolic reading running greater than 140. 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 Last echo showed EF 54%. (5) Stented coronary artery: Comment: 2006 LAD stent Code(s): Z95.5 - Presence of coronary angioplasty implant and graft Category: Surgical Plan: As above (6) Dyslipidemia: Code(s): E78.5 - Hyperlipidemia, unspecified Category: Medical Plan: [place] LDL goal less than 70 and patient with CAD. Labs done 07/15/2022 show LDL 63. Fasting lipid profile is due. She tells me she will obtain this week. She continues on atorvastatin 40 mg daily and Zetia 10 mg daily. (7) Palpitation: Code(s): R00.2 - Palpitations Category: Medical Plan: Reports of intermittent heart palpitations. Sounds like extrasystoles. She has a known normal EF. 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
== END 2024-01-11 13:31 | disposition home or self-care (01) ==
PROVIDERS: PCP Internal Medicine; Visit Provider Nurse Practitioner Family
DX: M79.89 Other specified soft tissue disorders (principal); I25.10 Atherosclerotic heart disease of native coronary artery without angina pectoris; I10 Essential (primary) hypertension; Z86.79 Personal history of other diseases of the circulatory system; Z95.5 Presence of coronary angioplasty implant and graft; E78.5 Hyperlipidemia, unspecified; R00.2 Palpitations
CPT/HCPCS: 99214

== ENCOUNTER → 2024-01-11 12:55 | Outpatient (BNVA) | payer OTHER, SELFPAY | PROVIDERS: PCP Internal Medicine; Visit Provider Nurse Practitioner Family | DX: M79.89 Other specified soft tissue disorders (principal); I25.10 Atherosclerotic heart disease of native coronary artery without angina pectoris; I10 Essential (primary) hypertension; E78.5 Hyperlipidemia, unspecified; R00.2 Palpitations; Z95.5 Presence of coronary angioplasty implant and graft | CPT/HCPCS: 99212 ==

== ENCOUNTER → 2024-01-26 11:17 | Outpatient (REF) | payer OTHER, SELFPAY ==
[2024-01-26 12:58] LABS: Alanine Aminotransferase 14 U/L (0-31); Albumin Level 3.7 g/dL (3.5-5.0); Alkaline Phosphatase 55 U/L (39-117); Anion Gap 10 (12-20); Aspartate Amino Transferase 17 U/L (5-31); Bilirubin Total 0.5 mg/dL (0.0-1.0); Blood Urea Nitrogen 15 mg/dL (9-16); Calcium 9.5 mg/dL (8.4-10.2); Carbon Dioxide 29 mmol/L (22-29); Chloride 107 mmol/L (96-108); Cholesterol 118 mg/dL (<200); Estimated Glomerular Filt Rate 52; Glucose Fasting 99 mg/dL (60-99); HDL Cholesterol 44 mg/dL (>40); LDL Cholesterol Calculated 61 mg/dL (<100); Sodium 142 mmol/L (135-145); Total Protein 6.2 g/dL (6.5-8.0); Triglycerides 68 mg/dL (<150)
[2024-01-26 12:59] LABS: Vitamin D 25-OH Total 42.2 ng/mL (>30)
[2024-01-26 13:13] LABS: Creatinine Urine 119.79 mg/dL; Microalbum/Creatinine Ratio Ur 10.8 ug/mg cr (<30)
--- NOTE | 2024-01-26 15:08 | CA_ITS ---
Transthoracic Echocardiogram Patient (Last, First, Middle): Giovanna Quigley J Gender: Female Date of : 1965 Age: 58 Procedure Date: 01/26/2024 Procedure Type: Transthoracic Echocardiogram Location: OP Height: 157. cm Weight: 66.68 kg BSA: 1.67 m2 Heart Rate: 57 bpm BP: 155 / 90 mmHg Line Cook: LUCIO Referring MD: Kassi Montano OPERATIONS MANAGER/COORDINATOREyal Symptoms: I25.10 - Atherosclerotic heart disease of [place] coronary artery without... Study Quality: Adequate ECG Rhythm: Bradycardia Conclusions: - The left ventricular systolic function is low normal. The visually estimated ejection fraction is between 50-55%. - No obvious valvular pathology seen on this study. Findings Left Ventricle Normal left ventricular cavity size. There is normal left ventricular wall thickness. The left ventricular systolic function is low normal. The visually estimated ejection fraction is between 50-55%. There is no evidence of regional wall motion abnormalities. Diastolic function is normal for age. LV peak GLS -18.3%. Right Ventricle Normal right ventricular cavity size and systolic function. Atria The left atrium is normal in size. The right atrium is normal in size. Aortic Valve There is a normal trileaflet aortic valve. There is no aortic valve stenosis. There is no aortic valve regurgitation. Mitral Valve The mitral valve appears normal. There is trace mitral valve regurgitation. There is no mitral valve stenosis. Pulmonic Valve The pulmonic valve is likely normal. Tricuspid Valve There is no tricuspid valve regurgitation. There is no evidence of pulmonary hypertension. Great Vessels The asc aorta is normal in size. Venous The inferior vena cava is mildly dilated and collapses less than 50% with inspiration. Pericardium/Pleural There is no evidence of pericardial effusion. Prior Study Comparison No significant change compared to prior study dated: 12/03/2022. Recommendations, Care & Conclusions No obvious valvular pathology seen on this study. Measurements 2D Linear Measurements IVSd: 0.90 0.6-0.9/0.6-1.0 cm LVIDd: 4.90 3.9-5.3/4.2-5.9 cm LVIDd Index: 2.93 2.4-3.2/2.2-3.1 cm/m2 LVIDs: 3.50 2.0-3.6 cm LVPWd: 0.76 0.7-1.1 cm LA Diam: 3.40 2.7-3.8/3.0-4.0 cm LAIDs Index: 2.04 1.5-2.3 cm/m2 LV Mass: 171.10 67-162/88-224 g LV Mass Index: 102.46 43-95/49-115 g/m2 LVOT Diam: 2.00 3.0+(-)1.3 cm 2D Systolic Function EF 4C: 59.00 >55% EF 2C: 52.50 >55% EF BiP: 55.60 >55% Mitral Valve MV Pk E: 0.93 MV PK A: 0.89 MV Decel Time: 207.00 E/A: 1.00 E'Lateral: 8.59 E'Medial: 7.29 E/E' Med: 12.70 E/E' Lat: 10.80 PHT: 61.00 MVA PHT: 3.61 Decel Gosper: 4.48 Aortic Valve AoV Pk Santino: 1.58 AoV Mn Santino: 1.03 AoV VTI: 0.37 AoV Pk Grad: 10.00 Aov Mn Grad: 5.00 HINA Cont.VTI: 2.15 LVOT LVOT Pk Santino: 1.13 LVOT Mn Santino: 0.74 LVOT VTI: 0.25 LVOT Pk Grad: 5.00 LVOT Mn Grad: 3.00 LVOT Diam: 2.00 LVOT Area: 3.14 Diastolic Function MV Pk E: 0.93 MV Pk A: 0.89 E/A: 1.00 E'Medial: 7.29 E/E' Med: 12.70 E' Laterial: 8.59 E/E' Lat: 10.80 Right Ventricle TAPSE (mm): 25.20 TVS' Santino: 14.30 Tricuspid Valve TR Pk Santino: 1.87 TR Pk Grad: 14.00 RA Press: 15.00 RVSP: 29.00 Great Vessels Aorta Sinus of Valsalva: 3.00 2.0-3.5 cm Ao Asc: 3.20 2.1-3.4 cm Pulmonary Valve PV Pk Santino: 0.91 Peak PV Grad: 3.00 Updated in Other Vendor System with Status of Final Sukumar Downey MD electronically signed on 01/28/2024 11:42:36 AM with status of Final
== END ==
LOC: HO.CARD 11:17
PROVIDERS: PCP Internal Medicine; Visit Provider Nurse Practitioner Family
DX: I25.10 Atherosclerotic heart disease of native coronary artery without angina pectoris (principal); E78.5 Hyperlipidemia, unspecified; E11.9 Type 2 diabetes mellitus without complications; E55.9 Vitamin D deficiency, unspecified; M79.89 Other specified soft tissue disorders
CPT/HCPCS: 36415; 80053; 80061; 82043; 82306; 82570; 93306; 93356

== ENCOUNTER → 2024-01-26 15:08 | Outpatient (BNV) | payer OTHER, SELFPAY | PROVIDERS: PCP Internal Medicine; Visit Provider Internal Medicine | DX: I25.10 Atherosclerotic heart disease of native coronary artery without angina pectoris (principal) | CPT/HCPCS: 93306; 93356 ==

== ENCOUNTER 2024-02-16 14:30 | Outpatient (AMB) | payer OTHER, SELFPAY ==
--- NOTE | 2024-02-16 14:33 | MHC.PC.OV ---
Vital Signs 02/16/24 14:37 Height 5 ft 2 in Weight 148 lb BMI 27.1 BP 130/70 Blood Pressure Location Lt brachial Position Sitting Intake Visit Reasons: physical exam Intake Note: Patient here for a physical exam Organisational Psychologist Required: No Accompanied by: Self / Same As Patient Allergies levofloxacin [From Levaquin] Allergy (Severe, Verified 02/16/24 14:51) Difficulty Breathing carvedilol [Coreg] Allergy (Intermediate, Verified 02/16/24 14:51) hives codeine Allergy (Intermediate, Verified 02/16/24 14:51) hives Iodinated Contrast Media [IV Dye, Iodine Containing] Allergy (Intermediate, Verified 02/16/24 14:51) RASH/HIVES latex [LATEX] Allergy (Intermediate, Verified 02/16/24 14:51) RASH lisinopril Allergy (Intermediate, Verified 02/16/24 14:51) hives oxycodone [OXYCODONE] Allergy (Intermediate, Verified 02/16/24 14:51) RASH/HIVES metronidazole [Flagyl] Adverse Reaction (Intermediate, Verified 02/16/24 14:51) diarrhea Penicillins [PENICILLINS] Adverse Reaction (Intermediate, Verified 02/16/24 14:51) limp legs topiramate Adverse Reaction (Intermediate, Verified 02/16/24 14:51) ineffective Medication List - Last Reconciled 02/16/24 by Chen Pond MD amlodipine 5 mg PO DAILY aspirin 81 mg PO DAILY atorvastatin 40 mg PO DAILY blood sugar diagnostic (FreeStyle Test strips) TEST 2 TIMES DAILY blood-glucose meter (FreeStyle [place] Lite kit) TEST 2 TIMES DAILY calcium carbonate (Calcium 600) 600 mg PO BID 90 days cholecalciferol (vitamin D3) 25 mcg PO DAILY 90 days ezetimibe (Zetia) 10 mg PO DAILY famotidine 40 mg PO BEDTIME furosemide 20 mg PO DAILY PRN lancets (FreeStyle Lancets) use 1 lancet twice a day losartan 100 mg PO DAILY metoprolol succinate ER 50 mg PO DAILY nitroglycerin 0.4 mg sublingual Q5M PRN 30 days pantoprazole 40 mg PO DAILY 90 days pioglitazone 30 mg PO DAILY 90 days Tobacco use date assessed: 10/01/23 Dental Screening Dental Screen Date: 10/01/23 HPI HPI Comments History of Present Illness Details This is a 58-year-old female with diabetes mellitus type 2 that comes for her physical exam. A1c within goal. Last diabetic eye exam was less than a year ago. Mammogram done 2023. Colonoscopy done 2022. Pap smear done 2020. DEXA scan done 2021 and will be repeated this year. Complains of lumbar pain and rectal pain that has been new. [facility] Medical History (Updated 02/16/24 @ 15:10 by Chen Pnod MD) Physical exam Right upper quadrant abdominal pain Nausea and vomiting Flank pain Bilateral flank pain Numbness and tingling in right hand Preop cardiovascular exam Chest discomfort Short of breath on exertion Bilateral kidney stones Migraine with aura Snoring Sleep difficulties Headache Palpitation Family history of cardiomyopathy Cervical cancer screening Right shoulder pain Renal calculi Right elbow pain Neck pain Postmenopausal Preop cardiovascular exam Shortness of breath Medial epicondylitis, right elbow Elbow pain Epigastric pain Chest pain Encounter for annual routine gynecological examination Cubital tunnel syndrome on right Numbness and tingling in both hands Migraine History of kidney stones Osteopenia Diabetes 1.5, managed as type 2 HTN (hypertension) CHF (congestive heart failure) Cardiomyopathy GERD (gastroesophageal reflux disease) On beta inez at home Lower extremity edema Insomnia Renal calculi 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) CAD (coronary artery disease) Dyslipidemia Fibromyalgia Surgical History History of biopsy Hx of cystoscopy H/O esophagogastroduodenoscopy History of carpal tunnel release Hx of dilation and curettage Hx of cataract extraction History of lumpectomy of right breast History of lumpectomy of left breast History of lithotripsy History of exploratory laparotomy Hx of section History of hysteroscopy Stented coronary artery Hx of colonoscopy Hx of endoscopy Family History Father CVD (cardiovascular disease) HTN (hypertension) Cancer Type 2 diabetes mellitus Mother Breast cancer HTN (hypertension) Family/Other Diabetes Brother Diabetes HTN (hypertension) Sister Diabetes HTN (hypertension) Migraines Son Asthma Social History (Updated 02/16/24 @ 14:57 by Chen Pond MD) Household Members: Children Household Members Other:: adult son and family Housing: Apartment Are you a primary rn care manager to a significant other at home: No Do you presently have visiting nurse or other home services: No Alcohol intake: former Patient Tobacco Use Status: Former Tobacco user Tobacco use type: Cigarette Years Smoked: 3 months e-Cigarette/Vaping Use: Never Used Second Hand Smoke Exposure: No service: No Current occupational status: disabled Current occupation: right hand dominant Gender identity: Female Cognitive needs: No Hearing needs: No Vision needs: No Female Reproductive History Menstrual Age of Menarche: 12 Questionnaire Thrive Questionnaire Date Thrive assessed: 10/01/23 DENVER-7 AMB Questionnaire DENVER-7 Date DENVER - 7 assessed: 10/01/23 Source: Developed by Drs. Darshan Tate, Aggie Burgos, Gerson Obrien and colleagues, with an educational callie from [employer]. Review of Systems Const All systems reviewed & are unremarkable except as noted in HPI and below Card Denies chest pain at rest, Denies chest pain with activity, Denies edema, Denies irregular heart rhythm, Denies claudication, Denies dyspnea, Denies dyspnea on exertion, Denies orthopnea, Denies paroxysmal nocturnal dyspnea and Denies slow heart rate Resp Denies cough, Denies dyspnea and Denies dyspnea on exertion GI Denies abdominal pain, Denies change in bowel habits, Denies excessive flatus, Denies nausea and Denies vomiting Physical exam (Primary Care) Vital Signs: Last Vital Signs BP 130/70 02/16/24 14:37 BMI result Body Mass Index 27.1 Tobacco/Smoking Status: Tobacco use Status Tobacco use date assessed 10/01/23 02/16/24 14:34 Patient Tobacco Use Status Former Tobacco user 02/16/24 14:34 Tobacco use type Cigarette 02/16/24 14:34 e-Cigarette/Vaping Use Never Used 02/16/24 14:34 Thrive Assessment: Date of Thrive Assessment Date Thrive assessed 10/01/23 02/16/24 14:34 HENMT Head: Yes normal to inspection, Yes normocephalic and Yes atraumatic Ears: external ears normal Eyes General: appearance normal, both eyes and all related structures Eyelids: Yes eyelids normal Conjunctivae: conjunctivae normal Neck Neck: Yes normal visual inspection and Yes supple Resp Effort & Inspection: normal respiratory effort Auscultation: clear to auscultation bilaterally Cardio Jugular venous distension: no JVD Rate: regular rate Rhythm: regular rhythm Heart sounds: S1 normal heart sound present and S2 normal heart sound present GI Inspection: Yes normal to inspection Palpation (GI): Soft to palpation and nontender Auscultation: normal bowel sounds Skin General skin exam: no rashes or lesions noted Neuro General: no focal motor deficits Extrem General: Yes full ROM Psych Appearance: grossly normal Results AMB Hemoglobin A1c AMB Hemoglobin A1c 5.7 % Last Edit by NANI Jones on 02/16/24 14:42 Results Reviewed Results Reviewed: Laboratory Last Values Hgb A1c (Clinic) 5.7 % (4.0-6.0) 02/16/24 14:33 Assessment and Plan Assessment & Plan (1) Physical exam: Code(s): Z00.00 - Encounter for general adult medical examination without abnormal findings Plan: Repeat in a year. (2) Lumbar pain: Code(s): M54.50 - Low back pain, unspecified Plan: X-ray ordered. (3) Diabetes mellitus: Code(s): E11.9 - Type 2 diabetes mellitus without complications Plan: Continue Actos. A1c goal is equal or less than 7%. Orders: Orders XR lumbar spine 2-3V Today M54.50 - Low back pain, unspecified Microalbumin, Random (w Creat) 4 Months E11.9 - Type 2 diabetes mellitus without complications Vitamin D 25-OH Total 4 Months E55.9 - Vitamin D deficiency, unspecified AMB Hemoglobin A1c Today E11.9 - Type 2 diabetes mellitus without complications Lipid Panel 4 Months E78.5 - Hyperlipidemia, unspecified Comprehensive [place]. Panel Fast 4 Months E11.9 - Type 2 diabetes mellitus without complications XR DEXA axial skeleton 3 Months N95.9 - Unspecified menopausal and perimenopausal disorder Coding Level of Care Code Est Pt Level 3 (28509) Est Pt Prev Care 40-64y(48097) Diagnoses Physical exam Z00.00 Lumbar pain M54.50 Diabetes mellitus E11.9 Time Spent (min) 35
[2024-02-16 14:37] VITALS: BP 130/70; BMI 27.1
== END 2024-02-16 15:05 | disposition home or self-care (01) ==
PROVIDERS: PCP Internal Medicine; Visit Provider Internal Medicine
DX: Z00.00 Encounter for general adult medical examination without abnormal findings (principal); M54.50 Low back pain, unspecified; E11.9 Type 2 diabetes mellitus without complications
CPT/HCPCS: 83036; 99213; 99396

== ENCOUNTER → 2024-04-20 13:57 | Outpatient (BNVA) | payer OTHER, SELFPAY | PROVIDERS: PCP Internal Medicine; Visit Provider Orthopaedic Surgery ==

== ENCOUNTER 2024-05-05 12:29 | Outpatient (REF) | payer OTHER, SELFPAY ==
--- NOTE | ~2024-05-05 | XR_ITS ---
EXAMINATION: XR LUMBAR SPINE 3 VIEWS CLINICAL INFORMATION: Low back pain, unspecified M54.50. COMPARISON: XR Lumbar spine 03/11/2018 TECHNIQUE: Three views of the lumbosacral spine. FINDINGS: Normal alignment of the lumbar spine. There is mild disc space narrowing diffusely throughout the lumbar spine. Lumbar vertebral body heights are maintained. There are degenerative changes of the posterior elements of the lower lumbar spine. Sacroiliac joints are symmetric. Mild vascular calcifications of the pelvis. XR/XR lumbar spine 2-3V IMPRESSION: Mild diffuse degenerative changes of the lumbar spine. Electronically signed by: Leonardo Woo MD 07/12/2024 01:05 PM [facility]
== END 2024-05-05 12:30 | disposition home or self-care (01) ==
LOC: HO.XRAY 12:29
PROVIDERS: PCP Internal Medicine; Referring Provider Internal Medicine; Visit Provider Urology
DX: M54.50 Low back pain, unspecified (principal)
CPT/HCPCS: 72100

== ENCOUNTER 2024-05-12 11:24 | Outpatient (AMB) | payer OTHER, SELFPAY ==
--- NOTE | 2024-05-12 11:25 | A.OFFVIS_ITS ---
Intake Visit Reasons: 1 year fu, kidney stones Intake Note: Patient is Present for 1Y Follow Up kidney stones Urology Medication:NONE Antibiotic Allergies: Levofloxacin, Penicllins Blood Thinners:aspirin Medicare Compliance Auditor Required: No Allergies levofloxacin [From Levaquin] Allergy (Severe, Verified 06/14/24 14:15) Difficulty Breathing carvedilol [Coreg] Allergy (Intermediate, Verified 06/14/24 14:15) hives codeine Allergy (Intermediate, Verified 06/14/24 14:15) hives Iodinated Contrast Media [IV Dye, Iodine Containing] Allergy (Intermediate, Verified 06/14/24 14:15) RASH/HIVES latex [LATEX] Allergy (Intermediate, Verified 06/14/24 14:15) RASH lisinopril Allergy (Intermediate, Verified 06/14/24 14:15) hives oxycodone [OXYCODONE] Allergy (Intermediate, Verified 06/14/24 14:15) RASH/HIVES metronidazole [Flagyl] Adverse Reaction (Intermediate, Verified 06/14/24 14:15) diarrhea Penicillins [PENICILLINS] Adverse Reaction (Intermediate, Verified 06/14/24 14:15) limp legs topiramate Adverse Reaction (Intermediate, Verified 06/14/24 14:15) ineffective HPI Comments Details: 05/12/24--Giovanna is a 59-year-old female who presents today to the office for a follow-up kidney stones. She denies abdominal pain. She is hydrating, Vit B6. h/o ESWL in the past. Plan monitor kidneys, renal US. Review of chart: 05/14/23?She is followed today for CT/litholink. She was last seen by me on 01/21/23 for bilateral flank pain. 24-hour urine collection test, and CTAP prior was ordered during that time. Patient states that she is doing well at this time. I reviewed the CT abdomen/pelvis results from 05/11/23 revealed no radiopaque urolith or hydroureteronephrosis seen. There are bilateral extrarenal pelvis. Left adrenal adenoma. No parenchymal lesions noted. I reviewed the 24-hour urine collection results revealed urine volume was 1.62L, urine calcium was 88; urine oxalates was 26; urine citrate was 606; urine sodium was 120. I have encouraged continuing to hydrate adequately and to watch sodium in her diet otherwise results looks well. She is on HCTZ 12.5 and she has seen nephrology in past. 01/21/23-- The patient continues to complain intermittent bilateral flank pain? Denies gross hematuria.?The patient states that since the ESWL she has not seen any stone fragments in the urine.? States consuming adequate amount of water.?The patient is taking vitamin B6 100 mg QD.? Abdomen US results reviewed--12/26/22-- findings of nonobstructing bilateral kidney stones.? Evaluation today UA--leukocytes negative, blood: negative. [facility] Medical History Physical exam Right upper quadrant abdominal pain Nausea and vomiting Flank pain Bilateral flank pain Numbness and tingling in right hand Preop cardiovascular exam Chest discomfort Short of breath on exertion Bilateral kidney stones Migraine with aura Snoring Sleep difficulties Headache Palpitation Family history of cardiomyopathy Cervical cancer screening Right shoulder pain Renal calculi Right elbow pain Neck pain Postmenopausal Preop cardiovascular exam Shortness of breath Medial epicondylitis, right elbow Elbow pain Epigastric pain Chest pain Encounter for annual routine gynecological examination Cubital tunnel syndrome on right Numbness and tingling in both hands Migraine History of kidney stones Osteopenia Diabetes 1.5, managed as type 2 HTN (hypertension) CHF (congestive heart failure) Cardiomyopathy GERD (gastroesophageal reflux disease) On beta inez at home Lower extremity edema Insomnia Renal calculi 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) CAD (coronary artery disease) Dyslipidemia Fibromyalgia Surgical History History of biopsy Hx of cystoscopy H/O esophagogastroduodenoscopy History of carpal tunnel release Hx of dilation and curettage Hx of cataract extraction History of lumpectomy of right breast History of lumpectomy of left breast History of lithotripsy History of exploratory laparotomy Hx of section History of hysteroscopy Stented coronary artery Hx of colonoscopy Hx of endoscopy Family History Father CVD (cardiovascular disease) HTN (hypertension) Cancer Type 2 diabetes mellitus Mother Breast cancer HTN (hypertension) Family/Other Diabetes Brother Diabetes HTN (hypertension) Sister Diabetes HTN (hypertension) Migraines Son Asthma Social History Household Members: Children Household Members Other:: adult son and family Housing: Apartment Are you a primary wild animal caretaker to a significant other at home: No Do you presently have visiting nurse or other home services: No Alcohol intake: former Patient Tobacco Use Status: Former Tobacco user Tobacco use type: Cigarette Years Smoked: 3 months e-Cigarette/Vaping Use: Never Used Second Hand Smoke Exposure: No service: No Current occupational status: disabled Current occupation: right hand dominant Gender identity: Female Cognitive needs: No Hearing needs: No Vision needs: No Female Reproductive History Menstrual Age of Menarche: 12 Review of Systems Const All systems reviewed & are unremarkable except as noted in HPI and below Reports no additional complaints Eyes Reports no additional complaints ENT Reports no additional complaints Card Reports no additional complaints Resp Reports no additional complaints GI Reports no additional complaints Reports as per HPI Musc Reports no additional complaints Skin/Breast Reports system reviewed and no additional complaints, except as documented Neuro Reports no additional complaints Psych Reports no additional complaints Endo Reports no additional complaints Saulo/Lymph Reports no additional complaints Aller/Immun Reports no additional complaints Results AMB Urinalysis, Automated UA Leukoctes 0 Veronika/uL Last Edit by CRISTI Jacobs on 05/12/24 11:36 UA Nitrite Negative Last Edit by CRISTI Jacobs on 05/12/24 11:36 UA Urobilinogen 0.2 mg/dL Last Edit by CRISTI Jacobs on 05/12/24 11:3 6 UA Protein 0 mg/dL Last Edit by CRISTI Jacobs on 05/12/24 11:36 UA pH 6.0 Last Edit by CRISTI Jacobs on 05/12/24 11:36 UA Blood 0 Nathan/uL Last Edit by CRISTI Jacobs on 05/12/24 11:36 UA Specific [place]ridge 1.010 Last Edit by CRISTI Jacobs on 05/12/24 11: 36 UA Ketone Negative Last Edit by CRISTI Jacobs on 05/12/24 11:36 UA Bilirubin 0 mg/dL Last Edit by CRISTI Jacobs on 05/12/24 11:36 UA Glucose 0 mg/dL Last Edit by CRISTI Jacobs on 05/12/24 11:36 Results Reviewed Results Reviewed: Laboratory Last Values Urine pH (Auto) 6.0 05/12/24 11:35 Specific [place] (Auto) 1.010 05/12/24 11:35 Urine Protein (Auto) 0 mg/dL 05/12/24 11:35 Glucose (UA)(Auto) 0 mg/dL 05/12/24 11:35 Urine Ketones (Auto) Negative 05/12/24 11:35 Urine Blood (Auto) 0 Nathan/uL 05/12/24 11:35 Urine Nitrite (Auto) Negative 05/12/24 11:35 Urine Bilirubin (Auto) 0 mg/dL 05/12/24 11:35 Urine Urobilinogen (Auto) 0.2 mg/dL 05/12/24 11:35 Leukocyte Esterase (Auto) 0 Veronika/uL 05/12/24 11:35 Date of Service: 05/11/23 EXAMINATION: CT ABDOMEN AND PELVIS WITHOUT CONTRAST?? CLINICAL INFORMATION: Calculus of kidney.?? COMPARISON: Ultrasound 12/29/2022 FINDINGS: LUNG BASES: There is platelike atelectasis in the right middle lobe, lingula and left lung base. The heart size is normal. No pericardial effusion seen on the visualized images.?? LIVER, GALLBLADDER, AND BILIARY TREE: The liver is normal in size, shape, and attenuation. No focal hepatic lesion or biliary ductal dilatation is present. The gallbladder is unremarkable with no evidence of radiopaque gallstones, gallbladder wall thickening, or obvious pericholecystic inflammatory changes.?? PANCREAS: Unremarkable.?? SPLEEN: Unremarkable.?? ADRENAL GLANDS: There is a left adrenal lesion measuring 2.2 x 1.9 x 2.4 cm and -1.79 Hounsfield units likely benign adenoma. The right adrenal gland is unremarkable.?? KIDNEYS AND URETERS: The kidneys are normal in size, shape, and attenuation. Previous ultrasound described bilateral renal calculi are not appreciated on this exam. There is no caliectasis or hydronephrosis seen there is an extrarenal small bilateral renal pelvis. BLADDER: The bladder is nondistended and unremarkable..?? GASTROINTESTINAL TRACT: There is scattered stool and gas seen throughout the colon without significant distention. The small bowel loops are normal caliber. Appendix is nonvisualized. No inflammatory process, free air or free fluid seen.?? ABDOMINAL WALL: No significant hernia is appreciated.?? LYMPH NODES: Normal. VASCULAR: There is mild to sclerotic changes of abdominal aorta without aneurysmal dilatation. PELVIC VISCERA: The uterus is anteverted and appears unremarkable. No adnexal mass or free fluid seen.?? OSSEOUS STRUCTURES: Mild ventral spondylosis L3-L4, L4-L5 and L5-S1 disc levels. No aggressive lytic or sclerotic process seen.?? IMPRESSION: 1.? No radiopaque urolith or hydroureteronephrosis seen. There are bilateral extrarenal pelvis. 2.? Mild constipation. 3.? Left adrenal adenoma. Assessment & Plan Assessment & Plan (1) Renal calculi: Code(s): N20.0 - Calculus of kidney Category: Medical Plan Plan monitor kidneys, renal US. Vit B6 100 mg daily. Orders: Orders AMB Urinalysis Automated 05/12/24 Z13.9 - Encounter for screening, unspecified US renal BI 05/12/24 M54.9 - Dorsalgia, unspecified Patient Instructions: The patient had an opportunity to ask questions regarding treatment plan. The patient expressed understanding and agreement with the above treatment plan. The patient is aware they should contact our office by phone for worsening of their current condition or the appearance of new symptoms. Compliance is encouraged with any medications and followup testing that is ordered. It is a privilege to be allowed the opportunity to participate in the urologic care of your patient. If you have any questions or concerns regarding treatment for the above conditions please do not hesitate to contact me. The office telephone contact is [phone]. This note is constructed in part using voice recognition software. While every effort has been made to ensure accuracy rangelands conservation laborer errors may have been included. Yours sincerely, Latha Beltrán MD Coding Level of Care Code Est Pt Level 3 (04032) Diagnoses Renal calculi N20.0
== END 2024-05-12 11:48 | disposition home or self-care (01) ==
PROVIDERS: PCP Internal Medicine; Visit Provider Urology
DX: N20.0 Calculus of kidney (principal)
CPT/HCPCS: 99213

== ENCOUNTER → 2024-05-12 11:24 | Outpatient (BNVA) | payer OTHER, SELFPAY | PROVIDERS: PCP Internal Medicine; Visit Provider Urology | DX: N20.0 Calculus of kidney (principal); M54.9 Dorsalgia, unspecified | CPT/HCPCS: 81003; 99212 ==

== ENCOUNTER 2024-06-14 13:30 | Outpatient (AMB) | payer OTHER, SELFPAY ==
--- NOTE | 2024-06-14 14:14 | MHC.OFFVIS ---
Vital Signs 06/14/24 14:15 Height 5 ft 2 in Weight 151 lb BMI 27.6 Handedness Right Intake Visit Reasons: Preop LT cubital/CTR 06/20/24 AR Intake Note: Giovanna is a 59 year old right hand dominant female who presents today for her pre operative visit for her left carpal tunnel and left cubital release w/ Dr Pascal DOS: 06/20/2024. Allergies levofloxacin [From Levaquin] Allergy (Severe, Verified 06/14/24 14:15) Difficulty Breathing carvedilol [Coreg] Allergy (Intermediate, Verified 06/14/24 14:15) hives codeine Allergy (Intermediate, Verified 06/14/24 14:15) hives Iodinated Contrast Media [IV Dye, Iodine Containing] Allergy (Intermediate, Verified 06/14/24 14:15) RASH/HIVES latex [LATEX] Allergy (Intermediate, Verified 06/14/24 14:15) RASH lisinopril Allergy (Intermediate, Verified 06/14/24 14:15) hives oxycodone [OXYCODONE] Allergy (Intermediate, Verified 06/14/24 14:15) RASH/HIVES metronidazole [Flagyl] Adverse Reaction (Intermediate, Verified 06/14/24 14:15) diarrhea Penicillins [PENICILLINS] Adverse Reaction (Intermediate, Verified 06/14/24 14:15) limp legs topiramate Adverse Reaction (Intermediate, Verified 06/14/24 14:15) ineffective HPI HPI Preop LT cubital/CTR 06/20/24 AR: Details: Patient is a 59-year-old female who presents for preoperative evaluation prior to left cubital and carpal tunnel releases surgery scheduled for 06/20/[address] Pascal. Today, the patient reports that her symptoms have remained consistent since previous evaluation, she would still like to proceed with surgical intervention. [facility] Medical History Physical exam Right upper quadrant abdominal pain Nausea and vomiting Flank pain Bilateral flank pain Numbness and tingling in right hand Preop cardiovascular exam Chest discomfort Short of breath on exertion Bilateral kidney stones Migraine with aura Snoring Sleep difficulties Headache Palpitation Family history of cardiomyopathy Cervical cancer screening Right shoulder pain Renal calculi Right elbow pain Neck pain Postmenopausal Preop cardiovascular exam Shortness of breath Medial epicondylitis, right elbow Elbow pain Epigastric pain Chest pain Encounter for annual routine gynecological examination Cubital tunnel syndrome on right Numbness and tingling in both hands Migraine History of kidney stones Osteopenia Diabetes 1.5, managed as type 2 HTN (hypertension) CHF (congestive heart failure) Cardiomyopathy GERD (gastroesophageal reflux disease) On beta inez at home Lower extremity edema Insomnia Renal calculi 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) CAD (coronary artery disease) Dyslipidemia Fibromyalgia Surgical History History of biopsy Hx of cystoscopy H/O esophagogastroduodenoscopy History of carpal tunnel release Hx of dilation and curettage Hx of cataract extraction History of lumpectomy of right breast History of lumpectomy of left breast History of lithotripsy History of exploratory laparotomy Hx of section History of hysteroscopy Stented coronary artery Hx of colonoscopy Hx of endoscopy Family History Father CVD (cardiovascular disease) HTN (hypertension) Cancer Type 2 diabetes mellitus Mother Breast cancer HTN (hypertension) Family/Other Diabetes Brother Diabetes HTN (hypertension) Sister Diabetes HTN (hypertension) Migraines Son Asthma Social History Household Members: Children Household Members Other:: adult son and family Housing: Apartment Are you a primary home care companion to a significant other at home: No Do you presently have visiting nurse or other home services: No Alcohol intake: former Patient Tobacco Use Status: Former Tobacco user Tobacco use type: Cigarette Years Smoked: 3 months e-Cigarette/Vaping Use: Never Used Second Hand Smoke Exposure: No service: No Current occupational status: disabled Current occupation: right hand dominant Gender identity: Female Cognitive needs: No Hearing needs: No Vision needs: No Female Reproductive History Menstrual Age of Menarche: 12 Physical Exam Vital Signs: BMI result Body Mass Index 27.6 Const General: no acute distress and alert Orientation/consciousness: patient oriented x3 Neuro General: patient oriented x3 Extrem Other: The patient was alert oriented and in no acute distress The incision is healing well with no erythema drainage or evidence of infection. Sutures removed and Steri-Strips applied She can make a fist and extend all her digits. Her sensation is improved and now normal in the median nerve distribution. Sensation improved but not yet normal in the ulnar nerve distribution Cap refill is brisk Nerve Conduction Study: IMPRESSION:? 1. [id number] right and mild left median neuropathy across carpal tunnel. 2. Mild left ulnar neuropathy across cubital tunnel. ? Kriss Kelly MD 11/06/2022 08 Psych Appearance: grossly normal Affect: normal affect Attitude: cooperative Assessment & Plan Assessment & Plan (1) Carpal tunnel syndrome of left wrist: Code(s): G56.02 - Carpal tunnel syndrome, left upper limb Category: Medical (2) Cubital tunnel syndrome on left: Code(s): G56.22 - Lesion of ulnar nerve, left upper limb Category: Medical Plan 1. Carpal tunnel syndrome, left 2. Cubital tunnel syndrome, left I educated the patient about the condition. I discussed both operative and nonoperative treatment options. The patient would like to proceed with surgery. [] The risks and benefits of operative treatment were discussed with the patient and the patient wishes to proceed with surgery. These risks include, but are not limited to, risk of damage to blood vessels, nerves, tendons, infection, recurrence, incomplete relief of preoperative symptoms, persistent pain, possible need for further surgery, and the risks associated with regional blocks and/or anesthesia. Plan is to take the patient to the operating room at some point on 06/20/2024 for the following procedures: 1. Left cubital tunnel release under general anesthesia 2. Left carpal tunnel release under general anesthesia All of the preoperative paperwork including the consent was discussed today. All of the patient's questions were answered in the clinic today. The patient understands that they will be in contact with our guest services manager to discuss scheduling their procedure. Patient denies diabetes, blood thinners, asthma, heart issues, lung issues, kidney issues, or current smoking. Coding Level of Care Code Est Pt Level 4 (34013) Diagnoses Carpal tunnel syndrome of left wrist G56.02 Cubital tunnel syndrome on left G56.22
[2024-06-14 14:15] VITALS: BMI 27.6
== END 2024-06-14 14:29 | disposition home or self-care (01) ==
PROVIDERS: PCP Internal Medicine
DX: G56.02 Carpal tunnel syndrome, left upper limb (principal); G56.22 Lesion of ulnar nerve, left upper limb
CPT/HCPCS: 99214

== ENCOUNTER → 2024-06-14 13:30 | Outpatient (BNVA) | payer OTHER, SELFPAY | PROVIDERS: PCP Internal Medicine | DX: G56.02 Carpal tunnel syndrome, left upper limb (principal); G56.22 Lesion of ulnar nerve, left upper limb | CPT/HCPCS: 99212 ==

== ENCOUNTER 2024-06-15 15:58 | Outpatient (REF) | payer OTHER, SELFPAY | END 2024-06-15 15:59 | disposition home or self-care (01) | LOC: HO.US 15:58 | PROVIDERS: PCP Internal Medicine; Visit Provider Urology | DX: M54.9 Dorsalgia, unspecified (principal) | CPT/HCPCS: 76775 ==

== ENCOUNTER → 2024-06-15 15:59 | Outpatient (BNV) | payer OTHER, SELFPAY | PROVIDERS: PCP Internal Medicine; Visit Provider Radiology Diagnostic Radiology | DX: M54.9 Dorsalgia, unspecified (principal) | CPT/HCPCS: 76775 ==

== ENCOUNTER 2024-07-15 09:39 | Outpatient (AMB) | payer OTHER, SELFPAY ==
--- NOTE | 2024-07-15 00:33 | MHC.OFFVIS ---
Intake Visit Reasons: 8W Ultrasound(pending) Intake Note: Patient is present for 8 week follow up Ultrasound Urology Med: None Antibiotic Allergy: Aspirin Blood Thinner: None Patient Symptoms: Lower back pain, frequency urinating Optical Laboratory Technician Required: No Accompanied by: Self / Same As Patient Allergies levofloxacin [From Levaquin] Allergy (Severe, Verified 08/03/24 15:00) Difficulty Breathing carvedilol [Coreg] Allergy (Intermediate, Verified 08/03/24 15:00) hives codeine Allergy (Intermediate, Verified 08/03/24 15:00) hives Iodinated Contrast Media [IV Dye, Iodine Containing] Allergy (Intermediate, Verified 08/03/24 15:00) RASH/HIVES latex [LATEX] Allergy (Intermediate, Verified 08/03/24 15:00) RASH lisinopril Allergy (Intermediate, Verified 08/03/24 15:00) hives oxycodone [OXYCODONE] Allergy (Intermediate, Verified 08/03/24 15:00) RASH/HIVES metronidazole [Flagyl] Adverse Reaction (Intermediate, Verified 08/03/24 15:00) diarrhea Penicillins [PENICILLINS] Adverse Reaction (Intermediate, Verified 08/03/24 15:00) limp legs topiramate Adverse Reaction (Intermediate, Verified 08/03/24 15:00) ineffective HPI Comments Details: 07/15/2024--Eden is a 59-year-old female who is followed for kidney stones. I reviewed the CT abdomen/pelvis results from 05/11/23 revealed no radiopaque urolith or hydroureteronephrosis seen. She had left ESWL 11/2022. Telehealth FU. s/p renal US. Had renal ultrasound 06/15/2024. Renal US--06/15/2024--Nonobstructing right lower pole calculus measuring 5 x 3 x 2 mm. Minimal prominence of the left renal collecting system, without surya hydronephrosis, nonspecific. Kidneys otherwise normal. Discussed tx options. right ESWL. Discussed risks to include but not limited to, blood in the urine, bruising to the skin, kidney hematoma, possible need for another procedure if a stone fragment obstructs the ureter while passing, possible need to repeat procedure if stone is not completely fragmented. Review of chart: 05/12/24--Giovanna is a 59-year-old female who presents today to the office for a follow-up kidney stones. She denies abdominal pain. She is hydrating, Vit B6. h/o ESWL in the past. Plan monitor kidneys, renal US. 05/14/23?She is followed today for CT/litholink. She was last seen by me on 01/21/23 for bilateral flank pain. 24-hour urine collection test, and CTAP prior was ordered during that time. Patient states that she is doing well at this time. I reviewed the CT abdomen/pelvis results from 05/11/23 revealed no radiopaque urolith or hydroureteronephrosis seen. There are bilateral extrarenal pelvis. Left adrenal adenoma. No parenchymal lesions noted. I reviewed the 24-hour urine collection results revealed urine volume was 1.62L, urine calcium was 88; urine oxalates was 26; urine citrate was 606; urine sodium was 120. I have encouraged continuing to hydrate adequately and to watch sodium in her diet otherwise results looks well. She is on HCTZ 12.5 and she has seen nephrology in past. 01/21/23--The patient continues to complain intermittent bilateral flank pain? Denies gross hematuria.?The patient states that since the ESWL she has not seen any stone fragments in the urine.? States consuming adequate amount of water.?The patient is taking vitamin B6 100 mg QD.? Abdomen US results reviewed--12/26/22-- findings of nonobstructing bilateral kidney stones.? Evaluation today UA--leukocytes negative, blood: negative. [facility] Medical History Numbness and tingling in both hands Cubital tunnel syndrome on right Numbness and tingling in right hand Bilateral kidney stones Right upper quadrant abdominal pain Snoring Sleep difficulties Headache Palpitation Family history of cardiomyopathy Migraine Cervical cancer screening History of kidney stones Osteopenia Right shoulder pain Diabetes 1.5, managed as type 2 HTN (hypertension) CHF (congestive heart failure) Cardiomyopathy Renal calculi GERD (gastroesophageal reflux disease) On beta inez at home Right elbow pain Postmenopausal Nausea and vomiting Lower extremity edema Insomnia Medial epicondylitis, right elbow Elbow pain Epigastric pain cardiomyopathy (~2003) CAD (coronary artery disease) Dyslipidemia Fibromyalgia Surgical History Hx of cystoscopy H/O esophagogastroduodenoscopy History of carpal tunnel release Hx of dilation and curettage Hx of cataract extraction History of lumpectomy of right breast History of lumpectomy of left breast History of lithotripsy History of exploratory laparotomy Hx of section History of hysteroscopy History of biopsy Stented coronary artery Hx of colonoscopy Hx of endoscopy Family History Father CVD (cardiovascular disease) HTN (hypertension) Cancer Type 2 diabetes mellitus Mother Breast cancer HTN (hypertension) Family/Other Diabetes Brother Diabetes HTN (hypertension) Sister Diabetes HTN (hypertension) Migraines Son Asthma Social History Household Members: Children Household Members Other:: adult son and family Housing: Apartment Are you a primary patient care coordinator to a significant other at home: No Do you presently have visiting nurse or other home services: No Alcohol intake: former Patient Tobacco Use Status: Former Tobacco user Tobacco use type: Cigarette Years Smoked: 3 months e-Cigarette/Vaping Use: Never Used Second Hand Smoke Exposure: No service: No Current occupational status: disabled Current occupation: right hand dominant Gender identity: Female Cognitive needs: No Hearing needs: No Vision needs: No Female Reproductive History Menstrual Age of Menarche: 12 Review of Systems Const All systems reviewed & are unremarkable except as noted in HPI and below Reports no additional complaints Eyes Reports no additional complaints ENT Reports no additional complaints Card Reports no additional complaints Resp Reports no additional complaints GI Reports no additional complaints Reports as per HPI Musc Reports no additional complaints Skin/Breast Reports system reviewed and no additional complaints, except as documented Neuro Reports no additional complaints Psych Reports no additional complaints Endo Reports no additional complaints Saulo/Lymph Reports no additional complaints Aller/Immun Reports no additional complaints Telehealth Telehealth Telehealth Platform: Telephone Location of provider rendering services: practice address Location of patient: address on file Patient Identification confirmed using: Name, : Yes Telehealth method: voice only Patient verbally consented to treatment: Yes Patient verbally consented to billing insurance company: Yes Patient informed of any privacy concerns related to visit: Yes Minutes spent on Phone/Video with Pt.: 17 Results Reviewed Results Reviewed: Date of Service: 06/15/24 US RETROPERITONEAL LIMITED (RENAL ONLY) CLINICAL INFORMATION: Dorsalgia, unspecified. COMPARISON: CT abdomen and pelvis 05/11/2023. Ultrasound abdomen 12/26/2022. X-ray KUB 12/10/2022 and 03/28/2022. Ultrasound renal 10/21/2022. TECHNIQUE: Real-time imaging of the kidneys. FINDINGS: RIGHT KIDNEY: 10.1 x 3.6 x 5.0 cm (SAG x AP x TRV). The kidney is normal in size, contour, and echogenicity. Renal cortical thickness is normal. No focal parenchymal lesions or hydronephrosis. There is a lower pole nonobstructing calculus measuring 5 x 3 x 2 mm. LEFT KIDNEY: 9.6 x 4.2 x 4.3 cm (SAG x AP x TRV). The kidney is normal in size, contour, and echogenicity. Renal cortical thickness is normal. No calculi or focal parenchymal lesions. No hydronephrosis. There is minimal pelvic fullness, nonspecific. IMPRESSION: 1. Nonobstructing right lower pole calculus measuring 5 x 3 x 2 mm. 2. Minimal prominence of the left renal collecting system, without surya hydronephrosis, nonspecific. 3. Kidneys otherwise normal. Date of Service: 05/11/23 EXAMINATION: CT ABDOMEN AND PELVIS WITHOUT CONTRAST?? CLINICAL INFORMATION: Calculus of kidney.?? COMPARISON: Ultrasound 12/29/2022 FINDINGS: LUNG BASES: There is platelike atelectasis in the right middle lobe, lingula and left lung base. The heart size is normal. No pericardial effusion seen on the visualized images.?? LIVER, GALLBLADDER, AND BILIARY TREE: The liver is normal in size, shape, and attenuation. No focal hepatic lesion or biliary ductal dilatation is present. The gallbladder is unremarkable with no evidence of radiopaque gallstones, gallbladder wall thickening, or obvious pericholecystic inflammatory changes.?? PANCREAS: Unremarkable.?? SPLEEN: Unremarkable.?? ADRENAL GLANDS: There is a left adrenal lesion measuring 2.2 x 1.9 x 2.4 cm and -1.79 Hounsfield units likely benign adenoma. The right adrenal gland is unremarkable.?? KIDNEYS AND URETERS: The kidneys are normal in size, shape, and attenuation. Previous ultrasound described bilateral renal calculi are not appreciated on this exam. There is no caliectasis or hydronephrosis seen there is an extrarenal small bilateral renal pelvis. BLADDER: The bladder is nondistended and unremarkable..?? GASTROINTESTINAL TRACT: There is scattered stool and gas seen throughout the colon without significant distention. The small bowel loops are normal caliber. Appendix is nonvisualized. No inflammatory process, free air or free fluid seen.?? ABDOMINAL WALL: No significant hernia is appreciated.?? LYMPH NODES: Normal. VASCULAR: There is mild to sclerotic changes of abdominal aorta without aneurysmal dilatation. PELVIC VISCERA: The uterus is anteverted and appears unremarkable. No adnexal mass or free fluid seen.?? OSSEOUS STRUCTURES: Mild ventral spondylosis L3-L4, L4-L5 and L5-S1 disc levels. No aggressive lytic or sclerotic process seen.?? IMPRESSION: 1.? No radiopaque urolith or hydroureteronephrosis seen. There are bilateral extrarenal pelvis. 2.? Mild constipation. 3.? Left adrenal adenoma. Assessment & Plan Assessment & Plan (1) Right renal stone: Code(s): N20.0 - Calculus of kidney Category: Medical Plan Right ESWL Patient Instructions: The patient had an opportunity to ask questions regarding treatment plan. The patient expressed understanding and agreement with the above treatment plan. The patient is aware they should contact our office by phone for worsening of their current condition or the appearance of new symptoms. Compliance is encouraged with any medications and followup testing that is ordered. It is a privilege to be allowed the opportunity to participate in the urologic care of your patient. If you have any questions or concerns regarding treatment for the above conditions please do not hesitate to contact me. The office telephone contact is [phone]. This note is constructed in part using voice recognition software. While every effort has been made to ensure accuracy front office coordinator errors may have been included. Yours sincerely, Latha Beltrán MD Coding Level of Care Code Tele Est Pt Level 4 (29038) Diagnoses Right renal stone N20.0
== END 2024-07-15 12:54 | disposition home or self-care (01) ==
LOC: HO.HUSH 09:39
PROVIDERS: PCP Internal Medicine; Visit Provider Urology
DX: N20.0 Calculus of kidney (principal)
CPT/HCPCS: 99214

== ENCOUNTER → 2024-07-15 09:39 | Outpatient (BNVA) | payer OTHER, SELFPAY | PROVIDERS: PCP Internal Medicine; Visit Provider Urology ==

== ENCOUNTER 2024-07-18 15:31 | Outpatient (AMB) | payer OTHER, SELFPAY ==
[2024-07-18 15:39] VITALS: BMI 27.6
--- NOTE | 2024-07-18 15:39 | A.OFFVIS_ITS ---
Vital Signs 07/18/24 15:39 Height 5 ft 2 in Weight 151 lb BMI 27.6 Intake Visit Reasons: Follow Up Intake Note: Patient presents for follow3 up Allergies levofloxacin [From Levaquin] Allergy (Severe, Verified 07/18/24 15:40) Difficulty Breathing carvedilol [Coreg] Allergy (Intermediate, Verified 07/18/24 15:40) hives codeine Allergy (Intermediate, Verified 07/18/24 15:40) hives Iodinated Contrast Media [IV Dye, Iodine Containing] Allergy (Intermediate, Verified 07/18/24 15:40) RASH/HIVES latex [LATEX] Allergy (Intermediate, Verified 07/18/24 15:40) RASH lisinopril Allergy (Intermediate, Verified 07/18/24 15:40) hives oxycodone [OXYCODONE] Allergy (Intermediate, Verified 07/18/24 15:40) RASH/HIVES metronidazole [Flagyl] Adverse Reaction (Intermediate, Verified 07/18/24 15:40) diarrhea Penicillins [PENICILLINS] Adverse Reaction (Intermediate, Verified 07/18/24 15:40) limp legs topiramate Adverse Reaction (Intermediate, Verified 07/18/24 15:40) ineffective Medication List - Last Reconciled 07/18/24 by LIZZY Woodard amlodipine 5 mg PO DAILY aspirin 81 mg PO DAILY atogepant 60 mg PO DAILY 30 days atorvastatin 40 mg PO DAILY blood sugar diagnostic (FreeStyle Test strips) TEST 2 TIMES DAILY blood-glucose meter (PantechStyle [place] Lite kit) TEST 2 TIMES DAILY calcium carbonate (Calcium 600) 600 mg PO BID 90 days cholecalciferol (vitamin D3) 25 mcg PO DAILY 90 days digital therapeutic,ALEJANDRA device (Contractor Copilot Digital Fernanda (migraine)) As directed ezetimibe (Zetia) 10 mg PO DAILY famotidine 40 mg PO BEDTIME furosemide 20 mg PO DAILY PRN lancets (FreeStyle Lancets) use 1 lancet twice a day losartan 100 mg PO DAILY metoprolol succinate ER 50 mg PO DAILY nitroglycerin 0.4 mg sublingual Q5M PRN 30 days pantoprazole 40 mg PO DAILY 90 days pioglitazone 30 mg PO DAILY 90 days rimegepant (Nurtec ODT) 75 mg PO ONCE PRN 30 days MDD 1 HPI Comments Details: 59-yr-old female presents for f/u visit of migraine. Since the last visit, she underwent right CT and cubital tunnel release by DR Pascal. She is scheduled for left CT and cubital tunnel release on 07/21/24. She also had an interval lithotripsy approx 6 months ago. She is now having migraine every day. Baseline migraine- like air is blowing into her head, like a pressure, but also throbbing or sharp pain, and neck tightness a/w photophobia, phonophobia, osmophobia, frontal/crown of head allodynia, nausea, sometimes worsening dizziness, elevated BP, activity intolerance. She has had cervical-occipital clicking w/ head movement, and more recently has had 3 episodes where she looked down and when she looked back up, it felt like her head/neck became stuck. She does continue to have jaw tightness, more so when migraine is worse. She is using Tylenol 1500mg prn which is not effective. Nurtec was helpful for the migraine and jaw tightness- however she has not had it since Mar d/t was denied by insurance. She was considering using Nerivio but could not afford at that time- wonders if she needs a new order. She ran out of Mag and B2. She is still dizzy- both internal/external spinning, prone to swaying. She had previously started Vestibular tx- but it was held d/t her BP being too elevated- Pt reports her SBP can be as high as 180-190s w/ HR 50s. She is managed by [facility]- on amlodipine 5mg q 6pm, losartan 100mg qd, metorpolol er 50mg. She is no longer taking furosemide- states insurance will not refill. [facility] Medical History Numbness and tingling in both hands Cubital tunnel syndrome on right Numbness and tingling in right hand Bilateral kidney stones Right upper quadrant abdominal pain Snoring Sleep difficulties Headache Palpitation Family history of cardiomyopathy Migraine Cervical cancer screening History of kidney stones Osteopenia Right shoulder pain Diabetes 1.5, managed as type 2 HTN (hypertension) CHF (congestive heart failure) Cardiomyopathy Renal calculi GERD (gastroesophageal reflux disease) On beta inez at home Right elbow pain Postmenopausal Nausea and vomiting Lower extremity edema Insomnia Medial epicondylitis, right elbow Elbow pain Epigastric pain cardiomyopathy (~2003) CAD (coronary artery disease) Dyslipidemia Fibromyalgia Surgical History Hx of cystoscopy H/O esophagogastroduodenoscopy History of carpal tunnel release Hx of dilation and curettage Hx of cataract extraction History of lumpectomy of right breast History of lumpectomy of left breast History of lithotripsy History of exploratory laparotomy Hx of section History of hysteroscopy History of biopsy Stented coronary artery Hx of colonoscopy Hx of endoscopy Family History Father CVD (cardiovascular disease) HTN (hypertension) Cancer Type 2 diabetes mellitus Mother Breast cancer HTN (hypertension) Family/Other Diabetes Brother Diabetes HTN (hypertension) Sister Diabetes HTN (hypertension) Migraines Son Asthma Social History Household Members: Children Household Members Other:: adult son and family Housing: Apartment Are you a primary palliative care nurse to a significant other at home: No Do you presently have visiting nurse or other home services: No Alcohol intake: former Patient Tobacco Use Status: Former Tobacco user Tobacco use type: Cigarette Years Smoked: 3 months e-Cigarette/Vaping Use: Never Used Second Hand Smoke Exposure: No service: No Current occupational status: disabled Current occupation: right hand dominant Gender identity: Female Cognitive needs: No Hearing needs: No Vision needs: No Female Reproductive History Menstrual Age of Menarche: 12 Physical Exam Vital Signs: BMI result Body Mass Index 27.6 Const General: cooperative and no acute distress Orientation/consciousness: patient oriented x3 Resp Effort & Inspection: normal respiratory effort and able to speak in complete sentences Neuro Other: Bilateral posterior cervical tightness. Cervical ROM: slightly limited Left Spurling: elicits non-radiating neck tightness and discomfort Right Spurling: elicits non-radiating neck tightness and discomfort General: patient oriented x3, moves all extremities and deep tendon reflexes 2+ bilaterally Cranial nerves: Yes CN's II-XII intact bilaterally Cognition (Neuro): normal cognition Gait exam (Neuro): Normal gait present Motor exam (neuro): 5/5 motor strength present throughout Psych Appearance: grossly normal Mental Status: mental status grossly normal Speech and movement: Normal speech and movement present Affect: normal affect Attitude: cooperative Assessment & Plan Assessment & Plan (1) Chronic migraine without aura: Code(s): G43.709 - Chronic migraine without aura, not intractable, without status migrainosus Category: Medical (2) Vertigo: Code(s): R42 - Dizziness and giddiness Category: Medical Plan For cervicalgia w/ cervico-occipital clicking/pain: XR c-spine w/ flex/ext Future consideration: PT For vertigo: Resume vestibular PT when BP more normotensive. For acute migraine headache treatment: Tylenol and Ibuprofen prn. Resume Rimegepant ODT (Nurtec ODT) 75mg, 1 tab at onset of headache.. Max of 1 tabs (75mg) per 24 hours. May adjunct with OTC Tylenol 650mg q 4 hours, Ibuprofen 600mg q 6 hours, or Naproxen 440mg q 12 hrs prn.. Potential adverse effects, include but are not limited to fatigue, nausea, dry mouth, constipation. Start Nerivio- 45 minute neurostimulation daily prn. Previous acute migraine medication trials: Sumatriptan- ineffective. Baclofen- ineffective. Cyclobenzaprine 10-20mg qhs- ineffective. Acute migraine medication contraindications: All Triptans d/t HTN, HLD, CAD. ? For headache migraine prevention medication: Discussed trying Botox for chronic migraine tx- however pt would like to try other options 1st, such as Nerivio neuromodulation tx first. Start Nerivio- 45 minute neurostimulation every other day scheduled. Start Atogepant (Qulipta) 60mg daily at bedtime- as pt has had positive respone to alternate gepant (Nurtec) before.. Aware of potential interaction w/ pioglitzone- may decrease qulipta efficacy some, but does not prohibit use. Potential side effects include but are not limited to drowsiness, nausea, constipation, weight loss. Continue Metoprolol (used primarily for HTN). Continue Riboflavin 400mg qam Continue Magnesium 400mg qhs Previous migraine prevention medication trials: Topiramate- ineffective. Amitr iptyline- ineffective. Aimovig- ineffective. Nurtec for prevention- ineffective. Migraine prevention medication contraindications: Topiramate- d/t h/o nephrolithiasis. Future considerations- Botox, Verapamil, Duloxetine, Mirtazapine, Memantine, TNS neurostimulator. Will follow-up upon review of above and patient to follow-up in clinic in 6 months or sooner prn. Orders: Orders XR cervical spine w flex/ext Today M54.2 - Cervicalgia Medications: New magnesium oxide may hold for loose stools 400 mg PO BEDTIME 30 days 30 tabs 6RF digital therapeutic,ALEJANDRA device (Contractor Copilot Digital Fernanda (migraine)) 45 min neuro stim qod and qd prn migraine. All triptans contraindicated d/t HTN. Ubrelvy ineffective. 1 ea 12RF G43.709 - Chronic migraine without aura, not intra ctable, without status migrainosus atogepant 60 mg PO DAILY 30 days 30 tabs 3RF riboflavin (vitamin B2) in am 400 mg (4 x 100 mg) PO DAILY 30 days 120 tabs 6RF Changed From rimegepant (Nurtec ODT) 75 mg PO Q OTHER DAY 16 tabs 6RF 30 days To rimegepant (Nurtec ODT) 75 mg PO ONCE 30 days PRN 30 tabs 6RF migraine headache MDD 1 Coding Level of Care Code Est Pt Level 4 (73729) Diagnoses Chronic migraine without aura G43.709 Vertigo R42
== END 2024-07-21 08:05 | disposition home or self-care (01) ==
PROVIDERS: PCP Internal Medicine; Visit Provider Nurse Practitioner Family
DX: G43.709 Chronic migraine without aura, not intractable, without status migrainosus (principal); R42 Dizziness and giddiness
CPT/HCPCS: 99214

== ENCOUNTER → 2024-07-18 15:31 | Outpatient (BNVA) | payer OTHER, SELFPAY | PROVIDERS: PCP Internal Medicine; Visit Provider Nurse Practitioner Family | DX: G43.709 Chronic migraine without aura, not intractable, without status migrainosus (principal); R42 Dizziness and giddiness | CPT/HCPCS: 99212 ==

== ENCOUNTER 2024-07-21 05:52 | Day surgery (SDC) | payer OTHER, SELFPAY ==
[2024-06-16 11:45] VITALS: BMI 27.6
--- NOTE | 2024-06-16 13:40 | HO.ANESPROP2 ---
HPI - Anesthesia Eval Consult details Narrative: 59yo F for Left Cubital Tunnel Release, Carpal Tunnel Release, 07/21/24 Follows [facility]. Optimized for surgery: Echo done on 01/26/24 shows EF 50-55%. Nuclear stress test last year was normal. If no recent change to her symptoms, she can proceed with orthopedic surgery with low cardiac risk. Aspirin can be held as needed, then restarted as soon as cleared by surgeon to do so. Call/ consult cardiology if needed. [facility] Active Problems Active Problems: All Active Problems Back pain (Acute) Physical exam (Acute) Lumbar pain (Acute) Leg swelling (Acute) Cubital tunnel syndrome on right (Acute) Adrenal adenoma (Acute) Chronic migraine without aura (Acute) Carpal tunnel syndrome of left wrist (Acute) Cubital tunnel syndrome on left (Acute) Carpal tunnel syndrome of right wrist (Acute) Vertigo (Acute) Ulnar neuropathy at elbow of left upper extremity (Acute) Rotator cuff arthropathy of right shoulder (Acute) Tubular adenoma of colon (Acute) Excessive daytime sleepiness (Acute) Ulnar neuropathy at elbow of right upper extremity (Acute) Postmenopausal atrophic vaginitis (Acute) Diabetes mellitus (Acute) Lateral epicondylitis of right elbow (Acute) Thoracic spondylosis with radiculopathy (Acute) Skin lumps (Acute) Postmenopausal bleeding (Acute) Lump of right breast (Acute) Pelvic pain in female (Acute) Breast lump (Acute) Essential hypertension (Acute) Irritable bowel syndrome with diarrhea (Acute) GERD (gastroesophageal reflux disease) (Acute) HTN (hypertension) (Acute) Migraine (Acute) Osteopenia (Acute) Lower extremity edema (Acute) Insomnia (Acute) Renal calculi (Acute) cardiomyopathy (Acute ~2004) Stented coronary artery (Acute) CAD (coronary artery disease) (Acute) Dyslipidemia (Acute) Fibromyalgia (Acute) Past Medical History Medical History Numbness and tingling in both hands Cubital tunnel syndrome on right Numbness and tingling in right hand Bilateral kidney stones Right upper quadrant abdominal pain Snoring Sleep difficulties Headache Palpitation Family history of cardiomyopathy Migraine Cervical cancer screening History of kidney stones Osteopenia Right shoulder pain Diabetes 1.5, managed as type 2 HTN (hypertension) CHF (congestive heart failure) Cardiomyopathy Renal calculi GERD (gastroesophageal reflux disease) On beta inez at home Right elbow pain Postmenopausal Nausea and vomiting Lower extremity edema Insomnia Medial epicondylitis, right elbow Elbow pain Epigastric pain cardiomyopathy (~2003) CAD (coronary artery disease) Dyslipidemia Fibromyalgia Family History Family History Father CVD (cardiovascular disease) HTN (hypertension) Cancer Type 2 diabetes mellitus Mother Breast cancer HTN (hypertension) Family/Other Diabetes Brother Diabetes HTN (hypertension) Sister Diabetes HTN (hypertension) Migraines Son Asthma Family history of problems with anesthesia: No Surgical History Surgical History Hx of cystoscopy H/O esophagogastroduodenoscopy History of carpal tunnel release Hx of dilation and curettage Hx of cataract extraction History of lumpectomy of right breast History of lumpectomy of left breast History of lithotripsy History of exploratory laparotomy Hx of section History of hysteroscopy History of biopsy Stented coronary artery Hx of colonoscopy Hx of endoscopy History of Problems with Anesthesia: No Social History Social History Household Members: Children Household Members Other:: adult son and family Housing: Apartment Are you a primary child care supervisor to a significant other at home: No Do you presently have visiting nurse or other home services: No Alcohol intake: former Patient Tobacco Use Status: Former Tobacco user Tobacco use type: Cigarette Years Smoked: 3 months e-Cigarette/Vaping Use: Never Used Second Hand Smoke Exposure: No service: No Current occupational status: disabled Current occupation: right hand dominant Gender identity: Female Cognitive needs: No Hearing needs: No Vision needs: No Meds Allergies Allergy/AdvReac Type Severity Reaction Status Date / Time levofloxacin [From Levaquin] Allergy Severe Difficulty Verified 07/18/24 15:40 Breathing carvedilol [Coreg] Allergy Intermediate hives Verified 07/18/24 15:40 codeine Allergy Intermediate hives Verified 07/18/24 15:40 Iodinated Contrast Media Allergy Intermediate RASH/HIVES Verified 07/18/24 15:40 [IV Dye, Iodine Containing] latex [LATEX] Allergy Intermediate RASH Verified 07/18/24 15:40 lisinopril Allergy Intermediate hives Verified 07/18/24 15:40 oxycodone [OXYCODONE] Allergy Intermediate RASH/HIVES Verified 07/18/24 15:40 metronidazole [Flagyl] AdvReac Intermediate diarrhea Verified 07/18/24 15:40 Penicillins [PENICILLINS] AdvReac Intermediate limp legs Verified 07/18/24 15:40 topiramate AdvReac Intermediate ineffective Verified 07/18/24 15:40 Exam Height,Weight and Vital Signs: Height 5 ft 2 in Weight 68.492 kg Pertinent Lab Results Pertinent Lab Results: Laboratory Tests 11/11/23 01/26/24 16:20 11:45 WBC 3.5 L Hgb 12.9 Hct 37.7 Plt Count 293 Sodium 142 Potassium 4.0 Chloride 107 Carbon Dioxide 29 BUN 15 Creatinine 1.07 Narrative Narrative: EKG 10/2023 Vent. Rate : 075 BPM Atrial Rate : 075 BPM P-R Int : 144 ms QRS Dur : 082 ms QT Int : 396 ms P-R-T Axes : 030 031 016 degrees QTc Int : 442 ms Normal sinus rhythm Normal ECG When compared with ECG of 05-SEP-2019 22:47, No significant change was found Assessment and Plan Assessment Anesthesia Assessment: Chart Reviewed Final Anesthetic Review Family History of Problems with Anesthesia: No History of Problems with Anesthesia: No
[2024-07-18 08:47] VITALS: BMI 27.6
[2024-07-21] VITALS (13 sets, daily range): BP systolic 112–148; BP diastolic 52–80; PULSE 65–83; RESP 12–16; TEMP 36.2–36.9; O2SAT 90–100; BMI 28.9
[2024-07-21] MEDS: Lactated Ringers 1,000 ML 100 ML IVCONT (06:42)
[2024-07-21 06:51] LABS: Glucose, Whole Blood 92 mg/dL (60-115)
--- NOTE | 2024-07-21 07:41 | MHC.SHP ---
Pre-Procedural Eval Section A - 24 Hr Update-Section A only Date of Service: 07/21/24 The patient is an INPATIENT: No Changes since office visit: No Cold of Flu in the past 2 weeks, No New Medical Problems, No Changes in Medication and No Patient answered all questions The patient has been examined within 24 hours of the surgical procedure. The History & Physical has been completed within 30 days and I have reviewed it.: Yes Section B - Complete if H&P > 30 days Chief Complaint: Carpal tunnel syndrome, left upper limb Allergies: Allergies Allergy/AdvReac Type Severity Reaction Status Date / Time levofloxacin [From Levaquin] Allergy Severe Difficulty Verified 07/18/24 15:40 Breathing carvedilol [Coreg] Allergy Intermediate hives Verified 07/18/24 15:40 codeine Allergy Intermediate hives Verified 07/18/24 15:40 Iodinated Contrast Media Allergy Intermediate RASH/HIVES Verified 07/18/24 15:40 [IV Dye, Iodine Containing] latex [LATEX] Allergy Intermediate RASH Verified 07/18/24 15:40 lisinopril Allergy Intermediate hives Verified 07/18/24 15:40 oxycodone [OXYCODONE] Allergy Intermediate RASH/HIVES Verified 07/18/24 15:40 metronidazole [Flagyl] AdvReac Intermediate diarrhea Verified 07/18/24 15:40 Penicillins [PENICILLINS] AdvReac Intermediate limp legs Verified 07/18/24 15:40 topiramate AdvReac Intermediate ineffective Verified 07/18/24 15:40 Plan Diagnosis/Plan: Unchanged I have reviewed the history and physical and performed a pertinent physical examination on my patient. No changes have occurred unless specified. Time Spent With Patient Time: Total time managing care of this patient today ____ minutes.
--- NOTE | 2024-07-21 07:43 | P.OP_ITS ---
Operative Note Operative Note Date of Service: 07/21/24 Narrative: Operative Note Narrative: Preop diagnosis: 1. Left Cubital tunnel syndrome 2. Left carpal tunnel syndrome Postop diagnosis: Same Procedure: 1. Left Cubital Tunnel Release and anterior ulnar nerve transposition 2. Left carpal tunnel release Surgeon: Esperanza Pascal MD Employment Security Officer: Wan RODRIGUEZ Anesthesia: General Anesthesia Findings: Thickening and fibrosis about the ulnar nerve at the cubital tunnel, with a mild hourglass deformity in the ulnar nerve. He saw subluxation of the ulnar nerve over the medial epicondyle after cubital tunnel release. Implants: none Tourniquet time: 64 minutes EBL: 5.0 ml Specimen: none Drains: None Complications: None Disposition: Brought to the recovery room in stable condition Plan: Follow-up in 10-14 days for wound check, and suture removal Indications: The patient is 59 years old with left cubital tunnel syndrome and left carpal tunnel syndrome . The risks and benefits of operative treatment, including but not limited to risk of damage to blood vessels, nerves, tendons, infection, recurrence, persistent pain or numbness, incomplete resolution of preoperative symptoms, or need for further surgery were discussed with the patient and they wished to proceed with surgery. Procedure: Once consent was obtained patient was brought back to the operating suite and placed in the operating table in a supine position. Perioperative antibiotics and anesthesia was administered by the anesthesia team. The limb was prepped and draped in a standard surgical fashion, and a sterile tourniquet applied to the proximal aspect of the left upper extremity. The limb was elevated exsanguinated with Esmarch bandage and the tourniquet inflated to 250 mm of mercury for a total tourniquet time of 64 minutes. A 6 cm gently curved but longitudinally oriented incision was made centered over the cubital tunnel of the left upper extremity. Incision was made through the skin to the subcutaneous tissues using a # 15 Blade. I then dissected down to the level of the medial epicondyle and the cubital tunnel using tenotomy scissors. Care was taken to protect the medial antebrachial cutaneous nerve. The ulnar nerve was identified just posterior to the medial intermuscular septum. The ulnar nerve was released in a proximal to distal direction using tenotomy in iris scissors while directly visualizing and protecting the ulnar nerve. Thickening and fibrosis was appreciated about the ulnar nerve as it passed through the cubital tunnel, and she was noted to have a mild hourglass deformity of the ulnar nerve within the cubital tunnel.. The ulnar nerve was assessed as I passed the elbow through full flexion and extension and found that the ulnar nerve subluxated over the medial epicondyle.. As the ulnar nerve appeared to subluxate over the medial epicondyle, the decision was made to proceed with an anterior ulnar nerve transposition. The subcutaneous tissue was carefully freed from the fascia anterior to the medial epicondyle creating an appropriate bed for the ulnar nerve transposition. A small vessel loop was passed behind the ulnar nerve to help facilitate its mobilization. The ulnar nerve was then freed and carefully transposed anterior to the medial epicondyle. Some of the subcutaneous tissue in the anterior flap was carefully secured to the fascia about the medial epicondyle using some 3-0 Vicryl suture material. This created a sling to prevent posterior subluxation of the ulnar nerve. The elbow was brought through flexion and extension and the ulnar nerve was evaluated in its transposition site and found to have good ability to glide and to be free from undo pressure from the anterior sling. At this point the tourniquet was deflated and hemostasis obtained with a brief period of local pressure and bipolar electrocautery. The wound was copiously irrigated with normal saline. The subcutaneous layer was closed with 4-0 Vicryl suture, and the skin edges were reapproximated with 5-0 nylon suture. The wound was infiltrated with some 0.25% plain Marcaine for postop pain control and sterile dressings and a posterior splint were applied. The patient appears to have tolerated the procedure well and with no complications. All digits were well vascularized at the conclusion of the case.
--- NOTE | 2024-07-21 08:21 | HO.ANESPROP2 ---
[facility] Active Problems Active Problems: All Active Problems Back pain (Acute) Lumbar pain (Acute) Leg swelling (Acute) Adrenal adenoma (Acute) Chronic migraine without aura (Acute) Physical exam (Acute) Carpal tunnel syndrome of left wrist (Acute) Cubital tunnel syndrome on left (Acute) Carpal tunnel syndrome of right wrist (Acute) Vertigo (Acute) Ulnar neuropathy at elbow of left upper extremity (Acute) Rotator cuff arthropathy of right shoulder (Acute) Tubular adenoma of colon (Acute) Excessive daytime sleepiness (Acute) Ulnar neuropathy at elbow of right upper extremity (Acute) Postmenopausal atrophic vaginitis (Acute) Diabetes mellitus (Acute) Renal calculi (Acute) Lateral epicondylitis of right elbow (Acute) Thoracic spondylosis with radiculopathy (Acute) Skin lumps (Acute) Postmenopausal bleeding (Acute) Lump of right breast (Acute) Pelvic pain in female (Acute) Breast lump (Acute) Essential hypertension (Acute) Irritable bowel syndrome with diarrhea (Acute) GERD (gastroesophageal reflux disease) (Acute) Cubital tunnel syndrome on right (Acute) HTN (hypertension) (Acute) Migraine (Acute) Osteopenia (Acute) Lower extremity edema (Acute) Insomnia (Acute) cardiomyopathy (Acute ~2003) Stented coronary artery (Acute) CAD (coronary artery disease) (Acute) Dyslipidemia (Acute) Fibromyalgia (Acute) Past Medical History Medical History Numbness and tingling in both hands Cubital tunnel syndrome on right Numbness and tingling in right hand Bilateral kidney stones Right upper quadrant abdominal pain Snoring Sleep difficulties Headache Palpitation Family history of cardiomyopathy Migraine Cervical cancer screening History of kidney stones Osteopenia Right shoulder pain Diabetes 1.5, managed as type 2 HTN (hypertension) CHF (congestive heart failure) Cardiomyopathy Renal calculi GERD (gastroesophageal reflux disease) On beta inez at home Right elbow pain Postmenopausal Nausea and vomiting Lower extremity edema Insomnia Medial epicondylitis, right elbow Elbow pain Epigastric pain cardiomyopathy (~2003) CAD (coronary artery disease) Dyslipidemia Fibromyalgia Functional capacity: independent ambulation Patient : No Family History Family History Father CVD (cardiovascular disease) HTN (hypertension) Cancer Type 2 diabetes mellitus Mother Breast cancer HTN (hypertension) Family/Other Diabetes Brother Diabetes HTN (hypertension) Sister Diabetes HTN (hypertension) Migraines Son Asthma Family history of problems with anesthesia: No Surgical History Surgical History Hx of cystoscopy H/O esophagogastroduodenoscopy History of carpal tunnel release Hx of dilation and curettage Hx of cataract extraction History of lumpectomy of right breast History of lumpectomy of left breast History of lithotripsy History of exploratory laparotomy Hx of section History of hysteroscopy History of biopsy Stented coronary artery Hx of colonoscopy Hx of endoscopy History of Problems with Anesthesia: No Social History Social History Household Members: Children Household Members Other:: adult son and family Housing: Apartment Are you a primary director of home care hospice to a significant other at home: No Do you presently have visiting nurse or other home services: No Alcohol intake: former Patient Tobacco Use Status: Former Tobacco user Tobacco use type: Cigarette Years Smoked: 3 months e-Cigarette/Vaping Use: Never Used Second Hand Smoke Exposure: No Use of substances other than those prescribed or required for medical reasons: No Are you DNR?: No Advance Directives: No Advance Directives Information Provided: Yes Nutrition Risks: No Nutritional Risk Patient : No service: No Current occupational status: disabled Current occupation: right hand dominant Gender identity: Female Cognitive needs: No Hearing needs: No Vision needs: No Meds Allergies Allergy/AdvReac Type Severity Reaction Status Date / Time levofloxacin [From Levaquin] Allergy Severe Difficulty Verified 07/18/24 15:40 Breathing carvedilol [Coreg] Allergy Intermediate hives Verified 07/18/24 15:40 codeine Allergy Intermediate hives Verified 07/18/24 15:40 Iodinated Contrast Media Allergy Intermediate RASH/HIVES Verified 07/18/24 15:40 [IV Dye, Iodine Containing] latex [LATEX] Allergy Intermediate RASH Verified 07/18/24 15:40 lisinopril Allergy Intermediate hives Verified 07/18/24 15:40 oxycodone [OXYCODONE] Allergy Intermediate RASH/HIVES Verified 07/18/24 15:40 metronidazole [Flagyl] AdvReac Intermediate diarrhea Verified 07/18/24 15:40 Penicillins [PENICILLINS] AdvReac Intermediate limp legs Verified 07/18/24 15:40 topiramate AdvReac Intermediate ineffective Verified 07/18/24 15:40 Active Medications: Current Medications Lactated Ringer's (Lr) 1,000 mls @ 100 mls/hr IVCONT .Q10H BRITTANY Last Admin: 07/21/24 06:42 Dose: 100 mls/hr Exam Height,Weight and Vital Signs: Height 5 ft 2 in Weight 71.781 kg Last Vital Signs Temp 98.4 F 07/21/24 06:40 Pulse 71 07/21/24 06:40 Resp 16 07/21/24 06:40 BP 148/80 H 07/21/24 06:40 Pulse Ox 100 07/21/24 06:40 O2 Del Method Room Air 07/21/24 06:40 Pertinent Lab Results Pertinent Lab Results: Laboratory Tests 07/21/24 06:45 POC Glucose 92 Airway Mallampati Class: II TM Dist: >3cm Neck ROM: Full Heart: RRR Lungs: CTA Assessment and Plan Assessment Anesthesia Assessment: Anesthesia Plan Discussed and Chart Reviewed Final Anesthetic Review Family History of Problems with Anesthesia: No History of Problems with Anesthesia: No NPO: Yes ASA Class: II Final Preanesthetic Review: Meds/Allgs Chart Reviewed, Consent Obtained/Reviewed and Anes Risks/Benef Reviewed Patient Risk: Low Procedure Risk: Low Anesthetic Plan Anesthetic Plan: GA Disposition: Standard PACU
[2024-07-21] MEDS: fentaNYL citrate/PF 100 MCG/2 ML VIAL 25 MCG IVPUSH ×2 (10:12→10:30)
--- NOTE | 2024-07-21 12:54 | HO.POSTANES ---
Post Anesthesia Evaluation Post Anesthesia Evaluation Date of Service: 07/21/24 Vital Signs: Vital Signs Temp Pulse Resp BP Pulse Ox O2 Del Method O2 Flow Rate 07/21/24 10:42 97.2 F 83 15 119/57 L 95 Room Air 07/21/24 10:37 70 14 117/52 L 94 Room Air 07/21/24 10:32 71 14 112/61 100 Room Air 07/21/24 10:30 16 07/21/24 10:27 75 16 122/62 94 Room Air 07/21/24 10:22 65 16 125/63 98 Room Air 07/21/24 10:17 75 16 115/60 97 Room Air 07/21/24 10:12 74 14 125/61 98 Room Air 07/21/24 10:12 14 07/21/24 10:06 72 16 121/65 98 Room Air 07/21/24 10:01 73 12 125/61 98 Room Air 07/21/24 09:56 72 16 125/59 L 96 Nasal Cannula with ETCO2 2 07/21/24 09:51 97.5 F 83 16 135/69 90 L Nasal Cannula with ETCO2 2 07/21/24 06:40 98.4 F 71 16 148/80 H 100 Room Air Anesthesia: General Endotracheal-GETA Mental Status: Awake Pain Control: Satisfactory Nausea/Vomiting: None Hydration: Adequate Anesthesia-Related Issues: No Anes. Related Issues
[2024-07-21 15:20] LABS: HBS Num1 3.31 mIU/mL (0-7.99); HBc Num1 0.19 S/CO (0.00-0.79); HIV AB/AG Nonreactive (Nonreactive); HIV Num 1 0.05 S/CO (0.00-0.99); Hepatitis B Core Antibody Nonreactive (Nonreactive); Hepatitis B Surface Antigen Negative (Negative); ~HepC Num1 0.16 S/CO (0.00-0.79); ~Hepatitis B Surface Antibody NONREACTIVE (Nonreactive)
[2024-07-21 16:19] LABS: Hepatitis C Ab Exposure Source NonReactive (Nonreactive)
== END 2024-07-21 11:16 | disposition home or self-care (01) ==
PROVIDERS: PCP Internal Medicine; Visit Provider Orthopaedic Surgery
PROC: (CPT 64718; principal; 2024-07-21 07:30)
PROC: (CPT 64721; 2024-07-21 07:30)
DX: G56.02 Carpal tunnel syndrome, left upper limb (principal); G56.22 Lesion of ulnar nerve, left upper limb; R20.0 Anesthesia of skin; R20.2 Paresthesia of skin; I11.0 Hypertensive heart disease with heart failure; I50.9 Heart failure, unspecified; I42.9 Cardiomyopathy, unspecified; E10.9 Type 1 diabetes mellitus without complications; Z79.84 Long term (current) use of oral hypoglycemic drugs; Z79.899 Other long term (current) drug therapy; Z88.1 Allergy status to other antibiotic agents; Z88.0 Allergy status to penicillin; Z88.5 Allergy status to narcotic agent; Z88.8 Allergy status to other drugs, medicaments and biological substances; Z91.041 Radiographic dye allergy status; Z87.891 Personal history of nicotine dependence
CPT/HCPCS: 64721; 64718; 36415; 82947; 86803; J0131; J0690; J1100; J1885; J2003; J2004; J2250; J2405; J2704; J2795; J3010

== ENCOUNTER → 2024-07-21 05:52 | Outpatient (BNV) | payer OTHER, SELFPAY | PROVIDERS: PCP Internal Medicine; Visit Provider Orthopaedic Surgery | DX: G56.02 Carpal tunnel syndrome, left upper limb (principal); G56.22 Lesion of ulnar nerve, left upper limb | CPT/HCPCS: 64718; 64721 ==

== ENCOUNTER 2024-08-03 14:02 | Outpatient (AMB) | payer OTHER, SELFPAY ==
--- NOTE | 2024-08-03 14:59 | MHC.OFFVIS ---
Intake Visit Reasons: PO LT cubital/CTR 07/21/24 AR Intake Note: Giovanna is a 59 year old right hand dominants female who presents today for a post op appointment s/p LT cubital/CTR 07/21/24 AR. Patient reports symptoms improved but she is feeling some slight pain in her elbow. Allergies levofloxacin [From Levaquin] Allergy (Severe, Verified 08/03/24 15:00) Difficulty Breathing carvedilol [Coreg] Allergy (Intermediate, Verified 08/03/24 15:00) hives codeine Allergy (Intermediate, Verified 08/03/24 15:00) hives Iodinated Contrast Media [IV Dye, Iodine Containing] Allergy (Intermediate, Verified 08/03/24 15:00) RASH/HIVES latex [LATEX] Allergy (Intermediate, Verified 08/03/24 15:00) RASH lisinopril Allergy (Intermediate, Verified 08/03/24 15:00) hives oxycodone [OXYCODONE] Allergy (Intermediate, Verified 08/03/24 15:00) RASH/HIVES metronidazole [Flagyl] Adverse Reaction (Intermediate, Verified 08/03/24 15:00) diarrhea Penicillins [PENICILLINS] Adverse Reaction (Intermediate, Verified 08/03/24 15:00) limp legs topiramate Adverse Reaction (Intermediate, Verified 08/03/24 15:00) ineffective HPI HPI PO LT cubital/CTR 07/21/24 AR: Details: Patient is a 59-year-old female who presents for postoperative evaluation status post left cubital and carpal tunnel releases, DOS 07/21/2024. Today, the patient reports that numbness and tingling have resolved, but does state that she is experiencing some minor pain left elbow. Patient reports no concerns with the incision sites. No other acute complaints or concerns at this time. [facility] Medical History Numbness and tingling in both hands Cubital tunnel syndrome on right Numbness and tingling in right hand Bilateral kidney stones Right upper quadrant abdominal pain Snoring Sleep difficulties Headache Palpitation Family history of cardiomyopathy Migraine Cervical cancer screening History of kidney stones Osteopenia Right shoulder pain Diabetes 1.5, managed as type 2 HTN (hypertension) CHF (congestive heart failure) Cardiomyopathy Renal calculi GERD (gastroesophageal reflux disease) On beta inez at home Right elbow pain Postmenopausal Nausea and vomiting Lower extremity edema Insomnia Medial epicondylitis, right elbow Elbow pain Epigastric pain cardiomyopathy (~2003) CAD (coronary artery disease) Dyslipidemia Fibromyalgia Surgical History Hx of cystoscopy H/O esophagogastroduodenoscopy History of carpal tunnel release Hx of dilation and curettage Hx of cataract extraction History of lumpectomy of right breast History of lumpectomy of left breast History of lithotripsy History of exploratory laparotomy Hx of section History of hysteroscopy History of biopsy Stented coronary artery Hx of colonoscopy Hx of endoscopy Family History Father CVD (cardiovascular disease) HTN (hypertension) Cancer Type 2 diabetes mellitus Mother Breast cancer HTN (hypertension) Family/Other Diabetes Brother Diabetes HTN (hypertension) Sister Diabetes HTN (hypertension) Migraines Son Asthma Social History Household Members: Children Household Members Other:: adult son and family Housing: Apartment Are you a primary physician locums urgent care to a significant other at home: No Do you presently have visiting nurse or other home services: No Alcohol intake: former Patient Tobacco Use Status: Former Tobacco user Tobacco use type: Cigarette Years Smoked: 3 months e-Cigarette/Vaping Use: Never Used Second Hand Smoke Exposure: No service: No Current occupational status: disabled Current occupation: right hand dominant Gender identity: Female Cognitive needs: No Hearing needs: No Vision needs: No Female Reproductive History Menstrual Age of Menarche: 12 Review of Systems Const All systems reviewed & are unremarkable except as noted in HPI and below Physical Exam Const General: no acute distress and alert Orientation/consciousness: patient oriented x3 Neuro General: patient oriented x3 Extrem Other: The patient was alert oriented and in no acute distress The incision is healing well with no erythema drainage or evidence of infection. Sutures removed and Steri-Strips applied at previous visit She can make a fist and extend all her digits. Patient is able to extend the elbow to approximately 10 degrees and flex to 130 degrees without difficulty Her sensation is improved and now normal in the median nerve distribution. Sensation is normal and ulnar nerve distribution Cap refill is brisk Psych Appearance: grossly normal Affect: normal affect Attitude: cooperative Assessment & Plan Assessment & Plan (1) Carpal tunnel syndrome of left wrist: Code(s): G56.02 - Carpal tunnel syndrome, left upper limb Category: Medical (2) Cubital tunnel syndrome on left: Code(s): G56.22 - Lesion of ulnar nerve, left upper limb Category: Medical Plan 1. Carpal tunnel syndrome, left 2. Cubital tunnel syndrome, left Patient appears to be recovering well postoperatively Patient is educated about the typical recovery course At this time, patient is educated she should continue working on range of motion of the left hand and elbow, as she appears to have gotten slightly stiff, particularly in the elbow, postoperatively Patient was amenable to this plan Follow-up as needed with any acute concerns Coding Level of Care Code Global (86853) Diagnoses Carpal tunnel syndrome of left wrist G56.02 Cubital tunnel syndrome on left G56.22
== END 2024-08-03 15:26 | disposition home or self-care (01) ==
PROVIDERS: PCP Internal Medicine
DX: G56.02 Carpal tunnel syndrome, left upper limb (principal); G56.22 Lesion of ulnar nerve, left upper limb
CPT/HCPCS: 99024

== ENCOUNTER → 2024-08-03 14:02 | Outpatient (BNVA) | payer OTHER, SELFPAY | PROVIDERS: PCP Internal Medicine | DX: Z47.89 Encounter for other orthopedic aftercare (principal); G56.02 Carpal tunnel syndrome, left upper limb; G56.22 Lesion of ulnar nerve, left upper limb; Z98.890 Other specified postprocedural states | CPT/HCPCS: 99212 ==

== ENCOUNTER 2024-08-19 12:21 | Outpatient (RCR) | payer OTHER, SELFPAY ==
--- NOTE | 2024-08-19 14:14 | MHC.OT.EP ---
[address] [phone] Occupational Therapy Plan of Care Patient Name: Giovanna Quigley Date of Evaluation: 08/19/24 Diagnosis: S/P CTR AND CUBITAL TUNNEL RELEASE Pain Location: L MEDIAL ELBOW, RADIATING TO SHOULDER 7/10 AT REST, 10/10 WITH ACTIVITIES L VOLAR WRIST 2-5/10 Pain Score: 7-10/10 Pain Scale Used: Numeric (0 - 10) Aggravating Factors: ADLs/IADLs, DAILY USE Alleviating Factors: TYLENOL, WARM WATER Assessment: MS QUIGLEY IS 4 WEEKS POST OP L CUBITAL TUNNEL RELEASE AND L CARPAL TUNNEL RELEASE WITH DR PENA ON 07/21/24. SHE REPORTS HIGH PAIN IN ELBOW > WRIST WITH DIFFICULTIES PERFORMING DAILY TASKS. A 41% LIMITATION IS REPORTED PER THE QUICK DASH ASSESSMENT. ONGOING SKILLED OT IS WARRANTED TO ADDRESS SCAR MOBILIZATION, EDEMA MANAGEMENT, ROM, STRENGTH, PAIN MANAGEMENT AND SAFETY WITH RETURN TO ADLs/ IADLs. Frequency and Duration: The patient will be seen 2X/WEEK FOR 6 WEEKS Short Term Goals: IND HEP IND SCAR MOBILIZATION IND EDEMA MANAGEMENT STRATEGIES TO TOLERATE >8 MINS OF ROUGH TEXTURES AND VIBRATION TO LUE IND USE OF HEAT/ COLD FOR PAIN RELIEF Drop Wire Hanger Goals: TOLERATE LIFTING >10 POUNDS FOR SIMULATED IADLs L GROSS GRASP >20 POUNDS REPORT <4/10 PAIN IN LUE DURING ADLs/IADLs Treatment Plan: Therapeutic Exercise Therapeutic Activity Home Exercise Program Splinting Neuro Re-ed Patient Education Desensitization/Sensory Re-ed Edema Control ADL Training Ultrasound NMES Iontophoresis Paraffin Fluidotherapy MHP Cold Packs Joint Mobilization Soft Tissue Mobilization Kinesiotaping Other (see comments) Electronically Signed By: MILLIE RIBERA OTR/L Please Sign and return to therapist. Thank you once again for your referral.
--- NOTE | 2024-09-09 11:30 | MHC.OT.DC ---
[address] [phone] F: [phone] Occupational Therapy Discharge Note Patient Name: Giovanna Quigley Provider: Wan Perez Diagnosis: S/P CTR AND CUBITAL TUNNEL RELEASE Date of Surgery: 07/21/24 Date of Evaluation: 08/19/24 Date of Discharge: 09/09/24 Treatments to Date: 1 Cancellations to Date: 2 No Shows to Date: 0 Discharge Status: Patient Elected to Stop Discharge Summary: MS QUIGLEY WAS SEEN FOR HER INITIAL OT EVAL AND ELECTED TO SELF DISCHARGE AFTERWARDS. NO FURTHER OT WARRANTED. Electronically Signed By: MILLIE RIBERA OTR/Roland Reviewed/agree with student documentation: N/A Therapist: Please Sign and return to therapist, thank you for your referral.
== END 2024-09-09 11:30 | disposition home or self-care (01) ==
LOC: HO.OT 12:21
PROVIDERS: PCP Internal Medicine
DX: G56.22 Lesion of ulnar nerve, left upper limb (principal)
CPT/HCPCS: 97110; 97166

== ENCOUNTER → 2024-10-26 06:00 | Outpatient (BNV) | payer OTHER, SELFPAY | PROVIDERS: PCP Internal Medicine; Visit Provider Radiology Diagnostic Radiology | DX: Z87.442 Personal history of urinary calculi (principal) | CPT/HCPCS: 74018 ==

== ENCOUNTER 2024-10-26 10:44 | Day surgery (SDC) | payer OTHER, SELFPAY ==
[2024-10-24 15:47] VITALS: BMI 27.8
--- NOTE | 2024-10-25 10:13 | HO.ANESPROP2 ---
Documented by User: Viola Franz NP 10/25/24 10:15 HPI - Anesthesia Eval Consult details Narrative: 59yo F for Right?Lithotripsy ESW Follows [facility]. Optimized for surgery prior to 06/2024 carpal tunnel: Echo done on 01/26/24 shows EF 50-55%. Nuclear stress test last year was normal. If no recent change to her symptoms, she can proceed with orthopedic surgery with low cardiac risk. Aspirin can be held as needed, then restarted as soon as cleared by surgeon to do so. Call/ consult cardiology if needed. PMF Active Problems Active Problems: All Active Problems Right renal stone (Acute) Back pain (Acute) Lumbar pain (Acute) Leg swelling (Acute) Adrenal adenoma (Acute) Chronic migraine without aura (Acute) Physical exam (Acute) Carpal tunnel syndrome of left wrist (Acute) Cubital tunnel syndrome on left (Acute) Carpal tunnel syndrome of right wrist (Acute) Vertigo (Acute) Ulnar neuropathy at elbow of left upper extremity (Acute) Rotator cuff arthropathy of right shoulder (Acute) Tubular adenoma of colon (Acute) Excessive daytime sleepiness (Acute) Ulnar neuropathy at elbow of right upper extremity (Acute) Postmenopausal atrophic vaginitis (Acute) Diabetes mellitus (Acute) Renal calculi (Acute) Lateral epicondylitis of right elbow (Acute) Thoracic spondylosis with radiculopathy (Acute) Skin lumps (Acute) Postmenopausal bleeding (Acute) Lump of right breast (Acute) Pelvic pain in female (Acute) Breast lump (Acute) Essential hypertension (Acute) Irritable bowel syndrome with diarrhea (Acute) GERD (gastroesophageal reflux disease) (Acute) Cubital tunnel syndrome on right (Acute) HTN (hypertension) (Acute) Migraine (Acute) Osteopenia (Acute) Lower extremity edema (Acute) Insomnia (Acute) cardiomyopathy (Acute ~2004) Stented coronary artery (Acute) CAD (coronary artery disease) (Acute) Dyslipidemia (Acute) Fibromyalgia (Acute) Past Medical History Medical History Wears contact lenses Numbness and tingling in both hands Cubital tunnel syndrome on right Numbness and tingling in right hand Bilateral kidney stones Right upper quadrant abdominal pain Snoring Sleep difficulties Headache Palpitation Family history of cardiomyopathy Migraine Cervical cancer screening History of kidney stones Osteopenia Right shoulder pain Diabetes 1.5, managed as type 2 HTN (hypertension) CHF (congestive heart failure) Cardiomyopathy Renal calculi GERD (gastroesophageal reflux disease) On beta inez at home Right elbow pain Postmenopausal Nausea and vomiting Lower extremity edema Insomnia Medial epicondylitis, right elbow Elbow pain Epigastric pain cardiomyopathy (~2003) CAD (coronary artery disease) Dyslipidemia Fibromyalgia Family History Family History Father CVD (cardiovascular disease) HTN (hypertension) Cancer Type 2 diabetes mellitus Mother Breast cancer HTN (hypertension) Family/Other Diabetes Brother Diabetes HTN (hypertension) Sister Diabetes HTN (hypertension) Migraines Son Asthma Family history of problems with anesthesia: No Surgical History Surgical History Hx of cystoscopy H/O esophagogastroduodenoscopy History of carpal tunnel release Hx of dilation and curettage Hx of cataract extraction History of lumpectomy of right breast History of lumpectomy of left breast History of lithotripsy History of exploratory laparotomy Hx of section History of hysteroscopy History of biopsy Stented coronary artery Hx of colonoscopy Hx of endoscopy History of Problems with Anesthesia: No Social History Social History Household Members: Children Household Members Other:: adult son and family Housing: Apartment Are you a primary acute care registered nurse to a significant other at home: No Do you presently have visiting nurse or other home services: No Alcohol intake: former Patient Tobacco Use Status: Former Tobacco user Tobacco use type: Cigarette Years Smoked: 3 months e-Cigarette/Vaping Use: Never Used Second Hand Smoke Exposure: No Use of substances other than those prescribed or required for medical reasons: No Have you been hit, kicked, punched, or otherwise hurt by someone within the past year? If so, by whom?: No Are you DNR?: No Advance Directives: No (will loook for and bring dos) Advance Directives Information Provided: Yes Advance Directives on File: No Recently lost weight without trying: No Nutrition Risks: No Nutritional Risk service: No Current occupational status: disabled Current occupation: right hand dominant Gender identity: Female Cognitive needs: No Hearing needs: No Vision needs: No Meds Allergies Allergy/AdvReac Type Severity Reaction Status Date / Time levofloxacin [From Levaquin] Allergy Severe Difficulty Verified 10/26/24 11:58 Breathing carvedilol [Coreg] Allergy Intermediate hives Verified 10/26/24 11:58 codeine Allergy Intermediate hives Verified 10/26/24 11:58 Iodinated Contrast Media Allergy Intermediate RASH/HIVES Verified 10/26/24 11:58 [IV Dye, Iodine Containing] latex [LATEX] Allergy Intermediate RASH Verified 10/26/24 11:58 lisinopril Allergy Intermediate hives Verified 10/26/24 11:58 oxycodone [OXYCODONE] Allergy Intermediate RASH/HIVES Verified 10/26/24 11:58 metronidazole [Flagyl] AdvReac Intermediate diarrhea Verified 10/26/24 11:58 Penicillins [PENICILLINS] AdvReac Intermediate limp legs Verified 10/26/24 11:58 topiramate AdvReac Intermediate ineffective Verified 10/26/24 11:58 Exam Height,Weight and Vital Signs: Height 5 ft 2 in Weight 68.946 kg Pertinent Lab Results Pertinent Lab Results: Laboratory Tests 11/11/23 01/26/24 16:20 11:45 WBC 3.5 L Hgb 12.9 Hct 37.7 Plt Count 293 Sodium 142 Potassium 4.0 Chloride 107 Carbon Dioxide 29 BUN 15 Creatinine 1.07 Narrative Narrative: EKG 10/2023 Vent. Rate : 075 BPM Atrial Rate : 075 BPM P-R Int : 144 ms QRS Dur : 082 ms QT Int : 396 ms P-R-T Axes : 030 031 016 degrees QTc Int : 442 ms Normal sinus rhythm Normal ECG When compared with ECG of 05-SEP-2019 22:47, No significant change was found ECHO 01/2024 Conclusions: - The left ventricular systolic function is low normal. The visually estimated ejection fraction is between 50-55%. - No obvious valvular pathology seen on this study. Assessment and Plan Assessment Anesthesia Assessment: Chart Reviewed Final Anesthetic Review Family History of Problems with Anesthesia: No History of Problems with Anesthesia: No Documented by User: Felipa Salter MD 10/26/24 14:39 [facility] Past Medical History Medical History Wears contact lenses Numbness and tingling in both hands Cubital tunnel syndrome on right Numbness and tingling in right hand Bilateral kidney stones Right upper quadrant abdominal pain Snoring Sleep difficulties Headache Palpitation Family history of cardiomyopathy Migraine Cervical cancer screening History of kidney stones Osteopenia Right shoulder pain Diabetes 1.5, managed as type 2 HTN (hypertension) CHF (congestive heart failure) Cardiomyopathy Renal calculi GERD (gastroesophageal reflux disease) On beta inez at home Right elbow pain Postmenopausal Nausea and vomiting Lower extremity edema Insomnia Medial epicondylitis, right elbow Elbow pain Epigastric pain cardiomyopathy (~2003) CAD (coronary artery disease) Dyslipidemia Fibromyalgia Family History Family History Father CVD (cardiovascular disease) HTN (hypertension) Cancer Type 2 diabetes mellitus Mother Breast cancer HTN (hypertension) Family/Other Diabetes Brother Diabetes HTN (hypertension) Sister Diabetes HTN (hypertension) Migraines Son Asthma Family history of problems with anesthesia: No Surgical History Surgical History Hx of cystoscopy H/O esophagogastroduodenoscopy History of carpal tunnel release Hx of dilation and curettage Hx of cataract extraction History of lumpectomy of right breast History of lumpectomy of left breast History of lithotripsy History of exploratory laparotomy Hx of section History of hysteroscopy History of biopsy Stented coronary artery Hx of colonoscopy Hx of endoscopy History of Problems with Anesthesia: No Social History Social History Household Members: Children Household Members Other:: adult son and family Housing: Apartment Are you a primary acute care registered nurse to a significant other at home: No Do you presently have visiting nurse or other home services: No Alcohol intake: former Patient Tobacco Use Status: Former Tobacco user Tobacco use type: Cigarette Years Smoked: 3 months e-Cigarette/Vaping Use: Never Used Second Hand Smoke Exposure: No Use of substances other than those prescribed or required for medical reasons: No Have you been hit, kicked, punched, or otherwise hurt by someone within the past year? If so, by whom?: No Are you DNR?: No Advance Directives: No (will loook for and bring dos) Advance Directives Information Provided: Yes Advance Directives on File: No Recently lost weight without trying: No Nutrition Risks: No Nutritional Risk service: No Current occupational status: disabled Current occupation: right hand dominant Gender identity: Female Cognitive needs: No Hearing needs: No Vision needs: No Meds Allergies Allergy/AdvReac Type Severity Reaction Status Date / Time levofloxacin [From Levaquin] Allergy Severe Difficulty Verified 10/26/24 11:58 Breathing carvedilol [Coreg] Allergy Intermediate hives Verified 10/26/24 11:58 codeine Allergy Intermediate hives Verified 10/26/24 11:58 Iodinated Contrast Media Allergy Intermediate RASH/HIVES Verified 10/26/24 11:58 [IV Dye, Iodine Containing] latex [LATEX] Allergy Intermediate RASH Verified 10/26/24 11:58 lisinopril Allergy Intermediate hives Verified 10/26/24 11:58 oxycodone [OXYCODONE] Allergy Intermediate RASH/HIVES Verified 10/26/24 11:58 metronidazole [Flagyl] AdvReac Intermediate diarrhea Verified 10/26/24 11:58 Penicillins [PENICILLINS] AdvReac Intermediate limp legs Verified 10/26/24 11:58 topiramate AdvReac Intermediate ineffective Verified 10/26/24 11:58 Exam Height,Weight and Vital Signs: Height 5 ft 2 in Weight 68.946 kg Vital Signs Temp Pulse Resp BP Pulse Ox O2 Del Method 10/26/24 12:08 98.5 F 63 16 181/83 H 100 Room Air Pertinent Lab Results Pertinent Lab Results: Laboratory Tests 11/11/23 01/26/24 16:20 11:45 WBC 3.5 L Hgb 12.9 Hct 37.7 Plt Count 293 Sodium 142 Potassium 4.0 Chloride 107 Carbon Dioxide 29 BUN 15 Creatinine 1.07 Lab Results 10/26/24 Range/Units 12:26 POC Glucose 94 (60-115) mg/dL Airway Mallampati Class: II TM Dist: >3cm Neck ROM: Full Partial: Upper (Only top partials in.) and Lower Loose/Missing/Broken Teeth: Yes (Only top partials in place. Did not wear lower partials. Denies broken or loose teeth) Heart: RRR Lungs: CTAB Other: One contact lens in place. Patient states that she sleeps with the contact lenses in. Aware of possibility of dislodgement and corneal injury. Declines to remove Assessment and Plan Assessment Anesthesia Assessment: Anesthesia Plan Discussed and Chart Reviewed Final Anesthetic Review Family History of Problems with Anesthesia: No History of Problems with Anesthesia: No NPO: Yes ASA Class: III Final Preanesthetic Review: No Changes in Pt Med Stat, Meds/Allgs Chart Reviewed, Consent Obtained/Reviewed and Anes Risks/Benef Reviewed Patient Risk: Intermediate Procedure Risk: Low Assessment/Block/Sedation in SS: Assess/Block/Sedation-SS Anesthetic Plan Anesthetic Plan: GA Disposition: Standard PACU
--- NOTE | ~2024-10-26 | XR_ITS ---
EXAMINATION: XR ABDOMEN 1 VIEW (KUB) HISTORY: pre ESWL COMPARISON: Comparison is made with the prior examination dated 12/10/2022. FINDINGS: Two supine views of the abdomen are submitted. The bowel gas pattern is unremarkable, without evidence of mechanical obstruction. There is a phlebolith in the right hemipelvis. No abnormal calcifications are seen in the upper abdomen. There are no abnormal soft tissue masses. The bones are intact. XR/XR KUB IMPRESSION: No suspicious calcifications are identified. Electronically signed by: Darshan Padilla MD 10/27/2024 08:16 AM EDT
[2024-10-26 12:08] VITALS: BP 181/83; PULSE 63; RESP 16; TEMP 36.9; O2SAT 100; BMI 28.2
[2024-10-26] MEDS: Lactated Ringers 1,000 ML 50 ML IVCONT (12:27)
[2024-10-26] MEDS: Acetaminophen 1,000 MG/100 ML PIGGYBACK 400 MG IV (12:27)
[2024-10-26 12:31] LABS: Glucose, Whole Blood 94 mg/dL (60-115)
--- NOTE | 2024-10-26 13:47 | W.PM.OPN ---
Operative Note Operative Note Date of Service: 10/26/24 Narrative: PreOperative Diagnosis:? ? Right Renal stone Post Operative Diagnosis:?right Renal stone Procedure:?right? ESWL Surgeon:?Dr Latha Beltrán Anesthesia:? general Indications for procedure: The patient understands there is a risk of bruising or hematoma to the kidney, infection, and stone migration following the procedure and subsequent intervention may be required.? - Imaging 6mm x 4mm stone right kidney lower pole Procedure: After informed consent was verified the patient was brought to the operating room and placed in a supine position.? Anesthesia was performed per protocol. Safety pause time-out was performed. Imaging was displayed in the room and laterality confirmed. Right ESWL was performed.?The stone was visualized on both fluoroscopy and ultrasound.? Shockwave lithotripsy was performed, with a maximum rate of 120 hertz. After the first 300 shocks a pause for 3 minutes was completed.? A total of 2500 shocks to a maximum of power of 20 with a maximum rate of 120 hertz.? Some fragmentation of the stone was appreciated. The patient tolerated the procedure well and was transferred to the recovery area upon completion. Complications: None
--- NOTE | 2024-10-26 13:47 | MHC.SHP ---
Pre-Procedural Eval Section A - 24 Hr Update-Section A only Date of Service: 10/26/24 The patient is an INPATIENT: No The patient has been examined within 24 hours of the surgical procedure. The History & Physical has been completed within 30 days and I have reviewed it.: Yes Section B - Complete if H&P > 30 days Chief Complaint: Calculus of kidney, right Allergies: Allergies Allergy/AdvReac Type Severity Reaction Status Date / Time levofloxacin [From Levaquin] Allergy Severe Difficulty Verified 10/26/24 11:58 Breathing carvedilol [Coreg] Allergy Intermediate hives Verified 10/26/24 11:58 codeine Allergy Intermediate hives Verified 10/26/24 11:58 Iodinated Contrast Media Allergy Intermediate RASH/HIVES Verified 10/26/24 11:58 [IV Dye, Iodine Containing] latex [LATEX] Allergy Intermediate RASH Verified 10/26/24 11:58 lisinopril Allergy Intermediate hives Verified 10/26/24 11:58 oxycodone [OXYCODONE] Allergy Intermediate RASH/HIVES Verified 10/26/24 11:58 metronidazole [Flagyl] AdvReac Intermediate diarrhea Verified 10/26/24 11:58 Penicillins [PENICILLINS] AdvReac Intermediate limp legs Verified 10/26/24 11:58 topiramate AdvReac Intermediate ineffective Verified 10/26/24 11:58 Plan Diagnosis/Plan: Unchanged I have reviewed the history and physical and performed a pertinent physical examination on my patient. No changes have occurred unless specified. Right ESWL. Discussed risks to include but not limited to, blood in the urine, bruising to the skin, kidney hematoma, possible need for another procedure if a stone fragment obstructs the ureter while passing, possible need to repeat procedure if stone is not completely fragmented. Time Spent With Patient Time: Total time managing care of this patient today ____ minutes.
--- NOTE | 2024-10-26 13:51 | PC.NURSE ---
Patient stopped her losartan and amlodipine a couple of weeks ago as she ran out of meds. Dr. Salter made aware. No new orders at this time.
[2024-10-26 14:39] VITALS: BP 123/65; PULSE 65; RESP 16; TEMP 36.5; O2SAT 95
[2024-10-26 14:44] VITALS: BP 128/65; PULSE 64; RESP 16; O2SAT 95
[2024-10-26 14:49] VITALS: BP 137/70; PULSE 64; RESP 18; O2SAT 95
[2024-10-26 14:54] VITALS: BP 130/70; PULSE 59; RESP 20; TEMP 36.1; O2SAT 96
== END 2024-10-26 15:40 | disposition home or self-care (01) ==
PROVIDERS: PCP Internal Medicine; Visit Provider Urology
PROC: (CPT 50590; principal; 2024-10-26 12:30)
DX: N20.0 Calculus of kidney (principal); Z87.442 Personal history of urinary calculi; M54.50 Low back pain, unspecified; R35.0 Frequency of micturition; I11.0 Hypertensive heart disease with heart failure; I50.9 Heart failure, unspecified; E13.8 Other specified diabetes mellitus with unspecified complications; I42.9 Cardiomyopathy, unspecified; I25.10 Atherosclerotic heart disease of native coronary artery without angina pectoris; Z95.5 Presence of coronary angioplasty implant and graft; K21.9 Gastro-esophageal reflux disease without esophagitis; M79.7 Fibromyalgia; Z79.82 Long term (current) use of aspirin; Z79.84 Long term (current) use of oral hypoglycemic drugs; Z79.899 Other long term (current) drug therapy; Z88.0 Allergy status to penicillin; Z88.1 Allergy status to other antibiotic agents; Z88.5 Allergy status to narcotic agent; Z88.8 Allergy status to other drugs, medicaments and biological substances; Z91.040 Latex allergy status; Z91.041 Radiographic dye allergy status; Z98.890 Other specified postprocedural states; Z87.891 Personal history of nicotine dependence
CPT/HCPCS: 50590; 74018; 82947; J0131; J0690; J1100; J1940; J2003; J2405; J2704; J3010

== ENCOUNTER → 2024-10-26 10:44 | Outpatient (BNV) | payer OTHER, SELFPAY | PROVIDERS: PCP Internal Medicine; Visit Provider Urology | DX: N20.0 Calculus of kidney (principal) | CPT/HCPCS: 50590 ==

== ENCOUNTER 2024-11-17 14:53 | Outpatient (AMB) | payer OTHER, SELFPAY ==
[2024-11-17 14:59] VITALS: BP 160/82; PULSE 67; BMI 28.1
--- NOTE | 2024-11-17 14:59 | A.OFFVIS_ITS ---
Vital Signs 11/17/24 14:59 Height 5 ft 2 in Weight 153 lb 14.122 oz BMI 28.1 BP 160/82 H Blood Pressure Location Lt brachial Position Sitting Pulse 67 Pulse Source Monitor Intake Visit Reasons: follow up from 07/12/24 [employer] Required: No Allergies levofloxacin [From Levaquin] Allergy (Severe, Verified 11/17/24 15:01) Difficulty Breathing carvedilol [Coreg] Allergy (Intermediate, Verified 11/17/24 15:01) hives codeine Allergy (Intermediate, Verified 11/17/24 15:01) hives Iodinated Contrast Media [IV Dye, Iodine Containing] Allergy (Intermediate, Verified 11/17/24 15:01) RASH/HIVES latex [LATEX] Allergy (Intermediate, Verified 11/17/24 15:01) RASH lisinopril Allergy (Intermediate, Verified 11/17/24 15:01) hives oxycodone [OXYCODONE] Allergy (Intermediate, Verified 11/17/24 15:01) RASH/HIVES metronidazole [Flagyl] Adverse Reaction (Intermediate, Verified 11/17/24 15:01) diarrhea Penicillins [PENICILLINS] Adverse Reaction (Intermediate, Verified 11/17/24 15:01) limp legs topiramate Adverse Reaction (Intermediate, Verified 11/17/24 15:01) ineffective Medication List - Last Reconciled 11/18/24 by OSEAS GomezC amlodipine 5 mg PO DAILY aspirin 81 mg PO DAILY atorvastatin 40 mg PO DAILY blood sugar diagnostic (FreeStyle Test strips) TEST 2 TIMES DAILY blood-glucose meter (FreeStyle Wasta Lite kit) TEST 2 TIMES DAILY cholecalciferol (vitamin D3) 25 mcg PO DAILY 90 days digital therapeutic,ALEJANDRA device (Azimo Digital Fernanda (migraine)) 45 min neuro stim qod and qd prn migraine. All triptans contraindicated d/t HTN. Ubrelvy ineffective. famotidine 40 mg PO BEDTIME hydrochlorothiazide 12.5 mg PO DAILY lancets (FreeStyle Lancets) use 1 lancet twice a day losartan 100 mg PO DAILY magnesium oxide 400 mg PO BEDTIME 30 days metoprolol succinate ER 50 mg PO DAILY nitroglycerin 0.4 mg sublingual Q5M PRN 30 days pantoprazole 40 mg PO DAILY pioglitazone 30 mg PO DAILY 90 days riboflavin (vitamin B2) 400 mg (4 x 100 mg) PO DAILY 30 days rimegepant (Nurtec ODT) 75 mg PO ONCE PRN 30 days MDD 1 HPI HPI follow up from 07/12/24: Details: Giovanna is a 59-year-old female with past medical history of hypertension, hyperlipidemia, coronary artery disease with LAD stent in 2006, post cardiomyopathy post delivery 2003 with normalization of EF, chronic atypical chest pains who presents for follow-up. Today she reports she has been having elevated blood pressure readings. She ran out of losartan over a week ago and hydrochlorothiazide about 1 month ago. She has been getting some pressure in her mid chest that can occur randomly. At times will last 15 minutes and other times it will last all day. She has shortness of breath with exertional activities. Sinus of breath at rest, PND, orthopnea. She does get leg edema at times, currently they look normal. She has been mostly sedentary. He tolerates normal ADLs without difficulty. Taking all meds as directed. [facility] Medical History Wears contact lenses Numbness and tingling in both hands Cubital tunnel syndrome on right Numbness and tingling in right hand Bilateral kidney stones Right upper quadrant abdominal pain Snoring Sleep difficulties Headache Palpitation Family history of cardiomyopathy Migraine Cervical cancer screening History of kidney stones Osteopenia Right shoulder pain Diabetes 1.5, managed as type 2 HTN (hypertension) CHF (congestive heart failure) Cardiomyopathy Renal calculi GERD (gastroesophageal reflux disease) On beta inez at home Right elbow pain Postmenopausal Nausea and vomiting Lower extremity edema Insomnia Medial epicondylitis, right elbow Elbow pain Epigastric pain cardiomyopathy (~2003) CAD (coronary artery disease) Dyslipidemia Fibromyalgia Surgical History Hx of cystoscopy H/O esophagogastroduodenoscopy History of carpal tunnel release Hx of dilation and curettage Hx of cataract extraction History of lumpectomy of right breast History of lumpectomy of left breast History of lithotripsy History of exploratory laparotomy Hx of section History of hysteroscopy History of biopsy Stented coronary artery Hx of colonoscopy Hx of endoscopy Family History Father CVD (cardiovascular disease) HTN (hypertension) Cancer Type 2 diabetes mellitus Mother Breast cancer HTN (hypertension) Family/Other Diabetes Brother Diabetes HTN (hypertension) Sister Diabetes HTN (hypertension) Migraines Son Asthma Social History Household Members: Children Household Members Other:: adult son and family Housing: Apartment Are you a primary eye care professional to a significant other at home: No Do you presently have visiting nurse or other home services: No Alcohol intake: former Patient Tobacco Use Status: Former Tobacco user Tobacco use type: Cigarette Years Smoked: 3 months e-Cigarette/Vaping Use: Never Used Second Hand Smoke Exposure: No service: No Current occupational status: disabled Current occupation: right hand dominant Gender identity: Female Cognitive needs: No Hearing needs: No Vision needs: No Female Reproductive History Menstrual Age of Menarche: 12 Review of Systems Const All systems reviewed & are unremarkable except as noted in HPI and below ENT Reports dizziness Card Reports chest pain, Reports chest pain at rest, Denies chest pain with activity, Denies rapid heart rate, Denies pedal edema, Denies edema, Denies leg edema, Denies lightheadedness, Denies palpitations, Reports dyspnea, Denies dyspnea on exertion and Denies orthopnea Resp Denies cough, Reports dyspnea and Denies dyspnea on exertion GI Denies hematochezia and Denies change in stool character Musc Denies abnormal gait, Denies limited range of motion, Denies muscle cramps, Denies muscle weakness, Denies numbness, Denies radiating pain into limb, Denies stiffness and Denies tingling Neuro Denies abnormal gait, Reports dizziness, Denies numbness and Denies tingling Endo Denies palpitations Physical Exam Vital Signs: Last Vital Signs Pulse 67 11/17/24 14:59 BP 160/82 H 11/17/24 14:59 BMI result Body Mass Index 28.1 Const General: cooperative, healthy appearing, comfortable and no acute distress Orientation/consciousness: patient oriented x3 Neck Neck: Yes normal visual inspection Resp Effort & Inspection: normal respiratory effort Auscultation: clear to auscultation bilaterally, no crackles, no rales, no rhonchi and no wheezes Cardio Rate: regular rate Rhythm: regular rhythm Heart sounds: S1 normal heart sound present, S2 normal heart sound present, no murmurs and no rubs Neuro General: patient oriented x3 Extrem General: Yes normal to inspection, No no pedal edema and No calf tenderness Psych Appearance: grossly normal Mental Status: mental status grossly normal Speech and movement: Normal speech and movement present Office Procedures EKG Details: Today, read by me, normal sinus rhythm, Pac, rate 67, QTC 433 millisecond [id number], Complete Assessment & Plan Assessment & Plan (1) CAD (coronary artery disease): Comment: stent in 2006 - Foll'd [place] Kassi Montano [place]- [facility] [place]ovascular Code(s): I25.10 - Atherosclerotic heart disease of [place] coronary artery without angina pectoris Category: Medical Plan: History of CAD with remote LAD stent, 2006. Previously reported atypical sounding chest discomfort with nuclear stress test done 12/04/2022 showing normal myocardial perfusion imaging. An echocardiogram was done 12/04/2022 showing EF 54%, no regional wall motion abnormalities, grade 1 diastolic dysfunction. Blood pressure currently elevated and she is reporting intermittent pressure in her mid chest. EKG done today shows sinus rhythm with PAC, no acute ST or T- wave abnormalities, rate 67. Will update pharmacological nuclear stress test to evaluate for ischemia. Will restart her home losartan and hydrochlorothiazide each of which she ran out of. Continue aspirin indefinitely. Continue atorvastatin and Zetia with ideal LDL goal less than 70. Continue metoprolol. Signs and symptoms of angina reviewed with her. Cardiology follow-up when test results are available. (2) Leg swelling: Code(s): M79.89 - Other specified soft tissue disorders Category: Medical Plan: Prior issues with lower extremity edema, worse when on amlodipine 10 mg daily. She is now on on amlodipine 5 mg daily and hydrochlorothiazide. Her edema has been better controlled. On exam today she has no edema noted. Reviewed low- salt diet. (3) Essential hypertension: Code(s): I10 - Essential (primary) hypertension Category: Medical Plan: Blood pressure goal less than 130/80. Elevated today at 160/82. She ran out of her losartan and hydrochlorothiazide. Will restart each of those medications. Continue amlodipine, metoprolol. Periodic home blood pressure checks. Low- salt diet. Blood pressure will rechecked at the time of stress test and next office visit. 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 Last echo showed EF 54%. (5) Stented coronary artery: Comment: 2006 LAD stent Code(s): Z95.5 - Presence of coronary angioplasty implant and graft Category: Surgical Plan: As above (6) Dyslipidemia: Code(s): E78.5 - Hyperlipidemia, unspecified Category: Medical Plan: [place] LDL goal less than 70 and patient with CAD. Labs done 01/26/2024 shows LDL 61. Continues on atorvastatin 40 mg daily and Zetia 10 mg daily. (7) Chest discomfort: Code(s): R07.89 - Other chest pain Category: Medical Plan: As above Plan Time spent on chart review, documentation, interview and assessment Orders: Orders NM cardiolite stress test Today I25.10 - Atherosclerotic heart disease of [place] coronary artery without angina pectoris, Z95.5 - Presence of coronary angioplasty implant and graft CA lexiscan stress w thierry Today I25.10 - Atherosclerotic heart disease of [place] coronary artery without angina pectoris, R07.89 - Other chest pain, Z95.5 - Presence of coronary angioplasty implant and graft Medications: Refilled losartan 100 mg PO DAILY 90 tabs 3RF hydrochlorothiazide 12.5 mg PO DAILY 90 tabs 3RF nitroglycerin do not exceed 3 doses per episode 0.4 mg sublingual Q5M PRN 25 tabs 1RF chest pain 30 days Coding Level of Care Code Est Pt Level 4 (60789) Complex EM visit Add On G2211 Diagnoses CAD (coronary artery disease) I25.10 Leg swelling M79.89 Essential hypertension I10 cardiomyopathy O90.3 Stented coronary artery Z95.5 Dyslipidemia E78.5 Chest discomfort R07.89 CPT Codes EKG - CPT: [id number], Complete ([id number]) Time Spent (min) 30
== END 2024-11-17 15:32 | disposition home or self-care (01) ==
LOC: HO.HCS 14:53
PROVIDERS: PCP Internal Medicine; Visit Provider Nurse Practitioner Family
DX: I25.10 Atherosclerotic heart disease of native coronary artery without angina pectoris (principal); M79.89 Other specified soft tissue disorders; I10 Essential (primary) hypertension; O90.3 Peripartum cardiomyopathy; Z95.5 Presence of coronary angioplasty implant and graft; E78.5 Hyperlipidemia, unspecified; R07.89 Other chest pain
CPT/HCPCS: 93010; 99214; G2211

== ENCOUNTER → 2024-11-17 14:53 | Outpatient (BNVA) | payer OTHER, SELFPAY | PROVIDERS: PCP Internal Medicine; Visit Provider Nurse Practitioner Family | DX: I25.10 Atherosclerotic heart disease of native coronary artery without angina pectoris (principal); I10 Essential (primary) hypertension; M79.89 Other specified soft tissue disorders; E78.5 Hyperlipidemia, unspecified; O90.3 Peripartum cardiomyopathy; R07.89 Other chest pain; Z95.5 Presence of coronary angioplasty implant and graft | CPT/HCPCS: 93005; 99212 ==

== ENCOUNTER 2024-12-02 15:27 | Emergency (ER) | payer OTHER, SELFPAY ==
--- NOTE | ~2024-12-02 | CT_ITS ---
CLINICAL HISTORY: left flank pain --- Additional Notes or Special Instructions: renal colic vs MSK pa in arthritis CT abdomen and pelvis without contrast Comparison: CT/SR - CT ABDOMEN PELVIS WO IV CON - 05/11/23 09:03 EDT Findings: Examination is limited by without contrast. Lung bases are clear. No pleural effusion. Liver, Pancreas, Spleen show normal size, shape and attenuation on present unenhanced scan. No CBD dilatation. Stable left adrenal adenoma. No calcified gallstone in the gallbladder. Both kidneys reveal normal in size, shape, position and attenuation. No kidney stone. No hydronephrosis. The IVC, aorta and portal vein are within normal position and caliber. Atherosclerosis calcification of the aorta. No evidence of retroperitoneal lymphadenopathy or ascites. The visible parts of the bowel loops show no obvious mass lesions or wall thickening. Colonic diverticulosis. Appendix is not visualized. Urinary bladder reveals normal lumen and velazco. The pelvic organs are unremarkable. Visualized osseous structures appear unremarkable. No lytic or sclerotic bony lesion. IMPRESSION: No evidence of kidney stone. Colonic diverticulosis with no evidence of acute diverticulitis. This document has been electronically signed by: Nasreen Wilson MD on 12/02/2024 20:58:15
[2024-12-02 15:34] VITALS: BP 180/62; PULSE 66; RESP 18; TEMP 37; O2SAT 100; BMI 27.7
--- NOTE | 2024-12-02 15:34 | ED.GENADULT ---
HPI - General Adult General Chief complaint: Back Pain/Injury Stated complaint: kidney pain Time Seen by Provider: 12/02/24 18:56 Source: patient Limitations: no limitations History of Present Illness ED Provider: Farheen Murray PA-C HPI narrative: 59-year-old female with a history of kidney stones, fibromyalgia, chronic back pain, migraine, hypertension, diabetes, hypertension, known coronary artery disease, GERD, obesity, who presents with left flank pain x5 days. Patient states she is having pain over mid to lower flank with radiation to left lower abdomen. The pain fluctuates in intensity, becoming severe at times. Patient is also having left lumbar discomfort, that has nonradiating, without weakness of lower extremities or paresthesia. Denies urinary retention or bowel incontinence. Patient denies dysuria, nausea vomiting, fever, no obvious hematuria. She states her discomfort does resemble prior episodes of renal colic to some degree. Related Data Previous Rx's ?Medication ?Instructions ?Recorded blood-glucose meter (Proactayle #1 ea 03/05/21 Barton Lite kit) aspirin 81 mg tablet,delayed 81 mg PO DAILY #30 tabs 09/07/23 release atorvastatin 40 mg tablet 40 mg PO DAILY #90 tabs 12/07/23 amlodipine 5 mg tablet 5 mg PO DAILY #90 tabs 01/11/24 blood sugar diagnostic (View3Style #50 ea 06/05/24 Test strips) cholecalciferol (vitamin D3) 25 25 mcg PO DAILY 90 days #90 caps 06/05/24 mcg (1,000 unit) capsule pioglitazone 30 mg tablet 30 mg PO DAILY 90 days #90 tabs 06/05/24 digital therapeutic,ALEJANDRA device #1 ea 07/18/24 (Nerivio Digital Fernanda (migraine)) magnesium oxide 400 mg (241.3 mg 400 mg PO BEDTIME 30 days #30 tabs 07/18/24 magnesium) tablet riboflavin (vitamin B2) 100 mg 400 mg (4 x 100 mg) PO DAILY 30 07/18/24 tablet days #120 tabs rimegepant 75 mg disintegrating 75 mg PO ONCE PRN migraine 07/18/24 tablet (Nurtec ODT) headache 30 days #30 tabs famotidine 40 mg tablet 40 mg PO BEDTIME #90 tabs 07/28/24 metoprolol succinate 50 mg 50 mg PO DAILY #90 tabs 07/28/24 tablet,extended release 24 hr pantoprazole 40 mg tablet,delayed 40 mg PO DAILY #90 tabs 07/28/24 release lancets 28 gauge (FreeStyle #100 ea 09/18/24 Lancets) hydrochlorothiazide 12.5 mg tablet 12.5 mg PO DAILY #90 tabs 11/18/24 losartan 100 mg tablet 100 mg PO DAILY #90 tabs 11/18/24 nitroglycerin 0.4 mg sublingual 0.4 mg sublingual Q5M PRN chest 11/18/24 tablet pain 30 days #25 tabs methocarbamol 750 mg tablet 1,500 mg (2 x 750 mg) PO Q8H PRN 12/02/24 pain, moderate #20 tabs methylprednisolone 4 mg tablets in 4 mg PO QAM #21 ea 12/02/24 a dose pack (Medrol (Kyle)) Allergies Allergy/AdvReac Type Severity Reaction Status Date / Time levofloxacin [From Levaquin] Allergy Severe Difficulty Verified 12/02/24 15:36 Breathing carvedilol [Coreg] Allergy Intermediate hives Verified 12/02/24 15:36 codeine Allergy Intermediate hives Verified 12/02/24 15:36 Iodinated Contrast Media Allergy Intermediate RASH/HIVES Verified 12/02/24 15:36 [IV Dye, Iodine Containing] latex [LATEX] Allergy Intermediate RASH Verified 12/02/24 15:36 lisinopril Allergy Intermediate hives Verified 12/02/24 15:36 oxycodone [OXYCODONE] Allergy Intermediate RASH/HIVES Verified 12/02/24 15:36 metronidazole [Flagyl] AdvReac Intermediate diarrhea Verified 12/02/24 15:36 Penicillins [PENICILLINS] AdvReac Intermediate limp legs Verified 12/02/24 15:36 topiramate AdvReac Intermediate ineffective Verified 12/02/24 15:36 Review of Systems Review of Systems: Yes all other systems are reviewed and are negative Constitutional: Constitutional: Denies fatigue and Denies fever(s) Cardiovascular: Cardiovascular: Denies chest pain and Denies dyspnea Respiratory: Respiratory: Denies cough and Denies dyspnea Gastrointestinal: Gastrointestinal: Reports abdominal pain, Denies diarrhea, Reports nausea and Denies vomiting Genitourinary: Genitourinary: Denies hematuria, Denies dysuria, Denies pelvic pain and Reports flank pain Musculoskeletal: Musculoskeletal: Reports back pain, Denies muscle weakness, Denies numbness, Denies radiating pain into limb and Denies tingling Neurologic: Denies numbness and Denies tingling Endocrine: Endocrine: Denies fatigue PMFSH Past Medical History Attestation statement: The following information was validated with the patient. Medical History Wears contact lenses Numbness and tingling in both hands Cubital tunnel syndrome on right Numbness and tingling in right hand Bilateral kidney stones Right upper quadrant abdominal pain Snoring Sleep difficulties Headache Palpitation Family history of cardiomyopathy Migraine Cervical cancer screening History of kidney stones Osteopenia Right shoulder pain Diabetes 1.5, managed as type 2 HTN (hypertension) CHF (congestive heart failure) Cardiomyopathy Renal calculi GERD (gastroesophageal reflux disease) On beta inez at home Right elbow pain Postmenopausal Nausea and vomiting Lower extremity edema Insomnia Medial epicondylitis, right elbow Elbow pain Epigastric pain cardiomyopathy (~2003) CAD (coronary artery disease) Dyslipidemia Fibromyalgia Surgical History Hx of cystoscopy H/O esophagogastroduodenoscopy History of carpal tunnel release Hx of dilation and curettage Hx of cataract extraction History of lumpectomy of right breast History of lumpectomy of left breast History of lithotripsy History of exploratory laparotomy Hx of section History of hysteroscopy History of biopsy Stented coronary artery Hx of colonoscopy Hx of endoscopy Family History Family History Father CVD (cardiovascular disease) HTN (hypertension) Cancer Type 2 diabetes mellitus Mother Breast cancer HTN (hypertension) Family/Other Diabetes Brother Diabetes HTN (hypertension) Sister Diabetes HTN (hypertension) Migraines Son Asthma Social History Social History Household Members: Children Household Members Other:: adult son and family Housing: Apartment Are you a primary managed care analyst to a significant other at home: No Do you presently have visiting nurse or other home services: No Alcohol intake: former Patient Tobacco Use Status: Former Tobacco user Tobacco use type: Cigarette Years Smoked: 3 months e-Cigarette/Vaping Use: Never Used Second Hand Smoke Exposure: No Advance Directives: No Advance Directives Information Provided: No service: No Current occupational status: disabled Current occupation: right hand dominant Gender identity: Female Cognitive needs: No Hearing needs: No Vision needs: No Physical Exam ED Vital Signs: Vital Signs - 24 hr 12/02/24 15:34 12/02/24 19:01 12/02/24 20:44 Temperature 98.6 F 97.7 F 98.3 F Pulse Rate 66 64 58 Respiratory Rate 18 16 16 Blood Pressure 180/62 H 163/75 H 153/78 H Pulse Oximetry 100 100 97 Oxygen Delivery Method Room Air Room Air Room Air BMI result Body Mass Index 27.7 Const Other: Alert well-appearing Orientation/consciousness: patient oriented x3 Resp Effort & Inspection: normal respiratory effort Cardio Other: Normal peripheral perfusion GI Other: Abdomen is soft, nontender nondistended no guarding obese abdomen Back/Spine/Pelvis Other: No CVA tenderness Skin Other: Warm dry no rash Neuro General: patient oriented x3, gait normal, no focal motor deficits and CN's II-XI intact bilaterally Psych Other: Cooperative Course Course Course Narrative: This is an RME performed by Fiona Xiao CNP: Additional HPI, ROS, PE not included below will be deferred to primary provider. 59 yo female with PMHx HTN, HLD, CAD, GERD, fibromyalgia, presents to ED due to 5 days of L sided lower back pain. States she is coming in from who recommended further evaluation. Denies urinary symptoms/dysuria, fever, PE: L CVA TTP Plan: labs, UA Medications Administered Discontinued Medications Generic Name Dose Route Start Last Admin Trade Name Arvin PRN Reason Stop Dose Admin Methocarbamol 1,500 mg 12/02/24 19:23 12/02/24 19:33 Methocarbamol 750 Mg Tablet PO 12/02/24 19:24 1,500 mg ONCE ONE Administration Methylprednisolone 8 mg 12/02/24 19:23 12/02/24 19:51 Methylprednisolone 4 Mg Tablet PO 12/02/24 19:24 8 mg ONCE ONE Administration Ondansetron HCl 4 mg 12/02/24 19:23 12/02/24 19:33 Ondansetron Odt 4 Mg Tab.Rapdis TRANSLINGU 12/02/24 19:24 4 mg ONCE ONE Administration Medical Decision Making Medical Decision Making MDM Narrative: 59-year-old female with a history of kidney stones, fibromyalgia, chronic back pain, migraine, hypertension, diabetes, hypertension, known coronary artery disease, GERD, obesity, who presents with left flank pain x5 days. Patient states she is having pain over mid to lower flank with radiation to left lower abdomen. The pain fluctuates in intensity, becoming severe at times. Patient is also having left lumbar discomfort, that has nonradiating, without weakness of lower extremities or paresthesia. Denies urinary retention or bowel incontinence. Patient denies dysuria, nausea vomiting, fever, no obvious hematuria. She states her discomfort does resemble prior episodes of renal colic to some degree. Problem: Chronic pain, kidney stones History: Per patient I have considered the following differential diagnoses: Renal colic, pyelonephritis, UTI, lumbar radiculopathy, lumbar strain, cauda equina Plan: Patient is symptoms seem more musculoskeletal in nature versus renal colic. She is very well-appearing. Screening labs already obtained including a urinalysis, urine not infected and there was no hematuria. We will obtain a CT scan. Treating with the anti-inflammatory, muscle relaxant. Thought about cauda equina, however she has no red flag signs symptoms concerning for cord compression. Doubtful to be pyelonephritis, she is afebrile, without symptoms, no CVA tenderness. I have independently reviewed the following tests: Labs: No leukocytosis, not anemic, no electrolyte abnormality, urine not infected CT abdomen and pelvis:IMPRESSION: No evidence of kidney stone. Colonic diverticulosis with no evidence of acute diverticulitis. Lab Data 12/02/24 15:51 12/02/24 15:51 Labs: Lab Results 12/02/24 Range/Units 15:51 WBC 3.5 L (4.8-10.8) X10*3/uL RBC 4.28 (4.20-5.50) X10*6/uL Hgb 12.7 (12.0-16.0) g/dl Hct 37.4 (37.0-47.0) % MCV 87.4 (80.0-98.0) fL MCH 29.7 (27.0-33.0) pg MCHC 34.0 (31.0-35.0) g/dl RDW 12.7 (11.0-16.0) % Plt Count 217 D (160-400) X10*3/uL MPV 10.4 (9.4-12.3) fL Immature Gran % (Auto) 0.3 (0.0-0.4) % Neut % (Auto) 44.1 L (45-73) % Lymph % (Auto) 43.2 H (20-40) % [place] % (Auto) 8.2 (2-11) % Eos % (Auto) 2.8 (0-4) % Baso % (Auto) 1.4 (0-2) % Lymph # (Auto) 1.5 (1.2-4.9) X10*3/uL [place] # (Auto) 0.3 (0.1-1.2) X10*3/uL Eos # (Auto) 0.1 (0.0-0.4) X10*3/uL Baso # (Auto) 0.1 (0.0-0.2) X10*3/uL Abs Immat Gran (auto) 0.01 (0.00-0.03) X10*3/uL Absolute Neuts (auto) 1.6 L (2.0-8.3) x10*3/uL Absolute Nucleated RBC 0.000 (0.0-0.012) X10*3/uL Nucleated RBC % (auto) 0.0 (0.0-0.2) /100WBC Sodium 142 (135-145) mmol/L Potassium 3.8 (3.3-5.1) mmol/L Chloride 106 (96-108) mmol/L Carbon Dioxide 28 (22-29) mmol/L Anion Gap 12 (12-20) BUN 12 (9-16) mg/dL Creatinine 1.03 (0.5-1.4) mg/dL Estim Creat Clear Calc 52.8 Estimated GFR 55 Random Glucose 114 (60-115) mg/dL Calcium 9.4 (8.4-10.2) mg/dL Total Bilirubin 0.4 (0.0-1.0) mg/dL AST 22 (5-31) U/L ALT 14 (0-31) U/L Alkaline Phosphatase 78 (39-117) U/L Total Protein 6.7 (6.5-8.0) g/dL Albumin 4.1 (3.5-5.0) g/dL Urine Color Yellow Urine Appearance Clear Urine pH 8.0 (5.0-9.0) Ur Specific Onward 1.010 (1.005-1.025) Urine Protein Negative (Neg-Trace) mg/dL Urine Glucose (UA) Negative (Negative) mg/dL Urine Ketones Negative (Negative) mg/dL Urine Blood Negative (Negative) Urine Nitrite Negative (Negative) Ur Leukocyte Esterase Small (1+) H (Negative) Urine RBC 0-2 (0-2) /HPF Urine WBC 6-10 H (0-5) /HPF Ur Squamous Epith Cells 0-2 (0-2) /HPF Urine Bacteria None Seen (None Seen) Hyaline Casts 0-2 (0-2) /LPF Discharge Plan Discharge Clinical Impression: Lumbar strain Patient Disposition: Home, Self-Care Instructions: Low Back Strain (ED), Lower Back Exercises (ED), Core Strengthening Exercises (ED) Additional Instructions: All of your screening labs including your urinalysis were normal, there were no acute findings on the CT scan. You are being treated for lumbar strain. See home care instructions. Use the methocarbamol as needed for pain, this is a muscle relaxant, it will cause drowsiness, do not drive or operate machinery while taking the medication. Take the Medrol Dosepak as directed, this is an anti-inflammatory. Follow up with your primary care provider as needed. Prescriptions: New methylprednisolone [Medrol (Kyle)] 4 mg tablets,dose pack 4 mg PO QAM Qty: 21 0RF Rx Instructions: Take per package instructions methocarbamol 750 mg tablet 1,500 mg PO Q8H PRN (Reason: pain, moderate) Qty: 20 0RF No Action (DME) blood-glucose meter [FreeStyle Barton Lite] Kit See Rx Instructions .ROUTE .MEDSUPPLY Qty: 1 0RF Rx Instructions: TEST 2 TIMES DAILY aspirin 81 mg tablet,delayed release (DR/EC) 81 mg PO DAILY Qty: 30 11RF atorvastatin 40 mg tablet 40 mg PO DAILY Qty: 90 2RF (DME) FreeStyle Test Strip See Rx Instructions .ROUTE .MEDSUPPLY Qty: 50 11RF Rx Instructions: TEST 2 TIMES DAILY pioglitazone 30 mg tablet 30 mg PO DAILY 90 Days Qty: 90 2RF cholecalciferol (vitamin D3) 25 mcg (1,000 unit) capsule 25 mcg PO DAILY 90 Days Qty: 90 1RF famotidine 40 mg tablet 40 mg PO BEDTIME Qty: 90 2RF pantoprazole 40 mg tablet,delayed release (DR/EC) 40 mg PO DAILY Qty: 90 2RF metoprolol succinate 50 mg tablet extended release 24 hr 50 mg PO DAILY Qty: 90 3RF (DME) lancets [FreeStyle Lancets] 28 gauge misc See Rx Instructions .ROUTE .MEDSUPPLY Qty: 100 11RF Rx Instructions: use 1 lancet twice a day amlodipine 5 mg tablet 5 mg PO DAILY Qty: 90 1RF Rx Instructions: dose reduced losartan 100 mg tablet 100 mg PO DAILY Qty: 90 3RF hydrochlorothiazide 12.5 mg tablet 12.5 mg PO DAILY Qty: 90 3RF nitroglycerin 0.4 mg tablet, sublingual 0.4 mg sublingual Q5M PRN (Reason: chest pain) 30 Days Qty: 25 1RF Rx Instructions: do not exceed 3 doses per episode Nurtec ODT 75 mg tablet,disintegrating 75 mg PO ONCE MDD 1 PRN (Reason: migraine headache) 30 Days Qty: 30 6RF magnesium oxide 400 mg (241.3 mg magnesium) tablet 400 mg PO BEDTIME 30 Days Qty: 30 6RF Rx Instructions: may hold for loose stools riboflavin (vitamin B2) 100 mg tablet 400 mg PO DAILY 30 Days Qty: 120 6RF Rx Instructions: in am (DME) [employer] Fernanda (migraine) [facility] See Rx Instructions .Route Qty: 1 12RF Rx Instructions: 45 min neuro stim qod and qd prn migraine. All triptans contraindicated d/t HTN. Ubrelvy ineffective. Print Language: Hong Konger
[2024-12-02 15:59] LABS: MANUAL DIFF FLAG NO
[2024-12-02 16:00] LABS: Basophils Absolute Auto 0.1 X10*3/uL (0.0-0.2); Basophils Percent Auto 1.4 % (0-2); Eosinophils Absolute Auto 0.1 X10*3/uL (0.0-0.4); Eosinophils Percent Auto 2.8 % (0-4); Hematocrit 37.4 % (37.0-47.0); Hemoglobin 12.7 g/dl (12.0-16.0); Imm Gran Abs Auto 0.01 X10*3/uL (0.00-0.03); Imm Gran Pct Auto 0.3 % (0.0-0.4); Lymphocytes Absolute Auto 1.5 X10*3/uL (1.2-4.9); Lymphocytes Percent Auto 43.2 % (20-40); Mean Corpuscular Hemoglobin 29.7 pg (27.0-33.0); Mean Corpuscular Volume 87.4 fL (80.0-98.0); Mean Platelet Volume 10.4 fL (9.4-12.3); Monocytes Absolute Auto 0.3 X10*3/uL (0.1-1.2); Monocytes Percent Auto 8.2 % (2-11); Neutrophils Absolute Auto 1.6 x10*3/uL (2.0-8.3); Neutrophils Percent Auto 44.1 % (45-73); Platelet Count 217 X10*3/uL (160-400); Red Blood Count 4.28 X10*6/uL (4.20-5.50); Red Cell Distribution Width 12.7 % (11.0-16.0); White Blood Count 3.5 X10*3/uL (4.8-10.8)
[2024-12-02 16:12] LABS: Albumin Level 4.1 g/dL (3.5-5.0); Anion Gap 12 (12-20); Calcium 9.4 mg/dL (8.4-10.2); Carbon Dioxide 28 mmol/L (22-29); Chloride 106 mmol/L (96-108); Glucose Random 114 mg/dL (60-115); Potassium 3.8 mmol/L (3.3-5.1); Sodium 142 mmol/L (135-145); Total Protein 6.7 g/dL (6.5-8.0)
[2024-12-02 16:14] LABS: Appearance Urine Clear; Color Urine Yellow; Glucose Urine UA Negative (Negative); Leukocyte Esterase Urine Small (1+) (Negative); Nitrite Urine Negative (Negative); UMIC TRIGGER UACC YES; Urine Blood Negative (Negative); Urine Ketones Negative (Negative); Urine Protein Negative (Neg-Trace)
[2024-12-02 16:26] LABS: Bacteria Urine None Seen (None Seen); Hyaline Casts Urine 0-2 /LPF (0-2); RBC Urine 0-2 /HPF (0-2); Squamous Epithelial Cell Urine 0-2 /HPF (0-2); UACC Culture Trigger YES
[2024-12-02 17:23] LABS: Alanine Aminotransferase 14 U/L (0-31); Alkaline Phosphatase 78 U/L (39-117); Aspartate Amino Transferase 22 U/L (5-31); Bilirubin Total 0.4 mg/dL (0.0-1.0); Blood Urea Nitrogen 12 mg/dL (9-16); Creatinine Clr Calc Pharmacy 52.8; Estimated Glomerular Filt Rate 55
[2024-12-02 19:01] VITALS: BP 163/75; PULSE 64; RESP 16; TEMP 36.5; O2SAT 100
--- NOTE | 2024-12-02 19:17 | PC.NURSE ---
Patient is a 59-year-old female with past medical history of hypertension, hyperlipidemia, coronary artery disease with LAD stent in 2006, post cardiomyopathy post delivery 2003 with normalization of EF, chronic atypical chest pains who presents for LLQ abdominal pain radiating to her left flank since Thursday with a history of kidney stones. Denies any urinary symptoms. Lungs clear bilat. Respirations even and non-labored. Abdomen soft with positive bowel sounds. No significant tenderness noted. Positive pedal pulses with no edema.
[2024-12-02] MEDS: Ondansetron ODT 4 MG TAB.RAPDIS TRANSLINGU (19:33)
[2024-12-02] MEDS: methocarbamoL 750 MG TABLET 1500 MG PO (19:33)
--- NOTE | 2024-12-02 19:39 | PC.NURSE ---
medrol requested from pharmacy via [employer]- pt medicated w/ robaxin and zofran. warm blanket provided, call fishman within reach
[2024-12-02] MEDS: methylPREDNISolone 4 MG TABLET 8 MG PO (19:51)
[2024-12-02 20:44] VITALS: BP 153/78; PULSE 58; RESP 16; TEMP 36.8; O2SAT 97
[2024-12-02 22:08] VITALS: BP 153/78; PULSE 58; RESP 16; TEMP 36.8; O2SAT 97
== END 2024-12-02 22:08 | disposition home or self-care (01) ==
PROVIDERS: Nurse Practitioner Family; Emergency Provider Emergency Medicine; PCP Internal Medicine
DX: S39.012A Strain of muscle, fascia and tendon of lower back, initial encounter (principal); X58.XXXA Exposure to other specified factors, initial encounter; R10.9 Unspecified abdominal pain; E11.9 Type 2 diabetes mellitus without complications; I10 Essential (primary) hypertension; E78.5 Hyperlipidemia, unspecified; Z87.891 Personal history of nicotine dependence; Y93.9 Activity, unspecified; Y92.9 Unspecified place or not applicable; Y99.9 Unspecified external cause status; Z79.899 Other long term (current) drug therapy; Z79.82 Long term (current) use of aspirin; Z79.02 Long term (current) use of antithrombotics/antiplatelets
CPT/HCPCS: 36415; 74176; 80053; 81001; 81003; 85025; 87086; 87088; 87186; 99284

== ENCOUNTER → 2024-12-02 19:23 | Outpatient (BNV) | payer OTHER, SELFPAY | PROVIDERS: PCP Internal Medicine; Visit Provider Nuclear Medicine | DX: K57.30 Diverticulosis of large intestine without perforation or abscess without bleeding (principal) | CPT/HCPCS: 74176 ==

== ENCOUNTER 2024-12-12 02:12 | Emergency (ER) | payer OTHER, SELFPAY ==
--- NOTE | ~2024-12-12 | MR_ITS ---
EXAMINATION: MR PELVIS WITH CONTRAST CLINICAL INFORMATION: Pelvic pain, left-sided. Paresthesias. COMPARISON: Correlated to CT abdomen pelvis dated December 02, 2024 and left hip x-ray dated December 12, 2024. TECHNIQUE: Axial and coronal T1 sequence. Axial and coronal T2 fat sat sequence. Sagittal T2 fat-sat. FINDINGS: Bone marrow inhomogeneity throughout the bony pelvis and sacrum with predominantly bone marrow fat. No gross bone marrow T2 fat sat signal abnormality. The coxofemoral joints are intact with normal alignment and preservation of the femoral head volume. Trace amount of fluid in the coxofemoral joints likely physiologic. There is bilateral symmetric mild T2 fat-sat signal within the tendon inserting in the greater trochanter. No signal abnormality within the sacrococcyx. No fluid collections in the pelvic peritoneal cavity. Bladder is collapsed. No gross masses in the uterus which is smaller likely age-related. MR/MR pelvis wo con IMPRESSION: Bilateral greater trochanter bursitis, mild to moderate. Electronically signed by: Nikita Carias MD 12/12/2024 02:44 PM EDT
--- NOTE | ~2024-12-12 | MR_ITS ---
EXAMINATION: MR LUMBAR SPINE WITH AND WITHOUT CONTRAST CLINICAL INFORMATION: Left lumbar pain, weakness, paresthesias. Rule out epidural abscess or cord compression. COMPARISON: No prior MR. Lumbar spine radiographs 05/05/2024. TECHNIQUE: Multiplanar multisequence MR imaging of the lumbar spine was done both before and after the administration of 7 mL IV Gadavist contrast. Examination was performed on a 1.5 Adwoa Siemens magnet, utilizing standard sequences. FINDINGS: CORONAL ALIGNMENT: -Minimal levoconvex scoliosis, possibly positional. SAGITTAL ALIGNMENT: - Normal lordosis. -There is a 2 mm degenerative appearing anterolisthesis of L4 on L5. -Alignment is otherwise anatomic. LUMBOSACRAL JUNCTION: -Normal. There are 5 [id number] lumbar-type vertebral bodies. VERTEBRAL BODIES/BONE MARROW: -There is no abnormal bone marrow edema, or abnormal infiltrating bone marrow signal. -There is a hemangioma in the right aspect of L2. -There is no abnormal bone marrow enhancement. DISCS: -Mild loss of disc signal diffusely without significant loss of disc height at any level. SPINAL CANAL: -There is mild congenital spinal canal narrowing predominantly spanning L3-L5, with short pedicles and complicated by posterior epidural lipomatosis. This finding will exacerbate acquired spondylosis. CONUS MEDULLARIS: -Terminates at L1. Morphology and signal is normal. INTRADURAL NERVE ROOTS: - Within normal limits. -There is no abnormal intra-axial or extra medullary enhancement identified. Axial Disc Space Images: T12-L1: There is no central canal or neural foraminal stenosis. L1-L2: There is no central canal or neural foraminal stenosis. L2-L3: Mild hypertrophic facet changes bilaterally. There is no central canal or neural foraminal stenosis. L3-L4: Congenital spinal canal narrowing with posterior epidural lipomatosis. Mild hypertrophic degenerative facet changes bilaterally. Shallow diffuse disc bulge with central annular fissure extending into both foraminal zones. Combination of findings is resulting in mild to moderate central canal stenosis, mild bilateral subarticular recess stenosis, and mild bilateral neural foraminal stenosis. L4-L5: Congenital spinal canal narrowing with posterior epidural lipomatosis. Mild hypertrophic degenerative facet changes bilaterally, with mild posterior ligamentous thickening/infolding. There is a left lateral disc extrusion/possible sequestration, severely narrowing the left lateral recess and causing mass effect/impingement upon the traversing left L5 nerve roots. There is likely mass effect upon the exiting left L4 nerve root as well. This is best seen (series 6, image 10; series 10, images 26-27). The sequestered fragment measures approximately 4 x 4 x 9 mm. There is moderate left greater than right neural foraminal stenosis. L5-S1: There is a shallow diffuse bulging disc with central annular fissuring. Normal appearing facets. No central canal, lateral recess, or significant neural foraminal narrowing. IMAGED SI JOINTS: Mild degenerative changes bilaterally. PARAVERTEBRAL AND INCLUDED EXTRASPINAL SOFT TISSUES: -Normal. The aorta is normal in caliber. MR/MR lumbar spine wo/w con IMPRESSION: 1. There is a left lateral disc extrusion/sequestration just above the L4-5 disc, severely narrowing the left lateral recess and impinging upon the traversing left L5 nerve roots. There is likely mass effect upon the exiting left L4 nerve roots as well. The sequestration measures approximately 4 x 4 x 9 mm. There is moderate bilateral neural foraminal narrowing at this level. See above for details. 2. There is otherwise congenital spinal canal narrowing spanning L3-L5, complicated by posterior epidural lipomatosis. There is superimposed mild spondylosis without high-grade central canal, additional significant subarticular recess, or high-grade neural foraminal encroachment. 3. See the body of the report for details. Electronically signed by: Blake Rosales MD 12/12/2024 02:40 PM EDT
--- NOTE | ~2024-12-12 | XR_ITS ---
CLINICAL HISTORY: Left hip pain 3 view, pelvis and left hip Comparison: None Findings: The bones are intact. No significant arthritic change. The soft tissues are unremarkable. IMPRESSION: No acute findings. This document has been electronically signed by: Trevin Jeff MD on 12/12/2024 07:18:06
[2024-12-12 02:28] VITALS: BP 171/92; PULSE 80; RESP 18; TEMP 36.1; O2SAT 100; BMI 28.0
[2024-12-12] MEDS: Ibuprofen 600 MG TABLET PO (02:36)
[2024-12-12] MEDS: Morphine Sulfate 4 MG/ML CARTRIDGE IM (04:08)
--- NOTE | 2024-12-12 05:19 | PC.NURSE ---
Pt is awake, alert, and oriented X 4, reporting ongoing pain in left hip. Pt was assisted to the bathroom per her request. Pt then assisted back to the stretcher without incident. Dispostion is pending. Will continue to monitor for any changes.
[2024-12-12 06:43] VITALS: BP 160/78; PULSE 68; O2SAT 98
--- NOTE | 2024-12-12 06:53 | ED_ITS ---
HPI - General Adult General Chief complaint: Extremity Injury, Lower Stated complaint: lower extremity pain Time Seen by Provider: 12/12/24 06:49 History of Present Illness ED Provider: Dr. Cho HPI narrative: 59 y/o F patient; PMH chronic back pain, chronic migraine, vertigo, T2DM, HTN, GERD, HLD, CAD; presents from home with report of left lower extremity pain. The patient states she has had similar pain for the last several weeks. She was seen in this emergency department on 12/02/2024 and evaluated for her pain. She had a CT Abdomen/Pelvis at that time which was unremarkable. Her UA was unremarkable. She was treated with methocarbamol and Medrol dose pack. She states she was doing ok at home until she lifted her leg out of the tub this morning and the pain worsened. Related Data Previous Rx's ?Medication ?Instructions ?Recorded blood-glucose meter ([employer] KitchenStyle #1 ea 03/05/21 Falconer Lite kit) aspirin 81 mg tablet,delayed 81 mg PO DAILY #30 tabs 09/07/23 release atorvastatin 40 mg tablet 40 mg PO DAILY #90 tabs 12/07/23 amlodipine 5 mg tablet 5 mg PO DAILY #90 tabs 01/11/24 blood sugar diagnostic (FreeStyle #50 ea 06/05/24 Test strips) cholecalciferol (vitamin D3) 25 25 mcg PO DAILY 90 days #90 caps 06/05/24 mcg (1,000 unit) capsule pioglitazone 30 mg tablet 30 mg PO DAILY 90 days #90 tabs 06/05/24 digital therapeutic,ALEJANDRA device #1 ea 07/18/24 (Nerivio Digital Fernanda (migraine)) magnesium oxide 400 mg (241.3 mg 400 mg PO BEDTIME 30 days #30 tabs 07/18/24 magnesium) tablet riboflavin (vitamin B2) 100 mg 400 mg (4 x 100 mg) PO DAILY 30 07/18/24 tablet days #120 tabs rimegepant 75 mg disintegrating 75 mg PO ONCE PRN migraine 07/18/24 tablet (Nurtec ODT) headache 30 days #30 tabs famotidine 40 mg tablet 40 mg PO BEDTIME #90 tabs 07/28/24 metoprolol succinate 50 mg 50 mg PO DAILY #90 tabs 07/28/24 tablet,extended release 24 hr pantoprazole 40 mg tablet,delayed 40 mg PO DAILY #90 tabs 07/28/24 release lancets 28 gauge (FreeStyle #100 ea 09/18/24 Lancets) hydrochlorothiazide 12.5 mg tablet 12.5 mg PO DAILY #90 tabs 11/18/24 losartan 100 mg tablet 100 mg PO DAILY #90 tabs 11/18/24 nitroglycerin 0.4 mg sublingual 0.4 mg sublingual Q5M PRN chest 11/18/24 tablet pain 30 days #25 tabs methocarbamol 750 mg tablet 1,500 mg (2 x 750 mg) PO Q8H PRN 12/02/24 pain, moderate #20 tabs methylprednisolone 4 mg tablets in 4 mg PO QAM #21 ea 12/02/24 a dose pack (Medrol (Kyle)) acetaminophen 500 mg tablet 1,000 mg (2 x 500 mg) PO Q6H PRN 12/12/24 (Tylenol Extra Strength) pain 30 days #30 tabs ibuprofen 600 mg tablet 600 mg PO Q6H PRN pain 30 days #30 12/12/24 tabs morphine 15 mg immediate release 15 mg PO Q8H PRN pain 5 days #15 12/12/24 tablet tabs Allergies Allergy/AdvReac Type Severity Reaction Status Date / Time levofloxacin [From Levaquin] Allergy Severe Difficulty Verified 12/12/24 02:29 Breathing carvedilol [Coreg] Allergy Intermediate hives Verified 12/12/24 02:29 codeine Allergy Intermediate hives Verified 12/12/24 02:29 Iodinated Contrast Media Allergy Intermediate RASH/HIVES Verified 12/12/24 02:29 [IV Dye, Iodine Containing] latex [LATEX] Allergy Intermediate RASH Verified 12/12/24 02:29 lisinopril Allergy Intermediate hives Verified 12/12/24 02:29 oxycodone [OXYCODONE] Allergy Intermediate RASH/HIVES Verified 12/12/24 02:29 metronidazole [Flagyl] AdvReac Intermediate diarrhea Verified 12/12/24 02:29 Penicillins [PENICILLINS] AdvReac Intermediate limp legs Verified 12/12/24 02:29 topiramate AdvReac Intermediate ineffective Verified 12/12/24 02:29 Review of Systems Review of Systems: Yes all other systems are reviewed and are negative Neurologic: Denies Abnormal speech present and Denies Sensory deficit (Neuro) PMFSH Past Medical History Attestation statement: The following information was validated with the patient. Source: old records reviewed Medical History Wears contact lenses Numbness and tingling in both hands Cubital tunnel syndrome on right Numbness and tingling in right hand Bilateral kidney stones Right upper quadrant abdominal pain Snoring Sleep difficulties Headache Palpitation Family history of cardiomyopathy Migraine Cervical cancer screening History of kidney stones Osteopenia Right shoulder pain Diabetes 1.5, managed as type 2 HTN (hypertension) CHF (congestive heart failure) Cardiomyopathy Renal calculi GERD (gastroesophageal reflux disease) On beta inez at home Right elbow pain Postmenopausal Nausea and vomiting Lower extremity edema Insomnia Medial epicondylitis, right elbow Elbow pain Epigastric pain cardiomyopathy (~2003) CAD (coronary artery disease) Dyslipidemia Fibromyalgia Surgical History Hx of cystoscopy H/O esophagogastroduodenoscopy History of carpal tunnel release Hx of dilation and curettage Hx of cataract extraction History of lumpectomy of right breast History of lumpectomy of left breast History of lithotripsy History of exploratory laparotomy Hx of section History of hysteroscopy History of biopsy Stented coronary artery Hx of colonoscopy Hx of endoscopy Family History Family History Father CVD (cardiovascular disease) HTN (hypertension) Cancer Type 2 diabetes mellitus Mother Breast cancer HTN (hypertension) Family/Other Diabetes Brother Diabetes HTN (hypertension) Sister Diabetes HTN (hypertension) Migraines Son Asthma Social History Social History Household Members: Children Household Members Other:: adult son and family Housing: Apartment Are you a primary health and social care teacher to a significant other at home: No Do you presently have visiting nurse or other home services: No Alcohol intake: former Patient Tobacco Use Status: Former Tobacco user Tobacco use type: Cigarette Years Smoked: 3 months e-Cigarette/Vaping Use: Never Used Second Hand Smoke Exposure: No Use of substances other than those prescribed or required for medical reasons: No Advance Directives: No Advance Directives Information Provided: Yes Do you have a plan to hurt others: No Plan service: No Current occupational status: disabled Current occupation: right hand dominant Gender identity: Female Cognitive needs: No Hearing needs: No Vision needs: No Physical Exam ED Vital Signs: Vital Signs - 24 hr 12/12/24 02:28 12/12/24 06:43 12/12/24 10:29 Temperature 97.0 F 97.0 F Pulse Rate 80 68 62 Respiratory Rate 18 14 Blood Pressure 171/92 H 160/78 H 149/75 H Pulse Oximetry 100 98 98 Oxygen Delivery Method Room Air Room Air Room Air 12/12/24 12:00 12/12/24 14:23 Temperature 98.3 F 98.2 F Pulse Rate 71 61 Respiratory Rate 16 18 Blood Pressure 149/67 H 144/75 H Pulse Oximetry 98 95 Oxygen Delivery Method Room Air Room Air BMI result Body Mass Index 28.0 Patient is afebrile, hypertensive. Const General: cooperative Orientation/consciousness: patient oriented x3 HENMT Head: Yes normal to inspection and Yes atraumatic Eyes General: appearance normal, both eyes and all related structures Pupils: Equal, round and reactive pupils present EOM: EOMs intact bilaterally Neck Neck: Yes normal visual inspection, Yes full ROM, Yes supple and No tender Chest Chest palpation & inspection: normal inspection of the chest and normal palpation of entire chest wall Resp Effort & Inspection: normal respiratory effort, able to speak in complete sentences, no cough and no respiratory distress Auscultation: clear to auscultation bilaterally Cardio Rate: regular rate Rhythm: regular rhythm Peripheral pulses: Peripheral pulses 2+ throughout GI Inspection: Yes normal to inspection, No Abdominal wall edema and No distended Palpation (GI): Soft to palpation, not firm, nontender, no guarding and not rigid Auscultation: normal bowel sounds Back/Spine/Pelvis Other: + Tenderness to left lumbar region without bony step-off, crepitus, or direct bony tenderness + Tenderness to left pelvic superior iliac spine Neuro General: patient oriented x3 Cranial nerves: Yes Equal, round and reactive pupils present Cognition (Neuro): normal cognition Speech: No Abnormal speech present Motor exam (neuro): 5/5 motor strength present throughout Sensory Exam: No Sensory deficit (Neuro) Course Course Course Narrative: Patient is afebrile, hypertensive. I reviewed the patient's records from 12/02/2024 in detail including her lab work, UA, and CT scan. I reviewed the triage ordered XR Left Hip/Pelvis. Independently interpreted by myself as no acute abnormalities, fx, or dislocation. Ordered for MRI Lumbar Spine and MRI Pelvis. Patient had been provided pain control with Ibuprofen 600mg PO and Morphine 4mg IM. Provided additional pain control with tylenol, toradol, flexeril. Reevaluation(s) Reevaluation #1: MRI reviewed. MRI Pelvis with bilateral greater trochanter bursitis mild to moderate. MRI Lumbar Spine with a left lateral disc extrusion/sequestration causing impingement of the left L5 and likely L4 nerve roots. I provided the patient with spine referral. She had already completed a course of medrol dose pack. I recommended tylenol, ibuprofen, and PRN morphine for severe pain. I reviewed the patient's Mass[employer]. Last opiate prescription was 10 quantity of Tramadol in 10/2024. Prior to that was Vicodin 25 quantity in 07/21/2024. Plan: Discharge to home with Spine and PCP follow up Return precautions given Medications Administered Discontinued Medications Generic Name Dose Route Start Last Admin Trade Name Freq PRN Reason Stop Dose Admin Acetaminophen 975 mg 12/12/24 07:14 12/12/24 07:25 Acetaminophen 325 Mg Tablet PO 12/12/24 07:15 975 mg ONCE ONE Administration Cyclobenzaprine HCl 10 mg 12/12/24 07:14 12/12/24 07:26 Cyclobenzaprine Hcl 10 Mg Tablet PO 12/12/24 07:15 10 mg ONCE ONE Administration Gadobutrol 7.5 ml 12/12/24 14:20 12/12/24 14:21 Gadobutrol 7.5 Ml Vial IVPUSH 12/12/24 14:21 7 ml ONCE ONE Administration Ibuprofen 600 mg 12/12/24 02:35 12/12/24 02:36 Ibuprofen 600 Mg Tablet PO 12/12/24 02:36 600 mg ONCE ONE Administration Ketorolac Tromethamine 15 mg 12/12/24 07:14 12/12/24 07:26 Ketorolac Tromethamine 15 Mg/Ml Vial IVPUSH 12/12/24 07:15 15 mg ONCE ONE Administration Morphine Sulfate 4 mg 12/12/24 03:59 12/12/24 04:08 Morphine Sulfate 4 Mg/Ml Cartridge IM 12/12/24 04:00 4 mg ONCE ONE Administration Protocol Medical Decision Making Radiology Impression Discussion of test interpretation with radiology: I have reviewed the radiologist's reading. Radiologist Impression: CLINICAL HISTORY: Left hip pain 3 view, pelvis and left hip Comparison: None Findings: The bones are intact. No significant arthritic change. The soft tissues are unremarkable. IMPRESSION: No acute findings. This document has been electronically signed by: Trevin Jeff MD on 12/12/2024 07:18:06 EXAMINATION: MR PELVIS WITH CONTRAST CLINICAL INFORMATION: Pelvic pain, left-sided. Paresthesias. COMPARISON: Correlated to CT abdomen pelvis dated December 02, 2024 and left hip x-ray dated December 12, 2024. TECHNIQUE: Axial and coronal T1 sequence. Axial and coronal T2 fat sat sequence. Sagittal T2 fat-sat. FINDINGS: Bone marrow inhomogeneity throughout the bony pelvis and sacrum with predominantly bone marrow fat. No gross bone marrow T2 fat sat signal abnormality. The coxofemoral joints are intact with normal alignment and preservation of the femoral head volume. Trace amount of fluid in the coxofemoral joints likely physiologic. There is bilateral symmetric mild T2 fat-sat signal within the tendon inserting in the greater trochanter. No signal abnormality within the sacrococcyx. No fluid collections in the pelvic peritoneal cavity. Bladder is collapsed. No gross masses in the uterus which is smaller likely age-related. MR/MR pelvis wo con IMPRESSION: Bilateral greater trochanter bursitis, mild to moderate. Electronically signed by: Nikita Carias MD 12/12/2024 02:44 PM EDT RP EXAMINATION: MR LUMBAR SPINE WITH AND WITHOUT CONTRAST CLINICAL INFORMATION: Left lumbar pain, weakness, paresthesias. Rule out epidural abscess or cord compression. COMPARISON: No prior MR. Lumbar spine radiographs 05/05/2024. TECHNIQUE: Multiplanar multisequence MR imaging of the lumbar spine was done both before and after the administration of 7 mL IV Gadavist contrast. Examination was performed on a 1.5 Adwoa Siemens magnet, utilizing standard sequences. FINDINGS: CORONAL ALIGNMENT: -Minimal levoconvex scoliosis, possibly positional. SAGITTAL ALIGNMENT: - Normal lordosis. -There is a 2 mm degenerative appearing anterolisthesis of L4 on L5. -Alignment is otherwise anatomic. LUMBOSACRAL JUNCTION: -Normal. There are 5 [id number] lumbar-type vertebral bodies. VERTEBRAL BODIES/BONE MARROW: -There is no abnormal bone marrow edema, or abnormal infiltrating bone marrow signal. -There is a hemangioma in the right aspect of L2. -There is no abnormal bone marrow enhancement. DISCS: -Mild loss of disc signal diffusely without significant loss of disc height at any level. SPINAL CANAL: -There is mild congenital spinal canal narrowing predominantly spanning L3-L5, with short pedicles and complicated by posterior epidural lipomatosis. This finding will exacerbate acquired spondylosis. CONUS MEDULLARIS: -Terminates at L1. Morphology and signal is normal. INTRADURAL NERVE ROOTS: - Within normal limits. -There is no abnormal intra-axial or extra medullary enhancement identified. Axial Disc Space Images: T12-L1: There is no central canal or neural foraminal stenosis. L1-L2: There is no central canal or neural foraminal stenosis. L2-L3: Mild hypertrophic facet changes bilaterally. There is no central canal or neural foraminal stenosis. L3-L4: Congenital spinal canal narrowing with posterior epidural lipomatosis. Mild hypertrophic degenerative facet changes bilaterally. Shallow diffuse disc bulge with central annular fissure extending into both foraminal zones. Combination of findings is resulting in mild to moderate central canal stenosis, mild bilateral subarticular recess stenosis, and mild bilateral neural foraminal stenosis. L4-L5: Congenital spinal canal narrowing with posterior epidural lipomatosis. Mild hypertrophic degenerative facet changes bilaterally, with mild posterior ligamentous thickening/infolding. There is a left lateral disc extrusion/possible sequestration, severely narrowing the left lateral recess and causing mass effect/impingement upon the traversing left L5 nerve roots. There is likely mass effect upon the exiting left L4 nerve root as well. This is best seen (series 6, image 10; series 10, images 26-27). The sequestered fragment measures approximately 4 x 4 x 9 mm. There is moderate left greater than right neural foraminal stenosis. L5-S1: There is a shallow diffuse bulging disc with central annular fissuring. Normal appearing facets. No central canal, lateral recess, or significant neural foraminal narrowing. IMAGED SI JOINTS: Mild degenerative changes bilaterally. PARAVERTEBRAL AND INCLUDED EXTRASPINAL SOFT TISSUES: -Normal. The aorta is normal in caliber. MR/MR lumbar spine wo/w con IMPRESSION: 1. There is a left lateral disc extrusion/sequestration just above the L4-5 disc, severely narrowing the left lateral recess and impinging upon the traversing left L5 nerve roots. There is likely mass effect upon the exiting left L4 nerve roots as well. The sequestration measures approximately 4 x 4 x 9 mm. There is moderate bilateral neural foraminal narrowing at this level. See above for details. 2. There is otherwise congenital spinal canal narrowing spanning L3-L5, complicated by posterior epidural lipomatosis. There is superimposed mild spondylosis without high-grade central canal, additional significant subarticular recess, or high-grade neural foraminal encroachment. 3. See the body of the report for details. Discharge Plan Discharge Clinical Impression: Pinched nerve Patient Disposition: Home, Self-Care Instructions: Lumbar Radiculopathy (ED) Additional Instructions: You have a pinched nerve root at L4 and L5. This is likely contributing to your pain. Pain control as follows: Tylenol 1g every 6 hours Ibuprofen 600mg every 6 hours, make sure to eat food 30min before taking it Add in the Morphine every 8 hours as needed for break through pain. Please call the spine doctor for their closest appointment. Return to the emergency department with any concerns! You cannot drive on the Morphine as it is a narcotic. Prescriptions: New morphine 15 mg tablet 15 mg PO Q8H PRN (Reason: pain) 5 Days Qty: 15 0RF Rx Instructions: Partial Fill upon patient request. acetaminophen [Tylenol Extra Strength] 500 mg tablet 1,000 mg PO Q6H PRN (Reason: pain) 30 Days Qty: 30 0RF ibuprofen 600 mg tablet 600 mg PO Q6H PRN (Reason: pain) 30 Days Qty: 30 0RF No Action (DME) blood-glucose meter [FreeStyle Falconer Lite] Kit See Rx Instructions .ROUTE .MEDSUPPLY Qty: 1 0RF Rx Instructions: TEST 2 TIMES DAILY aspirin 81 mg tablet,delayed release (DR/EC) 81 mg PO DAILY Qty: 30 11RF atorvastatin 40 mg tablet 40 mg PO DAILY Qty: 90 2RF (DME) FreeStyle Test Strip See Rx Instructions .ROUTE .MEDSUPPLY Qty: 50 11RF Rx Instructions: TEST 2 TIMES DAILY pioglitazone 30 mg tablet 30 mg PO DAILY 90 Days Qty: 90 2RF cholecalciferol (vitamin D3) 25 mcg (1,000 unit) capsule 25 mcg PO DAILY 90 Days Qty: 90 1RF famotidine 40 mg tablet 40 mg PO BEDTIME Qty: 90 2RF pantoprazole 40 mg tablet,delayed release (DR/EC) 40 mg PO DAILY Qty: 90 2RF metoprolol succinate 50 mg tablet extended release 24 hr 50 mg PO DAILY Qty: 90 3RF (DME) lancets [FreeStyle Lancets] 28 [facility] See Rx Instructions .ROUTE .MEDSUPPLY Qty: 100 11RF Rx Instructions: use 1 lancet twice a day methylprednisolone [Medrol (Kyle)] 4 mg tablets,dose pack 4 mg PO QAM Qty: 21 0RF Rx Instructions: Take per package instructions methocarbamol 750 mg tablet 1,500 mg PO Q8H PRN (Reason: pain, moderate) Qty: 20 0RF amlodipine 5 mg tablet 5 mg PO DAILY Qty: 90 1RF Rx Instructions: dose reduced losartan 100 mg tablet 100 mg PO DAILY Qty: 90 3RF hydrochlorothiazide 12.5 mg tablet 12.5 mg PO DAILY Qty: 90 3RF nitroglycerin 0.4 mg tablet, sublingual 0.4 mg sublingual Q5M PRN (Reason: chest pain) 30 Days Qty: 25 1RF Rx Instructions: do not exceed 3 doses per episode Nurtec ODT 75 mg tablet,disintegrating 75 mg PO ONCE MDD 1 PRN (Reason: migraine headache) 30 Days Qty: 30 6RF magnesium oxide 400 mg (241.3 mg magnesium) tablet 400 mg PO BEDTIME 30 Days Qty: 30 6RF Rx Instructions: may hold for loose stools riboflavin (vitamin B2) 100 mg tablet 400 mg PO DAILY 30 Days Qty: 120 6RF Rx Instructions: in am (DME) Neriv[employer] Digital Fernanda (migraine) [facility] [place] See Rx Instructions .Route Qty: 1 12RF Rx Instructions: 45 min neuro stim qod and qd prn migraine. All triptans contraindicated d/t HTN. Ubrelvy ineffective. Referrals: Jd Dewey MD, PhD [Physician] - (Please call for their earliest appointment. ) Print Language: Qatari
[2024-12-12] MEDS: Acetaminophen 325 MG TABLET 975 MG PO ×2 (07:25→15:38)
[2024-12-12] MEDS: Ketorolac Tromethamine 15 MG/ML VIAL IVPUSH ×2 (07:26→15:39)
[2024-12-12] MEDS: Cyclobenzaprine HCl 10 MG TABLET PO (07:26)
--- NOTE | 2024-12-12 07:52 | PC.NURSE ---
MRI form filled out and faxed
[2024-12-12 10:29] VITALS: BP 149/75; PULSE 62; RESP 14; TEMP 36.1; O2SAT 98
[2024-12-12 12:00] VITALS: BP 149/67; PULSE 71; RESP 16; TEMP 36.8; O2SAT 98
--- NOTE | 2024-12-12 12:54 | PC.NURSE ---
Sent for MRI
[2024-12-12] MEDS: gadobutroL 7.5 ML VIAL IVPUSH (14:21)
[2024-12-12 14:23] VITALS: BP 144/75; PULSE 61; RESP 18; TEMP 36.8; O2SAT 95
[2024-12-12] MEDS: Morphine Sulfate ER 15 MG TABLET.ER PO (15:39)
[2024-12-12 16:25] VITALS: BP 144/75; PULSE 61; RESP 18; TEMP 36.8; O2SAT 95
== END 2024-12-12 16:26 | disposition home or self-care (01) ==
PROVIDERS: Emergency Provider Emergency Medicine; PCP Internal Medicine
DX: G58.9 Mononeuropathy, unspecified (principal); M79.662 Pain in left lower leg; R60.0 Localized edema; E11.9 Type 2 diabetes mellitus without complications; I11.0 Hypertensive heart disease with heart failure; I50.9 Heart failure, unspecified; E78.5 Hyperlipidemia, unspecified; Z87.891 Personal history of nicotine dependence; Z79.02 Long term (current) use of antithrombotics/antiplatelets; Z79.82 Long term (current) use of aspirin
CPT/HCPCS: 72158; 72195; 73502; 96372; 96374; 96375; 96376; 99284; 99285; A9585; J1885; J2270

== ENCOUNTER → 2024-12-12 06:20 | Outpatient (BNV) | payer OTHER, SELFPAY | PROVIDERS: Emergency Provider Emergency Medicine; PCP Internal Medicine; Visit Provider Specialist | DX: M51.26 Other intervertebral disc displacement, lumbar region (principal); M70.61 Trochanteric bursitis, right hip; M70.62 Trochanteric bursitis, left hip; M25.552 Pain in left hip | CPT/HCPCS: 72158; 72195; 73502 ==

== ENCOUNTER 2024-12-17 15:26 | Emergency (ER) | payer OTHER, SELFPAY ==
[2024-12-17 15:34] VITALS: BP 189/94; PULSE 76; RESP 18; TEMP 36.3; O2SAT 99; BMI 28.0
--- NOTE | 2024-12-17 15:36 | ED.GENADULT ---
HPI - General Adult General Chief complaint: Back Pain/Injury Stated complaint: lower back pain,bulging disk Time Seen by Provider: 12/17/24 16:51 Source: patient Mode of arrival: ambulatory Limitations: no limitations History of Present Illness ED Provider: DR. Membreno HPI narrative: 59 y/o F patient; PMH chronic back pain, chronic migraine, vertigo, T2DM, HTN, GERD, HLD, CAD; presents from home with report of left lower extremity pain for few weeks pain is mostly localized to the lower back radiates down to the left lower extremity, no urinary incontinence, no stool incontinence, sometimes feel left lower extremity sleepy and tingling, no fever, no chills, no history of using IV drug abuse, as a result of pain patient has a poor control of her left lower extremity sometimes her knee give out and causing her to fall patient sustained multiple fall in the last few weeks. Seen and evaluated for similar presentation on 12/12 had an MRI of the lumbar spine which reveals L4-5 disc herniation with impingement of left L5 nerve root. patient was discharged on morphine, acetaminophen, and ibuprofen returned today for persistent of pain. Related Data Previous Rx's ?Medication ?Instructions ?Recorded blood-glucose meter (FreeStyle #1 ea 03/05/21 [place] Lite kit) aspirin 81 mg tablet,delayed 81 mg PO DAILY #30 tabs 09/07/23 release atorvastatin 40 mg tablet 40 mg PO DAILY #90 tabs 12/07/23 amlodipine 5 mg tablet 5 mg PO DAILY #90 tabs 01/11/24 blood sugar diagnostic (FreeStyle #50 ea 06/05/24 Test strips) cholecalciferol (vitamin D3) 25 25 mcg PO DAILY 90 days #90 caps 06/05/24 mcg (1,000 unit) capsule pioglitazone 30 mg tablet 30 mg PO DAILY 90 days #90 tabs 06/05/24 digital therapeutic,ALEJANDRA device #1 ea 07/18/24 (Nerivio Digital Fernanda (migraine)) magnesium oxide 400 mg (241.3 mg 400 mg PO BEDTIME 30 days #30 tabs 07/18/24 magnesium) tablet riboflavin (vitamin B2) 100 mg 400 mg (4 x 100 mg) PO DAILY 30 07/18/24 tablet days #120 tabs rimegepant 75 mg disintegrating 75 mg PO ONCE PRN migraine 07/18/24 tablet (Nurtec ODT) headache 30 days #30 tabs famotidine 40 mg tablet 40 mg PO BEDTIME #90 tabs 07/28/24 metoprolol succinate 50 mg 50 mg PO DAILY #90 tabs 07/28/24 tablet,extended release 24 hr pantoprazole 40 mg tablet,delayed 40 mg PO DAILY #90 tabs 07/28/24 release lancets 28 gauge (FreeStyle #100 ea 09/18/24 Lancets) hydrochlorothiazide 12.5 mg tablet 12.5 mg PO DAILY #90 tabs 11/18/24 losartan 100 mg tablet 100 mg PO DAILY #90 tabs 11/18/24 nitroglycerin 0.4 mg sublingual 0.4 mg sublingual Q5M PRN chest 11/18/24 tablet pain 30 days #25 tabs methocarbamol 750 mg tablet 1,500 mg (2 x 750 mg) PO Q8H PRN 12/02/24 pain, moderate #20 tabs methylprednisolone 4 mg tablets in 4 mg PO QAM #21 ea 12/02/24 a dose pack (Medrol (Kyle)) acetaminophen 500 mg tablet 1,000 mg (2 x 500 mg) PO Q6H PRN 12/12/24 (Tylenol Extra Strength) pain 30 days #30 tabs ibuprofen 600 mg tablet 600 mg PO Q6H PRN pain 30 days #30 12/12/24 tabs morphine 15 mg immediate release 15 mg PO Q8H PRN pain 5 days #15 12/12/24 tablet tabs atogepant 60 mg tablet 60 mg PO DAILY 30 days #30 tabs 12/13/24 hydromorphone 2 mg tablet 2 mg PO Q6H PRN pain #10 tabs 12/17/24 (Dilaudid) prednisone 20 mg tablet 20 mg PO BID #10 tabs 12/17/24 Allergies Allergy/AdvReac Type Severity Reaction Status Date / Time levofloxacin [From Levaquin] Allergy Severe Difficulty Verified 12/17/24 15:37 Breathing carvedilol [Coreg] Allergy Intermediate hives Verified 12/17/24 15:37 codeine Allergy Intermediate hives Verified 12/17/24 15:37 Iodinated Contrast Media Allergy Intermediate RASH/HIVES Verified 12/17/24 15:37 [IV Dye, Iodine Containing] latex [LATEX] Allergy Intermediate RASH Verified 12/17/24 15:37 lisinopril Allergy Intermediate hives Verified 12/17/24 15:37 oxycodone [OXYCODONE] Allergy Intermediate RASH/HIVES Verified 12/17/24 15:37 metronidazole [Flagyl] AdvReac Intermediate diarrhea Verified 12/17/24 15:37 Penicillins [PENICILLINS] AdvReac Intermediate limp legs Verified 12/17/24 15:37 topiramate AdvReac Intermediate ineffective Verified 12/17/24 15:37 Review of Systems Review of Systems: All other systems are reviewed and are negative Constitutional: Reports as per HPI and Reports no additional constitutional complaints Eyes: Reports as per HPI and Reports no additional eye complaints Reports system reviewed and no additional complaints, except as documented Cardiovascular: Reports as per HPI and Reports no additional cardiovascular complaints Respiratory: Reports as per HPI and Reports no additional respiratory complaints Gastrointestinal: Reports as per HPI and Reports no additional gastrointestinal complaints Genitourinary: Reports no additional female genitourinary complaints Musculoskeletal: Reports no additional musculoskeletal complaints Skin/Breast: Reports system reviewed and no additional complaints, except as docu Psychiatric: Reports no additional psychiatric complaints Endocrine: Reports no additional endocrine complaints Hematologic/Lymphatic: Reports no additional hematologic/lymphatic complaints Allergic/Immunologic: Reports no additional allergic/immunologic complaints Reports system reviewed and no additional complaints, except as documented and Reports Abnormal speech present [facility] Past Medical History Medical History Wears contact lenses Numbness and tingling in both hands Cubital tunnel syndrome on right Numbness and tingling in right hand Bilateral kidney stones Right upper quadrant abdominal pain Snoring Sleep difficulties Headache Palpitation Family history of cardiomyopathy Migraine Cervical cancer screening History of kidney stones Osteopenia Right shoulder pain Diabetes 1.5, managed as type 2 HTN (hypertension) CHF (congestive heart failure) Cardiomyopathy Renal calculi GERD (gastroesophageal reflux disease) On beta inez at home Right elbow pain Postmenopausal Nausea and vomiting Lower extremity edema Insomnia Medial epicondylitis, right elbow Elbow pain Epigastric pain cardiomyopathy (~2003) CAD (coronary artery disease) Dyslipidemia Fibromyalgia Surgical History Hx of cystoscopy H/O esophagogastroduodenoscopy History of carpal tunnel release Hx of dilation and curettage Hx of cataract extraction History of lumpectomy of right breast History of lumpectomy of left breast History of lithotripsy History of exploratory laparotomy Hx of section History of hysteroscopy History of biopsy Stented coronary artery Hx of colonoscopy Hx of endoscopy Family History Family History Father CVD (cardiovascular disease) HTN (hypertension) Cancer Type 2 diabetes mellitus Mother Breast cancer HTN (hypertension) Family/Other Diabetes Brother Diabetes HTN (hypertension) Sister Diabetes HTN (hypertension) Migraines Son Asthma Social History Social History Household Members: Children Household Members Other:: adult son and family Housing: Apartment Are you a primary care process manager to a significant other at home: No Do you presently have visiting nurse or other home services: No Alcohol intake: former Patient Tobacco Use Status: Former Tobacco user Tobacco use type: Cigarette Years Smoked: 3 months e-Cigarette/Vaping Use: Never Used Second Hand Smoke Exposure: No Advance Directives: No Advance Directives Information Provided: Yes Do you have a plan to hurt others: No Plan service: No Current occupational status: disabled Current occupation: right hand dominant Gender identity: Female Cognitive needs: No Hearing needs: No Vision needs: No Physical Exam ED Vital Signs: Vital Signs - 24 hr 12/17/24 15:34 Temperature 97.3 F Pulse Rate 76 Respiratory Rate 18 Blood Pressure 189/94 H Pulse Oximetry 99 Oxygen Delivery Method Room Air BMI result Body Mass Index 28.0 Vital signs have been reviewed and appear to be correct. Blood pressure elevated. Heart rate normal. Respiratory rate normal. Temperature normal. Oxygen saturation normal. Appearance: Alert. Oriented X3. No acute distress. Head: Normal external exam. Normocephalic. Atraumatic. No Lowery signs noted. No raccoon eyes noted Eyes: PERRLA. EOMI. Conjunctiva and sclera normal. Eyelids normal. ENT: TM's Normal. Pharynx normal. Uvula midline. Moist mucous membranes. No trismus noted. No drooling noted. No muffled voice noted. Neck: Normal inspection. Neck supple. FROM. No adenopathy. Thyroid Normal. No meningeal signs. No neck mass noted. CVS: Normal heart rate and rhythm. Heart sound normal. No murmurs noted. Pulses normal throughout. Respiratory: No respiratory distress. Painless inspiration. Breath sounds normal. No wheezes/rales/rhonchi noted. Chest nontender. No accessory muscle usage noted or decreased air movement noted. Abdomen: Soft and nontender. Bowel sounds normal in all 4 quadrants. No distention noted. No organomegaly noted. No visible injury noted. Back: No CVA tenderness. Full range of motion noted. Skin: Skin warm and dry. Normal skin color. Normal skin turgor. No rashes/lesions/lacerations noted. Extremities: No lower extremity edema. Extremities exhibit normal range of motion. Extremities nontender. Neuro: Mental status: Normal attention, orientation, memory, and affect. Cranial nerves: Pupils are equal, round and reactive to light, EOMI, visual hudson are fall, face is symmetric, facial sensations are normal. Motor examination normal muscle tone, strength to 4 extremities. DTR are +2, planter's are flexor. Sensory exam; normal coordination, no ataxia, gait stable. Cerebellar exam: [id number]-[id number] and uqmo-ys-ragp is normal. Extrapyramidal system: No tremors, no rigidity with normal facial expressions. Pronator drift not present. Able to ambulate on both toes and heels with no marked weakness. Course Course Course Narrative: RME, this is a rapid medical exam performed by Al Zuniga please refer to primary provider for complete H&P- 59 year old female presents for evaluation of low back pain. She was seen here 5 days ago and had an L spine MRI showing herniated discs and pinched nerve. She reports she fell 3 times due to leg weakness. She reports that her pain is worsening Reevaluation(s) Reevaluation #1: Left cervical radiculopathy. No neurological deficit. Will start on short course of prednisone. Dilaudid tablet. Follow-up with spine clinic. Time: 17:10 Medical Decision Making Differential Diagnosis Differential Diagnoses: The differential diagnosis associated with the presentation includes ( Lumbar radiculopathy, cauda equina.) Admission/Observation Consideration of admission/observation: Escalation of care including admission/observation considered Discharge Plan Discharge Clinical Impression: Left lumbar radiculopathy Patient Disposition: Home, Self-Care Instructions: Lumbar Radiculopathy (ED) Prescriptions: New prednisone 20 mg tablet 20 mg PO BID Qty: 10 0RF hydromorphone [Dilaudid] 2 mg tablet 2 mg PO Q6H PRN (Reason: pain) Qty: 10 0RF Rx Instructions: Partial Fill upon patient request. No Action (DME) blood-glucose meter [FreeStyle [place] Lite] Kit See Rx Instructions .ROUTE .MEDSUPPLY Qty: 1 0RF Rx Instructions: TEST 2 TIMES DAILY aspirin 81 mg tablet,delayed release (DR/EC) 81 mg PO DAILY Qty: 30 11RF atorvastatin 40 mg tablet 40 mg PO DAILY Qty: 90 2RF (DME) FreeStyle Test Strip See Rx Instructions .ROUTE .MEDSUPPLY Qty: 50 11RF Rx Instructions: TEST 2 TIMES DAILY pioglitazone 30 mg tablet 30 mg PO DAILY 90 Days Qty: 90 2RF cholecalciferol (vitamin D3) 25 mcg (1,000 unit) capsule 25 mcg PO DAILY 90 Days Qty: 90 1RF famotidine 40 mg tablet 40 mg PO BEDTIME Qty: 90 2RF pantoprazole 40 mg tablet,delayed release (DR/EC) 40 mg PO DAILY Qty: 90 2RF metoprolol succinate 50 mg tablet extended release 24 hr 50 mg PO DAILY Qty: 90 3RF (DME) lancets [FreeStyle Lancets] 28 gauge misc See Rx Instructions .ROUTE .MEDSUPPLY Qty: 100 11RF Rx Instructions: use 1 lancet twice a day atogepant 60 mg tablet 60 mg PO DAILY 30 Days Qty: 30 6RF Rx Instructions: PA APPROVED 12/12/24-03/12/25 methylprednisolone [Medrol (Kyle)] 4 mg tablets,dose pack 4 mg PO QAM Qty: 21 0RF Rx Instructions: Take per package instructions methocarbamol 750 mg tablet 1,500 mg PO Q8H PRN (Reason: pain, moderate) Qty: 20 0RF morphine 15 mg tablet 15 mg PO Q8H PRN (Reason: pain) 5 Days Qty: 15 0RF Rx Instructions: Partial Fill upon patient request. acetaminophen [Tylenol Extra Strength] 500 mg tablet 1,000 mg PO Q6H PRN (Reason: pain) 30 Days Qty: 30 0RF ibuprofen 600 mg tablet 600 mg PO Q6H PRN (Reason: pain) 30 Days Qty: 30 0RF amlodipine 5 mg tablet 5 mg PO DAILY Qty: 90 1RF Rx Instructions: dose reduced losartan 100 mg tablet 100 mg PO DAILY Qty: 90 3RF hydrochlorothiazide 12.5 mg tablet 12.5 mg PO DAILY Qty: 90 3RF nitroglycerin 0.4 mg tablet, sublingual 0.4 mg sublingual Q5M PRN (Reason: chest pain) 30 Days Qty: 25 1RF Rx Instructions: do not exceed 3 doses per episode Nurtec ODT 75 mg tablet,disintegrating 75 mg PO ONCE MDD 1 PRN (Reason: migraine headache) 30 Days Qty: 30 6RF magnesium oxide 400 mg (241.3 mg magnesium) tablet 400 mg PO BEDTIME 30 Days Qty: 30 6RF Rx Instructions: may hold for loose stools riboflavin (vitamin B2) 100 mg tablet 400 mg PO DAILY 30 Days Qty: 120 6RF Rx Instructions: in am (DME) Before the Call Digital Fernanda (migraine) Misc See Rx Instructions .Route Qty: 1 12RF Rx Instructions: 45 min neuro stim qod and qd prn migraine. All triptans contraindicated d/t HTN. Ubrelvy ineffective. Referrals: Jd Dewey MD, PhD [Physician] - Print Language: Hungarian
[2024-12-17] MEDS: Ketorolac Tromethamine 15 MG/ML VIAL IM (17:35)
[2024-12-17 17:37] VITALS: RESP 15
[2024-12-17] MEDS: HYDROmorphone HCl 1 MG/ML SYRINGE IM (17:37)
[2024-12-17] MEDS: predniSONE 20 MG TABLET 40 MG PO (17:39)
[2024-12-17 17:42] VITALS: BP 135/80; PULSE 65; RESP 15; TEMP 37.1; O2SAT 95
== END 2024-12-17 17:43 | disposition home or self-care (01) ==
PROVIDERS: Emergency Provider Emergency Medicine; PCP Internal Medicine
DX: M54.16 Radiculopathy, lumbar region (principal); M54.50 Low back pain, unspecified; I10 Essential (primary) hypertension; I25.10 Atherosclerotic heart disease of native coronary artery without angina pectoris; E13.9 Other specified diabetes mellitus without complications; Z79.899 Other long term (current) drug therapy; Z87.891 Personal history of nicotine dependence
CPT/HCPCS: 96372; 99283; 99284; J1171; J1885

== ENCOUNTER 2024-12-26 13:54 | Outpatient (AMB) | payer OTHER, SELFPAY ==
--- NOTE | 2024-12-26 15:07 | A.OFFVIS_ITS ---
Intake Visit Reasons: bulging disc Allergies levofloxacin [From Levaquin] Allergy (Severe, Verified 12/17/24 15:37) Difficulty Breathing carvedilol [Coreg] Allergy (Intermediate, Verified 12/17/24 15:37) hives codeine Allergy (Intermediate, Verified 12/17/24 15:37) hives Iodinated Contrast Media [IV Dye, Iodine Containing] Allergy (Intermediate, Verified 12/17/24 15:37) RASH/HIVES latex [LATEX] Allergy (Intermediate, Verified 12/17/24 15:37) RASH lisinopril Allergy (Intermediate, Verified 12/17/24 15:37) hives oxycodone [OXYCODONE] Allergy (Intermediate, Verified 12/17/24 15:37) RASH/HIVES metronidazole [Flagyl] Adverse Reaction (Intermediate, Verified 12/17/24 15:37) diarrhea Penicillins [PENICILLINS] Adverse Reaction (Intermediate, Verified 12/17/24 15:37) limp legs topiramate Adverse Reaction (Intermediate, Verified 12/17/24 15:37) ineffective PFSH Medical History Wears contact lenses Numbness and tingling in both hands Cubital tunnel syndrome on right Numbness and tingling in right hand Bilateral kidney stones Right upper quadrant abdominal pain Snoring Sleep difficulties Headache Palpitation Family history of cardiomyopathy Migraine Cervical cancer screening History of kidney stones Osteopenia Right shoulder pain Diabetes 1.5, managed as type 2 HTN (hypertension) CHF (congestive heart failure) Cardiomyopathy Renal calculi GERD (gastroesophageal reflux disease) On beta inez at home Right elbow pain Postmenopausal Nausea and vomiting Lower extremity edema Insomnia Medial epicondylitis, right elbow Elbow pain Epigastric pain cardiomyopathy (~2003) CAD (coronary artery disease) Dyslipidemia Fibromyalgia Surgical History Hx of cystoscopy H/O esophagogastroduodenoscopy History of carpal tunnel release Hx of dilation and curettage Hx of cataract extraction History of lumpectomy of right breast History of lumpectomy of left breast History of lithotripsy History of exploratory laparotomy Hx of section History of hysteroscopy History of biopsy Stented coronary artery Hx of colonoscopy Hx of endoscopy Family History Father CVD (cardiovascular disease) HTN (hypertension) Cancer Type 2 diabetes mellitus Mother Breast cancer HTN (hypertension) Family/Other Diabetes Brother Diabetes HTN (hypertension) Sister Diabetes HTN (hypertension) Migraines Son Asthma Social History Household Members: Children Household Members Other:: adult son and family Housing: Apartment Are you a primary home care manager to a significant other at home: No Do you presently have visiting nurse or other home services: No Alcohol intake: former Patient Tobacco Use Status: Former Tobacco user Tobacco use type: Cigarette Years Smoked: 3 months e-Cigarette/Vaping Use: Never Used Second Hand Smoke Exposure: No service: No Current occupational status: disabled Current occupation: right hand dominant Gender identity: Female Cognitive needs: No Hearing needs: No Vision needs: No Female Reproductive History Menstrual Age of Menarche: 12 Assessment & Plan Assessment & Plan (1) Lumbar disc herniation: Code(s): M51.26 - Other intervertebral disc displacement, lumbar region Category: Medical Plan Dear dr Shola Pond, Thank you for referring MRs Quigley to our office today. She is a very nice 59-year-old woman who presents to the office today for evaluation of left sided low back pain radiating down into her anterior thigh knee that started about 2 weeks ago. She tells me she was in the shower and was lifting her leg to clean and felt an immediate sensation in her back radiating down her leg. She ended up in the emergency room. She was trialed on steroids and some other pain medications. She was given a prescription for Dilaudid but unfortunately was unable to fill it until about a week ago. She has also use Tylenol and Motrin but these things generally do not help her anyway. She has been trying these things without any significant benefit or relief of the symptoms. She ultimately underwent an MRI showing a herniated disc on the left at L4-5 and came in to see us for an evaluation. No cauda equina symptoms. She has been having a lot of hard time walking because of the pain. PMH: She has history of cardiomyopathy and coronary disease. She had a stent placed about 15 years ago. She is followed here at the [facility]. She reports he also has a history of osteopenia, but based on her previous x-rays it looks like she has osteoporosis to me. History of diabetes but her A1c is fairly well controlled. History of hypertension, fibromyalgia, carpal tunnel release, lithotripsy. Denies any pulmonary problems, liver or kidney disease, denies any history of cancer, blood clots, bleeding disorders or major abdominal surgery. Social hx: She does not smoke, drink or use any recreational drugs Medications: Vitamin-D, vitamin-B, metoprolol, atorvastatin, losartan, baby aspirin, amlodipine, nitro as needed, pioglitazone and hydrochlorothiazide Allergies: Please see the [employer] list Physical exam: Awake alert oriented no acute distress but she has an antalgic gait, positive straight leg raise at about 25-30 degrees, decreased left patellar reflex, motor strength is intact. Imaging review: Lumbar MRI done at [facility] shows normal alignment, normal disc height, on the left at L4-5 there is a herniated disc fragment extending into the lateral recess toward the foramen and slightly outside the foramen compressing the left L4 nerve root Impression: 59-year-old female presents with a herniated disc on the left at L4-5 with a herniated disc fragment compressing the left L4 nerve root. I think this is the source of the patient's symptoms. She is slightly better than she was when this started 2 weeks ago but it has not gone away. I showed her her imaging, explained to her that 90% of these will go away if given enough time. If she fails conservative treatment I think she would be a good candidate for microdiskectomy. I will review with Dr. Dewey, but I would like to have her start physical therapy and see me back in 3 weeks so we can re-evaluate. Because of her diabetes, I would be reluctant to send her for cortisone injection. Thank you for allowing us to care for your patient. The total time spent with this visit with this patient was 45 minutes reviewing history, physical exam, lumbar imaging review, and implementation of treatment plan or further diagnostic testing Burak Dewey MD,PhD [facility] Orders: Orders PT Evaluation and Treatment Today M51.26 - Other intervertebral disc displacement, lumbar region Coding Level of Care Code New Pt Level 4 (10444) Diagnoses Lumbar disc herniation M51.26
== END 2024-12-26 15:10 | disposition home or self-care (01) ==
LOC: HO.HNS 13:54
PROVIDERS: PCP Internal Medicine; Referring Provider Internal Medicine; Visit Provider Physician Assistant
DX: M51.26 Other intervertebral disc displacement, lumbar region (principal)
CPT/HCPCS: 99204

== ENCOUNTER → 2024-12-26 13:54 | Outpatient (BNVA) | payer OTHER, SELFPAY | PROVIDERS: PCP Internal Medicine; Referring Provider Internal Medicine; Visit Provider Physician Assistant | DX: M51.26 Other intervertebral disc displacement, lumbar region (principal) | CPT/HCPCS: 99202 ==

== ENCOUNTER 2025-01-13 12:55 | Outpatient (RCR) | payer OTHER, SELFPAY ==
--- NOTE | 2025-01-06 16:33 | MHC.PT.EP ---
[facility] [place] Office [place] Office [place] Office [address] [phone] F: [phone] F: [phone] F: [phone] F: [phone] Physical Therapy Plan of Care Date of Evaluation: 01/06/25 Date of Surgery: Diagnosis: lumbar disc herniation (L4-L5) (MD Dx, confirmed on MRI) RS Assessment: Giovanna Quigley is a pleasant, motivated 59 y.o. female who is referred to PT by Burak Rodarte PA[facility]C [facility] with Dx of lumbar disc herniation (L4-L5). Patient impairments include significant antalgic gait, limited lumbar ROM, weakness in L LE. Patient current functional limitations are any ambulation, prolonged sitting, prolonged standing (cooking, dishes), stair use, showering. Patient will benefit from skilled PT to address aforementioned impairments and functional limitations to meet established goals. Frequency and Duration: The patient will be seen 2x/week for 6 weeks Short Term Goals: 3 weeks Patient demonstrates consistency and independence with HEP to self manage symptoms. Patient is able to demonstrate understanding of centralization vs peripheralization [facility] Goals: 6 weeks Pt presents with increased L hip flexion 5/5 to be able to ascend/descend 4 steos reciprocally. Pt presents with increased L quad stregnth 5/5 to be able to ambulate without antalgic gait. Treatment Plan: Modalities to reduce pain, spasms and effusion. Manual therapy to restore motion and function. Therapeutic exercise to improve strength and flexibility. Neuromuscular re-education for posture and balance. Therapeutic activities to return to functional activities of daily living. Electronically signed by: Dillon Nicole, PT, DPT Please sign and return to therapist. Thank you for your referral.
--- NOTE | 2025-02-24 09:55 | MHC.PT.DC ---
[facility] [place] Office [place] Office [place] Office [address] Fausto Castanon [address] [phone] F: [phone] F: [phone] F: [phone] F: [phone] Physical Therapy Discharge Report Diagnosis: lumbar disc herniation (L4-L5) ( Dx, confirmed on MRI) RS Date of Surgery: Date of Evaluation: 01/06/25 Date of Discharge: 02/24/25 Treatments to Date: 2 Cancellations to Date: 6 No Shows to Date: 0 Discharge Status: Patient Elected to Stop Physician Discontinued Tx Recommend MD Follow-up Discharge Summary: Giovanna Quigley was only seen for 2 PT sessions (01/06) and (01/13). She called to discontinue PT as she is seeking surgical intervention for her lumbar symptoms. Therefore she has been discharged from PT. Electronically signed by: Dillon Nicole, PT, DPT Please sign and return to therapist. Thank you for your referral.
== END 2025-02-24 09:55 | disposition home or self-care (01) ==
LOC: HO.PT 12:55
PROVIDERS: PCP Internal Medicine; Visit Provider Physician Assistant
DX: M51.26 Other intervertebral disc displacement, lumbar region (principal)
CPT/HCPCS: 97014; 97110; 97140; 97162

== ENCOUNTER 2025-01-17 14:52 | Outpatient (AMB) | payer OTHER, SELFPAY ==
--- NOTE | 2025-01-17 14:48 | A.OFFVIS_ITS ---
Intake Visit Reasons: Follow up Biometrics Technician Required: No Accompanied by: Self / Same As Patient Allergies levofloxacin (From Levaquin) Allergy (Severe, Verified 01/17/25 14:49) Difficulty Breathing carvedilol (Coreg) Allergy (Intermediate, Verified 01/17/25 14:49) hives codeine Allergy (Intermediate, Verified 01/17/25 14:49) hives Iodinated Contrast Media (IV Dye, Iodine Containing) Allergy (Intermediate, Verified 01/17/25 14:49) RASH/HIVES latex (LATEX) Allergy (Intermediate, Verified 01/17/25 14:49) RASH lisinopril Allergy (Intermediate, Verified 01/17/25 14:49) hives oxycodone (OXYCODONE) Allergy (Intermediate, Verified 01/17/25 14:49) RASH/HIVES metronidazole (Flagyl) Adverse Reaction (Intermediate, Verified 01/17/25 14:49) diarrhea Penicillins (PENICILLINS) Adverse Reaction (Intermediate, Verified 01/17/25 14:49) limp legs topiramate Adverse Reaction (Intermediate, Verified 01/17/25 14:49) ineffective Medication List - Last Reconciled 01/17/25 by LIZZY Woodard acetaminophen (Tylenol Extra Strength) 1,000 mg (2 x 500 mg) PO Q6H PRN 30 days amlodipine 5 mg PO DAILY aspirin 81 mg PO DAILY atogepant 60 mg PO DAILY 30 days atorvastatin 40 mg PO DAILY blood sugar diagnostic (FreeStyle Test strips) TEST 2 TIMES DAILY blood-glucose meter (FreeStyle [place] Lite kit) TEST 2 TIMES DAILY cholecalciferol (vitamin D3) 25 mcg PO DAILY 90 days digital therapeutic,ALEJANDRA device ([employer] Digital Fernanda (migraine)) 45 min neuro stim qod and qd prn migraine. All triptans contraindicated d/t HTN. Ubrelvy ineffective. famotidine 40 mg PO BEDTIME hydrochlorothiazide 12.5 mg PO DAILY hydromorphone (Dilaudid) 2 mg PO Q6H PRN ibuprofen 600 mg PO Q6H PRN 30 days lancets (FreeStyle Lancets) use 1 lancet twice a day losartan 100 mg PO DAILY magnesium oxide 400 mg PO BEDTIME 30 days methocarbamol 1,500 mg (2 x 750 mg) PO Q8H PRN methylprednisolone (Medrol (Kyle)) 4 mg PO QAM metoprolol succinate ER 50 mg PO DAILY morphine 15 mg PO Q8H PRN 5 days nitroglycerin 0.4 mg sublingual Q5M PRN 30 days pantoprazole 40 mg PO DAILY pioglitazone 30 mg PO DAILY 90 days prednisone 20 mg PO BID riboflavin (vitamin B2) 400 mg (4 x 100 mg) PO DAILY 30 days rimegepant (Nurtec ODT) 75 mg PO ONCE PRN 30 days MDD 1 HPI Comments Details: 59-yr-old female presents for f/u televideo visit of migraine. Since the last visit, in November 2024, patient reports she sustained a sudden onset lumbar disc protrusion causing increased low back pain associated with left- sided radicular symptoms, numbness, and now left knee giving out. She has had ER visits, L-spine MRI, and [facility] neurosurgery consult. She has been referred to and started PT, states if this is not effective they will consider surgical intervention. Unfortunately, she continues to have quite a bit of pain, which is limiting her ability to do her ADLs, her daughter is needing to help her more, especially with lower body dressing/bathing. She states she reached out to the neurosurgery office, for assistance with the pain medication, however was told that she needed to follow-up with her ? PCP. Patient states in the past, gabapentin and pregabalin and amitriptyline and possibly nortriptyline were not effective and not tolerated for other pain symptoms. Patient states she has a high pain tolerance and thus would be difficult to treat her pain. She does have some leftover muscle relaxers that we previously prescribed her. She continues to have migraine every day. Baseline migraine- like air is blowing into her head, like a pressure, but also throbbing or sharp pain, and neck tightness a/w photophobia, phonophobia, osmophobia, frontal/crown of head allodynia, nausea, sometimes worsening dizziness, elevated BP, activity intolerance. She has had cervical-occipital clicking w/ head movement.. She does continue to have jaw tightness, more so when migraine is worse. She has resume prn Nurtec, which is helpful for the migraine and jaw tightness if she takes it daily for several days- which allows the migraine intensity to subside. She has not started or received Qulipta yet, although it was approved last month. She was considering using Nerivio but something came up and she could not afford it. She is still dizzy- both internal/external spinning, prone to swaying. She had previously started Vestibular tx- but it was held d/t her BP being too elevated- her blood pressure continues to be elevated at times. She is managed by [facility] cardiology- on antihypertensive regimen. [facility] Medical History Wears contact lenses Numbness and tingling in both hands Cubital tunnel syndrome on right Numbness and tingling in right hand Bilateral kidney stones Right upper quadrant abdominal pain Snoring Sleep difficulties Headache Palpitation Family history of cardiomyopathy Migraine Cervical cancer screening History of kidney stones Osteopenia Right shoulder pain Diabetes 1.5, managed as type 2 HTN (hypertension) CHF (congestive heart failure) Cardiomyopathy Renal calculi GERD (gastroesophageal reflux disease) On beta inez at home Right elbow pain Postmenopausal Nausea and vomiting Lower extremity edema Insomnia Medial epicondylitis, right elbow Elbow pain Epigastric pain cardiomyopathy (~2003) CAD (coronary artery disease) Dyslipidemia Fibromyalgia Surgical History Hx of cystoscopy H/O esophagogastroduodenoscopy History of carpal tunnel release Hx of dilation and curettage Hx of cataract extraction History of lumpectomy of right breast History of lumpectomy of left breast History of lithotripsy History of exploratory laparotomy Hx of section History of hysteroscopy History of biopsy Stented coronary artery Hx of colonoscopy Hx of endoscopy Family History Father CVD (cardiovascular disease) HTN (hypertension) Cancer Type 2 diabetes mellitus Mother Breast cancer HTN (hypertension) Family/Other Diabetes Brother Diabetes HTN (hypertension) Sister Diabetes HTN (hypertension) Migraines Son Asthma Social History Household Members: Children Household Members Other:: adult son and family Housing: Apartment Are you a primary skin care consultant to a significant other at home: No Do you presently have visiting nurse or other home services: No Alcohol intake: former Patient Tobacco Use Status: Former Tobacco user Tobacco use type: Cigarette Years Smoked: 3 months e-Cigarette/Vaping Use: Never Used Second Hand Smoke Exposure: No service: No Current occupational status: disabled Current occupation: right hand dominant Gender identity: Female Cognitive needs: No Hearing needs: No Vision needs: No Female Reproductive History Menstrual Age of Menarche: 12 Physical Exam Const General: cooperative and no acute distress Orientation/consciousness: patient oriented x3 Resp Effort & Inspection: normal respiratory effort and able to speak in complete sentences Neuro General: patient oriented x3 Cognition (Neuro): normal cognition Psych Appearance: grossly normal Mental Status: mental status grossly normal Speech and movement: Normal speech and movement present Affect: normal affect Attitude: cooperative Telehealth Telehealth Telehealth Platform: SpareTime Location of provider rendering services: practice address Location of patient: address on file Patient Identification confirmed using: Name, : Yes Telehealth method: video Patient verbally consented to treatment: Yes Patient verbally consented to billing insurance company: Yes Patient informed of any privacy concerns related to visit: Yes Minutes spent on Phone/Video with Pt.: 30 Assessment & Plan Assessment & Plan (1) Chronic migraine without aura: Code(s): G43.709 - Chronic migraine without aura, not intractable, without status migrainosus Category: Medical Qualifiers: Status migrainosus presence: without status migrainosus Intractability: intractable Qualified Code(s): G43.719 - Chronic migraine without aura, intractable, without status migrainosus (2) Vertigo: Code(s): R42 - Dizziness and giddiness Category: Medical Plan For new onset low back pain with left-sided radicular symptoms: May use cyclobenzaprine 5-10 mg as needed. Continue PT exercises Follow-up with [facility] Neurosurgery as scheduled Reviewed red flag signs to seek urgent medical attention. For cervicalgia w/ cervico-occipital clicking/pain: XR c-spine w/ flex/ext- as ordered Future consideration: PT For vertigo: Resume vestibular PT when BP more normotensive. For acute migraine headache treatment: Tylenol and Ibuprofen prn. Continue Rimegepant ODT (Nurtec ODT) 75mg, 1 tab at onset of headache.. Max of 1 tabs (75mg) per 24 hours. May adjunct with OTC Tylenol 650mg q 4 hours, Ibuprofen 600mg q 6 hours, or Naproxen 440mg q 12 hrs prn.. Hold Nerivio- 45 minute neurostimulation daily prn- not affordable at this time. Previous acute migraine medication trials: Sumatriptan- ineffective. Baclofen- ineffective. Cyclobenzaprine 10-20mg qhs- ineffective. Acute migraine medication contraindications: All Triptans d/t HTN, HLD, CAD. ? For headache migraine prevention medication: Discussed trying Botox for chronic migraine tx- however pt would like to try other options 1st, such as Nerivio neuromodulation tx first. Hold Nerivio- 45 minute neurostimulation every other day scheduled- not affordable at this time Again start Atogepant- advised that prior authorization has been approved through February. Order sent to the pharmacy-and we will reach out to confirm if there are any specific issues. * Atogepant(Qulipta) 60mg daily at bedtime- as pt has had positive respone to alternate gepant (Nurtec) before.. Aware of potential interaction w/ pioglitzone- may decrease qulipta efficacy some, but does not prohibit use. Potential side effects include but are not limited to drowsiness, nausea, constipation, weight loss. Continue Metoprolol (used primarily for HTN). Continue Riboflavin 400mg qam Continue Magnesium 400mg qhs Previous migraine prevention medication trials: Topiramate- ineffective. Amitriptyline- ineffective. Aimovig- ineffective. Nurtec for prevention- ineffective. Migraine prevention medication contraindications: Topiramate- d/t h/o nephrolithiasis. Future considerations- Botox, Verapamil, Duloxetine, Mirtazapine, Memantine, TNS neurostimulator. Will follow-up upon review of above and patient to follow-up in clinic in 6 months or sooner prn. Medications: Refilled atogepant PA APPROVED 12/12/24-03/12/25 60 mg PO DAILY 30 days 30 tabs 6RF atogepant PA APPROVED 12/12/24-03/12/25 60 mg PO DAILY 30 tabs 6RF 30 days Coding Level of Care Code Tele Est Pt Level 4 (34931) Diagnoses Intractable chronic migraine without aura and without status migrainosus G43.719 Status migrainosus presence: without status migrainosus Intractability: intractable Vertigo R42
--- OUTSIDE RECORDS SUMMARY | 2025-01-17 18:05 | XMS_ITS | Patient Health Record ---
Author Organization [facility] Address [address] [place] [address] Care Team Providers Care Welder Production Line Arc Name Role Phone Darshan aNils Unavailable [phone] Reason For Referral No Information Plan Of Treatment No Information
== END 2025-01-18 08:33 | disposition home or self-care (01) ==
LOC: HO.HSMS 14:52
PROVIDERS: PCP Internal Medicine; Visit Provider Nurse Practitioner Family
DX: G43.719 Chronic migraine without aura, intractable, without status migrainosus (principal); R42 Dizziness and giddiness
CPT/HCPCS: 99214

== ENCOUNTER 2025-01-23 13:24 | Outpatient (AMB) | payer OTHER, SELFPAY ==
--- NOTE | 2025-01-23 13:28 | A.SPINEOV_ITS ---
Intake Visit Reasons: 3 weeks f/up Intake Note: Ms. Quigley is here today for a 3 weeks F/u. Artistic Associate Required: No Allergies levofloxacin (From Levaquin) Allergy (Severe, Verified 01/17/25 14:49) Difficulty Breathing carvedilol (Coreg) Allergy (Intermediate, Verified 01/17/25 14:49) hives codeine Allergy (Intermediate, Verified 01/17/25 14:49) hives Iodinated Contrast Media (IV Dye, Iodine Containing) Allergy (Intermediate, Verified 01/17/25 14:49) RASH/HIVES latex (LATEX) Allergy (Intermediate, Verified 01/17/25 14:49) RASH lisinopril Allergy (Intermediate, Verified 01/17/25 14:49) hives oxycodone (OXYCODONE) Allergy (Intermediate, Verified 01/17/25 14:49) RASH/HIVES metronidazole (Flagyl) Adverse Reaction (Intermediate, Verified 01/17/25 14:49) diarrhea Penicillins (PENICILLINS) Adverse Reaction (Intermediate, Verified 01/17/25 14:49) limp legs topiramate Adverse Reaction (Intermediate, Verified 01/17/25 14:49) ineffective Assessment & Plan Assessment & Plan (1) Lumbar disc herniation: Code(s): M51.26 - Other intervertebral disc displacement, lumbar region Category: Medical Plan Mrs Quigley is back in the office. Please refer to my last note for the specifics of her problem. She had a herniated disc on the left at L4-5. She has undergone 4 weeks of physical therapy and unfortunately the symptoms are only progressing. I told her to discontinue the PT, she would like to consider surgery. We discussed a left L4-5 microdiskectomy. Her films were previously discussed with Dr. Dewey who agrees that that would be a good surgery to help with her left leg pain. We have tentatively booked her for February 09. I told her the anesthesia team may want her to see Cardiology before her surgery because of her past history of coronary artery disease, she is followed here at [facility]. The patient was given risk and benefits of surgery including but not limited to infection, hematoma, nerve injury, durotomy, weakness, bowel/bladder injury, persistent pain, recurrent herniated disc. We also discussed the option to continue with conservative treatment and patient wishes to proceed with surgery. They are aware they should stop NSAIDs and aspirin 7 days prior to surgery. All questions were answered to the best of our ability. If there is anything about this patients medical history that we have overlooked or concerns you have about us proceeding with surgery we would appreciate any input you can offer. Total amount of time spent in this visit was 20 minutes in discussion of symptoms, lumbar imaging results and subsequent plan of care Burak Dewey MD,PhD [facility] Coding Level of Care Code Est Pt Level 3 (38591) Diagnoses Lumbar disc herniation M51.26
--- OUTSIDE RECORDS SUMMARY | 2025-01-23 13:52 | XMS_ITS | Patient Health Record ---
Author Organization [facility] Address [address] [place] [address] Care Team Providers Care Molded Parts Inspector Name Role Phone Darshan Nails Unavailable [phone] Reason For Referral No Information Plan Of Treatment No Information
== END 2025-01-23 14:30 | disposition home or self-care (01) ==
LOC: HO.HNS 13:25
PROVIDERS: PCP Internal Medicine; Visit Provider Physician Assistant
DX: M51.26 Other intervertebral disc displacement, lumbar region (principal)
CPT/HCPCS: 99213

== ENCOUNTER → 2025-01-23 13:24 | Outpatient (BNVA) | payer OTHER, SELFPAY | PROVIDERS: PCP Internal Medicine; Visit Provider Physician Assistant | DX: Z71.2 Person consulting for explanation of examination or test findings (principal); M51.26 Other intervertebral disc displacement, lumbar region | CPT/HCPCS: 99212 ==

== ENCOUNTER → 2025-02-03 08:31 | Outpatient (REF) | payer OTHER, SELFPAY ==
--- NOTE | ~2025-02-03 | NM_ITS ---
Lexiscan Myocardial perfusion study Indication: Preoperative cardiovascular evaluation Technique: The patient was brought in for a Lexiscan perfusion study on 02/03/2025 and was injected 0.4 mg of Lexiscan intravenously. Within a minute of this injection 25 mCi of sestamibi was given intravenously. Images were obtained using the SPECT gamma camera interlaced with the gating device. Images were obtained in supine position. Resting perfusion study was performed on 02/06/2025. Patient was administered 25 mCi of sestamibi intravenously at rest. Images were then obtained in supine position. Total DLP 75 mGy-cm. Images were processed with the software and compared side to side in short axis, horizontal long axis and vertical long axis views. Findings: Raw aquisition reviewed. The stress perfusion study showed no significant perfusion abnormality. Both uncorrected as well as CT attenuation corrected images were reviewed. The gated study shows diminished LV systolic function with calculated LVEF of 41%. LV cavity is normal in size. The gated study shows normal wall thickening and contraction of segments. Resting study shows no significant perfusion abnormality. Gating at rest reveals normal wall motion with ejection fraction at 40%. The findings are consistent with no clear reversible or fixed perfusion abnormality. NM/NM cardiolite stress test Impression: 1. Myocardial perfusion imaging study shows likely normal myocardial perfusion. 2. Gated LVEF is 41% during stress and 40% during rest. Visually appears higher. Correlate with echocardiogram. 3. Transient ischemic dilatation not present. EKG component of the test reported separately. Electronically signed by: Sukumar Downey MD 02/07/2025 04:42 PM EDT
--- NOTE | 2025-02-03 08:36 | CA_ITS ---
Acquisition Time: 2025-02-03 08:37:43 Total Exercise Time: 00:02:00 Test Indications: CP CAD Medications: SEE H&P Protocol: LEXISCAN Max HR: 80 BPM 50% of Pred: 160 BPM Max BP: 130/80 mmHG Max Work Load: 1.0 METS Pharmacological stress test with Lexiscan while pt swings her legs with reports of feeling weird , no chest pain, with isolated PACs, with normotenisve response to injection. Nondiagnostic EKG for ischemia. In recovery, pt feeling back to baseline after caffeinated soda intake. Nuclear images pending. Test reviewed with Dr. Oliveira. Referred By: Kassi Montano Electronically Signed By: Jay Connor
--- OUTSIDE RECORDS SUMMARY | 2025-02-03 08:39 | XMS_ITS | Patient Health Record ---
Author Organization [facility] Address [address] [place] [address] Care Team Providers Care Medical Oncology Physician Name Role Phone Darshan Nails Unavailable [phone] Reason For Referral No Information Plan Of Treatment No Information
== END ==
LOC: HO.CARD 08:31
PROVIDERS: PCP Internal Medicine; Visit Provider Nurse Practitioner Family
DX: I25.10 Atherosclerotic heart disease of native coronary artery without angina pectoris (principal); Z95.5 Presence of coronary angioplasty implant and graft
CPT/HCPCS: 78452; 93017; A9500; J0280; J2785

== ENCOUNTER 2025-02-03 09:51 | Outpatient (AMB) | payer OTHER, SELFPAY ==
--- NOTE | 2025-02-03 10:13 | AM.OFFVISNUR ---
Intake Visit Reasons: EKG for cardiac clearance for back surgery Allergies levofloxacin (From Levaquin) Allergy (Severe, Verified 02/01/25 12:30) Difficulty Breathing carvedilol (Coreg) Allergy (Intermediate, Verified 02/01/25 12:30) hives codeine Allergy (Intermediate, Verified 02/01/25 12:30) hives Iodinated Contrast Media (IV Dye, Iodine Containing) Allergy (Intermediate, Verified 02/01/25 12:30) RASH/HIVES latex (LATEX) Allergy (Intermediate, Verified 02/01/25 12:30) RASH lisinopril Allergy (Intermediate, Verified 02/01/25 12:30) hives oxycodone (OXYCODONE) Allergy (Intermediate, Verified 02/01/25 12:30) RASH/HIVES metronidazole (Flagyl) Adverse Reaction (Intermediate, Verified 02/01/25 12:30) diarrhea Penicillins (PENICILLINS) Adverse Reaction (Intermediate, Verified 02/01/25 12:30) limp legs topiramate Adverse Reaction (Intermediate, Verified 02/01/25 12:30) ineffective Nursing Note Patient presented today for EKG for medical clearance. She is scheduled for back surgery on 02/09/25. BP was 136/72. Her EKG showed sinus bradycardia of 55 bpm but otherwise normal. She had a nuclear stress test done this morning. Coding
== END 2025-02-03 10:12 | disposition home or self-care (01) ==
LOC: HO.HCS 09:52
PROVIDERS: PCP Internal Medicine; Visit Provider Nurse Practitioner Family
DX: I49.1 Atrial premature depolarization (principal)
CPT/HCPCS: 78452; 93016; 93018

== ENCOUNTER 2025-02-09 05:48 | Day surgery (SDC) | payer OTHER, SELFPAY ==
--- OUTSIDE RECORDS SUMMARY | 2025-01-25 12:03 | XMS_ITS | Patient Health Record ---
Author Organization [facility] Address [address] [place] [address] Care Team Providers Care Pool Servicer Name Role Phone Darshan Nails Unavailable [phone] Reason For Referral No Information Plan Of Treatment No Information
[2025-02-01 12:51] VITALS: BP 157/75; PULSE 54; RESP 16; O2SAT 99; BMI 26.3
[2025-02-09] VITALS (15 sets, daily range): BP systolic 99–151; BP diastolic 49–77; PULSE 58–81; RESP 11–17; TEMP 36.1–36.3; O2SAT 94–100; BMI 26.7
--- NOTE | ~2025-02-09 | FL_ITS ---
EXAMINATION: FL GUIDANCE ONLY HISTORY: l4-5 discectomy COMPARISON: None available. TECHNIQUE: Fluoroscopy time: 5.4 seconds. Cumulative Dose: 2. 0.963 mGy. DAP: 1.0858 mGym2 Images: 1. FINDINGS: A single fluoroscopic spot film of the lumbar spine in the lateral projection demonstrates a probe directed toward the L4 vertebral body from a posterior approach. FL/FL guidance in OR IMPRESSION: Fluoroscopy during procedure. Please see procedure report for additional information. Electronically signed by: Darshan Padilla MD 02/09/2025 09:51 AM EDT
[2025-02-09 06:28] LABS: Glucose, Whole Blood 93 mg/dL (60-115)
[2025-02-09] MEDS: Lactated Ringers 1,000 ML 50 ML IVCONT (06:37)
--- NOTE | 2025-02-09 07:07 | MHC.SHP ---
Pre-Procedural Eval Section A - 24 Hr Update-Section A only Date of Service: 02/09/25 The patient is an INPATIENT: No Changes since office visit: No Cold of Flu in the past 2 weeks, No New Medical Problems, No Changes in Medication and No Patient answered all questions The patient has been examined within 24 hours of the surgical procedure. The History & Physical has been completed within 30 days and I have reviewed it.: No Section B - Complete if H&P > 30 days Chief Complaint: Other intervertebral disc displacement, lumbar reg Allergies: Allergies Allergy/AdvReac Type Severity Reaction Status Date / Time levofloxacin (From Levaquin) Allergy Severe Difficulty Verified 02/01/25 12:30 Breathing carvedilol (Coreg) Allergy Intermediate hives Verified 02/01/25 12:30 codeine Allergy Intermediate hives Verified 02/01/25 12:30 Iodinated Contrast Media (IV Allergy Intermediate RASH/HIVES Verified 02/01/25 12:30 Dye, Iodine Containing) latex (LATEX) Allergy Intermediate RASH Verified 02/01/25 12:30 lisinopril Allergy Intermediate hives Verified 02/01/25 12:30 oxycodone (OXYCODONE) Allergy Intermediate RASH/HIVES Verified 02/01/25 12:30 metronidazole (Flagyl) AdvReac Intermediate diarrhea Verified 02/01/25 12:30 Penicillins (PENICILLINS) AdvReac Intermediate limp legs Verified 02/01/25 12:30 topiramate AdvReac Intermediate ineffective Verified 02/01/25 12:30 Review of Systems Sugical H&P ROS: Negative: Constitution, Cardiovascular, Respiratory, Neurological, Psychiatric, Hem-Onc, Allergic/Immunologic, Gastrointestinal, Genitourinary, Musculoskeletal, Integumentary, Endocrine and Eyes/Ears/Nose/Throat Exam Surgical H&P Exam: Normal: HEENT, Normal: Heart, Normal: Lungs, Normal: Extremities, Normal: Abdomen, Normal: Skin and Normal: Neurological (awake, alert,oriented x 3 ) Plan Diagnosis/Plan: Unchanged left L4-5 microdiskectomy Time Spent With Patient Time: Total time managing care of this patient today __5_ minutes.
--- NOTE | 2025-02-09 07:22 | P.DS_ITS ---
DS: Providers Provider Date of Service: 02/09/25 Date of discharge: 02/09/25 Primary care physician: Chen Pond MD Admitting clinician: Jd Dewey DS: Diagnosis Discharge Diagnosis (1) Lumbar pain: Status: Acute DS: Summary Time Attestation Discharge Coordination Time (in mins): 2 Quality: Safe Use of Opioids Does Pt have an Active Cancer Diagnosis on the Problem List?: No Quality: Stroke Does the patient have a stroke diagnosis?: No Physical Exam Vital Signs: Vital Signs: Last Vital Signs Pulse 54 02/01/25 12:51 Resp 16 02/01/25 12:51 BP 157/75 H 02/01/25 12:51 Pulse Ox 99 02/01/25 12:51 O2 Del Method Room Air 02/01/25 12:51 BMI result Body Mass Index 26.7 DS: Data Data Completed and Pending Labs on day of discharge: Laboratory Results - last 24 hr 02/09/25 06:25 POC Glucose 93 Discharge Plan Discharge Patient Disposition: Home, Self-Care Referrals: Chen Clements MD [Primary Care Provider, Internal Medicine] - 1 Week Discharge Medications: New oxycodone 5 mg tablet 5 mg PO Q4H PRN (Reason: pain) Qty: 20 0RF Rx Instructions: Partial Fill upon patient request. Continued (DME) blood-glucose meter [FreeStyle Superior Lite] Kit See Rx Instructions .ROUTE .MEDSUPPLY Qty: 1 0RF Rx Instructions: TEST 2 TIMES DAILY (DME) FreeStyle Test Strip See Rx Instructions .ROUTE .MEDSUPPLY Qty: 50 11RF Rx Instructions: TEST 2 TIMES DAILY famotidine 40 mg tablet 40 mg PO BEDTIME Qty: 90 2RF pantoprazole 40 mg tablet,delayed release (DR/EC) 40 mg PO DAILY Qty: 90 2RF metoprolol succinate 50 mg tablet extended release 24 hr 50 mg PO DAILY Qty: 90 3RF (DME) lancets [FreeStyle Lancets] 28 gauge misc See Rx Instructions .ROUTE .MEDSUPPLY Qty: 100 11RF Rx Instructions: use 1 lancet twice a day amlodipine 5 mg tablet 5 mg PO DAILY Qty: 90 3RF cholecalciferol (vitamin D3) 25 mcg (1,000 unit) capsule 25 mcg PO DAILY 90 Days Qty: 90 0RF pioglitazone 30 mg tablet 30 mg PO DAILY 90 Days Qty: 90 0RF atorvastatin 40 mg tablet 40 mg PO DAILY Qty: 90 0RF riboflavin (vitamin B2) 100 mg tablet 400 mg PO DAILY 90 Days Qty: 360 1RF Rx Instructions: in am morphine 15 mg tablet 15 mg PO Q8H PRN (Reason: pain) 5 Days Qty: 15 0RF Rx Instructions: Partial Fill upon patient request. acetaminophen [Tylenol Extra Strength] 500 mg tablet 1,000 mg PO Q6H PRN (Reason: pain) 30 Days Qty: 30 0RF losartan 100 mg tablet 100 mg PO DAILY Qty: 90 3RF hydrochlorothiazide 12.5 mg tablet 12.5 mg PO DAILY Qty: 90 3RF nitroglycerin 0.4 mg tablet, sublingual 0.4 mg sublingual Q5M PRN (Reason: chest pain) 30 Days Qty: 25 1RF Rx Instructions: do not exceed 3 doses per episode atogepant 60 mg tablet 60 mg PO DAILY 30 Days Qty: 30 6RF Rx Instructions: PA APPROVED 12[facility]12[facility]24[facility]12[facility] mg tablet,disintegrating 75 mg PO ONCE MDD 1 PRN (Reason: migraine headache) 30 Days Qty: 30 6RF magnesium oxide 400 mg (241.3 mg magnesium) tablet 400 mg PO BEDTIME 30 Days Qty: 30 6RF Rx Instructions: may hold for loose stools (DME) I.Predictus Digital Fernanda (migraine) Misc See Rx Instructions .Route Qty: 1 12RF Rx Instructions: 45 min neuro stim qod and qd prn migraine. All triptans contraindicated d/t HTN. Ubrelvy ineffective. Held aspirin 81 mg tablet,delayed release (DR/EC) 81 mg PO DAILY Qty: 30 2RF Hold Instructions: Resume on 02/16/25. You may resume aspirin 1 week after surgery Discharge Orders: Discharge Order (Routine); Ordered 02/09/25 Ordered By: Burak Rodarte Diet: Advance to usual diet Activity on Discharge: As tolerated Activity Restrictions/Additional Instructions: After your spinal surgery we ask you to observe the following restrictions/guidelines: Activity: It is normal to feel some discomfort as you increase your activity, but that will improve with time. We ask you avoid heavy lifting or acitivities that cause pain. As a general rule, 8lbs is a safe limit for lifting right after surgery. Walk as much as you feel comfortable but not to exhaustion. You will feel extra tired the first few days after surgery. Stay well hydrated. It is OK to walk up and down stairs You may return to driving when you are off narcotics (such as vicodin, oxycodone, dilaudid, etc), and you are back to normal functional capacity. If you have any concerns please check with office before driving. Return to work is specific to each patient and each surgery, so please speak with your doctor/PA at first follow up. Please bring paperwork such as FMLA at that time if you need it filled out. Medications: You can resume aspirin 1 week after surgery For optimum pain control, it is best to start with a combination of 500 mg of Tylenol every 4 hours with 600 mg of Motrin every 8 hours, and use narcotics as needed in between for breakthrough pain. We will give you a short supply of narcotics after surgery (usually one weeks worth). If you need more please call the office but do not use more than prescribed. You will need to give our office 48 hours notice if you need narcotics refilled and we do not fill narcotics on weekends or evenings. If you are on a narcotic, it is a good idea to take a stool softener such as colace or senna to avoid constipation If you take blood thinner such as aspirin, Plavix, Coumadin, Effient, Eliquis etc for conditions such as Afib, DVT, Pulmonary embolus, coronary disease, stents etc please speak with your surgeon about specific details as to when you can resume these medications. You can resume NSAIDs on post op day 1 (eg: Motrin, Naproxen, etc). Follow up: Please call the office, , after surgery to arrange a 3 week follow up for wound check. Wound Care: You may remove your dressing on the first day after surgery. ?You may ?leave open to air. Please do not remove the steri strips underneath. they will fall off on their own in one week. IT IS NORMAL FOR THE WOUND TO OOZE OR BE BLOODY FOR A FEW DAYS AFTER SURGERY. ? IF THIS HAPPENS JUST PLACE NEW DRESSING OVER IT TO AVOID STAINING CLOTHES. You may shower on post op day # 1 We ask that you do not let the water soak the wound. If it does get wet, just towel dry lightly. Please do not scrub your incision or place any type of chemical/ointment on the wound. No tub baths, pools or jacuzzis for one month. If you have any leaking or redness from your wound, or fevers, please call office Print Language: Chinese
--- NOTE | 2025-02-09 07:23 | P.CONAN_ITS ---
Documented by User: Viola Franz NP 02/08/25 08:35 HPI - Anesthesia Eval Consult details Narrative: 59yo F for Left L4-5 MicroLumbar discectomy, 02/09/25 Cardiac optimized. Follows [facility] Cardiology for hypertension, hyperlipidemia, coronary artery disease with LAD stent in 2006, post cardiomyopathy post delivery 2003 with normalization of EF, chronic atypical chest pains. Last office eval 10/2024 - preop testing with EKG and Nuc stress No recent illness No CP/SOB with very limited activity d/t back pain Follows [facility] Cardiology for DM: FBS ~90's GERD: ppi mostly controls PMFSH Active Problems Active Problems: All Active Problems Lumbar disc herniation (Acute) Abnormal MRI, lumbar spine (Acute) Right renal stone (Acute) Back pain (Acute) Lumbar pain (Acute) Leg swelling (Acute) Adrenal adenoma (Acute) Chronic migraine without aura (Acute) Physical exam (Acute) Carpal tunnel syndrome of left wrist (Acute) Cubital tunnel syndrome on left (Acute) Carpal tunnel syndrome of right wrist (Acute) Vertigo (Acute) Ulnar neuropathy at elbow of left upper extremity (Acute) Rotator cuff arthropathy of right shoulder (Acute) Tubular adenoma of colon (Acute) Excessive daytime sleepiness (Acute) Ulnar neuropathy at elbow of right upper extremity (Acute) Postmenopausal atrophic vaginitis (Acute) Diabetes mellitus (Acute) Renal calculi (Acute) Lateral epicondylitis of right elbow (Acute) Thoracic spondylosis with radiculopathy (Acute) Skin lumps (Acute) Postmenopausal bleeding (Acute) Lump of right breast (Acute) Pelvic pain in female (Acute) Breast lump (Acute) Essential hypertension (Acute) Irritable bowel syndrome with diarrhea (Acute) GERD (gastroesophageal reflux disease) (Acute) Cubital tunnel syndrome on right (Acute) HTN (hypertension) (Acute) Migraine (Acute) Osteopenia (Acute) Lower extremity edema (Acute) Insomnia (Acute) cardiomyopathy (Acute ~2003) Stented coronary artery (Acute) CAD (coronary artery disease) (Acute) Dyslipidemia (Acute) Fibromyalgia (Acute) Past Medical History Medical History (Updated 02/01/25 @ 13:06 by Leesa Cortes RN) History of blood transfusion Wears contact lenses Numbness and tingling in both hands Cubital tunnel syndrome on right Numbness and tingling in right hand Bilateral kidney stones Right upper quadrant abdominal pain Snoring Sleep difficulties Headache Palpitation Family history of cardiomyopathy Migraine Cervical cancer screening History of kidney stones Osteopenia Right shoulder pain Diabetes 1.5, managed as type 2 HTN (hypertension) CHF (congestive heart failure) Cardiomyopathy Renal calculi GERD (gastroesophageal reflux disease) On beta inez at home Right elbow pain Postmenopausal Nausea and vomiting Lower extremity edema Insomnia Medial epicondylitis, right elbow Elbow pain Epigastric pain cardiomyopathy (~2003) CAD (coronary artery disease) Dyslipidemia Fibromyalgia Family History Family History Father CVD (cardiovascular disease) HTN (hypertension) Cancer Type 2 diabetes mellitus Mother Breast cancer HTN (hypertension) Family/Other Diabetes Brother Diabetes HTN (hypertension) Sister Diabetes HTN (hypertension) Migraines Son Asthma Family history of problems with anesthesia: No Surgical History Surgical History (Updated 02/01/25 @ 13:08 by Leesa Cortes RN) History of endotracheal intubation (~2003) History of lung biopsy (~2003) Hx of cystoscopy H/O esophagogastroduodenoscopy (2022) History of carpal tunnel release Hx of dilation and curettage Hx of cataract extraction History of lumpectomy of right breast History of lumpectomy of left breast History of lithotripsy (10/26/24) History of exploratory laparotomy Hx of section History of hysteroscopy History of biopsy Stented coronary artery Hx of colonoscopy (2022) Hx of endoscopy History of Problems with Anesthesia: No Social History Social History (Updated 02/01/25 @ 13:04 by Leesa Cortes RN) Household Members: Family and Children Household Members Other:: adult son and family Housing: Apartment Are you a primary acute care nurse practitioner to a significant other at home: No Do you presently have visiting nurse or other home services: No Alcohol intake: former Patient Tobacco Use Status: Never used Tobacco Tobacco use type: Cigarette Years Smoked: 3 months e-Cigarette/Vaping Use: Never Used Second Hand Smoke Exposure: No Use of substances other than those prescribed or required for medical reasons: No Have you been hit, kicked, punched, or otherwise hurt by someone within the past year? If so, by whom?: No Are you DNR?: No Advance Directives: No Advance Directives Information Provided: Yes Advance Directives on File: No service: No Current occupational status: disabled Current occupation: right hand dominant Gender identity: Female Cognitive needs: No Hearing needs: No Vision needs: No Meds Allergies Allergy/AdvReac Type Severity Reaction Status Date / Time levofloxacin (From Levaquin) Allergy Severe Difficulty Verified 02/01/25 12:30 Breathing carvedilol (Coreg) Allergy Intermediate hives Verified 02/01/25 12:30 codeine Allergy Intermediate hives Verified 02/01/25 12:30 Iodinated Contrast Media (IV Allergy Intermediate RASH/HIVES Verified 02/01/25 12:30 Dye, Iodine Containing) latex (LATEX) Allergy Intermediate RASH Verified 02/01/25 12:30 lisinopril Allergy Intermediate hives Verified 02/01/25 12:30 oxycodone (OXYCODONE) Allergy Intermediate RASH/HIVES Verified 02/01/25 12:30 metronidazole (Flagyl) AdvReac Intermediate diarrhea Verified 02/01/25 12:30 Penicillins (PENICILLINS) AdvReac Intermediate limp legs Verified 02/01/25 12:30 topiramate AdvReac Intermediate ineffective Verified 02/01/25 12:30 Exam Height,Weight and Vital Signs: Height 5 ft 2 in Weight 65.317 kg Last Vital Signs Pulse 54 02/01/25 12:51 Resp 16 02/01/25 12:51 BP 157/75 H 02/01/25 12:51 Pulse Ox 99 02/01/25 12:51 O2 Del Method Room Air 02/01/25 12:51 Pertinent Lab Results Pertinent Lab Results: Laboratory Tests 12/02/24 15:51 WBC 3.5 L Hgb 12.7 Hct 37.4 Plt Count 217 D Sodium 142 Potassium 3.8 Chloride 106 Carbon Dioxide 28 BUN 12 Creatinine 1.03 Narrative Narrative: EKG 02/03/25 SB @ 55 Nuc Stress 01/2025 NM cardiolite stress test Impression: 1. Myocardial perfusion imaging study shows likely normal myocardial perfusion. 2. Gated LVEF is 41% during stress and 40% during rest. Visually appears higher. Correlate with echocardiogram. 3. Transient ischemic dilatation not present. EKG component of the test reported separately. ECHO 01/2024 Conclusions: - The left ventricular systolic function is low normal. The visually estimated ejection fraction is between 50-55%. - No obvious valvular pathology seen on this study. Airway Mallampati Class: II TM Dist: >3cm Neck ROM: Full Partial: Upper (Only top partials in.) and Lower (doesnt know) Loose/Missing/Broken Teeth: Yes (Only top partials in place. Did not wear lower partials. Denies broken or loose teeth) Heart: RRR Lungs: CTAB Assessment and Plan Assessment Anesthesia Assessment: Anesthesia Plan Discussed and PAT Visit Final Anesthetic Review Family History of Problems with Anesthesia: No History of Problems with Anesthesia: No Documented by User: Mary Min DO 02/09/25 07:57 HPI - Anesthesia Eval Consult details Narrative: 59yo F for Left L4-5 MicroLumbar discectomy, 02/09/25 Cardiac optimized. Follows [facility] Cardiology for hypertension, hyperlipidemia, coronary artery disease with LAD stent in 2006, post cardiomyopathy post delivery 2003 with normalization of EF, chronic atypical chest pains. Last office eval 10/2024 - preop testing with EKG and Nuc stress No recent illness No CP/SOB with very limited activity d/t back pain DM: FBS ~90's GERD: ppi mostly controls PMFSH Past Medical History Medical History (Updated 02/01/25 @ 13:06 by Leesa Cortes, RN) History of blood transfusion Wears contact lenses Numbness and tingling in both hands Cubital tunnel syndrome on right Numbness and tingling in right hand Bilateral kidney stones Right upper quadrant abdominal pain Snoring Sleep difficulties Headache Palpitation Family history of cardiomyopathy Migraine Cervical cancer screening History of kidney stones Osteopenia Right shoulder pain Diabetes 1.5, managed as type 2 HTN (hypertension) CHF (congestive heart failure) Cardiomyopathy Renal calculi GERD (gastroesophageal reflux disease) On beta inez at home Right elbow pain Postmenopausal Nausea and vomiting Lower extremity edema Insomnia Medial epicondylitis, right elbow Elbow pain Epigastric pain cardiomyopathy (~2003) CAD (coronary artery disease) Dyslipidemia Fibromyalgia Family History Family History Father CVD (cardiovascular disease) HTN (hypertension) Cancer Type 2 diabetes mellitus Mother Breast cancer HTN (hypertension) Family/Other Diabetes Brother Diabetes HTN (hypertension) Sister Diabetes HTN (hypertension) Migraines Son Asthma Family history of problems with anesthesia: No Surgical History Surgical History (Updated 02/01/25 @ 13:08 by Leesa Cortes RN) History of endotracheal intubation (~2003) History of lung biopsy (~2003) Hx of cystoscopy H/O esophagogastroduodenoscopy (2022) History of carpal tunnel release Hx of dilation and curettage Hx of cataract extraction History of lumpectomy of right breast History of lumpectomy of left breast History of lithotripsy (10/26/24) History of exploratory laparotomy Hx of section History of hysteroscopy History of biopsy Stented coronary artery Hx of colonoscopy (2022) Hx of endoscopy History of Problems with Anesthesia: No Social History Social History (Updated 02/01/25 @ 13:04 by Leesa Cortes RN) Household Members: Family and Children Household Members Other:: adult son and family Housing: Apartment Are you a primary acute care nurse practitioner to a significant other at home: No Do you presently have visiting nurse or other home services: No Alcohol intake: former Patient Tobacco Use Status: Never used Tobacco Tobacco use type: Cigarette Years Smoked: 3 months e-Cigarette/Vaping Use: Never Used Second Hand Smoke Exposure: No Use of substances other than those prescribed or required for medical reasons: No Have you been hit, kicked, punched, or otherwise hurt by someone within the past year? If so, by whom?: No Are you DNR?: No Advance Directives: No Advance Directives Information Provided: Yes Advance Directives on File: No service: No Current occupational status: disabled Current occupation: right hand dominant Gender identity: Female Cognitive needs: No Hearing needs: No Vision needs: No Meds Allergies Allergy/AdvReac Type Severity Reaction Status Date / Time levofloxacin (From Levaquin) Allergy Severe Difficulty Verified 02/01/25 12:30 Breathing carvedilol (Coreg) Allergy Intermediate hives Verified 02/01/25 12:30 codeine Allergy Intermediate hives Verified 02/01/25 12:30 Iodinated Contrast Media (IV Allergy Intermediate RASH/HIVES Verified 02/01/25 12:30 Dye, Iodine Containing) latex (LATEX) Allergy Intermediate RASH Verified 02/01/25 12:30 lisinopril Allergy Intermediate hives Verified 02/01/25 12:30 oxycodone (OXYCODONE) Allergy Intermediate RASH/HIVES Verified 02/01/25 12:30 metronidazole (Flagyl) AdvReac Intermediate diarrhea Verified 02/01/25 12:30 Penicillins (PENICILLINS) AdvReac Intermediate limp legs Verified 02/01/25 12:30 topiramate AdvReac Intermediate ineffective Verified 02/01/25 12:30 Exam Exam Date and Time: 02/09/25 0725 Height,Weight and Vital Signs: Height 5 ft 2 in Weight 65.317 kg Last Vital Signs Pulse 54 02/01/25 12:51 Resp 16 02/01/25 12:51 BP 157/75 H 02/01/25 12:51 Pulse Ox 99 02/01/25 12:51 O2 Del Method Room Air 02/01/25 12:51 Vital Signs Pulse Rate 54 02/01/25 12:51 Respiratory Rate 16 02/01/25 12:51 Blood Pressure 157/75 H 02/01/25 12:51 Pulse Oximetry 99 02/01/25 12:51 Oxygen Delivery Method Room Air 02/01/25 12:51 Pulse Rate 54 02/01/25 12:51 Respiratory Rate 16 02/01/25 12:51 Blood Pressure 157/75 H 02/01/25 12:51 Pulse Oximetry 99 02/01/25 12:51 Oxygen Delivery Method Room Air 02/01/25 12:51 Height 5 ft 2 in Weight 66.3 kg Airway Mallampati Class: II TM Dist: >3cm Neck ROM: Full Partial: Upper Heart: S1S2 Assessment and Plan Assessment Anesthesia Assessment: Anesthesia Plan Discussed and Chart Reviewed Final Anesthetic Review Family History of Problems with Anesthesia: No History of Problems with Anesthesia: No NPO: Yes ASA Class: III Final Preanesthetic Review: No Changes in Pt Med Stat, Meds/Allgs Chart Reviewed, Consent Obtained/Reviewed and Anes Risks/Benef Reviewed Patient Risk: Intermediate Procedure Risk: Intermediate Anesthetic Plan Anesthetic Plan: GA and Agree w/ Assess. and Plan Disposition: Standard PACU
--- NOTE | 2025-02-09 08:31 | P.OP_ITS ---
Operative Note Operative Note Date of Service: 02/09/25 Narrative: Preoperative diagnosis: Left lumbar radiculopathy due to disc herniation Postoperative diagnosis: Same Procedure: Left L4-5 lumbar microdiskectomy with microscope Surgeon: Jd Dewey MD, PhD Railroad Baggage Porter: ebony Cortes This patient is suffering from a left lumbar radiculopathy. MRI shows a extruded disc fragment in the axilla of the L4 nerve root. The patient was offered a lumbar microdiskectomy to decompress the nerve root. The procedure complications were explained. The patient was consented. The patient was brought to the operating room and endotracheally intubated. The patient was turned in a prone position on the Dane frame. Prepping and draping was done followed by time-out. A mid lumbar incision was made followed by release of the paravertebral muscles on the left side to expose the L4-5 interspace. An intraoperative x-rays obtained to confirm the correct level. The microscope was brought in. A L4 laminotomy was done followed by opening of the flavum ligament. The L5 nerve root was identified and retracted medially to expose the L4-5 disc space. I was able to palpate the L4 and L5 pedicle. In the this perforation was found. Small fragments for removed in the area of the L4 axilla although the large expected fragment was not found. In the anterior good decompression of the L4 and L5 nerve root was obtained. A long nerve root could be easily passed under the L4 nerve root resistance. Hemostasis was done. The microscope was removed. Marcaine was injected intramuscularly.The incision was closed in two layers. Steri-Strips used to approximate the incision. An op- site were taken there was used to cover the incision. All sponge and needle counts were correct. Patient was extubated and transported in stable condition to recovery room. this procedure was done with the aid of a physician assistant auditor who performed the initial exposure until the microscope was brought in and performed the closure of the incision. Anesthesia: General Blood loss: 10 mL Complications: None Specimen: None Surgical time: 40 minutes Disposition: Discharge home
[2025-02-09] MEDS: oxyCODONE HCl Immed Release 5 MG TABLET PO (09:57)
== END 2025-02-09 11:01 | disposition home or self-care (01) ==
PROVIDERS: PCP Internal Medicine; Visit Provider Neurological Surgery
PROC: (CPT 63030; principal; 2025-02-09 07:30)
DX: M51.16 Intervertebral disc disorders with radiculopathy, lumbar region (principal); M51.26 Other intervertebral disc displacement, lumbar region; I10 Essential (primary) hypertension; I25.10 Atherosclerotic heart disease of native coronary artery without angina pectoris; Z95.5 Presence of coronary angioplasty implant and graft; I42.9 Cardiomyopathy, unspecified; E78.5 Hyperlipidemia, unspecified; E13.9 Other specified diabetes mellitus without complications; Z79.84 Long term (current) use of oral hypoglycemic drugs; Z79.82 Long term (current) use of aspirin; Z79.899 Other long term (current) drug therapy; Z88.0 Allergy status to penicillin; Z88.1 Allergy status to other antibiotic agents; Z88.5 Allergy status to narcotic agent; Z88.8 Allergy status to other drugs, medicaments and biological substances; Z91.040 Latex allergy status; Z91.041 Radiographic dye allergy status; Z87.891 Personal history of nicotine dependence
CPT/HCPCS: 63030; 82947; J0131; J0690; J1100; J1885; J2003; J2250; J2371; J2405; J2704; J3010

== ENCOUNTER → 2025-02-09 05:48 | Outpatient (BNV) | payer OTHER, SELFPAY | PROVIDERS: PCP Internal Medicine; Visit Provider Neurological Surgery | DX: M51.16 Intervertebral disc disorders with radiculopathy, lumbar region (principal) | CPT/HCPCS: 63030; 99499 ==

== ENCOUNTER 2025-02-17 12:01 | Outpatient (REF) | payer OTHER, SELFPAY ==
--- OUTSIDE RECORDS SUMMARY | 2025-02-17 12:03 | XMS_ITS | Patient Health Record ---
Author Organization [facility] Address [address] [place] [address] Care Team Providers Care Tool Rental Technician Name Role Phone Darshan Nails Unavailable [phone] Reason For Referral No Information Plan Of Treatment No Information
== END 2025-02-17 12:02 | disposition home or self-care (01) ==
LOC: HO.MAMMO 12:01
PROVIDERS: PCP Internal Medicine; Visit Provider Internal Medicine
DX: Z12.31 Encounter for screening mammogram for malignant neoplasm of breast (principal)
CPT/HCPCS: 77063; 77067

== ENCOUNTER → 2025-02-17 12:15 | Outpatient (BNV) | payer OTHER, SELFPAY | PROVIDERS: PCP Internal Medicine; Visit Provider Internal Medicine | DX: Z12.31 Encounter for screening mammogram for malignant neoplasm of breast (principal) | CPT/HCPCS: 77063; 77067 ==

== ENCOUNTER 2025-03-06 15:29 | Outpatient (AMB) | payer OTHER, SELFPAY ==
--- OUTSIDE RECORDS SUMMARY | 2025-03-06 15:38 | XMS_ITS | Patient Health Record ---
Author Organization [facility] Address [address] [place] [address] Care Team Providers Care Soft Metals Hand Engraver Name Role Phone Darshan Nails Unavailable [phone] Reason For Referral No Information Plan Of Treatment No Information
--- NOTE | 2025-03-06 15:46 | HO.SPINEOV ---
Intake Visit Reasons: 1st post op Intake Note: Ms. Quigley is here today for her 1st post-op visit. Allergies levofloxacin (From Levaquin) Allergy (Severe, Verified 02/01/25 12:30) Difficulty Breathing carvedilol (Coreg) Allergy (Intermediate, Verified 02/01/25 12:30) hives codeine Allergy (Intermediate, Verified 02/01/25 12:30) hives Iodinated Contrast Media (IV Dye, Iodine Containing) Allergy (Intermediate, Verified 02/01/25 12:30) RASH/HIVES latex (LATEX) Allergy (Intermediate, Verified 02/01/25 12:30) RASH lisinopril Allergy (Intermediate, Verified 02/01/25 12:30) hives oxycodone (OXYCODONE) Allergy (Intermediate, Verified 02/01/25 12:30) RASH/HIVES metronidazole (Flagyl) Adverse Reaction (Intermediate, Verified 02/01/25 12:30) diarrhea Penicillins (PENICILLINS) Adverse Reaction (Intermediate, Verified 02/01/25 12:30) limp legs topiramate Adverse Reaction (Intermediate, Verified 02/01/25 12:30) ineffective Assessment & Plan Assessment & Plan (1) Lumbar radiculopathy: Code(s): M54.16 - Radiculopathy, lumbar region Category: Medical Plan Procedure: Left L4-5 lumbar microdiskectomy Giovanna comes in today for 1st postoperative visit after having a left-sided L4-[address] Dewey. To recap she was suffering from shooting pains down her left lower extremity into the ankle when evaluated in clinic preoperatively. Today, she reports that she initially felt much better directly after surgery, but has had a return of some of her symptoms. She feels her left knee is fairly weak in at times does not hold her up as it previously had. She also has some paresthesias over the left lateral calf. Given this, her shooting radicular pain down the left lower extremity seems to be improved. She is ambulating well and is able to go up and down stairs without much issue. She reports that she is not taking pain medication because ?it does not work. No new neurological deficits. The patient ambulates well and rises from seated position without difficulty. Her posterior incision site is closed and well healing. I would like to follow up with Giovanna again in 6 weeks for her 2nd postoperative visit to ensure that she continues to heal well from her surgery. Buck Dewey MD,PhD [facility] Coding Level of Care Code Global (12529) Diagnoses Lumbar radiculopathy M54.16
== END 2025-03-06 15:54 | disposition home or self-care (01) ==
LOC: HO.HNS 15:29
PROVIDERS: PCP Internal Medicine; Visit Provider Physician Assistant
DX: M54.16 Radiculopathy, lumbar region (principal)
CPT/HCPCS: 99024

== ENCOUNTER → 2025-03-06 15:29 | Outpatient (BNVA) | payer OTHER, SELFPAY | PROVIDERS: PCP Internal Medicine; Visit Provider Physician Assistant | DX: M54.16 Radiculopathy, lumbar region (principal); Z98.890 Other specified postprocedural states | CPT/HCPCS: 99212 ==

== ENCOUNTER → 2025-03-09 13:54 | Outpatient (REF) | payer OTHER, SELFPAY ==
--- NOTE | 2025-03-09 13:56 | CA_ITS ---
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 The visually estimated ejection fraction is between 55-60%. Spectral Doppler is indicative of a normal filling pattern. Right Ventricle Normal right ventricular cavity size and systolic function. Atria Both atria are normal in size. There is no evidence of interatrial shunt. Aortic Valve Normal aortic valve structure and function. There is no aortic valve stenosis. There is no aortic valve regurgitation. Mitral Valve Normal mitral valve structure and function. There is trace mitral valve regurgitation. There is no mitral valve stenosis. Pulmonic Valve The pulmonic valve is likely normal. Tricuspid Valve Normal tricuspid valve structure. There is trace tricuspid valve regurgitation. The right ventricular systolic pressure is normal. The right ventricular systolic pressure is 17 mmHg. Normal right atrial pressure. There is no evidence of pulmonary hypertension. Great Vessels All visible segments of the aorta are normal in size. The pulmonary artery was not well visualized. Venous The inferior vena cava is normal in size and collapses greater than 50% with inspiration. Pericardium/Pleural There is no evidence of pericardial effusion. Prior Study Comparison Changes noted compared to prior study dated: 01/26/2024. LV function is marginally improved Measurements 2D Linear Measurements IVSd: 0.79 0.6-0.9/0.6-1.0 cm LVIDd: 4.97 3.9-5.3/4.2-5.9 cm LVIDd Index: 2.91 2.4-3.2/2.2-3.1 cm/m2 LVIDs: 3.82 2.0-3.6 cm LVPWd: 0.66 0.7-1.1 cm LA Diam: 3.20 2.7-3.8/3.0-4.0 cm LAIDs Index: 1.87 1.5-2.3 cm/m2 LV Mass: 146.62 67-162/88-224 g LV Mass Index: 85.74 43-95/49-115 g/m2 LVOT Diam: 2.10 3.0+(-)1.3 cm 2D Systolic Function EF 4C: 52.50 >55% EF 2C: 57.10 >55% EF BiP: 56.00 >55% Mitral Valve MV Pk E: 0.81 MV PK A: 0.74 MV Decel Time: 264.00 E/A: 1.10 E'Lateral: 8.16 E'Medial: 6.96 E/E' Med: 11.60 E/E' Lat: 9.90 PHT: 77.00 MVA PHT: 2.86 Decel [place]: 3.07 Aortic Valve AoV Pk Santino: 1.29 AoV Mn Santino: 0.80 AoV VTI: 0.26 AoV Pk Grad: 7.00 Aov Mn Grad: 3.00 HINA Cont.VTI: 2.81 LVOT LVOT Pk Santino: 0.79 LVOT Mn Santino: 0.61 LVOT VTI: 0.21 LVOT Pk Grad: 2.00 LVOT Mn Grad: 2.00 LVOT Diam: 2.10 LVOT Area: 3.46 Diastolic Function MV Pk E: 0.81 MV Pk A: 0.74 E/A: 1.10 E'Medial: 6.96 E/E' Med: 11.60 E' Laterial: 8.16 E/E' Lat: 9.90 Right Ventricle TAPSE (mm): 26.10 TVS' Santino: 13.10 Tricuspid Valve TR Pk Santino: 1.88 TR Pk Grad: 14.00 RA Press: 3.00 RVSP: 17.00 Great Vessels Aorta Sinus of Valsalva: 3.07 2.0-3.[address] [place]: 2.38 1.7-3.4 cm Ao Asc: 3.30 2.1-3.4 cm Pulmonary Veins Pulm Vein S/D 1.30 Updated in Other Vendor System with Status of Final Jamie Hurst MD electronically signed on 03/09/2025 5:09:29 PM with status of Final
--- OUTSIDE RECORDS SUMMARY | 2025-03-09 14:45 | XMS_ITS | Patient Health Record ---
[facility] Address [address] [place] [address] Care Team Providers Care Design Consultant Name Role Phone Darshan Nails Unavailable [phone] Reason For Referral No Information Plan Of Treatment No Information
== END ==
LOC: HO.CARD 13:54
PROVIDERS: PCP Internal Medicine; Visit Provider Nurse Practitioner Family
DX: I25.10 Atherosclerotic heart disease of native coronary artery without angina pectoris (principal)
CPT/HCPCS: 93306

== ENCOUNTER → 2025-03-09 13:56 | Outpatient (BNV) | payer OTHER, SELFPAY | PROVIDERS: PCP Internal Medicine; Visit Provider Internal Medicine Cardiovascular Disease | DX: I25.10 Atherosclerotic heart disease of native coronary artery without angina pectoris (principal); Z86.79 Personal history of other diseases of the circulatory system | CPT/HCPCS: 93306 ==

== ENCOUNTER 2025-03-17 12:49 | Outpatient (REF) | payer OTHER, SELFPAY ==
--- NOTE | ~2025-03-17 | XR_ITS ---
EXAMINATION: XR CERVICAL SPINE CLINICAL INFORMATION: M54.2 - Cervicalgia COMPARISON: None available. TECHNIQUE: 6 views of the cervical spine, inclusive of flexion and extension views, were obtained. FINDINGS: There is straightening of the cervical lordosis. There is no prevertebral soft tissue swelling. C5-6 disc space is mildly narrowed. There is a small anterior osteophyte. No bony foraminal narrowing is noted. With flexion and extension, there is normal range of motion and no sign of instability. XR/XR cervical spine w flex/ext IMPRESSION: There is straightening of the expected cervical lordosis. This can be idiopathic, but can also be related to degenerative change, muscle spasm, or posterior soft tissue injury. Mild degenerative disc disease at C5-6. Electronically signed by: Lemuel Fischer MD 03/17/2025 02:36 PM EDT
--- NOTE | ~2025-03-17 | XR_ITS ---
EXAMINATION: XR ABDOMEN KUB CLINICAL INDICATION: N20.0 - Calculus of kidney COMPARISON: October 26, 2024. Correlated to CT dated December 02, 2024. TECHNIQUE: AP view of the abdomen. FINDINGS: No calcifications overlapping the kidney shadows. No intestinal dilatation. Stool within the right hemicolon. No air-fluid levels. Spondylosis at L4-5 and L5-S1 and to a lesser extent L3-4 level. Nonspecific 3 mm calcification in the right lower pelvis, unchanged. XR/XR KUB IMPRESSION: No gross nephrolithiasis based upon x-ray. Electronically signed by: Nikita Carias MD 03/17/2025 02:23 PM EDT
--- OUTSIDE RECORDS SUMMARY | 2025-03-17 12:52 | XMS_ITS | Patient Health Record ---
Author Organization [facility] Address [address] [place] [address] Care Team Providers Care Fiction Writer Name Role Phone Darshan Nails Unavailable [phone] Reason For Referral No Information Plan Of Treatment No Information
== END 2025-03-17 12:50 | disposition home or self-care (01) ==
LOC: HO.XRAY 12:49
PROVIDERS: PCP Internal Medicine; Visit Provider Urology
DX: N20.0 Calculus of kidney (principal); M54.2 Cervicalgia; I25.10 Atherosclerotic heart disease of native coronary artery without angina pectoris; M79.89 Other specified soft tissue disorders; I10 Essential (primary) hypertension; E78.5 Hyperlipidemia, unspecified; R07.89 Other chest pain; Z95.3 Presence of xenogenic heart valve
CPT/HCPCS: 72052; 74018; 99212

== ENCOUNTER 2025-03-17 12:53 | Outpatient (AMB) | payer OTHER, SELFPAY ==
[2025-03-17 13:09] VITALS: BP 134/72; PULSE 63; BMI 26.4
--- NOTE | 2025-03-17 13:09 | MHC.OFFVIS ---
Vital Signs 03/17/25 13:09 Height 5 ft 2 in Weight 144 lb 9.972 oz BMI 26.4 BP 134/72 Blood Pressure Location Lt brachial Pulse 63 Pulse Source Pulse Oximeter Intake Visit Reasons: Follow up after testing Wall Mirror Department Supervisor Required: No Examining Chair Assembler: Examining Chair Assembler Present Allergies levofloxacin (From Levaquin) Allergy (Severe, Verified 03/17/25 13:11) Difficulty Breathing carvedilol (Coreg) Allergy (Intermediate, Verified 03/17/25 13:11) hives codeine Allergy (Intermediate, Verified 03/17/25 13:11) hives Iodinated Contrast Media (IV Dye, Iodine Containing) Allergy (Intermediate, Verified 03/17/25 13:11) RASH/HIVES latex (LATEX) Allergy (Intermediate, Verified 03/17/25 13:11) RASH lisinopril Allergy (Intermediate, Verified 03/17/25 13:11) hives oxycodone (OXYCODONE) Allergy (Intermediate, Verified 03/17/25 13:11) RASH/HIVES metronidazole (Flagyl) Adverse Reaction (Intermediate, Verified 03/17/25 13:11) diarrhea Penicillins (PENICILLINS) Adverse Reaction (Intermediate, Verified 03/17/25 13:11) limp legs topiramate Adverse Reaction (Intermediate, Verified 03/17/25 13:11) ineffective Medication List - Last Reconciled 03/17/25 by NIURKA Gomez acetaminophen (Tylenol Extra Strength) 1,000 mg (2 x 500 mg) PO Q6H PRN 30 days amlodipine 5 mg PO DAILY aspirin 81 mg PO DAILY Held on 02/09/25. Instructions: Resume on 02/16/25. You may resume aspirin 1 week after surgery atogepant 60 mg PO DAILY 30 days atorvastatin 40 mg PO DAILY blood sugar diagnostic (FreeStyle Test strips) TEST 2 TIMES DAILY blood-glucose meter (FreeStyle [place] Lite kit) TEST 2 TIMES DAILY cholecalciferol (vitamin D3) 25 mcg PO DAILY 90 days digital therapeutic,ALEJANDRA device ([employer] Fernanda (migraine)) 45 min neuro stim qod and qd prn migraine. All triptans contraindicated d/t HTN. Ubrelvy ineffective. famotidine 40 mg PO BEDTIME hydrochlorothiazide 12.5 mg PO DAILY lancets (FreeStyle Lancets) use 1 lancet twice a day losartan 100 mg PO DAILY magnesium oxide 400 mg PO BEDTIME 30 days metoprolol succinate ER 50 mg PO DAILY nitroglycerin 0.4 mg sublingual Q5M PRN 30 days pantoprazole 40 mg PO DAILY pioglitazone 30 mg PO DAILY 90 days riboflavin (vitamin B2) 400 mg (4 x 100 mg) PO DAILY 90 days rimegepant (Nurtec ODT) 75 mg PO ONCE PRN 30 days MDD 1 HPI HPI Follow up after testing: Details: Giovanna is a 59-year-old female with past medical history of hypertension, hyperlipidemia, post cardiomyopathy post delivery 2003 with normalization of EF, , coronary artery disease with LAD stent in 2006, chronic atypical chest pains who presents for follow-up after recent nuclear stress test and echocardiogram. Today she reports she has been doing light physical activity due to recent back surgery. She reports fatigue when she tries to do activities such as washing the dishes. She continues to get some random chest pressure, not increasing since last visit. At times will last 15 minutes and other times it will last all day. She has shortness of breath with exertional activities. No shortness of breath at rest, PND, orthopnea. She does get leg edema at times. She has been mostly sedentary. Taking all meds as directed. [facility] Medical History History of blood transfusion Wears contact lenses Numbness and tingling in both hands Cubital tunnel syndrome on right Numbness and tingling in right hand Bilateral kidney stones Right upper quadrant abdominal pain Snoring Sleep difficulties Headache Palpitation Family history of cardiomyopathy Migraine Cervical cancer screening History of kidney stones Osteopenia Right shoulder pain Diabetes 1.5, managed as type 2 HTN (hypertension) CHF (congestive heart failure) Cardiomyopathy Renal calculi GERD (gastroesophageal reflux disease) On beta inez at home Right elbow pain Postmenopausal Nausea and vomiting Lower extremity edema Insomnia Medial epicondylitis, right elbow Elbow pain Epigastric pain cardiomyopathy (~2003) CAD (coronary artery disease) Dyslipidemia Fibromyalgia Surgical History History of endotracheal intubation (~2003) History of lung biopsy (~2003) Hx of cystoscopy H/O esophagogastroduodenoscopy (2022) History of carpal tunnel release Hx of dilation and curettage Hx of cataract extraction History of lumpectomy of right breast History of lumpectomy of left breast History of lithotripsy (10/26/24) History of exploratory laparotomy Hx of section History of hysteroscopy History of biopsy Stented coronary artery Hx of colonoscopy (2022) Hx of endoscopy Family History Father CVD (cardiovascular disease) HTN (hypertension) Cancer Type 2 diabetes mellitus Mother Breast cancer HTN (hypertension) Family/Other Diabetes Brother Diabetes HTN (hypertension) Sister Diabetes HTN (hypertension) Migraines Son Asthma Social History Household Members: Family and Children Household Members Other:: adult son and family Housing: Apartment Are you a primary pharmacy customer care specialist to a significant other at home: No Do you presently have visiting nurse or other home services: No Alcohol intake: former Patient Tobacco Use Status: Never used Tobacco Tobacco use type: Cigarette Years Smoked: 3 months e-Cigarette/Vaping Use: Never Used Second Hand Smoke Exposure: No service: No Current occupational status: disabled Current occupation: right hand dominant Gender identity: Female Cognitive needs: No Hearing needs: No Vision needs: No Female Reproductive History Menstrual Age of Menarche: 12 Review of Systems Const All systems reviewed & are unremarkable except as noted in HPI and below Reports fatigue ENT Denies dizziness Card Denies chest pain, Denies chest pain at rest, Denies chest pain with activity, Denies rapid heart rate, Denies pedal edema, Denies edema, Denies leg edema, Denies lightheadedness, Denies palpitations, Denies dyspnea, Denies dyspnea on exertion and Denies orthopnea Resp Denies cough, Denies dyspnea and Denies dyspnea on exertion GI Denies hematochezia and Denies change in stool character Musc Details: back discomfort from recent surgery Denies abnormal gait, Denies limited range of motion, Denies muscle cramps, Denies muscle weakness, Denies numbness, Denies radiating pain into limb, Denies stiffness and Denies tingling Neuro Denies abnormal gait, Denies dizziness, Denies numbness and Denies tingling Endo Reports fatigue and Denies palpitations Physical Exam Vital Signs: Last Vital Signs Pulse 63 03/17/25 13:09 BP 134/72 03/17/25 13:09 BMI result Body Mass Index 26.4 Const General: cooperative, healthy appearing, comfortable and no acute distress Orientation/consciousness: patient oriented x3 Neck Neck: Yes normal visual inspection Resp Effort & Inspection: normal respiratory effort Auscultation: clear to auscultation bilaterally, no rales, no rhonchi and no wheezes Cardio Rate: regular rate Rhythm: regular rhythm Heart sounds: S1 normal heart sound present, S2 normal heart sound present, no gallops, no murmurs and no rubs Neuro General: patient oriented x3 Extrem General: Yes normal to inspection, No no pedal edema and No calf tenderness Psych Appearance: grossly normal Mental Status: mental status grossly normal Speech and movement: Normal speech and movement present Assessment & Plan Assessment & Plan (1) CAD (coronary artery disease): Comment: stent in 2006 - [place]oll[place] Kassi Montano [employer] [facility] [place] Code(s): I25.10 - Atherosclerotic heart disease of [place] coronary artery without angina pectoris Category: Medical Plan: History of CAD with remote LAD stent, 2006, reported intermittent chest discomfort last visit. EKG done last visit showed sinus rhythm with PAC, no acute ST or T-wave abnormalities, rate 67. Pharmacological nuclear stress test done 02/03/2025 showing normal myocardial perfusion imaging, EF 41/40. Echocardiogram done 03/09/2025 showed EF 55-60%, no regional wall motion abnormalities. Test results reviewed with her. Offered reassurance that her current symptoms are not likely cardiac. Signs and symptoms of true angina reviewed. Continue aspirin indefinitely. Continue atorvastatin and Zetia with ideal LDL goal less than 70. Continue metoprolol. Cardiology follow-up 1 year, sooner if needed. (2) Leg swelling: Code(s): M79.89 - Other specified soft tissue disorders Category: Medical Plan: Prior reports of leg edema on amlodipine 10 mg daily. Dose reduced and she had improvement in her symptom. No edema on exam today. Reviewed low-salt diet. (3) Essential hypertension: Code(s): I10 - Essential (primary) hypertension Category: Medical Plan: Blood pressure goal less than 130/80. Near goal today. Labs 12/02/2024 showed potassium 3.8, creatinine 1.03. Continue losartan, hydrochlorothiazide, metoprolol, amlodipine. 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 Last echo showed EF 55-60%. Continue metoprolol XL and losartan for ongoing neurohormonal modulation.. (5) Stented coronary artery: Comment: 2006 LAD stent Code(s): Z95.5 - Presence of coronary angioplasty implant and graft Category: Surgical Plan: As above (6) Dyslipidemia: Code(s): E78.5 - Hyperlipidemia, unspecified Category: Medical Plan: [place] LDL goal less than 70 and patient with CAD. Labs done 01/26/2024 shows LDL 61. Continues on atorvastatin 40 mg daily and Zetia 10 mg daily. (7) Chest discomfort: Code(s): R07.89 - Other chest pain Category: Medical Plan: As above Plan I discussed with the patient that her cardiac tests, including the nuclear stress test and echocardiogram, were normal, indicating good heart function and open stents. We talked about her fatigue and sleep issues, noting they are not related to her heart condition, and advised her to monitor these symptoms. We reviewed her back pain and knee instability, emphasizing the importance of preventing falls. I advised her to follow up in one year unless new symptoms arise, in which case she should contact us sooner. Patient Instructions: - Continue current cardiac management as tests are normal. - Monitor chest pains and report any changes. - Focus on managing back pain and knee instability to prevent falls. - Follow up in one year or sooner if new symptoms develop. Patient was informed and verbally consented to the use of an ambient scribe for clinic note documentation during this visit. Visit time spent on chart review, interview, assessment, orders, documentation. Coding Level of Care Code Est Pt Level 4 (84400) Complex EM visit Add On G2211 Diagnoses CAD (coronary artery disease) I25.10 Leg swelling M79.89 Essential hypertension I10 cardiomyopathy O90.3 Stented coronary artery Z95.5 Dyslipidemia E78.5 Chest discomfort R07.89 Time Spent (min) 28
== END 2025-03-17 13:34 | disposition home or self-care (01) ==
LOC: HO.HCS 12:54
PROVIDERS: PCP Internal Medicine; Visit Provider Nurse Practitioner Family
DX: I25.10 Atherosclerotic heart disease of native coronary artery without angina pectoris (principal); M79.89 Other specified soft tissue disorders; I10 Essential (primary) hypertension; O90.3 Peripartum cardiomyopathy; Z95.5 Presence of coronary angioplasty implant and graft; E78.5 Hyperlipidemia, unspecified; R07.89 Other chest pain
CPT/HCPCS: 99214

== ENCOUNTER → 2025-03-17 13:39 | Outpatient (BNV) | payer OTHER, SELFPAY | PROVIDERS: PCP Internal Medicine; Visit Provider Radiology Diagnostic Radiology | DX: M54.2 Cervicalgia (principal); N20.0 Calculus of kidney | CPT/HCPCS: 74018 ==

== ENCOUNTER 2025-04-17 14:47 | Outpatient (REF) | payer OTHER, SELFPAY ==
--- NOTE | ~2025-04-17 | XR_ITS ---
CLINICAL HISTORY: M25.569 - Pain in unspecified knee 2 view left knee Comparison: None provided Findings: No fractures or dislocations. No significant loss of joint space, osteophytes, or erosions. No joint effusion. No radiopaque foreign body. IMPRESSION: 1. No acute findings. This document has been electronically signed by: Arlette Boland MD on 04/18/2025 14:12:33
== END 2025-04-17 14:48 | disposition home or self-care (01) ==
LOC: HO.HOSX 14:47
PROVIDERS: PCP Internal Medicine; Visit Provider Physician Assistant
DX: M51.26 Other intervertebral disc displacement, lumbar region (principal); M25.562 Pain in left knee
CPT/HCPCS: 73560; 99212

== ENCOUNTER 2025-04-17 14:47 | Outpatient (AMB) | payer OTHER, SELFPAY ==
--- NOTE | 2025-04-17 15:39 | HO.SPINEOV ---
Intake Visit Reasons: 2nd post op Intake Note: Ms. Quigley is here today for her 2nd post op [place] Carver Required: No Allergies levofloxacin (From Levaquin) Allergy (Severe, Verified 04/17/25 15:41) Difficulty Breathing carvedilol (Coreg) Allergy (Intermediate, Verified 04/17/25 15:41) hives codeine Allergy (Intermediate, Verified 04/17/25 15:41) hives Iodinated Contrast Media (IV Dye, Iodine Containing) Allergy (Intermediate, Verified 04/17/25 15:41) RASH/HIVES latex (LATEX) Allergy (Intermediate, Verified 04/17/25 15:41) RASH lisinopril Allergy (Intermediate, Verified 04/17/25 15:41) hives oxycodone (OXYCODONE) Allergy (Intermediate, Verified 04/17/25 15:41) RASH/HIVES metronidazole (Flagyl) Adverse Reaction (Intermediate, Verified 04/17/25 15:41) diarrhea Penicillins (PENICILLINS) Adverse Reaction (Intermediate, Verified 04/17/25 15:41) limp legs topiramate Adverse Reaction (Intermediate, Verified 04/17/25 15:41) ineffective Assessment & Plan Assessment & Plan (1) Lumbar disc herniation: Code(s): M51.26 - Other intervertebral disc displacement, lumbar region Category: Medical (2) Knee pain: Code(s): M25.569 - Pain in unspecified knee Category: Medical Plan Mrs Quigley is here in the office today to follow-up. We did a L4-5 left-sided microdiskectomy on her about 2 months ago. She had relief of her left leg pain but has had persistent pain in her anterior knee compartment radiating down her tibial region as well as have feeling like numbness in the outer tibial region as well. It is particularly aggravated in the knee when she is sitting for any length of time and has to get up and start walking. She does not describe any back pain or pain radiating down through her hip and posterolateral thigh like she had before surgery. Her wound is well healed. On exam she has tremendous amount of tenderness with range of motion under tension of her patellar tendon when her knee is extending, specifically midway through range of motion into full extension she will get tremendous pain that almost makes her leg want to give out when I am testing it. She has no specific loss of sensation to light touch. Because she is history of a herniated disc at L4-5, there is some overlap with the dermatomal distribution into the knee and since she still has numbness going down her anterior tibial region, I would like to get a follow up lumbar MRI with and without yannick 0 to rule out that the disc has not really herniated or there is a retained fragment. If this looks okay, I think she is dealing with patellar tendinitis. I will get a knee x-ray today as well and can refer her to Orthopedics if the MRI does not show anything. Total amount of time spent in this visit was 20 minutes in discussion of symptoms, ordering imaging and subsequent plan of care Burak Dewey MD,PhD [facility] Orders: Orders MR lumbar spine wo/w con Today M51.26 - Other intervertebral disc displacement, lumbar region XR knee LT 2V Today M25.569 - Pain in unspecified knee Coding Level of Care Code Est Pt Level 3 (73717) Diagnoses Lumbar disc herniation M51.26 Knee pain M25.569
== END 2025-04-17 15:56 | disposition home or self-care (01) ==
LOC: HO.HNS 14:47
PROVIDERS: PCP Internal Medicine; Visit Provider Physician Assistant
DX: M51.26 Other intervertebral disc displacement, lumbar region (principal); M25.569 Pain in unspecified knee
CPT/HCPCS: 99024

== ENCOUNTER → 2025-04-17 15:55 | Outpatient (BNV) | payer OTHER, SELFPAY | PROVIDERS: PCP Internal Medicine; Visit Provider Radiology Diagnostic Radiology | DX: M25.562 Pain in left knee (principal) | CPT/HCPCS: 73560 ==

== ENCOUNTER 2025-05-05 13:53 | Outpatient (REF) | payer OTHER, SELFPAY | END 2025-05-05 13:54 | disposition home or self-care (01) | LOC: HO.HOSX 13:53 | PROVIDERS: Visit Provider Physician Assistant | DX: Z13.89 Encounter for screening for other disorder (principal) ==

== ENCOUNTER 2025-05-10 12:42 | Outpatient (REF) | payer OTHER, SELFPAY ==
--- NOTE | ~2025-05-10 | XR_ITS ---
EXAMINATION: XR LUMBOSACRAL SPINE CLINICAL INFORMATION: M51.26 - Other intervertebral disc displacement, lumbar region COMPARISON: Previous x-ray April 2024 TECHNIQUE: 5 views of the lumbar spine, inclusive of flexion and extension views, were obtained. FINDINGS: There is 5 mm anterior subluxation of L4 with respect to L5. This decreases to 3 mm on flexion and extension views. Mild curvature of the mid lumbar spine to the left. Bone alignment is otherwise normal. No fracture or dislocation. Normal disc spaces. Lower lumbar spine facet arthritis. Atherosclerotic disease. XR/XR lumbar spine 4V min IMPRESSION: Mild 5 mm anterior subluxation of L4 with respect to L5 on neutral view. This decreases to 3 mm on left sotelo and extension views. Mild curvature to the left and lower lumbar spine facet arthritis. Electronically signed by: Elvai Merchant MD 05/10/2025 01:15 PM EDT
--- OUTSIDE RECORDS SUMMARY | 2025-05-10 16:06 | XMS_ITS | Patient Health Record ---
Author Organization [facility] Address [address] [place] [address] Care Team Providers Care Craniologist Name Role Phone Darshan Nails Unavailable [phone] Reason For Referral No Information Plan Of Treatment No Information
== END 2025-05-10 12:43 | disposition home or self-care (01) ==
LOC: HO.XRAY 12:42
PROVIDERS: PCP Internal Medicine; Visit Provider Physician Assistant
DX: M51.26 Other intervertebral disc displacement, lumbar region (principal)
CPT/HCPCS: 72110

== ENCOUNTER → 2025-05-10 12:45 | Outpatient (BNV) | payer OTHER, SELFPAY | PROVIDERS: PCP Internal Medicine; Visit Provider Radiology Diagnostic Radiology | DX: M43.16 Spondylolisthesis, lumbar region (principal) | CPT/HCPCS: 72110 ==

== ENCOUNTER 2025-05-24 08:41 | Outpatient (REF) | payer OTHER, SELFPAY ==
--- NOTE | ~2025-05-24 | US_ITS ---
CLINICAL HISTORY: N20.0 - Calculus of kidney US renal Comparison: 06/15/2024 Findings: Right kidney 10.1 cm length. No significant focal abnormality. Prominent column of King noted. Left kidney 10.6 cm length. No significant focal abnormality. No bilateral hydronephrosis. Normal bilateral renal echogenicity. Impression: No significant abnormalities. This document has been electronically signed by: Theo Martin MD on 05/24/2025 22:14:40
--- OUTSIDE RECORDS SUMMARY | 2025-05-24 09:17 | XMS_ITS | Patient Health Record ---
Author Organization [facility] Address [address] [place] [address] Care Team Providers Care Residency Coordinator Name Role Phone Darshan Nails Unavailable [phone] Reason For Referral No Information Plan Of Treatment No Information
[2025-05-24 10:33] LABS: Alanine Aminotransferase 20 U/L (0-31); Albumin Level 4.2 g/dL (3.5-5.0); Alkaline Phosphatase 60 U/L (39-117); Anion Gap 9 (12-20); Aspartate Amino Transferase 21 U/L (5-31); Blood Urea Nitrogen 16 mg/dL (9-16); Calcium 9.4 mg/dL (8.4-10.2); Carbon Dioxide 29 mmol/L (22-29); Chloride 110 mmol/L (96-108); Cholesterol 129 mg/dL (<200); Estimated Glomerular Filt Rate 55; HDL Cholesterol 48 mg/dL (>40); Potassium 3.7 mmol/L (3.3-5.1); Sodium 144 mmol/L (135-145); Total Protein 6.7 g/dL (6.5-8.0); Triglycerides 71 mg/dL (<150)
[2025-05-24 11:06] LABS: Microalbum/Creatinine Ratio Ur 5.7 ug/mg cr (<30)
== END 2025-05-24 08:42 | disposition home or self-care (01) ==
LOC: HO.US 08:41
PROVIDERS: Absent Provider Internal Medicine; PCP Internal Medicine; Visit Provider Urology
DX: N20.0 Calculus of kidney (principal); E55.9 Vitamin D deficiency, unspecified; E78.5 Hyperlipidemia, unspecified; E11.9 Type 2 diabetes mellitus without complications
CPT/HCPCS: 36415; 76775; 80053; 80061; 82043; 82306; 82570

== ENCOUNTER → 2025-05-24 08:47 | Outpatient (BNV) | payer OTHER, SELFPAY | PROVIDERS: Absent Provider Internal Medicine; PCP Internal Medicine; Visit Provider Radiology Diagnostic Radiology | DX: N20.0 Calculus of kidney (principal) | CPT/HCPCS: 76775 ==

== ENCOUNTER → 2025-06-13 10:05 | Outpatient (BNV) | payer OTHER, SELFPAY | PROVIDERS: PCP Internal Medicine; Visit Provider Radiology Diagnostic Radiology | DX: M51.26 Other intervertebral disc displacement, lumbar region (principal) | CPT/HCPCS: 72158 ==

== ENCOUNTER 2025-06-13 10:20 | Outpatient (REF) | payer OTHER, SELFPAY ==
--- NOTE | ~2025-06-13 | MR_ITS ---
EXAMINATION: MR LUMBAR SPINE WITHOUT CONTRAST CLINICAL INFORMATION: Other intervertebral disc displacement, lumbar region. 60-year-old female, low back pain radiating into left greater than right lower extremities. History of left L4-5 microdiscectomy 01/2025. COMPARISON: 12/12/2024 MR lumbar. TECHNIQUE: Multiplanar multisequence MR imaging of the lumbar spine was done both before and after the administration of the 7 mL IV Gadavist contrast. Examination was performed on a 1.5 Adwoa Siemens magnet, utilizing standard sequences. FINDINGS: CORONAL ALIGNMENT: -Normal. SAGITTAL ALIGNMENT: - Normal lordosis. -There is a stable 2 mm degenerative appearing anterolisthesis of L4 on L5. -Alignment is otherwise anatomic. LUMBOSACRAL JUNCTION: -Normal. There are 5 [id number]-[id number]-bphlptp lumbar-type vertebral bodies. VERTEBRAL BODIES/BONE MARROW: -Since the prior study, there has been a left hemilaminotomy at L4-5 with microdiscectomy. There is expected enhancement along the surgical tract, and involving the dorsal lateral thecal sac, and left neural foramen. -There is no additional abnormal dural or epidural enhancement. There is no abnormal fluid collection at the surgical site. -There is no abnormal bone marrow edema, or abnormal infiltrating bone marrow signal. -There is a hemangioma in the right aspect of L2. -There is no abnormal bone marrow enhancement. DISCS: -Mild loss of disc signal diffusely without significant loss of disc height at any level. SPINAL CANAL: -There is mild congenital spinal canal narrowing predominantly spanning L3-L5, with short pedicles and complicated by posterior epidural lipomatosis. This finding will exacerbate acquired spondylosis. CONUS MEDULLARIS: -Terminates at L1. Morphology and signal is normal. INTRADURAL NERVE ROOTS: - Within normal limits. -There is no abnormal conus or nerve root enhancement identified. No abnormal nerve root clumping is seen. Axial Disc Space Images: T12-L1: There is no central canal or neural foraminal stenosis. No change. L1-L2: There is no central canal or neural foraminal stenosis. No change. L2-L3: Mild hypertrophic facet changes bilaterally. There is no central canal or neural foraminal stenosis. No change. L3-L4: Congenital spinal canal narrowing with posterior epidural lipomatosis. Mild hypertrophic degenerative facet changes bilaterally. Shallow diffuse disc bulge with central annular fissure extending into both foraminal zones. Combination of findings is resulting in mild to moderate central canal stenosis, mild bilateral subarticular recess stenosis, and mild bilateral neural foraminal stenosis. No change. L4-L5: Interval left hemilaminotomy and left microdiscectomy. The previously seen left lateral extruded versus sequestered disc has been resected and is no longer present. Congenital spinal canal narrowing with posterior epidural lipomatosis. Mild hypertrophic degenerative facet changes bilaterally, with mild posterior ligamentous thickening/infolding. There is a shallow residual disc bulge with left lateral annular fissuring. This extends into both foraminal zones. There is similar moderate left greater than right neural foraminal stenosis. L5-S1: There is a shallow diffuse bulging disc with central annular fissuring. Normal appearing facets. No central canal, lateral recess, or significant neural foraminal narrowing. No interval change. IMAGED SI JOINTS: Mild degenerative changes bilaterally. PARAVERTEBRAL AND INCLUDED EXTRASPINAL SOFT TISSUES: -Normal. The aorta is normal in caliber. MR/MR lumbar spine wo/w con IMPRESSION: 1. The left lateral disc extrusion/sequestration at L4-5 has been resected and is no longer visualized. Expected postoperative changes related to left hemilaminotomy and microdiscectomy at this level. No complication evident. 2. Remainder of the examination remains unchanged as described above. Electronically signed by: Blake Rosales MD 06/13/2025 11:58 AM G[facility]
== END 2025-06-13 10:21 | disposition home or self-care (01) ==
LOC: HO.MRI 10:20
PROVIDERS: PCP Internal Medicine; Visit Provider Physician Assistant
DX: M51.26 Other intervertebral disc displacement, lumbar region (principal)
CPT/HCPCS: 72158; A9585

== ENCOUNTER 2025-06-28 14:52 | Outpatient (AMB) | payer OTHER, SELFPAY ==
[2025-06-28 14:53] VITALS: BP 158/88; PULSE 105; TEMP 36.7; O2SAT 99; BMI 38.9
--- NOTE | 2025-06-28 14:53 | A.OFFPC_ITS ---
Vital Signs 06/28/25 14:53 Height 5 ft 2 in Weight 212 lb 15.465 oz BMI 38.9 BP 158/88 H Blood Pressure Location Lt brachial Position Sitting BP not taken reason Patient Refused Pulse 105 H Pulse Source Pulse Oximeter Temp 98.1 F Temp Source Oral Pulse Oximetry (%) 99 Oxygen Delivery Method Room Air Intake Visit Reasons: Annual Exam- needs A1C+PHQ9 Lead Portfolio Manager Required: No Accompanied by: Self / Same As Patient Allergies levofloxacin (From Levaquin) Allergy (Severe, Verified 06/28/25 15:23) Difficulty Breathing carvedilol (Coreg) Allergy (Intermediate, Verified 06/28/25 15:23) hives codeine Allergy (Intermediate, Verified 06/28/25 15:23) hives Iodinated Contrast Media (IV Dye, Iodine Containing) Allergy (Intermediate, Verified 06/28/25 15:23) RASH/HIVES latex (LATEX) Allergy (Intermediate, Verified 06/28/25 15:23) RASH lisinopril Allergy (Intermediate, Verified 06/28/25 15:23) hives oxycodone (OXYCODONE) Allergy (Intermediate, Verified 06/28/25 15:23) RASH/HIVES metronidazole (Flagyl) Adverse Reaction (Intermediate, Verified 06/28/25 15:23) diarrhea Penicillins (PENICILLINS) Adverse Reaction (Intermediate, Verified 06/28/25 15:23) limp legs topiramate Adverse Reaction (Intermediate, Verified 06/28/25 15:23) ineffective levoquin Allergy (Severe, Uncoded 06/28/25 15:23) breathing Medication List - Last Reconciled 06/28/25 by Chen Pond MD acetaminophen (Tylenol Extra Strength) 1,000 mg (2 x 500 mg) PO Q6H PRN 30 days amlodipine 5 mg PO DAILY aspirin 81 mg PO DAILY Held on 02/09/25. Instructions: Resume on 02/16/25. You may resume aspirin 1 week after surgery atogepant 60 mg PO DAILY 30 days atorvastatin 40 mg PO DAILY blood sugar diagnostic (FreeStyle Test strips) TEST 2 TIMES DAILY blood-glucose meter (FreeStyle [place] Lite kit) TEST 2 TIMES DAILY cholecalciferol (vitamin D3) 25 mcg PO DAILY 90 days digital therapeutic,ALEJANDRA device ([employer] Digital Fernanda (migraine)) 45 min neuro stim qod and qd prn migraine. All triptans contraindicated d/t HTN. Ubrelvy ineffective. famotidine 40 mg PO BEDTIME hydrochlorothiazide 12.5 mg PO DAILY lancets (FreeStyle Lancets) use 1 lancet twice a day losartan 100 mg PO DAILY magnesium oxide 400 mg PO BEDTIME 30 days metoprolol succinate ER 50 mg PO DAILY nitroglycerin 0.4 mg sublingual Q5M PRN 30 days pantoprazole 40 mg PO DAILY pioglitazone 30 mg PO DAILY 90 days riboflavin (vitamin B2) 400 mg (4 x 100 mg) PO DAILY 90 days rimegepant (Nurtec ODT) 75 mg PO ONCE PRN 30 days MDD 1 Tobacco use date assessed: 06/28/25 Dental Screening Dental Screen Date: 06/28/25 Did you have a dental visit in the last 12 months?: Yes HPI HPI Comments History of Present Illness Details The patient is a 60-year-old individual presenting for an annual physical examination. Regarding hypertension, the patient's blood pressure was elevated today. The patient reports variable adherence to medication timing, often delaying the morning dose until the afternoon if the pressure is low or normal, out of concern it will drop too low. Current antihypertensive medications include amlodipine 5 mg, hydrochlorothiazide, and losartan. The patient reports experiencing dizziness, and a physical therapist noted nystagmus and suggested it could be a side effect of amlodipine. The patient has a history of back surgery and reports persistent back pain. A recent spine MRI reportedly showed the surgery was successful. The patient also reports left leg weakness and a sensation like anesthesia wearing off, which began after a twisting event in the shower, and has resulted in several falls. A neurologist evaluated these symptoms, identified neck and spine issues, and referred the patient to physical therapy, which has been difficult to attend due to transportation. The patient has type 2 diabetes managed with pioglitazone 30 mg. Recent labs from April showed an A1c of 5.8%, LDL cholesterol of 67, and a GFR of 55. Past surgical history is significant for bilateral breast lumpectomies, lithotripsy, exploratory lapar laparotomy with appendectomy in 1991, two C- sections, hysteroscopy, and a stented coronary artery (LAD) in 2006. The patient has undergone two subsequent cardiac catheterizations without additional stent placement. Family history is notable for a mother with cardiomyopathy and diabetes, and a father with diabetes, hypertension, hyperlipidemia, and a history of a heart attack. The patient reports urinary frequency and bladder pain that radiates to the back. The patient has a history of kidney stones, sees a urologist, and had an order for a test about a year ago that has since without being completed. Current medications discussed include Tylenol, amlodipine 5mg, aspirin, famotidine, hydrochlorothiazide, losartan, vitamin B2, and pioglitazone 30mg. The patient reports using Nurtec, which is ineffective. Known allergies include Levaquin, carvedilol, codeine, contrast dye, latex, lisinopril, oxycodone, metronidazole, penicillin, and Topamax. - Mammogram: Completed this year. - Colonoscopy: Completed in 2022. - Immunizations: Received the influenza vaccine. Tetanus vaccine is due next year. - Lab results (April): HbA1c 5.8%, GFR 55, LDL cholesterol 67 mg/dL, and normal vitamin D level. [facility] Medical History Knee pain History of blood transfusion Wears contact lenses Numbness and tingling in both hands Cubital tunnel syndrome on right Numbness and tingling in right hand Bilateral kidney stones Right upper quadrant abdominal pain Snoring Sleep difficulties Headache Palpitation Family history of cardiomyopathy Migraine Cervical cancer screening History of kidney stones Osteopenia Right shoulder pain Diabetes 1.5, managed as type 2 HTN (hypertension) CHF (congestive heart failure) Cardiomyopathy Renal calculi GERD (gastroesophageal reflux disease) On beta inez at home Right elbow pain Postmenopausal Nausea and vomiting Lower extremity edema Insomnia Medial epicondylitis, right elbow Elbow pain Epigastric pain cardiomyopathy (~2003) CAD (coronary artery disease) Dyslipidemia Fibromyalgia Surgical History History of endotracheal intubation (~2003) History of lung biopsy (~2003) Hx of cystoscopy H/O esophagogastroduodenoscopy (2022) History of carpal tunnel release Hx of dilation and curettage Hx of cataract extraction History of lumpectomy of right breast History of lumpectomy of left breast History of lithotripsy (10/26/24) History of exploratory laparotomy Hx of section History of hysteroscopy History of biopsy Stented coronary artery Hx of colonoscopy (2022) Hx of endoscopy Family History (Updated 06/28/25 @ 15:37 by Chen Pond MD) Father CVD (cardiovascular disease) HTN (hypertension) Cancer Type 2 diabetes mellitus Heart attack Mother Breast cancer HTN (hypertension) Alzheimer dementia Diabetes Cardiomyopathy Family/Other Diabetes Brother Diabetes HTN (hypertension) Sister Diabetes HTN (hypertension) Migraines Son Asthma Social History (Updated 06/28/25 @ 15:38 by Chen Pond MD) Household Members: Family and Children Household Members Other:: adult son and family Housing: Apartment Are you a primary wound care technician to a significant other at home: No Do you presently have visiting nurse or other home services: No Alcohol intake: former Patient Tobacco Use Status: Former Tobacco user Tobacco use type: Cigarette Years Smoked: 3 months e-Cigarette/Vaping Use: Never Used Second Hand Smoke Exposure: No service: No Current occupational status: disabled Current occupation: right hand dominant Gender identity: Female Cognitive needs: No Hearing needs: No Vision needs: Yes (contacts) Female Reproductive History Menstrual Age of Menarche: 12 Questionnaire PHQ-9 Over the last 2 weeks, how often have you been bothered by any of the following problems? 1. Little interest or pleasure in doing things: not at all 2. Feeling down, depressed, or hopeless: not at all 3. Trouble falling or staying asleep, or sleeping too much: not at all 4. Feeling tired or having little energy: not at all 5. Poor appetite or overeating: not at all 6. Feeling bad about yourself - or that you are a failure or have let yourself or your family down: not at all 7. Trouble concentrating on things, such as reading the newspaper or watching television: not at all 8. Moving or speaking so slowly that other people could have noticed. Or the opposite - being so fidgety or restless that you have been moving around a lot more than usual: not at all 9. Thoughts that you would be better off or of hurting yourself in some way: not at all Total score: 0 Depression Screening Interpretation: Negative Depression Screening Done: Yes 10799 - PHQ-9 Billing: Yes Source: Developed by Drs. Darshan Tate, Aggie Burgos, Gerson Obrien and colleagues, with an educational callie from [employer]. Thrive Questionnaire Date Thrive assessed: 06/28/25 AUDIT C Alcohol Use Questionnaire (AUDIT-C) 1. How often do you have a drink containing alcohol?: Never Total Score: 0 DENVER-7 AMB Questionnaire DENVER-7 Date DENVER - 7 assessed: 06/28/25 Feeling nervous, anxious, or on edge: 0 = Not at all Not being able to stop or control worryin = Not at all Worrying too much about different things: 0 = Not at all Trouble relaxin = Not at all Being so restless that it is hard to sit still: 0 = Not at all Becoming easily annoyed or irritable: 0 = Not at all Feeling afraid as if something awful might happen: 0 = Not at all Total DENVER-7 score (0-4 normal; 5-9 mild; 10-14 moderate; 15-21 severe): 0 Source: Developed by Drs. Darshan Tate, Aggie Burgos, Gerson Obrien and colleagues, with an educational callie from [employer]. DENVER-7 Assessment Billing DENVER-7 Assessment Tool: DENVER-7 Assessment 25087 Review of Systems Const All systems reviewed & are unremarkable except as noted in HPI and below Card Denies chest pain at rest, Denies chest pain with activity, Denies edema, Denies irregular heart rhythm, Denies claudication, Denies dyspnea, Denies dyspnea on exertion, Denies orthopnea, Denies paroxysmal nocturnal dyspnea and Denies slow heart rate Resp Denies cough, Denies dyspnea and Denies dyspnea on exertion Physical exam (Primary Care) Vital Signs: Last Vital Signs Temp 98.1 F 06/28/25 14:53 Pulse 105 H 06/28/25 14:53 BP 158/88 H 06/28/25 14:53 Pulse Ox 99 06/28/25 14:53 Oxygen Delivery Method Room Air 06/28/25 14:53 BMI result Body Mass Index 38.9 BMI Assessment/Plan discussion: High BMI High, discussed plan: lifestyle, weight reduction, dietary and physical activity Tobacco/Smoking Status: Tobacco use Status Tobacco use date assessed 06/28/25 06/28/25 14:55 Patient Tobacco Use Status Never used Tobacco 06/28/25 14:55 Tobacco use type Cigarette 06/28/25 14:55 e-Cigarette/Vaping Use Never Used 06/28/25 14:55 PHQ-9: PHQ-9 Score PHQ-9: Total score 0 06/28/25 14:55 Depression Screening Interpretation: Negative Thrive Assessment: Date of Thrive Assessment Date Thrive assessed 06/28/25 06/28/25 14:55 [facility] Head: Yes normal to inspection, Yes normocephalic and Yes atraumatic Ears: external ears normal Eyes General: appearance normal, both eyes and all related structures Eyelids: Yes eyelids normal Conjunctivae: conjunctivae normal Neck Neck: Yes normal visual inspection and Yes supple Resp Effort & Inspection: normal respiratory effort Auscultation: clear to auscultation bilaterally Cardio Jugular venous distension: no JVD Rate: regular rate Rhythm: regular rhythm Heart sounds: S1 normal heart sound present and S2 normal heart sound present GI Inspection: Yes normal to inspection Palpation (GI): Soft to palpation and nontender Auscultation: normal bowel sounds Skin General skin exam: no rashes or lesions noted Neuro General: no focal motor deficits Extrem General: Yes full ROM Psych Appearance: grossly normal Office Procedures Flu Questionnaire Does the patient have a severe egg allergy?: No Does the patient have severe life threatening allergies?: No Does the patient have a fever or illness today?: No Has the patient ever had Guillain-[place] Syndrome?: No Has the patient ever had any past reaction to a flu shot?: No Results AMB Hemoglobin A1c AMB Hemoglobin A1c 5.8 % Last Edit by Dariana Peres CMA on 06/28/25 15:1 4 Immunizations Fluarix [id number] (PF) 45 mcg (15 mcg x 3)/0.5 mL IM syringe Performing Provider: Chen Pond MD [facility] Administered by: Dariana Peres CMA on 06/28/25 15:12 Dose Route Admin Location Dispensed Lot Number Expiration Date [facility] Heating Mechanic 0.5 mL IM Left Deltoid 0.5 mL [id number] 01/23/26 [id number] Paired Health VIS Given Date VIS Provided VIS Publication Date 06/28/25 Single Vaccine 24 Eligibility Eligibility Date Funding Source Not [facility] Eligible 06/28/25 Private Results Reviewed Results Reviewed: Laboratory Last Values Hgb A1c (Clinic) 5.8 % (4.0-6.0) 06/28/25 15:13 Coding Level of Care Code Est Pt Level 3 (84846) Est Pt Prev Care 40-64y(49408) Diagnoses Physical exam Z00.00 Diabetes mellitus E11.9 Additional Codes PHQ-9 - 57745 - PHQ-9 Billing: Yes ([id number]) DENVER-7 Assessment Billing - DENVER-7 Assessment Tool: DENVER-7 Assessment 17968 ([id number]) Time Spent (min) 32 Assessment & Plan Assessment & Plan (1) Physical exam: Code(s): Z00.00 - Encounter for general adult medical examination without abnormal findings Category: Medical (2) Diabetes mellitus: Code(s): E11.9 - Type 2 diabetes mellitus without complications Category: Medical Plan Plan 1. Physical exam Repeat in a year. Continue yearly mammograms. 2. Type 2 Diabetes Mellitus The patient's glycemic control is excellent, with a recent A1c of 5.8%. Given this, the current dose of pioglitazone 30 mg is likely excessive. The plan is to reduce the pioglitazone dose to 15 mg daily. 3. Essential Hypertension The patient's blood pressure is elevated today. The patient reports dizziness, which may be a side effect of amlodipine. The plan is to lower the amlodipine dose to assess for improvement in dizziness. The patient is advised to continue monitoring blood pressure at home after this change. 4. Chronic Back Pain And Left Leg Weakness The patient has ongoing back pain and left leg symptoms despite a spine MRI showing a successful prior operation. A neurologist has recommended physical therapy for related neck and spine issues. The patient is encouraged to continue with the physical therapy plan. 5. Dizziness The patient's persistent dizziness is being investigated as a potential side effect of amlodipine, as suggested by a physical therapist who observed nystagmus. The plan is to lower the amlodipine dose to see if symptoms resolve. Orders: Orders Lipid Panel 4 Months Chen Pond MD E78.5 - Hyperlipidemia, unspecified Microalbumin, Random (w Creat) 4 Months Chen Pond MD R80.9 - Proteinuria, unspecified Vitamin D 25-OH Total 4 Months Chen Pond MD E55.9 - Vitamin D deficiency, unspecified AMB Hemoglobin A1c Today Cehn Pond MD Z13.9 - Encounter for screening, unspecified Influenza 1113-3231 Immunization Today Chen Pond MD Z23 - Encounter for immunization Comprehensive [place]. Panel Fast 4 Months Chen Pond MD E11.9 - Type 2 diabetes mellitus without complications Medications: New pioglitazone 15 mg PO DAILY 90 tabs 1RF 90 days Chen Podn MD amlodipine 2.5 mg PO DAILY 90 tabs 1RF 90 days Chen Pond MD Discontinued amlodipine Discontinued Reason: Patient Completed Course 5 mg PO DAILY 90 tabs 3RF pioglitazone Discontinued Reason: Patient Completed Course 30 mg PO DAILY 90 days 90 tabs 0RF Resumed aspirin 81 mg PO DAILY 30 tabs 2RF Lee Rivera MD
--- OUTSIDE RECORDS SUMMARY | 2025-06-28 17:46 | XMS_ITS | Patient Health Record ---
Author Organization [facility] Address [address] [place] [address] Care Team Providers Care Dobby Loom Chain Pegger Name Role Phone Darshan Nails Unavailable [phone] Reason For Referral No Information Plan Of Treatment No Information
== END 2025-06-28 15:44 | disposition home or self-care (01) ==
LOC: HO.HMCH 14:53
PROVIDERS: PCP Internal Medicine; Visit Provider Internal Medicine
DX: Z00.00 Encounter for general adult medical examination without abnormal findings (principal); E11.9 Type 2 diabetes mellitus without complications; Z23 Encounter for immunization

== ENCOUNTER → 2025-06-28 14:52 | Outpatient (BNVA) | payer OTHER, SELFPAY | PROVIDERS: PCP Internal Medicine; Visit Provider Internal Medicine | DX: Z00.00 Encounter for general adult medical examination without abnormal findings (principal); Z23 Encounter for immunization; E11.9 Type 2 diabetes mellitus without complications | CPT/HCPCS: 83036; 90471; 90656; 96127; 99212; 99396 ==

== ENCOUNTER 2025-07-05 11:36 | Outpatient (AMB) | payer OTHER, SELFPAY ==
[2025-07-05 11:42] VITALS: BP 182/84; PULSE 65; BMI 27.7
--- NOTE | 2025-07-05 11:42 | MHC.OFFVIS ---
Vital Signs 07/05/25 11:42 Height 5 ft 2 in Weight 151 lb 3.794 oz BMI 27.7 BP 182/84 H Blood Pressure Location Lt brachial Position Sitting Pulse 65 Intake Visit Reasons: follow up gerd Intake Note: Patient in office today in follow up of GERD. CC: Patient c/o heartburn, acid reflux, nausea, epigastric pain, and abdominal bloating. 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 Accompanied by: Self / Same As Patient Allergies levofloxacin (From Levaquin) Allergy (Severe, Verified 07/05/25 11:45) Difficulty Breathing carvedilol (Coreg) Allergy (Intermediate, Verified 07/05/25 11:45) hives codeine Allergy (Intermediate, Verified 07/05/25 11:45) hives Iodinated Contrast Media (IV Dye, Iodine Containing) Allergy (Intermediate, Verified 07/05/25 11:45) RASH/HIVES latex (LATEX) Allergy (Intermediate, Verified 07/05/25 11:45) RASH lisinopril Allergy (Intermediate, Verified 07/05/25 11:45) hives oxycodone (OXYCODONE) Allergy (Intermediate, Verified 07/05/25 11:45) RASH/HIVES metronidazole (Flagyl) Adverse Reaction (Intermediate, Verified 07/05/25 11:45) diarrhea Penicillins (PENICILLINS) Adverse Reaction (Intermediate, Verified 07/05/25 11:45) limp legs topiramate Adverse Reaction (Intermediate, Verified 07/05/25 11:45) ineffective levoquin Allergy (Severe, Uncoded 06/28/25 15:23) breathing HPI HPI follow up gerd: Details: Assessment & Plan (1) Irritable bowel syndrome with diarrhea: Code(s): K58.0 - Irritable bowel syndrome with diarrhea (2) GERD (gastroesophageal reflux disease): Code(s): K21.9 - Gastro-esophageal reflux disease without esophagitis Qualifiers: Esophagitis presence: without esophagitis Qualified Code(s): K21.9 - Gastro-esophageal reflux disease without esophagitis Plan She has been having trouble getting many of her chronic medications because they been sent to [facility] instead of [facility]. [facility] is only supposed to be used for her migraine medications. She is getting a lot of HB because she ran out of her pantoprazole r/t this above. I will redirect this. She finds that her diarrhea is very random and she is not using the cholestyramine as she dislikes taking something daily. She is trying to manage this with diet and avoiding fats and trigger foods. She continues to struggle with migraines. She has failed many medications and botox shots and they are talking about a new device that manages migraines via vibrations. ROV 6 mos. Medications: Refilled pantoprazole 40 mg PO DAILY 90 days 90 tabs 2RF famotidine 40 mg PO BEDTIME 90 tabs 2RF K21.9 - Gastro-esophageal reflux disease without esophagitis Discontinued esomeprazole magnesium Discontinued Reason: Doctor's Order 40 mg PO DAILY 90 caps 1RF K21.9 - Gastro-esophageal reflux disease without esophagitis, R10.13 - Epigastric pain TODAY'S VISIT Patient has been lost to follow-up since 09/2023 [facility] Medical History Knee pain History of blood transfusion Wears contact lenses Numbness and tingling in both hands Cubital tunnel syndrome on right Numbness and tingling in right hand Bilateral kidney stones Right upper quadrant abdominal pain Snoring Sleep difficulties Headache Palpitation Family history of cardiomyopathy Migraine Cervical cancer screening History of kidney stones Osteopenia Right shoulder pain Diabetes 1.5, managed as type 2 HTN (hypertension) CHF (congestive heart failure) Cardiomyopathy Renal calculi GERD (gastroesophageal reflux disease) On beta inez at home Right elbow pain Postmenopausal Nausea and vomiting Lower extremity edema Insomnia Medial epicondylitis, right elbow Elbow pain Epigastric pain cardiomyopathy (~2003) CAD (coronary artery disease) Dyslipidemia Fibromyalgia Surgical History History of endotracheal intubation (~2003) History of lung biopsy (~2003) Hx of cystoscopy H/O esophagogastroduodenoscopy (2022) History of carpal tunnel release Hx of dilation and curettage Hx of cataract extraction History of lumpectomy of right breast History of lumpectomy of left breast History of lithotripsy (10/26/24) History of exploratory laparotomy Hx of section History of hysteroscopy History of biopsy Stented coronary artery Hx of colonoscopy (2022) Hx of endoscopy Family History (Updated 06/28/25 @ 15:37 by Chen Pond MD) Father CVD (cardiovascular disease) HTN (hypertension) Cancer Type 2 diabetes mellitus Heart attack Mother Breast cancer HTN (hypertension) Alzheimer dementia Diabetes Cardiomyopathy Family/Other Diabetes Brother Diabetes HTN (hypertension) Sister Diabetes HTN (hypertension) Migraines Son Asthma Social History (Updated 06/28/25 @ 15:38 by Chen Pond MD) Household Members: Family and Children Household Members Other:: adult son and family Housing: Apartment Are you a primary foster care social worker to a significant other at home: No Do you presently have visiting nurse or other home services: No Alcohol intake: former Patient Tobacco Use Status: Former Tobacco user Tobacco use type: Cigarette Years Smoked: 3 months e-Cigarette/Vaping Use: Never Used Second Hand Smoke Exposure: No service: No Current occupational status: disabled Current occupation: right hand dominant Gender identity: Female Cognitive needs: No Hearing needs: No Vision needs: Yes (contacts) Female Reproductive History Menstrual Age of Menarche: 12 Review of Systems Const Denies fatigue, Denies fever(s), Denies night sweats, Denies poor appetite, Reports weight gain and Denies weight loss ENT Reports Normal hearing present, Denies dental pain, Denies dysphagia, Denies hearing loss, Denies mouth pain, Denies odynophagia, Denies throat swelling, Denies tongue swelling and Reports other (Dentition adequate) Card Reports no additional complaints Resp Reports no additional complaints GI Details: Borborygmus Denies abdominal pain, Denies melena, Reports bloating, Denies hematochezia, Denies constipation, Denies GI cramping, Denies dysphagia, Denies excessive flatus, Denies early satiety, Reports heartburn, Denies diarrhea, Reports loose stools, Denies nausea, Denies odynophagia, Denies vomiting and Denies hematemesis Musc Reports back pain, Reports myalgias, Reports arthralgias, Reports muscle cramps, Reports muscle weakness and Reports stiffness Skin/Breast Denies pruritus, Denies lesions, Denies rash and Denies jaundice Neuro Reports Normal hearing present and Denies Abnormal speech present Endo Denies fatigue Aller/Immun Denies throat swelling and Denies tongue swelling Physical Exam Vital Signs: Last Vital Signs Pulse 65 07/05/25 11:42 BP 182/84 H 07/05/25 11:42 BMI result Body Mass Index 27.7 Const General: cooperative, no acute distress, well developed and well groomed Nutritional Appearance: well nourished and obese Orientation/consciousness: oriented to person, oriented to place and oriented to time Limitations: No language barrier HEENT Head: Yes normocephalic and Yes atraumatic Eyes General: appearance normal, both eyes and all related structures Pupils: Equal, round and reactive pupils present Neck Neck: Yes normal visual inspection and Yes no lymphadenopathy Thyroid: Thyroid normal Resp Effort & Inspection: normal respiratory effort and able to speak in complete sentences Auscultation: clear to auscultation bilaterally Cardio Rate: regular rate Rhythm: regular rhythm Heart sounds: Normal, physiologic split S2 sound present Peripheral pulses: radial pulses present and posterior tibial pulses present GI Inspection: Yes distended, Yes Abdominal panniculus present and Yes obesity Palpation (GI): Soft to palpation, nontender, no guarding, not rigid and No hepatosplenomegaly present Percussion: Yes normal to percussion Auscultation: normal bowel sounds Rectal Exam - Female: deferred Skin General skin exam: no rashes or lesions noted, turgor normal, skin not dry, no jaundice, No spider nevi and no striae Rashes: no rashes Nails: normal Neuro General: oriented to person, oriented to place and oriented to time Cranial nerves: Yes Equal, round and reactive pupils present and Yes Normal hearing present Speech: No Abnormal speech present Extrem General: Yes normal to inspection, No clubbing, No cyanosis and No edema Psych Appearance: grossly normal and well kempt Mental Status: mental status grossly normal Speech and movement: Normal speech and movement present Affect: normal affect Attitude: cooperative Thought process: Normal thought process present and not confabulating Thought content: Normal thought content present Insight: Fair insight present (Psych) and Limited insight present (Psych) Judgement: Fair judgement present (Psych) and Limited judgement present (Psych) Assessment & Plan Assessment & Plan (1) Functional dyspepsia: Code(s): K30 - Functional dyspepsia Category: Medical Plan Her last known GI regimen was pantoprazole and famotidine. She suffers diarrhea but preferred diet control to medication control. She has been lost to follow-up since 09/2023 She will be going to [place] for the Holidays! Subjective Patient presents with persistent heartburn occurring nearly constantly, accompanied by upper abdominal bloating that worsens nightly and significant nausea. She has been taking pantoprazole and famotidine. Reports intermittent diarrhea triggered by certain foods, consistent with prior pattern and not the primary concern today. She is diabetic. Over the past year she started migraine therapies (Qulipta and Nurtec). She notes a perceived recent weight change and pharmacy contact regarding famotidine. She is engaged in physical therapy for neck related to migraines. She experiences increased frequency of kidney stones, with a stone episode in October. She previously attempted but did not complete a gastric emptying study. Relevant Past Medical, Social, and Family History - Diabetes mellitus. - Migraines; currently on Qulipta and Nurtec; in neck physical therapy. - Fibromyalgia. - History of kidney stones (episode in October). - Back surgery in January (minimally invasive) with subsequent leg symptoms attributed to bulging disc and pinched nerves. Objective - Weight today 151 lb; prior 144 lb in February 2025. Assessment & Plan GERD with bloating and nausea; concern for diabetic gastroparesis: Persistent heartburn with upper abdominal bloating and significant nausea in the context of diabetes raises concern for impaired gastric emptying. Symptoms have worsened, and prior gastric emptying study was not completed. Weight gain of approximately 10 lb may be contributory. 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 - Start metoclopramide, four times daily (breakfast, lunch, supper, and bedtime), to promote gastric motility; take doses on schedule regardless of meals. - Continue current acid suppression (pantoprazole and famotidine) without changes at this time to avoid multiple simultaneous medication adjustments. - Counseling provided on metoclopramide: typically well tolerated at low doses; discussed rare adverse effects with prolonged/high-dose use, including tremor and restlessness (e.g., restless legs-like symptoms). Instructed to report concerning side effects. - Defer gastric emptying study for now given prior intolerance; will manage empirically. - If symptoms persist despite regimen, consider adjusting acid-reducing therapy at next visit. - Follow up in approximately 8 weeks (post-holidays) for reassessment. Medications: New metoclopramide HCl (Reglan) 5 mg PO QID 120 tabs 6RF K30 - Functional dyspepsia Refilled famotidine 40 mg PO BEDTIME 90 tabs 0RF K21.9 - Gastro-esophageal reflux disease without esophagitis pantoprazole 40 mg PO DAILY 30 tabs 6RF Coding Level of Care Code Est Pt Level 4 (45622) Diagnoses Functional dyspepsia K30 Time Spent (min) 35
== END 2025-07-05 12:10 | disposition home or self-care (01) ==
LOC: HO.HGI 11:37
PROVIDERS: PCP Internal Medicine; Visit Provider Nurse Practitioner
DX: K30 Functional dyspepsia (principal)
CPT/HCPCS: 99214

== ENCOUNTER → 2025-07-05 11:36 | Outpatient (BNVA) | payer OTHER, SELFPAY | PROVIDERS: PCP Internal Medicine; Visit Provider Nurse Practitioner | DX: K21.9 Gastro-esophageal reflux disease without esophagitis (principal); K58.0 Irritable bowel syndrome with diarrhea; K30 Functional dyspepsia; Z79.899 Other long term (current) drug therapy | CPT/HCPCS: 99212 ==

== ENCOUNTER 2025-07-07 10:39 | Outpatient (AMB) | payer OTHER, SELFPAY ==
--- NOTE | 2025-07-07 10:46 | A.OFFVIS_ITS ---
Intake Visit Reasons: Follow up Nephrolithiasis Intake Note: Patient is present for follow up with KUB/US * 03/17 KUB * 05/24 Renal US Urology Med:Vitamin B12 Antibiotic Allergy:None Blood Thinner: Aspirin Ampoule Filler And Sealer Required: No Accompanied by: Self / Same As Patient Allergies levofloxacin (From Levaquin) Allergy (Severe, Verified 07/07/25 10:48) Difficulty Breathing carvedilol (Coreg) Allergy (Intermediate, Verified 07/07/25 10:48) hives codeine Allergy (Intermediate, Verified 07/07/25 10:48) hives Iodinated Contrast Media (IV Dye, Iodine Containing) Allergy (Intermediate, Verified 07/07/25 10:48) RASH/HIVES latex (LATEX) Allergy (Intermediate, Verified 07/07/25 10:48) RASH lisinopril Allergy (Intermediate, Verified 07/07/25 10:48) hives oxycodone (OXYCODONE) Allergy (Intermediate, Verified 07/07/25 10:48) RASH/HIVES metronidazole (Flagyl) Adverse Reaction (Intermediate, Verified 07/07/25 10:48) diarrhea Penicillins (PENICILLINS) Adverse Reaction (Intermediate, Verified 07/07/25 10:48) limp legs topiramate Adverse Reaction (Intermediate, Verified 07/07/25 10:48) ineffective levoquin Allergy (Severe, Uncoded 06/28/25 15:23) breathing Medication List - Last Reconciled 07/07/25 by Latha Beltrán MD acetaminophen (Tylenol Extra Strength) 1,000 mg (2 x 500 mg) PO Q6H PRN 30 days amlodipine 2.5 mg PO DAILY 90 days aspirin 81 mg PO DAILY atogepant 60 mg PO DAILY 30 days atorvastatin 40 mg PO DAILY blood sugar diagnostic (FreeStyle Test strips) TEST 2 TIMES DAILY blood-glucose meter (FreeStyle [place] Lite kit) TEST 2 TIMES DAILY cholecalciferol (vitamin D3) 25 mcg PO DAILY 90 days digital therapeutic,ALEJANDRA device ([employer] Digital Fernanda (migraine)) 45 min neuro stim qod and qd prn migraine. All triptans contraindicated d/t HTN. Ubrelvy ineffective. famotidine 40 mg PO BEDTIME hydrochlorothiazide 12.5 mg PO DAILY lancets (FreeStyle Lancets) use 1 lancet twice a day losartan 100 mg PO DAILY magnesium oxide 400 mg PO BEDTIME 30 days metoclopramide HCl (Reglan) 5 mg PO QID metoprolol succinate ER 50 mg PO DAILY nitroglycerin 0.4 mg sublingual Q5M PRN 30 days pantoprazole 40 mg PO DAILY pioglitazone 15 mg PO DAILY 90 days riboflavin (vitamin B2) 400 mg (4 x 100 mg) PO DAILY 90 days rimegepant (Nurtec ODT) 75 mg PO ONCE PRN 30 days MDD 1 HPI Comments Details: 07/07/25--History of Present Illness The patient is a 60 year old female presenting with a follow-up for nephrolithiasis. She underwent a right extracorporeal shock wave lithotripsy (ESWL) on October 26, 2024. A 24-hour urine collection performed a few years ago had less than optimal urine volume, urine CA, OX, and sodium was normal, with a recommendation for increased water intake. She reports being diligent about drinking water but experiences severe heartburn with lemon, which has been previously recommended. 30 minutes spent in review of records pertaining to this visit and including [id number] discussion with the patient and documentation of this visit. Results - Imaging: - Renal ultrasound (05/24/2025): No abnormalities were noted, and no renal calculi were visualized. - Labs: - Urinalysis (current visit): Negative for leukocytes and blood. 07/15/2024--Eden is a 59-year-old female who is followed for kidney stones. I reviewed the CT abdomen/pelvis results from 05/11/23 revealed no radiopaque urolith or hydroureteronephrosis seen. She had left ESWL 11/2022. Telehealth FU. s/p renal US. Had renal ultrasound 06/15/2024. Renal US--06/15/2024--Nonobstructing right lower pole calculus measuring 5 x 3 x 2 mm. Minimal prominence of the left renal collecting system, without surya hydronephrosis, nonspecific. Kidneys otherwise normal. Discussed tx options. right ESWL. Discussed risks to include but not limited to, blood in the urine, bruising to the skin, kidney hematoma, possible need for another procedure if a stone fragment obstructs the ureter while passing, possible need to repeat procedure if stone is not completely fragmented. Review of chart: 05/12/24--Giovanna is a 59-year-old female who presents today to the office for a follow-up kidney stones. She denies abdominal pain. She is hydrating, Vit B6. h/o ESWL in the past. Plan monitor kidneys, renal US. 05/14/23?She is followed today for CT/litholink. She was last seen by me on 01/21/23 for bilateral flank pain. 24-hour urine collection test, and CTAP prior was ordered during that time. Patient states that she is doing well at this time. I reviewed the CT abdomen/pelvis results from 05/11/23 revealed no radiopaque urolith or hydroureteronephrosis seen. There are bilateral extrarenal pelvis. Left adrenal adenoma. No parenchymal lesions noted. I reviewed the 24- hour urine collection results revealed urine volume was 1.62L, urine calcium was 88; urine oxalates was 26; urine citrate was 606; urine sodium was 120. I have encouraged continuing to hydrate adequately and to watch sodium in her diet otherwise results looks well. She is on HCTZ 12.5 and she has seen nephrology in past. 01/21/23--The patient continues to complain intermittent bilateral flank pain? Denies gross hematuria.?The patient states that since the ESWL she has not seen any stone fragments in the urine.? States consuming adequate amount of water.?The patient is taking vitamin B6 100 mg QD.? Abdomen US results reviewed--12/26/22-- findings of nonobstructing bilateral kidney stones.? Evaluation today UA--leukocytes negative, blood: negative. [facility] Medical History Knee pain History of blood transfusion Wears contact lenses Numbness and tingling in both hands Cubital tunnel syndrome on right Numbness and tingling in right hand Bilateral kidney stones Right upper quadrant abdominal pain Snoring Sleep difficulties Headache Palpitation Family history of cardiomyopathy Migraine Cervical cancer screening History of kidney stones Osteopenia Right shoulder pain Diabetes 1.5, managed as type 2 HTN (hypertension) CHF (congestive heart failure) Cardiomyopathy Renal calculi GERD (gastroesophageal reflux disease) On beta inez at home Right elbow pain Postmenopausal Nausea and vomiting Lower extremity edema Insomnia Medial epicondylitis, right elbow Elbow pain Epigastric pain cardiomyopathy (~2003) CAD (coronary artery disease) Dyslipidemia Fibromyalgia Surgical History History of endotracheal intubation (~2003) History of lung biopsy (~2003) Hx of cystoscopy H/O esophagogastroduodenoscopy (2022) History of carpal tunnel release Hx of dilation and curettage Hx of cataract extraction History of lumpectomy of right breast History of lumpectomy of left breast History of lithotripsy (10/26/24) History of exploratory laparotomy Hx of section History of hysteroscopy History of biopsy Stented coronary artery Hx of colonoscopy (2022) Hx of endoscopy Family History Father CVD (cardiovascular disease) HTN (hypertension) Cancer Type 2 diabetes mellitus Heart attack Mother Breast cancer HTN (hypertension) Alzheimer dementia Diabetes Cardiomyopathy Family/Other Diabetes Brother Diabetes HTN (hypertension) Sister Diabetes HTN (hypertension) Migraines Son Asthma Social History Household Members: Family and Children Household Members Other:: adult son and family Housing: Apartment Are you a primary health care marketing specialist to a significant other at home: No Do you presently have visiting nurse or other home services: No Alcohol intake: former Patient Tobacco Use Status: Former Tobacco user Tobacco use type: Cigarette Years Smoked: 3 months e-Cigarette/Vaping Use: Never Used Second Hand Smoke Exposure: No service: No Current occupational status: disabled Current occupation: right hand dominant Gender identity: Female Cognitive needs: No Hearing needs: No Vision needs: Yes (contacts) Female Reproductive History Menstrual Age of Menarche: 12 Review of Systems Const All systems reviewed & are unremarkable except as noted in HPI and below Reports no additional complaints Eyes Reports no additional complaints ENT Reports no additional complaints Card Reports no additional complaints Resp Reports no additional complaints GI Reports no additional complaints Reports as per HPI Musc Reports no additional complaints Skin/Breast Reports system reviewed and no additional complaints, except as documented Neuro Reports no additional complaints Psych Reports no additional complaints Endo Reports no additional complaints Saulo/Lymph Reports no additional complaints Aller/Immun Reports no additional complaints Results Reviewed Results Reviewed: Date of Service: 05/24/25 CLINICAL HISTORY: N20.0 - Calculus of kidney US renal Comparison: 06/15/2024 Findings: Right kidney 10.1 cm length. No significant focal abnormality. Prominent column of King noted. Left kidney 10.6 cm length. No significant focal abnormality. No bilateral hydronephrosis. Normal bilateral renal echogenicity. Impression: No significant abnormalities. Date of Service: 06/15/24 US RETROPERITONEAL LIMITED (RENAL ONLY) CLINICAL INFORMATION: Dorsalgia, unspecified. COMPARISON: CT abdomen and pelvis 05/11/2023. Ultrasound abdomen 12/26/2022. X-ray KUB 12/10/2022 and 03/28/2022. Ultrasound renal 10/21/2022. TECHNIQUE: Real-time imaging of the kidneys. FINDINGS: RIGHT KIDNEY: 10.1 x 3.6 x 5.0 cm (SAG x AP x TRV). The kidney is normal in size, contour, and echogenicity. Renal cortical thickness is normal. No focal parenchymal lesions or hydronephrosis. There is a lower pole nonobstructing calculus measuring 5 x 3 x 2 mm. LEFT KIDNEY: 9.6 x 4.2 x 4.3 cm (SAG x AP x TRV). The kidney is normal in size, contour, and echogenicity. Renal cortical thickness is normal. No calculi or focal parenchymal lesions. No hydronephrosis. There is minimal pelvic fullness, nonspecific. IMPRESSION: 1. Nonobstructing right lower pole calculus measuring 5 x 3 x 2 mm. 2. Minimal prominence of the left renal collecting system, without surya hydronephrosis, nonspecific. 3. Kidneys otherwise normal. Date of Service: 05/11/23 EXAMINATION: CT ABDOMEN AND PELVIS WITHOUT CONTRAST?? CLINICAL INFORMATION: Calculus of kidney.?? COMPARISON: Ultrasound 12/29/2022 FINDINGS: LUNG BASES: There is platelike atelectasis in the right middle lobe, lingula and left lung base. The heart size is normal. No pericardial effusion seen on the visualized images.?? LIVER, GALLBLADDER, AND BILIARY TREE: The liver is normal in size, shape, and attenuation. No focal hepatic lesion or biliary ductal dilatation is present. The gallbladder is unremarkable with no evidence of radiopaque gallstones, gallbladder wall thickening, or obvious pericholecystic inflammatory changes.?? PANCREAS: Unremarkable.?? SPLEEN: Unremarkable.?? ADRENAL GLANDS: There is a left adrenal lesion measuring 2.2 x 1.9 x 2.4 cm and -1.79 Hounsfield units likely benign adenoma. The right adrenal gland is unremarkable.?? KIDNEYS AND URETERS: The kidneys are normal in size, shape, and attenuation. Previous ultrasound described bilateral renal calculi are not appreciated on this exam. There is no caliectasis or hydronephrosis seen there is an extrarenal small bilateral renal pelvis. BLADDER: The bladder is nondistended and unremarkable..?? GASTROINTESTINAL TRACT: There is scattered stool and gas seen throughout the colon without significant distention. The small bowel loops are normal caliber. Appendix is nonvisualized. No inflammatory process, free air or free fluid seen.?? ABDOMINAL WALL: No significant hernia is appreciated.?? LYMPH NODES: Normal. VASCULAR: There is mild to sclerotic changes of abdominal aorta without aneurysmal dilatation. PELVIC VISCERA: The uterus is anteverted and appears unremarkable. No adnexal mass or free fluid seen.?? OSSEOUS STRUCTURES: Mild ventral spondylosis L3-L4, L4-L5 and L5-S1 disc levels. No aggressive lytic or sclerotic process seen.?? IMPRESSION: 1.? No radiopaque urolith or hydroureteronephrosis seen. There are bilateral extrarenal pelvis. 2.? Mild constipation. 3.? Left adrenal adenoma. Assessment & Plan Assessment & Plan (1) Right renal stone: Comment: s/p right ESWL 10/2024 Code(s): N20.0 - Calculus of kidney Category: Medical Plan Plan 1. Nephrolithiasis - The patient is status post right ESWL in October 2024 for right kidney stones, and a recent renal ultrasound confirmed the absence of any calculi. - Her urinalysis is also normal without blood or signs of infection. - She was advised to continue with a high fluid intake and to be mindful of dietary sodium to prevent future stone formation. - A follow-up renal ultrasound is scheduled in one year, with a telehealth visit to review the results. Patient Instructions: The patient had an opportunity to ask questions regarding treatment plan. The patient expressed understanding and agreement with the above treatment plan. The patient is aware they should contact our office by phone for worsening of their current condition or the appearance of new symptoms. Compliance is encouraged with any medications and followup testing that is ordered. It is a privilege to be allowed the opportunity to participate in the urologic care of your patient. If you have any questions or concerns regarding treatment for the above conditions please do not hesitate to contact me. The office telephone contact is [phone]. This note is constructed in part using voice recognition software. While every effort has been made to ensure accuracy slasher errors may have been included. Yours sincerely, Latha Beltrán MD Scribe Plan - Not visible on output: Patient was informed and verbally consented to the use of an ambient scribe for clinic note documentation during this visit. Coding Level of Care Code Est Pt Level 4 (28045) Diagnoses Right renal stone N20.0
== END 2025-07-07 11:19 | disposition home or self-care (01) ==
LOC: HO.HUSH 10:40
PROVIDERS: PCP Internal Medicine; Visit Provider Urology
DX: N20.0 Calculus of kidney (principal)
CPT/HCPCS: 99214

== ENCOUNTER → 2025-07-07 10:39 | Outpatient (BNVA) | payer OTHER, SELFPAY | PROVIDERS: PCP Internal Medicine; Visit Provider Urology | DX: N20.0 Calculus of kidney (principal); Z98.890 Other specified postprocedural states | CPT/HCPCS: 81003; 99212 ==